=== PATIENT | female | born 1985 | race Caucasian/White ===

== ENCOUNTER 2022-08-01 16:08 | Outpatient (CLI) | payer BC, SELFPAY ==
--- NOTE | ~2022-08-01 | CT_ITS ---
EXAMINATION: CT abdomen pelvis w con DATE: 08/01/2022 16:40 INDICATION: Left lower quadrant abdominal pain for 2 days. Nausea and vomiting. Diarrhea. TECHNIQUE: Computed tomography (CT) of the abdomen and pelvis was performed without intravenous contr ast. Automated exposure control and iterative reconstruction technique were employed. Exam dose: 147 3.89 mGy-cm total exam DLP. COMPARISON: None. FINDINGS: The lung bases are clear. Normal heart size. No pericardial or pleural effusion. No hepatic, splenic, pancreatic, adrenal or renal space-occupying mass lesion is detected. The gallbladder is contracted. No pericholecystic fluid or fat stranding. No bile duct or pancreatic duct dilatation. No urinary tract calculus or hydroureteronephrosis. The urinary bladder is relatively evacuated and u nremarkable otherwise. Normal appendix. There is fatty infiltration throughout the colon wall which is most often due to chr onic process such as inflammatory bowel disease. This can occur as a normal variant particularly OB s jero patient's with insulin resistance. No pericolic soft tissue fat infiltration or abscess. No alexia l obstruction, pneumatosis or intraperitoneal free air. Normal caliber of the abdominal aorta. No intraperitoneal or retroperitoneal or pelvic mass lesion or adenopathy or ascites. Small fat-containing umbilical hernia. Included skeletal structures are unremarkable. IMPRESSION: Diffuse fatty infiltration of the colon wall, which may be due to chronic process such a s inflammatory bowel disease or normal variant, particularly renal disease patients with insulin resi stance Normal appendix No bowel obstruction or free air Reviewed, dictated and finalized at [facility]. Reviewed, dictated and finalized at [facility]. [facility] IMPRESSION: Diffuse fatty infiltration of the colon wall, which may be due to chronic process such as inflammatory bowel disease or normal variant, particula rly renal disease patients with insulin resistance Normal appendix No bowel obstruction or free air
== END 2022-08-01 16:09 | disposition home or self-care (01) ==
LOC: ANHIMG 16:09
PROVIDERS: PCP Family Medicine; Visit Provider Physician Assistant
DX: R10.32 Left lower quadrant pain (principal)
CPT/HCPCS: 74177; Q9967

== ENCOUNTER 2022-08-19 09:42 | Outpatient (CLI) | payer BC, SELFPAY ==
[2022-08-19 10:01] LABS: Hematocrit 41.8 % (37.0-47.0); Hemoglobin 14.2 g/dL (12.0-15.0); Mean Corpuscular Hemoglobin 28.9 pg (26-34); Mean Corpuscular Volume 85.1 fl (80-100); Mean Platelet Volume 9.1 fl (7.4-10.4); Platelet Count Result 315 k/mm3 (150-375); Red Blood Count 4.91 M/mm3 (4.2-5.4); Red Cell Distribution Width 12.3 % (11.5-14.5); White Blood Count 5.2 K/mm3 (4.5-10.0)
[2022-08-19 10:15] LABS: Alanine Aminotransferase 26 U/L (6-35); Albumin Level 4.2 g/dL (3.5-5.1); Alkaline Phosphatase 71 U/L (38-126); Anion Gap 5 mmol/L (8-16); Aspartate Amino Transferase 25 U/L (14-36); Bilirubin,Total 0.6 mg/dL (0.2-1.3); Blood Urea Nitrogen 10 mg/dL (7-17); CRP 0.8 mg/dL (<1.0); Carbon Dioxide 29 mmol/L (22-30); Chloride 103 mmol/L (98-107); Estimated Glomerular Filt Rate > 60; Glucose 96 mg/dL (65-110); Potassium 4.2 mmol/L (3.4-5.0); Sodium 137 mmol/L (137-145)
[2022-08-19 11:12] LABS: Erythrocyte Sedimentation Rate 23 mm/hr (0-20)
[2022-08-19 18:14] LABS: Toxigenic C. Diff POSITIVE (NEGATIVE)
[2022-08-22 20:56] LABS: Gliadin AB, IgG <1.0 U/mL (<15.0); TTG IGA AB <1.0 U/mL (<15.0)
[2022-08-26 18:27] LABS: Calprotectin, Stool 15 mcg/g
== END 2022-08-19 09:43 | disposition home or self-care (01) ==
LOC: ANHLAB 09:43
PROVIDERS: PCP Family Medicine; Visit Provider Nurse Practitioner Family
DX: R19.7 Diarrhea, unspecified (principal); R11.2 Nausea with vomiting, unspecified; R93.3 Abnormal findings on diagnostic imaging of other parts of digestive tract
CPT/HCPCS: 36415; 80053; 83516; 83993; 85027; 85652; 86140; 86255; 87045; 87177; 87209; 87427; 87493

== ENCOUNTER 2022-09-19 01:26 | Day surgery (SDC) | payer BC, SELFPAY ==
[2022-09-19 12:10] VITALS: BP 146/86; PULSE 98; RESP 18; TEMP 35.8; O2SAT 99; BMI 41.8
[2022-09-19] MEDS: LACTATED RINGERS 1,000 ML 150 ML IV CONT (12:26)
--- NOTE | 2022-09-19 12:29 | PM.HPGS ---
History of Present Illness History of Present Illness Consent: Risks, benefits, and alternatives have been discussed and questions answered. Patient agrees to proceed with procedure. Chief complaint: Nausea, Vomiting, diarrhea, hx colon polyps Narrative: Holly Flores is a 37 year old female with diarrhea over 3 years, had colonoscopy 2018 that showed polyp, also lately with nausea and vomiting, C diff stool + one month ago and treated with dificid but no major difference. CT scan revealed?Diffuse fatty infiltration of the colon wall. Never had egd. Review of Systems Constitutional: Constitutional: Denies headache(s) and Denies weakness Eyes: Eyes: Denies blurry vision ENT: Reports Normal hearing present, Denies headache(s) and Denies neck pain Cardiovascular: Cardiovascular: Denies chest pain and Denies dyspnea Respiratory: Respiratory: Denies dyspnea Gastrointestinal: Gastrointestinal: Reports no additional gastrointestinal complaints Genitourinary: Genitourinary: Denies dysuria Musculoskeletal: Musculoskeletal: Denies neck pain Integumentary/Breasts: Skin/Breast: Denies dry skin Neurologic: Reports Normal hearing present, Denies headache(s) and Denies weakness Psychiatric: Psychiatric: Denies anxiety Endocrine: Endocrine: Denies change in body appearance Hematologic/Lymphatic: Hematologic/Lymphatic: Denies easy bleeding Allergic/Immunologic: Allergic/Immunologic: Denies urticaria PMFSH Past Medical History Medical History (Updated 08/18/22 @ 09:45 by India Olson APN-Cindy) Allergies Asthma Depression Nausea and vomiting Surgical History Surgical History History of hysterectomy Family History Family History Father Diabetes mellitus Hypertension Mother Hypertension Depression Sibling Asthma Grandparent Cancer Depression Heart disease Grandparent Alcoholism Social History Social History (Updated 08/01/22 @ 10:34 by Brayan Chan MA) Smoking status: Never smoker Alcohol intake: current Drinks per week: 2 Alcohol use details: Wine Substance use: never Substance use type: other Other substance usage details: THC Lack of Transportation: No Lack of Food: Never True Current Housing: I Have Housing Concerned About Future Housing: No Difficulty Paying Gas/Electric Bills: No Difficulty Paying for Meds: No Currently Unemployed: No Education: Master's Degree or Higher Difficulty w/ Childcare or Family Care: No Living arrangements: with family Occupation/Education: occupation 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[employer] Gender identity (if verbalized by the patient): Female Spiritual care concerns: No Meds Home Medications and Allergies Home Medications Medication Instructions Recorded Confirmed Type albuterol sulfate 90 mcg/actuation 1 puff inhalation Q4H PRN 08/19/21 09/19/22 History aerosol inhaler Shortness Of Breath aripiprazole 20 mg tablet (Abilify) 20 mg PO DAILY 08/19/21 09/19/22 History bupropion HCl 300 mg 24 hr tablet, 300 mg PO DAILY 08/19/21 09/19/22 History extended release cetirizine 10 mg tablet (Zyrtec) 10 mg PO DAILY 08/19/21 09/19/22 History fluoxetine 40 mg capsule (Prozac) 40 mg PO DAILY 08/19/21 09/19/22 History Allergies Allergy/AdvReac Type Severity Reaction Status Date / Time No Known Allergies Allergy Verified 09/19/22 12:13 Vital Signs Vital Signs - 24 hr 09/19/22 12:10 Temperature 96.5 F L Pulse Rate 98 Respiratory Rate 18 Blood Pressure 146/86 H Pulse Oximetry 99 Oxygen Delivery Room Air Exam Const: General: comfortable and no acute distress HENMT: Face/Nose/Sinus: Normal nares present Eyes: General: appearance normal, both eyes and all related structures Neck: Neck: no JVD Resp: Auscultation: clear to auscultation bilat
--- NOTE | 2022-09-19 12:31 | WPDANESEPPF ---
Anes - Initial Pre Proc Eval Procedure: Operation Date: 09/19/22 13:30 Proposed Procedures p Esophagogastroduodenoscopy & Colonoscopy - Marky López MD Date/Time: 09/19/22 12:32 Surgeon: Marky Lópze MD Pre Op Diagnosis: Nausea, Vomiting, diarrhea, hx colon polyps Patient Data Age: 37 Gender: F Height: 1.73 m Weight: 124.7 kg Last Vital Signs Temp 96.5 F L 09/19/22 12:10 Pulse 98 09/19/22 12:10 Resp 18 09/19/22 12:10 BP 146/86 H 09/19/22 12:10 Pulse Ox 99 09/19/22 12:10 O2 Del Method Room Air 09/19/22 12:10 Allergies Allergy/AdvReac Type Severity Reaction Status Date / Time No Known Allergies Allergy Verified 09/19/22 12:13 Home Medications Medication Instructions Recorded Confirmed Type albuterol sulfate 90 mcg/actuation 1 puff inhalation Q4H PRN 08/19/21 09/19/22 History aerosol inhaler Shortness Of Breath aripiprazole 20 mg tablet (Abilify) 20 mg PO DAILY 08/19/21 09/19/22 History bupropion HCl 300 mg 24 hr tablet, 300 mg PO DAILY 08/19/21 09/19/22 History extended release cetirizine 10 mg tablet (Zyrtec) 10 mg PO DAILY 08/19/21 09/19/22 History fluoxetine 40 mg capsule (Prozac) 40 mg PO DAILY 08/19/21 09/19/22 History Patient hx anesthesia problems: none Family hx anesthesia problems: none Results Review: All pre-operative results and documents have been reviewed as part of the pre-operative evaluation. [facility] Past Medical History Medical History (Updated 08/18/22 @ 09:45 by JAELYN Ellis) Allergies Asthma Depression Nausea and vomiting Surgical History Surgical History History of hysterectomy Family History Family History Father Diabetes mellitus Hypertension Mother Hypertension Depression Sibling Asthma Grandparent Cancer Depression Heart disease Grandparent Alcoholism Social History Social History (Updated 08/01/22 @ 10:34 by Brayan Chan MA) Smoking status: Never smoker Alcohol intake: current Drinks per week: 2 Alcohol use details: Wine Substance use: never Substance use type: other Other substance usage details: THC Lack of Transportation: No Lack of Food: Never True Current Housing: I Have Housing Concerned About Future Housing: No Difficulty Paying Gas/Electric Bills: No Difficulty Paying for Meds: No Currently Unemployed: No Education: Master's Degree or Higher Difficulty w/ Childcare or Family Care: No Living arrangements: with family Occupation/Education: occupation 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 Informed Consent: The patient's anesthetic plan and its attendant risks and benefits were discussed with the patient/family/POA. Questions were solicited and answers provided to the satisfaction of the patient/family/POA.
--- NOTE | 2022-09-19 12:58 | SUR.OPER ---
EGD START: 1239; END: 1243. COLONOSCOPY START: 1247; END: 1257.
[2022-09-19 13:03] VITALS: BP 118/71; PULSE 78; RESP 20; O2SAT 96
[2022-09-19 13:13] VITALS: BP 136/88; PULSE 83; RESP 20; O2SAT 100
[2022-09-19 13:23] VITALS: BP 136/84; PULSE 86; RESP 20; O2SAT 100
== END 2022-09-19 13:31 | disposition home or self-care (01) ==
PROVIDERS: PCP Family Medicine; Visit Provider Internal Medicine Gastroenterology
PROC: 0DJ08ZZ Inspection of Upper Intestinal Tract, Via Natural or Artificial Opening Endoscopic (ICD-10-PCS; CPT 43235; principal; 2022-09-19 13:30)
DX: R19.7 Diarrhea, unspecified (principal); K21.00 Gastro-esophageal reflux disease with esophagitis, without bleeding; K44.9 Diaphragmatic hernia without obstruction or gangrene; Z86.010 Personal history of colon polyps; J45.909 Unspecified asthma, uncomplicated; F32.A Depression, unspecified; Z79.51 Long term (current) use of inhaled steroids; E66.01 Morbid (severe) obesity due to excess calories; Z68.41 Body mass index [BMI] 40.0-44.9, adult
CPT/HCPCS: 45380; 43239; 88305; J2704; J7120

== ENCOUNTER 2023-03-03 17:27 | Emergency (ER) | payer BC, SELFPAY ==
[2023-03-03 17:32] VITALS: BP 155/114; PULSE 108; RESP 16; TEMP 37.1; O2SAT 98
[2023-03-03 18:13] LABS: Basophils Absolute Auto 0.1 K/mm3 (0.0-0.1); Basophils Percent Auto 0.7 % (0.2-1.2); Eosinophils Absolute Auto 0.1 K/mm3 (0-0.3); Eosinophils Percent Auto 0.6 % (0-4.4); Hematocrit 41.6 % (37.0-47.0); Hemoglobin 14.2 g/dL (12.0-15.0); Immature Granulocyte Absolute 0.02 K/mm3 (0.00-0.031); Immature Granulocyte Percent A 0.2 % (0-0.5); Lymphocytes Absolute Auto 1.23 K/mm3 (0.9-3.2); Lymphocytes Percent Auto 13.9 % (18.3-44.2); Mean Corpuscular HGB Conc 34.1 g/dl (32-36); Mean Corpuscular Volume 84.9 fl (80-100); Mean Platelet Volume 9.2 fl (7.4-10.4); Monocytes Absolute Auto 0.5 K/mm3 (0.1-0.6); Monocytes Percent Auto 5.3 % (2.6-8.5); Neutrophils Percent Auto 79.3 % (45.5-73.1); Platelet Count Result 279 k/mm3 (150-375); Red Cell Distribution Width 12.4 % (11.5-14.5); White Blood Count 8.8 K/mm3 (4.5-10.0)
[2023-03-03 18:34] LABS: Alanine Aminotransferase 24 U/L (6-35); Albumin Level 4.3 g/dL (3.5-5.1); Alkaline Phosphatase 79 U/L (38-126); Anion Gap 6 mmol/L (8-16); Aspartate Amino Transferase 21 U/L (14-36); Bilirubin,Total 0.7 mg/dL (0.2-1.3); Blood Urea Nitrogen 7 mg/dL (7-17); Calcium 9.7 mg/dL (8.4-10.2); Carbon Dioxide 24 mmol/L (22-30); Chloride 104 mmol/L (98-107); Estimated CRCL calculation 94 ml/min; Estimated Glomerular Filt Rate > 60; Glucose 97 mg/dL (65-110); Potassium 3.5 mmol/L (3.4-5.0); Sodium 134 mmol/L (137-145)
[2023-03-03 18:35] LABS: Appearance Urine Cloudy (Clear); Bacteria Urine 3+ /hpf; Bilirubin Urine Negative (Negative); Blood Urine Trace (Negative); Color Urine Yellow (Yellow); Glucose Urine UA Negative (Negative); Ketones Urine Negative (Negative); Leukocyte Esterase Ur Negative LEU/UL (Negative); Nitrate Urine Negative (Negative); Protein Urine Negative (Negative); Specific Grav Ur 1.018 (1.001-1.035); Squamous Epithelial Cell Urine Few /hpf (Few); Urobilinogen Urine 0.2 mg/dL (<2.0); WBC Urine 0-5 /hpf; pH Urine 5.5 (5.0-9.0)
[2023-03-03 18:36] LABS: Amphetamine Screen Urine Negative (Negative); Barbiturate Screen Urine Negative (Negative); Benzodiazepines Screen Urine Negative (Negative); Cannabinoid Screen Urine Positive (Negative); Cocaine Screen Urine Negative (Negative); Methadone Screen Urine Negative (Negative); Opiate Screen Urine Negative (Negative); Phencyclidine Screen Urine Negative (Negative)
[2023-03-03 18:37] LABS: Ethanol < 10 mg/dL (<10)
[2023-03-03 18:42] LABS: Add Urine Microscopic? YES
--- NOTE | 2023-03-03 18:58 | ED.PSYCH ---
HPI - Psych General Chief Complaint: Psychiatric Symptoms <Elzbieta Oseguera MD - Last Filed: 03/03/23 22:31> Stated Complaint: SI <Elzbieta Oseguera MD - Last Filed: 03/03/23 22:31> Time Seen by Provider: 03/03/23 17:37 <Elzbieta Oseguera MD - Last Filed: 03/03/23 22:31> History of Present Illness HPI Narrative: Patient is a 37-year-old female with a history of depression presenting with suicidal ideation. Patient states that she has been compliant with her antidepressants but unfortunately her depression has been worsening over the last month. States that for the last several days she has been contemplating ending her life. States that she does have a plan. States that she was last hospitalized for psychiatric reasons in 2011 after a suicide attempt. She went to see her psychiatrist today who advised that she come to the ER for hospitalization. Patient denies HI, hallucinations, paranoia. She denies physical pain. <Elzbieta Oseguera MD - Last Filed: 03/03/23 22:31> Related Data Home Medications: Home Medications Medication Instructions Recorded Confirmed albuterol sulfate 90 mcg/actuation 1 puff inhalation Q4H PRN 08/19/21 09/19/22 aerosol inhaler Shortness Of Breath aripiprazole 20 mg tablet (Abilify) 20 mg PO DAILY 08/19/21 09/19/22 bupropion HCl 300 mg 24 hr tablet, 300 mg PO DAILY 08/19/21 09/19/22 extended release cetirizine 10 mg tablet (Zyrtec) 10 mg PO DAILY 08/19/21 09/19/22 fluoxetine 40 mg capsule (Prozac) 40 mg PO DAILY 08/19/21 09/19/22 lamotrigine 25 mg tablet 25 mg PO BID 12/25/22 <Elzbieta Oseguera MD - Last Filed: 03/03/23 22:31> Allergies/Adverse Reactions: Allergies Allergy/AdvReac Type Severity Reaction Status Date / Time No Known Allergies Allergy Verified 03/03/23 17:35 <Elzbieta Oseguera MD - Last Filed: 03/03/23 22:31> Review of Systems Review of Systems: All systems reviewed & are unremarkable except as noted in HPI and below <Elzbieta Oseguera MD - Last Filed: 03/03/23 22:31> [facility] Past Medical History Medical History: Medical History Allergies Asthma Depression Erosive esophagitis Irritable bowel syndrome with diarrhea Nausea and vomiting <Elzbieta Oseguera MD - Last Filed: 03/03/23 22:31> Surgical History Surgical History: Surgical History History of hysterectomy <Elzbieta Oseguera MD - Last Filed: 03/03/23 22:31> Family History Family History: Family History Father Diabetes mellitus Hypertension Mother Hypertension Depression Sibling Asthma Grandparent Cancer Depression Heart disease Grandparent Alcoholism <Elzbieta Oseguera MD - Last Filed: 03/03/23 22:31> Social History Social History: Social History Smoking status: Never smoker Alcohol intake: current Drinks per week: 2 Alcohol use details: Wine Substance use: never Substance use type: marijuana Other substance usage details: THC Lack of Transportation: No Lack of Food: Never True Current Housing: I Have Housing Concerned About Future Housing: No Difficulty Paying Gas/Electric Bills: No Difficulty Paying for Meds: No Currently Unemployed: No Education: Master's Degree or Higher Difficulty w/ Childcare or Family Care: No Living arrangements: with family Occupation/Education: occupation 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 EYES: PERRLA and EOMI. ENT: Nares clear, no rhino
[2023-03-03 19:09] LABS: SARS-CoV-2 RNA PCR Negative (Negative)
[2023-03-03 22:18] LABS: T4 Thyroxine 8.85 ug/dL (5.53-11.0)
--- NOTE | 2023-03-03 22:36 | PC.NURSE ---
Crisis called-spoke with Sandra. States she will have a director of social work head this way.
--- NOTE | 2023-03-04 00:59 | PC.NURSE ---
Spoke with Summer from [facility] who states she needs a Tylenol level, test, and specification in EDP note of medical clearance. Consent forms faxed from their facility for patient to sign. Summer states she has already talked to the physician who is accepting.
[2023-03-04 01:34] LABS: Acetaminophen < 10 ug/mL (10-30); Salicylate < 1.0 mg/dL (2-20)
[2023-03-04 01:37] VITALS: BP 144/98; PULSE 90; RESP 15; O2SAT 98
[2023-03-04 01:49] LABS: Beta HCG Quantitative < 2.39 mIU/ML
--- NOTE | 2023-03-04 02:39 | PC.NURSE ---
Patient accepted at [facility] in [place], [place].
--- NOTE | 2023-03-04 05:11 | PC.NURSE ---
Updated [facility] that patient is going to closer facility. Patient is accepted at [facility]. Accepting MD; Dr. Chaney.
== END 2023-03-04 05:46 ==
PROVIDERS: Emergency Medicine; Emergency Provider Emergency Medicine; PCP Family Medicine
DX: R45.851 Suicidal ideations (principal); F32.A Depression, unspecified; Z20.822 Contact with and (suspected) exposure to COVID-19; J45.909 Unspecified asthma, uncomplicated; K22.10 Ulcer of esophagus without bleeding; K58.0 Irritable bowel syndrome with diarrhea; Z90.710 Acquired absence of both cervix and uterus
CPT/HCPCS: 36415; 80053; 80307; 81001; 84436; 84443; 84702; 85025; 87635; 99285

== ENCOUNTER 2023-04-23 10:37 | Outpatient (CLI) | payer BC, SELFPAY ==
[2023-04-23 13:21] LABS: HIV 1/2 Ab P24 Ag Result Negative (Negative)
[2023-04-23 13:31] LABS: Hepatitis B Surface Antigen Negative (Negative)
[2023-04-23 13:36] LABS: HAV RESULT Negative (Negative); Hepatitis B Core IgM Result Negative (Negative)
[2023-04-23 13:48] LABS: Hepatitis C Virus Antibody Negative (Negative)
[2023-04-23 16:03] LABS: Rapid Plasma Reagin Non-Reactive (NonReactive)
[2023-04-27 09:27] LABS: FSH <0.7 mIU/mL (***)
[2023-05-01 19:44] LABS: Estradiol, Ultrasensitive 322 pg/mL
== END 2023-04-23 10:38 | disposition home or self-care (01) ==
LOC: ANHLAB 10:39
PROVIDERS: PCP Family Medicine; Visit Provider Student in an Organized Health Care Education/Training Program
DX: Z20.2 Contact with and (suspected) exposure to infections with a predominantly sexual mode of transmission (principal); R61 Generalized hyperhidrosis
CPT/HCPCS: 36415; 80074; 82670; 83001; 84443; 86592; 86695; 86696; 86703; G0432

== ENCOUNTER 2023-08-15 18:18 | Emergency (ER) | payer BC, SELFPAY ==
[2023-08-15] VITALS (10 sets, daily range): BP systolic 136–161; BP diastolic 86–105; PULSE 90–110; RESP 14–29; TEMP 36.7; O2SAT 96–100
--- NOTE | ~2023-08-15 | CT_ITS ---
EXAMINATION: CTA chest PE protocol DATE: 08/16/2023 08:00 SLEEP TECH INDICATION: Chest pain and tachycardia TECHNIQUE: Computed tomographic angiography (CTA) of the chest was performed with 100 mL Omnipaque-35 0 intravenous contrast. The dose-length product was 629.15 mGy-cm. Maximum intensity projection 3D-re constructions of the aorta and other arteries were constructed by the technologist on a separate work station. COMPARISON: Chest x-ray dated 08/15/2023. FINDINGS: Study technically adequate without evidence for pulmonary embolism. No thoracic lymphadenop athy. No significant abnormality of the aorta. No pleural or pericardial effusion. Upper abdomen is u nremarkable. There is dependent atelectasis. No pneumothorax. No focal airspace consolidation. IMPRESSION: 1. No acute cardiopulmonary disease. No evidence for pulmonary embolism. Reviewed, dictated and finalized at location [facility]. P TECH
--- NOTE | ~2023-08-15 | XR_ITS ---
EXAMINATION: XR chest 2V Exam Date/Time: 08/15/2023 18:50 TOOL ROOM SUPERVISOR HISTORY: chest pain, racing heart, anxiety Comparison: None. RESULT: Lines, tubes, and devices: None. Lungs and pleura: Clear. Cardiomediastinal silhouette: Normal. Other: No acute osseous or upper abdominal finding. IMPRESSION: No acute cardiopulmonary process. Reviewed, dictated and finalized at location [facility]. ROOM SUPERVISOR
--- NOTE | 2023-08-15 18:19 | ECG_ITS ---
Measurements Intervals [place] Rate: 117 P: -12 [place]: 108 QRS: 15 QRSD: 81 T: 15 QT: 354 QTc: 495 Interpretive Statements SINUS TACHYCARDIA WITH SHORT MA INTERVAL NONSPECIFIC ST & T-WAVE ABNORMALITY- DIFFUSE LEADS BASELINE ARTIFACT- I, III, AVR, AVL, AVF ABNORMAL ECG NO PREVIOUS ECG AVAILABLE FOR COMPARISON Electronically Signed On 08-15-2023 19:31:13 RUG DYER HELPER by Remi Samuels D.O.
[2023-08-15 18:47] LABS: Basophils Absolute Auto 0.1 K/mm3 (0.0-0.1); Basophils Percent Auto 0.5 % (0.2-1.2); Eosinophils Absolute Auto 0.1 K/mm3 (0-0.3); Eosinophils Percent Auto 0.6 % (0-4.4); Hematocrit 41.9 % (37.0-47.0); Hemoglobin 14.1 g/dL (12.0-15.0); Immature Granulocyte Absolute 0.02 K/mm3 (0.00-0.031); Immature Granulocyte Percent A 0.2 % (0-0.5); Lymphocytes Absolute Auto 2.64 K/mm3 (0.9-3.2); Lymphocytes Percent Auto 27.8 % (18.3-44.2); Mean Corpuscular HGB Conc 33.7 g/dl (32-36); Mean Corpuscular Volume 83.3 fl (80-100); Mean Platelet Volume 9.2 fl (7.4-10.4); Monocytes Absolute Auto 0.4 K/mm3 (0.1-0.6); Monocytes Percent Auto 4.6 % (2.6-8.5); Neutrophils Absolute Auto 6.3 K/mm3 (1.3-6.7); Neutrophils Percent Auto 66.3 % (45.5-73.1); Platelet Count Result 315 k/mm3 (150-375); Red Blood Count 5.03 M/mm3 (4.2-5.4); Red Cell Distribution Width 12.4 % (11.5-14.5); White Blood Count 9.5 K/mm3 (4.5-10.0)
[2023-08-15 19:03] LABS: Alanine Aminotransferase 24 U/L (6-35); Albumin Level 4.2 g/dL (3.5-5.1); Alkaline Phosphatase 83 U/L (38-126); Anion Gap 11 mmol/L (8-16); Aspartate Amino Transferase 20 U/L (14-36); Bilirubin,Total 0.4 mg/dL (0.2-1.3); Blood Urea Nitrogen 13 mg/dL (7-17); Calcium 9.5 mg/dL (8.4-10.2); Carbon Dioxide 17 mmol/L (22-30); Chloride 110 mmol/L (98-107); Estimated CRCL calculation 103 ml/min; Estimated Glomerular Filt Rate > 60; Glucose 116 mg/dL (65-110); Lipase 99 U/L (23-300); Potassium 3.6 mmol/L (3.4-5.0); Sodium 138 mmol/L (137-145)
[2023-08-15 19:14] LABS: Troponin I < 0.012 ng/mL (0.000-0.034)
[2023-08-15 19:57] LABS: Prothrombin Time 13.1 Seconds (11.1-14.7)
[2023-08-15 19:58] LABS: Partial Thromboplastin Time 25.2 SECONDS (22.3-36.8)
--- NOTE | 2023-08-15 22:05 | ECG_ITS ---
Measurements Intervals [place] Rate: 88 P: 21 [place]: 145 QRS: 33 QRSD: 89 T: 36 QT: 374 QTc: 454 Interpretive Statements SINUS RHYTHM NORMAL ECG COMPARED TO ECG 08/15/2023 18:33:13 SINUS RHYTHM NOW PRESENT Electronically Signed On 08-16-2023 8:08:28 SCENIC ARTIST by Remi Samuels D.O.
[2023-08-15] MEDS: ASPIRIN 81 MG CHEWABLE TABLET 324 MG PO (22:09)
[2023-08-15 22:43] LABS: Troponin I < 0.012 ng/mL (0.000-0.034)
--- NOTE | 2023-08-15 22:59 | PC.NURSE ---
Patient taken to CT at this time.
--- NOTE | 2023-08-16 00:49 | ED.GENADULT ---
HPI - General Adult General Chief complaint: Chest Pain Stated complaint: high bp and chest pain Time Seen by Provider: 08/15/23 21:44 History of Present Illness HPI narrative: patient is a 38-year-old female who presents emergency department with chief complaint of chest pain and high blood pressure. Patient reports that she is on medications by her primary psychiatrist and reported that her up blood pressures been running on the high side the last few days the patient has been keeping track of this and noticed that it has currently been running high the patient states she had some sharp type pain in the left side of her chest earlier today and was concerned do this. The patient states that she has no prior history of thromboembolic disease reports that she has no prior cardiac disease and has no family history for early cardiac disease. Patient reports that her heart has been beating fast with this and reports that she felt a little short of breath. Related Data Home Medications Medication Instructions Recorded Confirmed albuterol sulfate 90 mcg/actuation 1 puff inhalation Q4H PRN 08/19/21 09/19/22 aerosol inhaler Shortness Of Breath aripiprazole 20 mg tablet (Abilify) 20 mg PO DAILY 08/19/21 09/19/22 bupropion HCl 300 mg 24 hr tablet, 300 mg PO DAILY 08/19/21 09/19/22 extended release cetirizine 10 mg tablet (Zyrtec) 10 mg PO DAILY 08/19/21 09/19/22 fluoxetine 40 mg capsule (Prozac) 40 mg PO DAILY 08/19/21 09/19/22 lamotrigine 25 mg tablet 25 mg PO BID 12/25/22 esketamine 84 mg (28 mg x 3) nasal spray intranasal 04/23/23 spray (Sprav[place]) hydroxyzine HCl 50 mg tablet 50 mg PO 04/23/23 Allergies Allergy/AdvReac Type Severity Reaction Status Date / Time No Known Allergies Allergy Verified 04/23/23 09:22 Review of Systems Review of Systems: A 10 system review of systems was completed on the patient and is negative except for what is stated in the HPI. Nursing and ancillary documentation was reviewed. [facility] Past Medical History Medical History Allergies Asthma Depression Erosive esophagitis Exposure to sexually transmitted disease (STD) Irritable bowel syndrome with diarrhea Nausea and vomiting Normal colonoscopy Surgical History Surgical History History of hysterectomy Family History Family History Father Diabetes mellitus Hypertension Mother Hypertension Depression Sibling Asthma Grandparent Cancer Depression Heart disease Grandparent Alcoholism Social History Social History Smoking status: Never smoker Alcohol intake: current Drinks per week: 2 Alcohol use details: Wine Substance use: current Substance use type: marijuana Other substance usage details: THC Lack of Transportation: No Lack of Food: Never True Current Housing: I Have Housing Concerned About Future Housing: No Difficulty Paying Gas/Electric Bills: No Difficulty Paying for Meds: No Currently Unemployed: No Education: Master's Degree or Higher Difficulty w/ Childcare or Family Care: No Living arrangements: with family Occupation/Education: occupation 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 HEAD: Normocephalic, atraumatic. EYES: PERRLA and EOMI. ENT: Nares clear, no rhinorrhea or epistaxis. Mucous membranes moist. NECK: Supple. CHEST: Clear to auscultation. No respiratory distress. HEART: Regular rate and rhythm. No murmur heard. Normal peripheral pulses. ABDOMEN: Soft, nontender, nondistended, normal active bowel sounds.
[2023-08-16 01:00] LABS: Troponin I < 0.012 ng/mL (0.000-0.034)
[2023-08-16 01:15] VITALS: BP 135/86; PULSE 94; RESP 17; O2SAT 100
== END 2023-08-16 01:17 | disposition home or self-care (01) ==
PROVIDERS: Emergency Medicine; Emergency Provider Emergency Medicine; PCP Family Medicine
DX: R07.9 Chest pain, unspecified (principal); J45.909 Unspecified asthma, uncomplicated; K58.0 Irritable bowel syndrome with diarrhea; F32.A Depression, unspecified; Z90.710 Acquired absence of both cervix and uterus; R00.0 Tachycardia, unspecified; R94.31 Abnormal electrocardiogram [ECG] [EKG]
CPT/HCPCS: 36415; 71046; 71275; 80053; 83690; 84484; 85025; 85610; 85730; 93005; 99284; A9270; Q9967

== ENCOUNTER 2023-09-01 09:32 | Outpatient (CLI) | payer BC, SELFPAY ==
[2023-09-01 20:48] LABS: Free T4 Free Thyroxine 1.14 ng/mL (0.78-2.19); Vitamin D 25 Hydroxy 16.3 ng/mL
[2023-09-01 21:56] LABS: Hemoglobin A1C 4.8 % (<5.7)
[2023-09-04 14:03] LABS: Thyroid Stimulating Immunoglob <89 % baseline (<140)
[2023-09-06 05:13] LABS: Thyroid Peroxidase Antibodies <1 IU/mL (<9)
[2023-09-07 18:37] LABS: Thyrotropin Receptor Antibody <1.00 IU/L (<=2.00)
== END 2023-09-01 09:33 | disposition home or self-care (01) ==
LOC: ANHWCLAB 09:33
PROVIDERS: PCP Family Medicine; Visit Provider Internal Medicine
DX: E03.8 Other specified hypothyroidism (principal)
CPT/HCPCS: 36415; 82306; 82607; 83036; 83519; 84439; 84443; 84445; 86376

== ENCOUNTER 2024-07-04 07:49 | Outpatient (CLI) | payer BC, SELFPAY ==
[2024-07-04 08:40] LABS: Basophils Percent Auto 0.7 % (0.2-1.2); Eosinophils Absolute Auto 0.1 K/mm3 (0-0.3); Eosinophils Percent Auto 1.2 % (0-4.4); Hematocrit 38.5 % (37.0-47.0); Hemoglobin 13.1 g/dL (12.0-15.0); Immature Granulocyte Absolute 0.02 K/mm3 (0.00-0.031); Immature Granulocyte Percent A 0.4 % (0-0.5); Lymphocytes Absolute Auto 1.22 K/mm3 (0.9-3.2); Lymphocytes Percent Auto 21.4 % (18.3-44.2); Mean Corpuscular Hemoglobin 28.7 pg (26-34); Mean Corpuscular Volume 84.4 fl (80-100); Mean Platelet Volume 9.4 fl (7.4-10.4); Monocytes Absolute Auto 0.3 K/mm3 (0.1-0.6); Monocytes Percent Auto 4.7 % (2.6-8.5); Neutrophils Absolute Auto 4.1 K/mm3 (1.3-6.7); Neutrophils Percent Auto 71.6 % (45.5-73.1); Platelet Count Result 280 k/mm3 (150-375); Red Blood Count 4.56 M/mm3 (4.2-5.4); Red Cell Distribution Width 12.9 % (11.5-14.5); White Blood Count 5.7 K/mm3 (4.5-10.0)
[2024-07-04 09:08] LABS: Alanine Aminotransferase 17 U/L (6-35); Albumin Level 3.8 g/dL (3.5-5.1); Alkaline Phosphatase 73 U/L (38-126); Anion Gap 7 mmol/L (4-12); Aspartate Amino Transferase 19 U/L (14-36); Bilirubin Indirect 0.2 mg/dL (0-1.1); Bilirubin,Total 0.4 mg/dL (0.2-1.3); Blood Urea Nitrogen 9 mg/dL (7-17); Carbon Dioxide 24 mmol/L (22-30); Chloride 107 mmol/L (98-107); Cholesterol 169 mg/dL (0-200); Estimated Glomerular Filt Rate > 60; Glucose 102 mg/dL (65-110); HDL Direct 42 mg/dL; Potassium 3.7 mmol/L (3.4-5.0); Sodium 138 mmol/L (137-145); Triglycerides 162 mg/dL (<150)
[2024-07-04 09:19] LABS: LDL Cholesterol Direct 95 mg/dL
[2024-07-04 11:34] LABS: Vitamin D 25 Hydroxy 28.4 ng/mL
[2024-07-04 12:37] LABS: Hemoglobin A1C 4.7 % (<5.7)
--- OUTSIDE RECORDS SUMMARY | 2024-07-10 00:20 | XMS_ITS ---
Author Organization [facility] [employer] Address [address] [facility] [address] [place] [address] Care Team Providers Care Radiology Nurse Name Role Phone Myles Pruett DO Primary Care Provider Unavailab Naomi Connell Unavailable [phone] Gary Huerta Unavailable [phone] Allergies No Known Allergies REASON FOR VISIT reports moderate levels of depression and anxiety, along with poor sleep quality and nightmares. Medications Medication SIG (Take, Route, Frequency, Duration) Notes Start Date End Date Status Wegovy Active Prazosin HCl 1 MG 1 capsule at bedtime Oral Once a day As needed do not take if blood pressure is below 110/70 05/27/2024 Active amLODIPine Besylate 5 MG TAKE 1 TABLET B Y MOUTH DAILY Oral for 90 Days Active Omeprazole 20 MG Oral for 90 Days Active Prazosin HCl 1 MG 1 capsule at bedtime Orally Once a day for 90 days As needed do not take if blood pressure is below 110/70 05/27/2024 08/25/2024 Active Spravato (84 MG Dose) 28 MG/DEVICE 3 sprays in each nostril Nasal every other week 05/06/2024 Active lamoTRIgine 150 MG 1 tablet Oral once a day for 90 days 11/27/2023 Active FLUoxetine HCl 40 MG 1 capsule Oral Once a day for 90 days Active ARIPiprazole 15 MG 1 tablet Oral at bed time for 90 days 11/27/2023 Active Ramelteon 8 MG 1 tablet at bedtime as needed Orally Once a day for 30 days 05/06/2024 08/03/2024 Active buPROPion HCl ER (XL) 300 MG 1 tablet every morning Oral Once a day for 90 days 11/27/2023 Active Social History Tobacco Use: Social History Observation Description Date Details (start date - stop date) Never Smoker NA - NA Sex Assigned At : Social History Observation Description Sex Assigned At Female Tobacco Control (Standard) Question Answer Notes Tobacco use: Nonsmoker Vital Signs Blood pressure systolic 113 mm Hg 05/27/20 24 Blood pressure diastolic 80 mm Hg 024 Heart Rate 84 /min 05/27/2024 Height 68.00 in 05/27/2024 Height-cm 172.72 cm 05/27/2024 Encounters Encounter Location Date Provider Diagnosis [facility] [employer] [address] [place] [address] 05/27/2024 Gary Huerta Major depressive disorder, recurrent severe without psychotic features F33.2 and Nightmares F51.5 Assessments Encounter Date Diagnosis (ICD Code) Assessment Notes Treatment Notes Treatment Clinical Notes Section Notes 05/27/2024 Major depressive disorder, recurrent severe without psychotic features (ICD-10 - F33.2) continue current treatment 1. Depression - She reports a depression severity of 5/10. - No recent medication changes. - Plan: a. Continue current antidepressant regimen. b. Monitor her mood and adjust medications as needed. c. Encourage her to engage in therapy and self-care activities. 2. Anxiety - She reports an anxiety severity of 5/10. - No recent medication changes. - Plan: a. Continue current anxiolytic regimen. b. Monitor her anxiety levels and adjust medications as needed. c. Encourage her to engage in therapy and self-care activities. 3. Suicidal Ideation and Self-Harm - She denies any thoughts of suicide or self-harm. - Plan: a. Continue to monitor for any changes in mood or suicidal ideation. b. Encourage her to reach out to support system and mental health professionals if thoughts of self-harm or suicide arise. 4. Psychosis - She denies any hallucinations, delusions, or paranoia. - Plan: a. Continue to monitor for any signs of psychosis. 5. Sleep Disturbance - She reports poor sleep quality and nightmares. - Plan: a. Refill prazosin prescription to help with nightmares and sleep quality. b. Encourage her to practice good sleep hygiene. c. Consider non-pharmacologica l interventions, such as relaxation techniques and cognitive-behavior al therapy for insomnia (CBT-I). 6. Appetite - She reports normal appetite. - Plan: a. Continue to monitor appetite and adjust medications as needed if changes occur. 7. Physical Health - She denies any physical complaints. - Plan: a. Encourage her to maintain regular check-ups with primary care provider. b. Advise her to report any new physical concerns. 8. Medications - No recent medication changes reported by patient. - Plan: a. Continue current medication regimen. b. Refill prazosin as discussed for sleep and nightmares. 05/27/2024 Nightmares (ICD-10 - F51.5) 1. Depression - She reports a depression severity of 5/10. - No recent medication changes. - Plan: a. Continue current antidepressant regimen. b. Monitor her mood and adjust medications as needed. c. Encourage her to engage in therapy and self-care activities. 2. Anxiety - She reports an anxiety severity of 5/10. - No recent medication changes. - Plan: a. Continue current anxiolytic regimen. b. Monitor her anxiety levels and adjust medications as needed. c. Encourage her to engage in therapy and self-care activities. 3. Suicidal Ideation and Self-Harm - She denies any thoughts of suicide or self-harm. - Plan: a. Continue to monitor for any changes in mood or suicidal ideation. b. Encourage her to reach out to support system and mental health professionals if thoughts of self-harm or suicide arise. 4. Psychosis - She denies any hallucinations, delusions, or paranoia. - Plan: a. Continue to monitor for any signs of psychosis. 5. Sleep Disturbance - She reports poor sleep quality and nightmares. - Plan: a. Refill prazosin prescription to help with nightmares and sleep quality. b. Encourage her to practice good sleep hygiene. c. Consider non-pharmacologica l interventions, such as relaxation techniques and cognitive-behavior al therapy for insomnia (CBT-I). 6. Appetite - She reports normal appetite. - Plan: a. Continue to monitor appetite and adjust medications as needed if changes occur. 7. Physical Health - She denies any physical complaints. - Plan: a. Encourage her to maintain regular check-ups with primary care provider. b. Advise her to report any new physical concerns. 8. Medications - No recent medication changes reported by patient. - Plan: a. Continue current medication regimen. b. Refill prazosin as discussed for sleep and nightmares. Plan Of Treatment Medication Medication Name Sig Start Date Stop Date Notes Prazosin HCl 1 MG 1 capsule at bedtime Orally Once a day for 90 days 05/27/2024 08/25/2024 Treatment Notes Assessment Notes Major depressive disorder, r ecurrent severe without psychotic features continue current treatment Next Appt Details Follow Up: 06/10/24 @ 1:00 P M, Reason: Esketamine administration Provider Name:Gary Huerta, 07/22/2024 01:00:00 PM, [employer] [address], [place], [address], Provider Name:Naomi Georges , 08/04/2024 03:45:00 PM, [employer] [address], [place], [address], Provider Name:Gary Huerta, 08/05/2024 01:00:00 PM, [employer] [address], [facility] [address], [place], [address], Provider Name:Gary Huerta, 08/19/2024 01:00:00 PM, [facility] [address], [facility] [address], [place], [address], Provider Name:Gary Huerta, 09/02/2024 01:00:00 PM, [facility] [address] [place] [address], [place], [address], Medications Administered Medication Instructions Date of Administration Dosage Notes Spravato (84 MG Dose) 05/27/2024 84 mg Progress Notes * IRINA PAINTINGDOB:1985 (38 yo F)Acc No.[id number]:05/27/2024 Patient:?IRINA PAINTING Provider:?DOM Hernández :1985???Age:38 Y???Sex:Female D ate:05/27/2024 Address:[address] [place], [place] [id number] Pcp:Myles Pruett DO Subjective: * Chief Complaints: * ???Reports moderate levels o f depression and anxiety, along with poor sleep quality and nightmares. * HPI: ???Esketamine Administration:? The note is transcribed using speech recognition software. It is a reflection of a visit with the patient. It might have some inaccuracy, including medication names and transcribing errors, though efforts have been made to correct them. Chief Complaint: The patient reports moderate levels of depression and anxiety, along with poor sleep quality and nightmares. HPI: She rates both her depression and anxiety as a 5 out of 10. She denies any thoughts of suicide or self-harm, as well as hallucinations, delusions, or paranoia. Ladan is experiencing poor sleep quality and reports having nightmares. Her appetite is within normal limits, and she has not had any recent changes in her medications. She has no physical complaints at this time. Medications: The patient requires a refill of prazosin. Sleep: Ladan reports poor sleep quality and experiences nightmares. Other Symptoms: She denies any thoughts of suicide or self-harm, hallucinations, delusions, or paranoia. Her appetite is within normal limits, and she has no physical complaints at this time. ?Esketamine administration?Time at the start of administration? 1:08 PM,?Time of discharge? 3:08 PM,?Patient must be monitored for at least 2 hours?Yes,?Was the patient clinically ready for discharge prior to the required 2- hour: No,?Silent Alarm used by patient?No,?staff Notes about today's Visit? Patient is being picked up by her dad. She said she last ate around 10:00 AM this morning..? Esketamine Nasal [place] Administration and Supervised monitoring Staff attending the patient Jade Bradford Supervising provider as in rendering provider : DOM Hernández Is patient taking any of the following concomitant medication that may cause sedation of blood pressure changes Benzodiazepine No Non-benzodiazepine sedative-hypnotics: No Psychostimulant: No Monoamine oxidase inhibitors [MAOIs]: No Dose of Spravato: 84 Mg Lot number [id number] Date: 11/16/2026. ???Depression Screening:?RACHNA-7 (2018 Edition)?Feeling nervous, anxious, or on edge?Several days,?Not being able to stop or control worrying?Several days,?Worrying too much about different things?More than hafl the days,?Trouble relaxing?More than half the days,?Being so restless that it is hard to sit still?Several days,?Becoming easily annoyed or irritable?Several days,?Feeling afraid as if something awful might happen?Several days.?Depression screening:?PHQ-9?Little interest or pleasure in doing things?Several days,?Feeling down, depressed, or hopeless?More than half the days,?Trouble falling or staying asleep, or sleeping too much?Nearly every day,?Feeling tired or having little energy?Nearly every day,?Poor appetite or overeating?Several days,?Feeling bad about yourself or that you are a failure, or have let yourself or your family down?More than half the days,?Trouble concentrating on things, such as reading the newspaper or watching television?More than half the days,?Moving or speaking so slowly that other people could have noticed; or the opposite, being so fidgety or restless that you have been moving around a lot more than usual?Several days,?Thoughts that you would be better off or of hurting yourself in some way?Not at all,?Total Score?15,?Interpretation?Moderately Severe Depression.?Intervention?Depression Screening Findings?Positve,?Follow-Up for Depression?Mental health treatment assessment, Patient follow-up to return when and if necessary, Suicide Risk Assessment Performed?05/27/2024 ,?Additional Evaluation for Depression?Psychiatric interview and evaluation,?Name of the standardized tool used for adult depression screening:?Patient Health Questionnaire (PHQ-9).?General Follow Up:? 1 Review patient medical records, any recent test results, last visit summary, etc?Yes1 Time spent?32 Greet patient and escort to the treatment room?No3 Initial Obtained vital signs?No4 Prepare equipment and supplies?Yes4 Time spent?15 Reviewed and documented history and medication?Yes5 Time spent?26 Evaluate patient's clinical status [relevant history/physical assessment] and determine readiness/appropriateness of treatment?Yes6 Time spent?37 Confirm orders and review plans with staff?Yes7 Time spent?18 Ensure appropriate positioning for administration, observe patient administration, ensure patient comfort and safety?Yes8 Time spent?19 Obtained vital signs: Assess treatment tolerance?No10 Assess the patient response to treatment: Visually and verbally evaluate the patient; review treatment progress with staff [vital signs, patient tolerance, side effects, etc.]?Yes10 Time spent?1511 obtained vital signs: assess treatment tolerance?No12 At the completion of observation., Reviewed treatment course and assess the patient for clinical stability/discharge readiness?Yes12 Time spent?213 Write a prescription or Reviewed RX for next session and submit to pharmacy?No14 Provide patient education/instruction/?Yes14 Time spent?215 Coordinate home-going [that is, discharged to escorted transportation]?No16 Complete medical record documentation?Yes16 Time spent?1017 cleaning of room/equipment by clinical staff?No18 complete medical record documentation; complete and submit rems patient monitoring form?Tricia attest to the total time spent Before, During and after ecounter was (in Minutes)?40. * ROS:?General / Constitutional:?Patient complains of?nightmares.?Fatigue?denies.?Dizziness?Denies.?Sedation?Denies.?spinning sensation?Deneis.?Gastrointestinal:?Nausea?denies.?Vomiting?denies.?Psychiatric:?Anxiety?admits.?Auditory / visual hallucinations?denies.?Delusions?denies.?Suicidal thoughts?denies.?Dissociations?Denies.?Excited?Denies.? * Medical History:? * Surgical History:? * Hospitalization/Major Diagno stic Procedure:? * Social History:?Tobacco Use:?Tobacco Control (Standard)?Tobacco use:?Nonsmoker.? * Medications:?TakingPrazosin HCl 1 MG Capsule 1 capsule at bedtime Oral Once a day As needed do not take if blood pressure is below 110/70Wegovy Omeprazole 20 MG Capsule Delayed Release Oral amLODIPine Besylate 5 MG Tablet TAKE 1 TABLET BY MOUTH DAILY Oral buPROPion HCl ER (XL) 300 MG Tablet Extended Release 24 Hour 1 tablet every morning Oral Once a day , Notes: appointment neededlamoTRIgine 150 MG Tablet 1 tablet Oral once a day ARIPiprazole 15 MG Tablet 1 tablet Oral at bedtime FLUoxetine HCl 40 MG Capsule 1 capsule Oral Once a day Ramelteon 8 MG Tablet 1 tablet at bedtime as needed Orally Once a day , stop date 08/03/2024Spravato (84 MG Dose) 28 MG/DEVICE Solution Therapy Pack 3 sprays in each nostril Nasal every other week Medication List reviewed and reconciled with the patientTaking Prazosin HCl 1 MG Capsule 1 capsule at bedtime Oral Once a day As needed do not take if blood pressure is below 110/70Taking Wegovy Taking Omeprazole 20 MG Capsule Delayed Release Oral Taking amLODIPine Besylate 5 MG Tablet TAKE 1 TABLET BY MOUTH DAILY Oral Taking buPROPion HCl ER (XL) 300 MG Tablet Extended Release 24 Hour 1 tablet every morning Oral Once a day , Notes: appointment neededTaking lamoTRIgine 150 MG Tablet 1 tablet Oral once a day Taking ARIPiprazole 15 MG Tablet 1 tablet Oral at bedtime Taking FLUoxetine HCl 40 MG Capsule 1 capsule Oral Once a day Taking Ramelteon 8 MG Tablet 1 tablet at bedtime as needed Orally Once a day , stop date 08/03/2024Taking Spravato (84 MG Dose) 28 MG/DEVICE Solution Therapy Pack 3 sprays in each nostril Nasal every other week Medication List reviewed and reconciled with the patient * Allergies:?N.K.D.A.no[Allerg ies Verified] Objective: * Vitals:?BP: 131/87 mm Hg,114 /80 mm Hg,113/80mm Hg, HR: 92 /min,84 /min,84/min, Ht: 68.00 in, Ht-cm: 172.72 cm. * Examination: ???General Examination: ?Psych:?alert and oriented x 3, cognitive function intact, cooperative with exam, maintains good eye contact, with good judgement and insight, normal affect / mood, with no auditory or visual hallucinations, speech is clear and coherent, thought process is logical and goal directed without suidical ideation or delusions.?- Mental Status Examination: - She reports a depression severity of 5/10 and anxiety severity of 5/10. - Denies suicidal ideation. - Sleep is described as poor, with the presence of nightmares. - Appetite is reported as normal. - Denies visual or auditory hallucinations, delusions, paranoia, and affect is not documented. - Vital Signs: see note - Physical Examination: - No physical complaints reported. Assessment: * Assessment: 1.?Major depressive disorder , recurrent severe without psychotic features - F33.2 (Primary)???2.?Nightmares - F51.5??? 1. Depression - She reports a depression severity of 5/10. - No recent medication changes. - Plan: a. Continue current antidepressant regimen. b. Monitor her mood and adjust medications as needed. c. Encourage her to engage in therapy and self-care activities. 2. Anxiety - She reports an anxiety severity of 5/10. - No recent medication changes. - Plan: a. Continue current anxiolytic regimen. b. Monitor her anxiety levels and adjust medications as needed. c. Encourage her to engage in therapy and self-care activities. 3. Suicidal Ideation and Self-Harm - She denies any thoughts of suicide or self-harm. - Plan: a. Continue to monitor for any changes in mood or suicidal ideation. b. Encourage her to reach out to support system and mental health professionals if thoughts of self-harm or suicide arise. 4. Psychosis - She denies any hallucinations, delusions, or paranoia. - Plan: a. Continue to monitor for any signs of psychosis. 5. Sleep Disturbance - She reports poor sleep quality and nightmares. - Plan: a. Refill prazosin prescription to help with nightmares and sleep quality. b. Encourage her to practice good sleep hygiene. c. Consider non-pharmacological interventions, such as relaxation techniques and cognitive-behavioral therapy for insomnia (CBT-I). 6. Appetite - She reports normal appetite. - Plan: a. Continue to monitor appetite and adjust medications as needed if changes occur. 7. Physical Health - She denies any physical complaints. - Plan: a. Encourage her to maintain regular check-ups with primary care provider. b. Advise her to report any new physical concerns. 8. Medications - No recent medication changes reported by patient. - Plan: a. Continue current medication regimen. b. Refill prazosin as discussed for sleep and nightmares. Plan: * Treatment: 2.?Nightmares? Start Prazosin HCl Capsule, 1 MG, 1 capsule at bedtime, Orally, Once a day As needed do not take if blood pressure is below 110/70, 90 days, 90 Capsule, Refills 0.?? * Therapeutic Injections:? Spravato 84 mg : 84 mg (Route: Nasal) given by DOM Hernández (Major depressive disorder, recurrent severe without psychotic features) * Procedure Codes:?56331 BEHAV ASSMT W/SCORE & DOCD/STAND [id number] PROLONGED OFFICE OR OTHER OUTPATIENT EVALUATION AND MANAGEMENT SERVICE(S) (BEYOND THE TOTAL TIME OF THE PRIMARY PROCEDURE WHICH HAS BEEN SELECTED USING TOTAL TIME), REQUIRING TOTAL TIME WITH OR WITHOUT DIRECT PATIENT CONTACT BEYOND THE USUAL SERVICE, ON T, Units: 4.00 * Follow Up:?06/10/24 @ 1:00 P M (Reason: Esketamine administration) * Billing Information: * Visit Code:? 50817 OFFICE OUTPATIENT VISIT 40 MINUTES COMPREHENSIVE HISTORY AND EXAM/[facility] MEDICAL DECISION MAKING. * Procedure Codes:? 05186 BEHAV ASSMT W/SCORE & DOCD/STAND INSTRUMENT. 23448 PROLONGED OFFICE OR OTHER OUTPATIENT EVALUATION AND MANAGEMENT SERVICE(S) (BEYOND THE TOTAL TIME OF THE PRIMARY PROCEDURE WHICH HAS BEEN SELECTED USING TOTAL TIME), REQUIRING TOTAL TIME WITH OR WITHOUT DIRECT PATIENT CONTACT BEYOND THE USUAL SERVICE, ON T. Units: 4.00. * [employer] Sign off status: Completed true * Provider:?DOM Hernández Date:?05/27 Generated for Cassandra koenig/Amy/eTdennyssmitting on:?07/10/2024 12:20 AM [employer] History and Physical Notes * HPI (History of Present Illness) Category Sub-Category Detail Notes Category Not es Depression screening PHQ-9 Little inte rest or pleasure in doing things: Several days Feeling down, depressed, or hopeless: Mo re than half the days Trouble falling or staying asleep, or sl eeping too much: Nearly every day Feeling tired or having little energy: N early every day Poor appetite or overeating: Several day s Feeling bad about yourself o r that you are a failure, or have let yourself or your family down: More than half the days Trouble concentrating on thi ngs, such as reading the newspaper or watching television: More than half the days Moving or speaking so slowly that other people could have noticed; or the opposite, being so fidgety or restless that you have been moving around a lot more than usual: Several days Thoughts that you would be b jahaira off or of hurting yourself in some way: Not at all Total Score: 15 Interpretation: Moderately Severe Depres chano Intervention Depression Screening Findings: P ositve Follow-Up for Depression: [facility] treatment assessment, Patient follow-up to return when and if necessary Suicide Risk Assessment Performed: 05/27 Additional Evaluation for De pression: Psychiatric interview and evaluation Name of the standardized too l used for adult depression screening:: Patient Health Questionnaire (PHQ-9) Depression Screening RACHNA-7 (2018 Edition) Feelin g nervous, anxious, or on edge: Several days Not being able to stop or control worryi ng: Several days Worrying too much about different things : More than hafl the days Trouble relaxing: More than half the day s Being so restless that it is hard to sit still: Several days Becoming easily annoyed or irritable: Se veral days Feeling afraid as if something awful trinh ht happen: Several days Esketamine Administration Esketamine administration Time at the start of administration: 1:08 PM Esketamine Nasal [place] Administration and Supervised monitoring Staff attending the patient Jade Bradford Supervising provider as in rendering provider : DOM Hernández Is patient taking any of the following concomitant medication that may cause sedation of blood pressure changes Benzodiazepine No Non-benzodiazepine sedative-hypnotics: No Psychostimulant: No Monoamine oxidase inhibitors [MAOIs]: No Dose of Spravato: 84 Mg Lot number [id number] Date: 11/16/2026 Time of discharge: 3:08 PM Patient must be monitored fo r at least 2 hours: Yes Was the patient clinically r criss for discharge prior to the required 2-hour:: No Silent Alarm used by patient: No staff Notes about today's Visit: Patient is being picked up by her dad. She said she last ate around 10:00 AM this morning. Examination Category Sub-Category Detail Notes Category Not es General Examination Psych: alert and or iented x 3, cognitive function intact, cooperative with exam, maintains good eye contact, with good judgement and insight, normal affect / mood, with no auditory or visual hallucinations, speech is clear and coherent, thought process is logical and goal directed without suidical ideation or delusions - Mental Status Examination: - She reports a depression severity of 5/10 and anxiety severity of 5/10. - Denies suicidal ideation. - Sleep is described as poor, with the presence of nightmares. - Appetite is reported as normal. - Denies visual or auditory hallucinations, delusions, paranoia, and affect is not documented. - Vital Signs: see note - Physical Examination: - No physical complaints reported.
--- OUTSIDE RECORDS SUMMARY | 2024-07-10 00:20 | XMS_ITS ---
Author Organization [facility] [place] Address [address] [facility] [address] [place] [address] Care Team Providers Care [employer] Process Technician Name Role Phone Myles Pruett DO Primary Care Provider Unavailab Naomi Connell Unavailable [phone] Stanley Xiong Unavailable [phone] Allergies No Known Allergies REASON FOR VISIT Esketamine Administration 84 mg Medications Medication SIG (Take, Route, Frequency, Duration) Notes Start Date End Date Status lamoTRIgine 150 MG 1 tablet Oral once a day for 90 days 11/27/2023 Active buPROPion HCl ER (XL) 300 MG 1 tablet every morning Oral Once a day for 90 days 11/27/2023 Active amLODIPine Besylate 5 MG TAKE 1 TABLET B Y MOUTH DAILY Oral for 90 Days Active Omeprazole 20 MG Oral for 90 Days Active Wegovy Active Ramelteon 8 MG 1 tablet at bedtime as needed Orally Once a day for 30 days 05/06/2024 08/03/2024 Active FLUoxetine HCl 40 MG 1 capsule Oral Once a day for 90 days Active ARIPiprazole 15 MG 1 tablet Oral at bed time for 90 days 11/27/2023 Active Prazosin HCl 1 MG 1 capsule at bedtime Orally Once a day for 90 days As needed do not take if blood pressure is below 110/70 05/27/2024 08/25/2024 Active Spravato (84 MG Dose) 28 MG/DEVICE 3 sprays in each nostril Nasal every two week for 1 days 06/24/2024 Active Social History Sex Assigned At : Social History Observation Description Sex Assigned At Female Vital Signs Blood pressure systolic 122 mm Hg 06/24/20 24 Blood pressure diastolic 82 mm Hg 024 Heart Rate 89 /min 06/24/2024 Height 68.00 in 06/24/2024 Height-cm 172.72 cm 06/24/2024 Encounters Encounter Location Date Provider Diagnosis [facility] [address] [place] [address] 06/24/2024 Stanley Xiong Major depressive disorder, recurrent severe without psychotic features F33.2 Assessments Encounter Date Diagnosis (ICD Code) Assessment Notes Treatment Notes Treatment Clinical Notes Section Notes 06/24/2024 Major depressive disorder, recurrent severe without psychotic features (ICD-10 - F33.2) Major Depressive Disorder, mild - Assessment: Patient reports improvement with Spravato treatment, currently every 2 weeks. Mild depression persists, but is manageable. Patient confirms treatment has been ongoing for over a year and is going well. - Plan: Continue Spravato treatment and monitor response. Consider increasing frequency to every week or every 10 days if depression worsens. Medication Management - Assessment: Current medications include Wellbutrin, Prozac, lamotrigine (150 mg), and Abilify (15 mg). Patient reports no current movement disorders. - Plan: Consider decreasing lamotrigine to 100 mg to potentially improve mood. Plan to reduce Abilify from 15 mg to 10 mg post-holidays due to tardive dyskinesia risks. Monitor for any movement disorders. Side Effects - Assessment: Patient reports minimal side effects from Spravato, resolving within 2 hours. Patient mentioned feeling a little dizzy at the start of the current session. - Plan: Monitor for any new or worsening side effects during treatment sessions. Follow-up - Plan: Patient has an upcoming appointment with Naomi on the to discuss medication adjustments. Continue to monitor patient's progress and response to treatment during subsequent visits. Doctor will check on patient during the treatment session to monitor their condition. 1 Review patient medical records, any recent test results, last visit summary, etc Yes1 Time spent 55 Reviewed and documented history and medication Yes5 Time spent 56 Evaluate patient's clinical status [relevant history/physical assessment] and determine readiness/appropr iateness of treatment Yes6 Time spent 157 Confirm orders and review plans with staff Yes7 Time spent 28 Ensure appropriate positioning for administration, observe patient administration, ensure patient comfort and safety Yes8 Time spent 510 Assess the patient response to treatment: Visually and verbally evaluate the patient; review treatment progress with staff [vital signs, patient tolerance, side effects, etc.] Yes10 Time spent 513 Write a prescription or Reviewed RX for next session and submit to pharmacy Yes13 Time spent 516 Complete medical record documentation Yes16 Time spent 10I attest to the total time spent Before, During and after ecounter was (in Minutes) 52 Plan Of Treatment Medication Medication Name Sig Start Date Stop Date Notes Spravato (84 MG Dose) 28 MG/DEVICE 3 sprays in each nostril Nasal every two week for 1 days 06/24/2024 Next Appt Details Follow Up: k follow up @ 3:45pm, Reason: with Naomi Provider Name:Gary Huerta, 07/22/2024 01:00:00 PM, [facility], [place] [address], [place], [address], Provider Name:Naomi Georges , 08/04/2024 03:45:00 PM, [address], [address], [place], [address], Provider Name:Gary Huerta, 08/05/2024 01:00:00 PM, [address], [facility] [address], [place], [address], Provider Name:Gary Huerta, 08/19/2024 01:00:00 PM, [facility] [address] [place] [address], [place], [address], Provider Name:Gary Huerta, 09/02/2024 01:00:00 PM, [facility], [place], [address], Medications Administered Medication Instructions Date of Administration Dosage Notes Spravato (84 MG Dose) 06/24/2024 84 mg Progress Notes * HOLLY PAINTINGDOB:1985 (38 yo F)Acc No.[id number]:06/24/2024 Patient:?HOLLY PAINTING Provider:?STANLEY XIONG MD :1985???Age:38 Y???Sex:Female D ate:06/24/2024 [facility] [id number] Pcp:Myles Pruett DO Subjective: * Chief Complaints: * ???Esketamine Administration 84 mg * HPI: ???Depression Screening:? The note is transcribed using speech recognition software. It is a reflection of a visit with the patient. It might have some inaccuracy, including medication names and transcribing errors, though efforts have been made to correct them. Chief Complaint: Depression managed with Spravato treatment History of Present Illness The patient, Holly, reports being on Spravato treatment for over a year and states that she has been doing a lot better with it than without it. She is currently receiving treatment every two weeks and feels that the effect lasts throughout the entire duration. She experiences mild depression in between treatments, but it is manageable. Holly's depression is not fully in remission. Medications: Holly is currently taking: - Wellbutrin - Prozac - Lamotrigine (150 mg) - Abilify (15 mg) She has recently reduced her Abilify dosage due to concerns about tardive dyskinesia risks. Side Effects: The patient reports feeling a little dizzy as a side effect of the treatment, but no other side effects were mentioned. Most side effects dissolve within 2 hours of treatment. Additional Details: - She is not experiencing any movement disorders at this time. - The Spravato treatment is administered every two weeks. ?RACHNA-7 (2018 Edition)?Feeling nervous, anxious, or on edge?More than half the days,?Not being able to stop or control worrying?More than half the days,?Worrying too much about different things?More than hafl the days,?Trouble relaxing?Several days,?Being so restless that it is hard to sit still?Several days,?Becoming easily annoyed or irritable?More than half the days,?Feeling afraid as if something awful might happen?More than half the days.?Depression screening:?PHQ-9?Little interest or pleasure in doing things?Several days,?Feeling down, depressed, or hopeless?More than half the days,?Trouble falling or staying asleep, or sleeping too much?Several days,?Feeling tired or having little energy?More than half the days,?Poor appetite or overeating?Several days,?Feeling bad about yourself or that you are a failure, or have let yourself or your family down?Nearly every day,?Trouble concentrating on things, such as reading the newspaper or watching television?Several days,?Moving or speaking so slowly that other people could have noticed; or the opposite, being so fidgety or restless that you have been moving around a lot more than usual?Several days,?Thoughts that you would be better off or of hurting yourself in some way?Not at all,?Total Score?12,?Interpretation?Moderate Depression.?Intervention?Depression Screening Findings?Positve,?Follow-Up for Depression?Mental health treatment assessment, Patient follow-up to return when and if necessary,?Suicide Risk Assessment Performed?06/24/2024 ,?Additional Evaluation for Depression?Psychiatric interview and evaluation,?Name of the standardized tool used for adult depression screening:?Patient Health Questionnaire (PHQ-9).?Esketamine Administration:?Esketamine administration?Time at the start of administration? 12: 53 PM,?Time of discharge? 2: 53 PM,?Patient must be monitored for at least 2 hours?Yes,?Was the patient clinically ready for discharge prior to the required 2-hour:?No,?Silent Alarm used by patient?No,?staff Notes about today's Visit? Patient will be picked up by her dad. She said she last ate around 10:00 AM this morning. She verbalized no medication changes and is taking them all as prescribed..? Esketamine Nasal [place] Administration and Supervised monitoring Staff attending the patient Jade Camarillo Supervising provider as in rendering provider: Stanley Xiong MD Is patient taking any of the following concomitant medication that may cause sedation of blood pressure changes Benzodiazepine No Non-benzodiazepine sedative-hypnotics: No Psychostimulant: No Monoamine oxidase inhibitors [MAOIs]: No Dose of Spravato: 84 Mg Lot number [id number] Date: 11/16/2026. * ROS:?General / Constitutional:?Fatigue?denies.?Dizziness?Denies.?Sedation?Denies.?spinning sensation?Deneis.?Gastrointestinal:?Nausea?denies.?Vomiting?denies.?Psychiatric:?Anxiety?denies.?Auditory / visual hallucinations?denies.?Delusions?denies.?Suicidal thoughts?denies.?Dissociations?Denies.?Excited?Denies.? * Medical History:? * Surgical History:? * Hospitalization/Major Diagno stic Procedure:? * Medications:?TakingPrazosin HCl 1 MG Capsule 1 capsule at bedtime Orally Once a day As needed do not take if blood pressure is below 110/70, stop date 08/25/2024Wegovy Omeprazole 20 MG Capsule Delayed Release Oral [...] 1 MG Capsule 1 capsule at bedtime Orally Once a day As needed do not take if blood pressure is below 110/70, stop date 08/25/2024Taking Wegovy Taking Omeprazole 20 MG Capsule Delayed [...] * Allergies:?N.K.D.A.no[Allerg ies Verified] Objective: * Vitals:?BP: 134/88 mm Hg,120 /80 mm Hg,122/82mm Hg, HR: 98 /min,87 /min,89/min, Ht: 68.00 in, Ht-cm: 172.72 cm. * Examination: ???General Examination: ???Mental Status Examination: Patient reports feeling a lot better with current treatment using Spravato compared to previous treatments. Describes experiencing mild depression intermittently but considers it manageable. No reported symptoms of movement disorders or tardive dyskinesia. Patient appears alert and oriented, engaging appropriately in conversation. Vital Signs: review the notes for vitals Medication trials and adjustments: Current Medications: - Spravato (esketamine) - every 2 weeks - Wellbutrin (bupropion) - Prozac (fluoxetine) - Lamotrigine - 150 mg - Abilify (aripiprazole) - 15 mg. Assessment: * Assessment: 1.?Major depressive disorder , recurrent severe without psychotic features - F33.2 (Primary)??? Major Depressive Disorder, m ild - Assessment: Patient reports improvement with Spravato treatment, currently every 2 weeks. Mild depression persists, but is manageable. Patient confirms treatment has been ongoing for over a year and is going well. - Plan: Continue Spravato treatment and monitor response. Consider increasing frequency to every week or every 10 days if depression worsens. Medication Management - Assessment: Current medications include Wellbutrin, Prozac, lamotrigine (150 mg), and Abilify (15 mg). Patient reports no current movement disorders. - Plan: Consider decreasing lamotrigine to 100 mg to potentially improve mood. Plan to reduce Abilify from 15 mg to 10 mg post-holidays due to tardive dyskinesia risks. Monitor for any movement disorders. Side Effects - Assessment: Patient reports minimal side effects from Spravato, resolving within 2 hours. Patient mentioned feeling a little dizzy at the start of the current session. - Plan: Monitor for any new or worsening side effects during treatment sessions. Follow-up - Plan: Patient has an upcoming appointment with Naomi on the to discuss medication adjustments. Continue to monitor patient's progress and response to treatment during subsequent visits. Doctor will check on patient during the treatment session to monitor their condition. 1 Review patient medical records, any recent test results, last visit summary, etc?Yes1 Time spent?55 Reviewed and documented history and medication?Yes5 Time spent?56 Evaluate patient's clinical status [relevant history/physical assessment] and determine readiness/appropriateness of treatment?Yes6 Time spent?157 Confirm orders and review plans with staff?Yes7 Time spent?28 Ensure appropriate positioning for administration, observe patient administration, ensure patient comfort and safety?Yes8 Time spent?510 Assess the patient response to treatment: Visually and verbally evaluate the patient; review treatment progress with staff [vital signs, patient tolerance, side effects, etc.]?Yes10 Time spent?513 Write a prescription or Reviewed RX for next session and submit to pharmacy?Yes13 Time spent?516 Complete medical record documentation?Yes16 Time spent?10I attest to the total time spent Before, During and after ecounter was (in Minutes)?52 Plan: * Treatment: * Therapeutic Injections:? Spravato 84 mg : 84 mg (Route: Nasal) given by Jade Anderson (Major depressive disorder, recurrent severe without psychotic features) * Procedure Codes:?58011 BEHAV ASSMT W/SCORE & DOCD/STAND [id number] PROLONGED OFFICE OR OTHER OUTPATIENT EVALUATION AND MANAGEMENT SERVICE(S) (BEYOND THE TOTAL TIME OF THE PRIMARY PROCEDURE WHICH HAS BEEN SELECTED USING TOTAL TIME), REQUIRING TOTAL TIME WITH OR WITHOUT DIRECT PATIENT CONTACT BEYOND THE USUAL SERVICE, ON T, Units: 4.00 * Follow Up:?samuel follow up @ 3:45pm (Reason: with Naomi) * Billing Information: * Visit Code:? 42067 OFFICE OUTPATIENT VISIT 40 MINUTES COMPREHENSIVE HISTORY AND EXAM/HIGH MEDICAL DECISION MAKING. * Procedure Codes:? 97054 BEHAV ASSMT W/SCORE & DOCD/STAND INSTRUMENT. 88541 PROLONGED OFFICE OR OTHER OUTPATIENT EVALUATION AND MANAGEMENT SERVICE(S) (BEYOND THE TOTAL TIME OF THE PRIMARY PROCEDURE WHICH HAS BEEN SELECTED USING TOTAL TIME), REQUIRING TOTAL TIME WITH OR WITHOUT DIRECT PATIENT CONTACT BEYOND THE USUAL SERVICE, ON T. Units: 4.00. * PIPELINE OPERATOR Electronically co-signed by Stanley Xiong MD on 06/24/2024 at 05:18 PM COAL PIPELINE OPERATOR Sign off status: Completed true * Provider:?STANLEY XIONG MD Date:?06/24 Generated for Printi arya/Amy/eTransmitting on:?07/10/2024 12:20 AM COAL PIPELINE OPERATOR History and Physical Notes * HPI (History of Present Illness) Category Sub-Category Detail Notes Category Not es Depression screening PHQ-9 Little inte rest or pleasure in doing things: Several days Feeling down, depressed, or hopeless: Mo re than half the days Trouble falling or staying asleep, or sl eeping too much: Several days Feeling tired or having little energy: M ore than half the days Poor appetite or overeating: Several day s Feeling bad about yourself o r that you are a failure, or have let yourself or your family down: Nearly every day Trouble concentrating on thi ngs, such as reading the newspaper or watching television: Several days Moving or speaking so slowly that other people could have noticed; or the opposite, being so fidgety or restless that you have been moving around a lot more than usual: Several days Thoughts that you would be b jahaira off or of hurting yourself in some way: Not at all Total Score: 12 Interpretation: Moderate Depression Intervention Depression Screening Findings: P ositve Follow-Up for Depression: [facility] treatment assessment, Patient follow-up to return when and if necessary Suicide Risk Assessment Performed: 06/24 Additional Evaluation for De pression: Psychiatric interview and evaluation Name of the standardized too l used for adult depression screening:: Patient Health Questionnaire (PHQ-9) Depression Screening RACHNA-7 (2018 Edition) Feelin g nervous, anxious, or on edge: More than half the days Not being able to stop or control worryi ng: More than half the days Worrying too much about different things : More than hafl the days Trouble relaxing: Several days Being so restless that it is hard to sit still: Several days Becoming easily annoyed or irritable: Mo re than half the days Feeling afraid as if something awful trinh ht happen: More than half the days Esketamine Administration Esketamine administration Time at the start of administration: 12: 53 PM Esketamine Nasal [place] Administration and Supervised monitoring Staff attending the patient Jade Camarillo Supervising provider as in rendering provider: Stanley Xiong MD Is patient taking any of the following concomitant medication that may cause sedation of blood pressure changes Benzodiazepine No Non-benzodiazepine sedative-hypnotics: No Psychostimulant: No Monoamine oxidase inhibitors [MAOIs]: No Dose of Spravato: 84 Mg Lot number [id number] Date: 11/16/2026 Time of discharge: 2: 53 PM Patient must be monitored fo r at least 2 hours: Yes Was the patient clinically r criss for discharge prior to the required 2-hour:: No Silent Alarm used by patient: No staff Notes about today's Visit: Patient will be picked up by her dad. She said she last ate around 10:00 AM this morning. She verbalized no medication changes and is taking them all as prescribed. Examination Category Sub-Category Detail Notes Category Not es General Examination Mental Status Examination: Patient reports feeling a lot better with current treatment using Spravato compared to previous treatments. Describes experiencing mild depression intermittently but considers it manageable. No reported symptoms of movement disorders or tardive dyskinesia. Patient appears alert and oriented, engaging appropriately in conversation. Vital Signs: review the notes for vitals Medication trials and adjustments: Current Medications: - Spravato (esketamine) - every 2 weeks - Wellbutrin (bupropion) - Prozac (fluoxetine) - Lamotrigine - 150 mg - Abilify (aripiprazole) - 15 mg
--- OUTSIDE RECORDS SUMMARY | 2024-07-10 00:20 | XMS_ITS ---
Author Organization [facility] Address [address] [facility] [address] [place] [address] Care Team Providers Care Second Shift Supervisor Name Role Phone Myles Pruett DO Primary Care Provider Unavailab Naomi Connell Unavailable [phone] Elizabeth Chen Unavailable [phone] Allergies No Known Allergies REASON FOR VISIT Esketamine Administration Medications Medication SIG (Take, Route, Frequency, Duration) Notes Start Date End Date Status lamoTRIgine 150 MG 1 tablet Oral once a day for 90 days 11/27/2023 Active amLODIPine Besylate 5 MG TAKE 1 TABLET B Y MOUTH DAILY Oral for 90 Days Active buPROPion HCl ER (XL) 300 MG 1 tablet every morning Oral Once a day for 90 days 11/27/2023 Active Omeprazole 20 MG Oral for 90 Days Active ARIPiprazole 15 MG 1 tablet Oral at bed time for 90 days 11/27/2023 Active Wegovy Active Prazosin HCl 1 MG 1 capsule at bedtime Orally Once a day for 90 days As needed do not take if blood pressure is below 110/70 05/27/2024 08/25/2024 Active Ramelteon 8 MG 1 tablet at bedtime as needed Orally Once a day for 30 days 05/06/2024 08/03/2024 Active Spravato (84 MG Dose) 28 MG/DEVICE 3 sprays in each nostril Nasal every other week 05/06/2024 Active FLUoxetine HCl 40 MG 1 capsule Oral Once a day for 90 days Active Social History Sex Assigned At : Social History Observation Description Sex Assigned At Female Vital Signs Blood pressure systolic 126 mm Hg 06/10/20 24 Blood pressure diastolic 85 mm Hg 024 Heart Rate 83 /min 06/10/2024 Height 68.00 in 06/10/2024 Height-cm 172.72 cm 06/10/2024 Encounters Encounter Location Date Provider Diagnosis [facility] [address] [place] [address] [place] [address] 06/10/2024 Elizabeth Chen Major depressive disorder, recurrent severe without psychotic features F33.2 Assessments Encounter Date Diagnosis (ICD Code) Assessment Notes Treatment Notes Treatment Clinical Notes Section Notes 06/10/2024 Major depressive disorder, recurrent severe without psychotic features (ICD-10 - F33.2) Continue esketamine treatments every other week Continue current medications per Olga Plan Of Treatment Treatment Notes Assessment Notes Major depressive disorder, r ecurrent severe without psychotic features Continue esketamine treatments every other week Continue current medications per Olga Next Appt Details Follow Up: 06/24/24 @ 1:00 PM , Reason: Esketamine administration Provider Name:Gary Huerta, 07/22/2024 01:00:00 PM, [facility] [address], [address], Provider Name:Naomi Georges , 08/04/2024 03:45:00 PM, [facility] [address], [address], Provider Name:Gary Huerta, 08/05/2024 01:00:00 PM, [facility] [address], [address], Provider Name:Gary Huerta, 08/19/2024 01:00:00 PM, [facility] [address], [address], Provider Name:Gary Huerta, 09/02/2024 01:00:00 PM, [facility] [address], [address], Medications Administered Medication Instructions Date of Administration Dosage Notes Spravato (84 MG Dose) 06/10/2024 84 mg Progress Notes * LISA PAINTING:1985 (38 yo F)Acc No.[id number]:06/10/2024 Patient:?IRINA PAINTING Provider:?DOM HOPE :1985???Age:38 Y???Sex:Female D ate:06/10/2024 Address:[address] [place], [place] [id number] Pcp:Myles Pruett DO Subjective: * Chief Complaints: * ???Esketamine Administration * HPI: ???Depression Screening:?RACHNA-7 (2018 Edition)?Feeling nervous, anxious, or on edge?Several days,?Not being able to stop or control worrying?Several days,?Worrying too much about different things?More than hafl the days,?Trouble relaxing?More than half the days,?Being so restless that it is hard to sit still?More than half the days,?Becoming easily annoyed or irritable?Several days,?Feeling afraid as if something awful might happen?Several days.?Depression screening:?PHQ-9?Little interest or pleasure in doing things?Several days,?Feeling down, depressed, or hopeless?More than half the days,?Trouble falling or staying asleep, or sleeping too much?More than half the days,?Feeling tired or having little energy?Nearly every day,?Poor [...] hurting yourself in some way?Not at all,?Total Score?13,?Interpretation?Moderate Depression.?Intervention?Depression Screening Findings?Positve,?Follow-Up for Depression?Mental health treatment assessment, Patient follow-up to return when and if necessary,?Suicide Risk Assessment Performed?06/10/2024 ,?Additional Evaluation for Depression?Psychiatric interview and evaluation,?Name of the standardized tool used for adult depression screening:?Patient Health Questionnaire (PHQ-9).?Esketamine Administration:?Esketamine administration?Time at the start of administration? 1:03 PM,?Time of discharge? 3:03 PM,?Patient must be monitored for at least 2 hours?Yes,?Was the patient clinically ready for discharge prior to the required 2- hour: No,?Silent Alarm used by patient?No,?staff Notes about today's Visit? Patient will be picked up by her Dad. She said the last time she ate was this morning around 10:30 AM..? Esketamine Nasal [place] Administration and Supervised monitoring Staff attending the patient Jade Bradford Supervising provider as in rendering provider : JUDE TiradoP Is patient taking any of the following concomitant medication that may cause sedation of blood pressure changes Benzodiazepine No Non-benzodiazepine sedative-hypnotics: No Psychostimulant: No Monoamine oxidase inhibitors [MAOIs]: No Dose of Spravato: 84 Mg Lot number [id number] Date: 11/16/2026 Patient here for esketamine treatment. Reports she is doing alright . Denies recent stressors or concerns. Rates depression severity 4-5/10 with 10 being most severe. Denies feeling hopeless; although endorses feeling worthless/helpless, which reports is chronic for her. Anxiety is rated 5/10 with 10 being most severe, no recent panic attacks. Sleep is good, getting about 8 hours nightly. Energy is good. Nightmares are improving with Prazosin. Appetite is fair, on Wegovy. * ROS:?General / Constitutional:?Fatigue?denies.?Dizziness?Denies.?Sedation?Denies.?spinning sensation?Deneis.?Gastrointestinal:?Nausea?denies.?Vomiting?denies.?Psychiatric:?Anxiety?denies.?Auditory / visual hallucinations?denies.?Delusions?denies.?Suicidal thoughts?denies.?Dissociations?Denies.?Excited?Denies.? * Medical History:? * Surgical History:?Lypoma rem oval in left upper posterior arm 07/20/2011Hysterectomy (69213) 03/20/2018Hysterectomy - 03/20/2018 Other - 07/20/2011 wisdom tooth * Hospitalization/Major Diagno stic Procedure:? * Family History:?Father: arin craven 67 yrs, Diabetes mellitus , macular degeneration, diagnosed with Mental health disorder, Essential hypertension, Type 2 diabetes mellitus without complication, unspecified whether intermediate insulin use.?Mother: alive 65 yrs, Depressive disorder , hypertension, diagnosed with Mental health disorder.?Paternal Grandmother: Alcohol abuse .?Maternal Grandmother: Malignant tumor of breast, Notes: PASSED IN her 70's , Diabetes mellitus .?Sister: alive 35 yrs, kidney disease, diagnosed with Essential hypertension.?Son: alive 11 yrs, acute lymphoblastic leukemia.?1 sister(s) . 1 son(s) . .? * Medications:?TakingPrazosin HCl 1 MG Capsule 1 [...] in each nostril Nasal every other week Taking Prazosin HCl 1 MG Capsule 1 capsule [...] in each nostril Nasal every other week DiscontinuedPrazosin HCl 1 MG Capsule 1 capsule at bedtime Oral Once a day As needed do not take if blood pressure is below 110/70Medication List reviewed and reconciled with the patientDiscontinued Prazosin HCl 1 MG Capsule 1 capsule at bedtime Oral Once a day As needed do not take if blood pressure is below 110/70Medication List reviewed and reconciled with the patient * Allergies:?N.K.D.A.no[Allerg ies Verified] Objective: * Vitals:?BP: 119/76 mm Hg,125 /85 mm Hg,126/85mm Hg, HR: 87 /min,85 /min,83/min, Ht: 68.00 in, Ht-cm: 172.72 cm. * Examination: ???General Examination: ?Psych:?alert and oriented x 3, cognitive function intact, cooperative with exam, maintains good eye contact, with good judgement and insight, normal affect / mood, with no auditory or visual hallucinations, speech is clear and coherent, thought process is logical and goal directed without suidical ideation or delusions.? Assessment: * Assessment: 1.?Major depressive disorder , recurrent severe without psychotic features - F33.2 (Primary)??? Plan: * Treatment: * Therapeutic Injections:? Spravato 84 mg : 84 mg (Route: Nasal) given by DOM Tirado (Major depressive disorder, recurrent severe without psychotic features) * Procedure Codes:?95850 BEHAV ASSMT W/SCORE & DOCD/STAND [id number] PROLONGED OFFICE OR OTHER OUTPATIENT EVALUATION AND MANAGEMENT SERVICE(S) (BEYOND THE TOTAL TIME OF THE PRIMARY PROCEDURE WHICH HAS BEEN SELECTED USING TOTAL TIME), REQUIRING TOTAL TIME WITH OR WITHOUT DIRECT PATIENT CONTACT BEYOND THE USUAL SERVICE, ON T, Units: 4.00 * Follow Up:?06/24/24 @ 1:00 PM (Reason: Esketamine administration) * Billing Information: * Visit Code:? 06386 OFFICE OUTPATIENT VISIT 40 MINUTES COMPREHENSIVE HISTORY AND EXAM/HIGH MEDICAL DECISION MAKING. * Procedure Codes:? 96197 BEHAV ASSMT W/SCORE & DOCD/STAND INSTRUMENT. 50699 PROLONGED OFFICE OR OTHER OUTPATIENT EVALUATION AND MANAGEMENT SERVICE(S) (BEYOND THE TOTAL TIME OF THE PRIMARY PROCEDURE WHICH HAS BEEN SELECTED USING TOTAL TIME), REQUIRING TOTAL TIME WITH OR WITHOUT DIRECT PATIENT CONTACT BEYOND THE USUAL SERVICE, ON T. Units: 4.00. * MECHANIC Sign off status: Completed true * Provider:?DOM HOPE Date:? Generated for Cassandra koenig/Amy/Faustinaransmitting on:?07/10/2024 12:20 AM BUS MECHANIC History and Physical Notes * HPI (History of Present Illness) Category Sub-Category Detail Notes Category Not es Depression screening PHQ-9 Little inte rest or pleasure in doing things: Several days Feeling down, depressed, or hopeless: Mo re than half the days Trouble falling or staying a sleep, or sleeping too much: More than half the days Feeling tired or having little energy: N [...] some way: Not at all Total Score: 13 Interpretation: Moderate Depression Intervention Depression Screening Findings: P ositve Follow-Up for Depression: [facility] treatment assessment, Patient follow-up to return when and if necessary Suicide Risk Assessment Performed: 06/10 Additional Evaluation for De pression: Psychiatric interview [...] that it is hard to sit still: More than half the days Becoming easily annoyed or irritable: Se veral days Feeling afraid as if something awful trinh ht happen: Several days Esketamine Administration Esketamine administration Time at the start of administration: 1:03 PM Esketamine Nasal [place] Administration and Supervised monitoring Staff attending the patient Jade Bradford Supervising provider as in rendering provider : DOM Tirado Is patient taking any of the following concomitant medication that may cause sedation of blood pressure changes Benzodiazepine No Non-benzodiazepine sedative-hypnotics: No Psychostimulant: No Monoamine oxidase inhibitors [MAOIs]: No Dose of Spravato: 84 Mg Lot number [id number] Date: 11/16/2026 Patient here for esketamine treatment. Reports she is doing alright . Denies recent stressors or concerns. Rates depression severity 4-5/10 with 10 being most severe. Denies feeling hopeless; although endorses feeling worthless/helpless, which reports is chronic for her. Anxiety is rated 5/10 with 10 being most severe, no recent panic attacks. Sleep is good, getting about 8 hours nightly. Energy is good. Nightmares are improving with Prazosin. Appetite is fair, on Wegovy. Time of discharge: 3:03 PM Patient must be monitored fo r at least 2 hours: Yes Was the patient clinically r criss for discharge prior to the required 2-hour:: No Silent Alarm used by patient: No staff Notes about today's Visit: Patient will be picked up by her Dad. She said the last time she ate was this morning around 10:30 AM. Examination Category Sub-Category Detail Notes Category Not [...]
--- OUTSIDE RECORDS SUMMARY | 2024-07-10 00:21 | XMS_ITS | Encounter Summary ---
Author Organization [facility] Address [address] [place] [address] Care Team Providers Care Ldr Rn Name Role Phone Clovis Johnson MD Primary Care Provider [phone] Encounter Details Date Type Department Care Team (Latest Contact Info) Description 03/12/2021 Travel Social History Tobacco Use Types Packs/Day Years Used Date Smoking Tobacco: Never Alcohol Use Standard Drinks/Week Comments No 0 (1 standard drink = 0.6 oz pur e alcohol) Sex and Gender Information Value Date Recorded Sex Assigned at Not on file Gender Identity Not on file Sexual Orientation Not on file COVID-19 Exposure Response Date Recorded In the last month, have you been in contact with someone who was confirmed or suspected to have Coronavirus / COVID-19? No / Unsure 03/12/2021 4:43 PM CDT documented as of this encounter Plan of Treatment Not on file documented as of this encounter Visit Diagnoses Not on filedocumented in this encounter Care Teams Ldr Rn Relationship Specialty Start Date End Date Clovis Johnson MD [address] [place] [address] [place] [phone] PCP - General Family Medicine 03/10/21 10/02/22 documented as of this encounter
--- OUTSIDE RECORDS SUMMARY | 2024-07-10 00:21 | XMS_ITS | Referral Summary ---
Author Organization [facility] Address [address] [place] [address] Care Team Providers Care Email Manager Name Role Phone Myles Pruett DO Primary Care Provider [phone] Source Comments [facility],non-owned Affiliates and Associated Physician Practices is amultiple site organization consisting of ambulatory clinics and hospital sitesin [place], [place], [place] and [place]. This disclosure is being madepursuant to the Care Everywhere program and may not contain all information available regarding this patient. Last updated 18.[facility] Allergies No known active allergies Active Problems Problem Noted Date Diagnosed Date Obstructive sleep apnea 11/28/2010 Social History Tobacco Use Types Packs/Day Years Used Date Smoking Tobacco: Never Alcohol Use Standard Drinks/Week Comments No 0 (1 standard drink = 0.6 oz pur e alcohol) Sex and Gender Information Value Date Recorded Sex Assigned at Not on file Gender Identity Not on file Sexual Orientation Not on file Plan of Treatment Not on file Administered Medications Care Teams Email Manager Relationship Specialty Start Date End Date Myles Pruett DO [address] [place] [address] PCP - General 10/03/22
--- OUTSIDE RECORDS SUMMARY | 2024-07-10 00:21 | XMS_ITS | Encounter Summary ---
Author Organization [facility] Address [address] [place] [address] Care Team Providers Care Gear Machine Operator Name Role Phone Clovis Johnson MD Primary Care Provider [phone] Reason for Visit * Reason Comments PPD SKIN TEST READ Encounter Details Date Type Department Care Team (Late st Contact Info) Description 03/12/2021 5:00 PM CDT Office Visit [facility] [address] [address] PPD screening test (Primary Dx) Social History Tobacco Use Types Packs/Day Years [...] PM CDT documented as of this encounter Progress Notes * Kathleen Shine - 03/12/2021 4:58 PM CDT 03/12/2021 Holly Flores Oneal returns to clinic today for TB (PPD) reading. 0 mm of induration noted, negative reading. Copy of the results were given to patient and scanned into the medical record. Patient denies any further questions or concerns today. Kathleen Shine 03/12/2021 4:58 PM documented in this encounter Plan of Treatment Not on file documented as of this encounter Visit Diagnoses Diagnosis PPD screening test- Primary Screening examination for pulmonary tuberculosis documented in this encounter Care Teams Gear Machine Operator Relationship Specialty Start Date End Date Clovis Johnson MD [address] [place] [address] [place] [phone] PCP - General Family Medicine 03/10/21 10/02/22 documented as of this encounter
--- OUTSIDE RECORDS SUMMARY | 2024-07-10 00:21 | XMS_ITS | Encounter Summary ---
Author Organization [facility] Address [address] [place] [address] Care Team Providers Care School Fundraising Director Name Role Phone Unavailable Primary Care Provider Unavailabl e Encounter Details Date Type Department Care Team (Latest Contact Info) Description 03/08/2021 Travel Social History Tobacco Use Types Packs/Day [...] have Coronavirus / COVID-19? No / Unsure 03/08/2021 3:20 PM CDT documented as of this encounter Plan of Treatment Not on file documented as of this encounter Visit Diagnoses Not on filedocumented in this encounter
--- OUTSIDE RECORDS SUMMARY | 2024-07-10 00:21 | XMS_ITS | Clinical Summary ---
Author Organization [facility] Address [address] [place] [address] Care Team Providers Care Final Operations Technician Name Role Phone Myles Pruett DO Primary Care Provider [phone] Source Comments [facility],non-owned Affiliates and Associated Physician Practices is amultiple site organization consisting of ambulatory clinics and hospital sitesin [place], [place], [place] and [place]. This disclosure is being madepursuant to the Care Everywhere program and may not contain all information available regarding this patient. Last updated 18.[facility] Allergies No known active allergies Active Problems Problem Noted Date Diagnosed Date Obstructive sleep apnea 11/28/2010 Family History Medical History Relation Name Comments Glaucoma Father Depression Maternal Grandfather Arthritis - Rheumatoid Maternal Grandmother Depression Maternal Grandmother Hypertension Maternal Grandmother Depression Mother Mental Illness Other Arthritis - Rheumatoid Paternal Grandfather Asthma Sister Relation Name Status Comments Father Maternal Grandfather Maternal Grandmother Mother Other Paternal Grandfather Sister Social History Tobacco Use Types Packs/Day Years Used Date Smoking Tobacco: Never Alcohol Use Standard Drinks/Week Comments No 0 (1 standard drink = 0.6 oz pur e alcohol) Sex and Gender Information Value Date Recorded Sex Assigned at Not on file Gender Identity Not on file Sexual Orientation Not on file Plan of Treatment Health Maintenance Due Date Last Done Comments PAP SMEAR 1985 HIV SCREENING 2000 HEPATITIS C SCREENING 07/21/2003 DTAP/TDAP/TD VACCINES (1 - Tdap) 2004 HEPATITIS B VACCINE (1 of 3 - 19+ 3-dose series) 2004 DEPRESSION SCREENING 07/20/2023 COVID-19 VACCINE (2023-2 5 season) 2024 INFLUENZA VACCINE (#1) 2024 9, 04/23/2017 ZOSTER VACCINE (1 of 2) 2035 HIB VACCINE Aged Out No longer eligi ble based on patient's age to complete this topic HPV VACCINE Aged Out No longer eligi ble based on patient's age to complete this topic MENINGOCOCCAL VACCINE Aged Out No christian roberta eligible based on patient's age to complete this topic PNEUMOCOCCAL VACCINE Aged Out No long er eligible based on patient's age to complete this topic Care Teams Final Operations Technician Relationship Specialty Start Date End Date Myles Pruett DO [address] [place] [phone] PCP - General 10/03/22
--- OUTSIDE RECORDS SUMMARY | 2024-07-10 00:21 | XMS_ITS | Patient Health Record ---
Author Organization [facility] [employer] [facility] Address [address] [facility] [address] [place] [address] Care Team Providers Care Youth Career Specialist Name Role Phone Myles Pruett DO Primary Care Provider Unavailab Naomi Connell Unavailable [phone] Billy Shine Unavailable [phone] Elizabeth Chen Unavailable [phone] Scottie Genao Unavailable [phone] Deniz Gerardo Unavailable [phone] Nikole Remy Unavailable [phone] Migration, Provider Unavailable Unavailable Gary Huerta Unavailable [phone] Mar Molina Unavailable [phone] Allergies No Known Allergies Results Component Value Reference Range Notes DRUG SCREEN, 14 DRUGS (DETEC TIMED), URINE Reviewed date:08/25/2023 12:00:00 AM Interpretation: Performing Lab: Notes/Report: Amphetamine negative Barbiturates negative Benzodiazipine positive Buprenorphine negative Cocaine negative MDMA/Ectasy negative Methadone negative Methamphetamine negative Morphine negative Oxycodone negative Phenocyclidine negative THC positive DRUG SCREEN, 14 DRUGS (DETEC TIMED), URINE Reviewed date:08/25/2023 12:00:00 AM Interpretation: Performing Lab: Notes/Report: Reason For Referral No Information Medications Medication SIG (Take, Route, Frequency, Duration) Notes Start Date End Date Status lamoTRIgine 150 MG 1 tablet Oral once a day for 30 days 11/27/2023 Active buPROPion HCl ER (XL) 300 MG 1 tablet every morning Oral Once a day for 90 days 11/27/2023 Active Prazosin HCl 1 MG 1 capsule at bedtime Orally Once a day for 90 days As needed do not take if blood pressure is below 110/70 05/27/2024 10/03/2024 Active Omeprazole 20 MG Oral for 90 Days Active Wegovy Active Spravato (84 MG Dose) 28 MG/DEVICE 3 sprays in each nostril Nasal every two week for 1 days 06/24/2024 Active amLODIPine Besylate 5 MG TAKE 1 TABLET B Y MOUTH DAILY Oral for 90 Days Active FLUoxetine HCl 40 MG 1 capsule Oral Once a day for 90 days Active ARIPiprazole 15 MG 1 tablet Oral at bed time for 30 days 11/27/2023 Active Ramelteon 8 MG 1 tablet at bedtime as needed Orally Once a day for 90 days 05/06/2024 10/03/2024 Active Immunizations Vaccine Route Administration Date Status Comme nts Influenza, unspecified formulation Unknown 05/19/2022 A dministered Social History Tobacco Use: Social History Observation Description Date Details (start date - stop date) Never Smoker NA - NA Sex Assigned At : Social History Observation Description Sex Assigned At Female Household Question Answer Notes Marital status: Number of adults in household: 2 Number of children in household: 1 Level of education: professional schools/Masters/PhD masters degree in business administration Tobacco Control (Standard) Question Answer Notes Tobacco use: Nonsmoker Section Notes: Social History not reviewed (last reviewed 09/22/2023) Substance UseDo you or have you ever smoked tobacco?: Never smokerHow much tobacco do you smoke?: NoneDo you or have you ever used any other forms of tobacco or nicotine?: NoDo you or have you ever used e-cigarettes or vape?: Never used electronic cigarettesWhat was the date of your most recent tobacco screening?: 09/22/2023Has tobacco cessation counseling been provided?: NoWhat is your level of alcohol consumption?: OccasionalHow many years have you consumed alcohol?: 18Have you ever been counseled for unhealthy alcohol use?: NoDo you use any illicit or recreational drugs?: YesWhich illicit or recreational drugs have you used?: MarijuanaHave you used IV drugs?: NoWhat is your level of caffeine consumption?: HeavyEducation and OccupationWhat is the highest grade or level of school you have completed or the highest degree you have received?: Master's degree (e.g., MA, MS, [employer], MEd, 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, [employer])Are you currently in school?: NoAre you currently employed?: YesWho is your employer?: [employer]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 relationship 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?: DivorcedAre you sexually active?: YesDo you use protection during sex?: AlwaysHow many children do you have?: 1Home and EnvironmentAre you a caregiver?: YesDo you have any pets?: Yes (Notes: 2 dogs and 2 cats)Do you have smoke and carbon monoxide detectors in your home?: YesAre you passively exposed to smoke?: NoAre there any smokers in your house?: NoAre there any guns present in your home?: NoDiet and ExerciseWhat type of diet are you following?: RegularLifestyleDo you feel stressed (tense, restless, nervous, or anxious, or unable to sleep at night)?: Rather muchDo you use your seat belt or car seat routinely?: YesAdvance DirectiveDo you have an advance directive?: NoWhat is your code status?: Full CodeDo you have a medical power of senior trial attorney?: NoPublic Health and TravelHave you been to an area known to be high risk for COVID-19?: NoActivities of Daily LivingAre you able to care for yourself?: YesAre you blind or do you have difficulty seeing?: NoAre you deaf or do you have serious difficulty hearing? : NoDo you have difficulty concentrating, remembering or making decisions?: NoDo you have difficulty walking or climbing stairs?: NoDo you have difficulty dressing or bathing?: NoDo you have difficulty doing errands alone?: NoAre you able to walk?: Yes: walks without restrictionsDo you have transportation difficulties?: NoGender Identity and LGBTQ IdentityGender identity: Identifies as FemaleAssigned sex at : FemaleSexual orientation: Straight or heterosexual Social History not reviewed (last reviewed 09/22/2023) Substance UseDo you or have you ever smoked tobacco?: Never smokerHow much tobacco do you smoke?: NoneDo you or have you ever used any other forms of tobacco or nicotine?: NoDo you or have you ever used e-cigarettes or vape?: Never used electronic cigarettesWhat was the date of your most recent tobacco screening?: 09/22/2023Has tobacco cessation counseling been provided?: NoWhat is your level of alcohol consumption?: OccasionalHow many years have you consumed alcohol?: 18Have you ever been counseled for unhealthy alcohol use?: NoDo you use any illicit or recreational drugs?: YesWhich illicit or recreational drugs have you used?: MarijuanaHave you used IV drugs?: NoWhat is your level of caffeine consumption?: HeavyEducation and OccupationWhat is the highest grade or level of school you have completed or the highest degree you have received?: Master's degree (e.g., MA, MS, [employer], MEd, [employer] OR [employer]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, [employer])Are you currently in school?: NoAre you currently employed?: YesWho is your employer?: [employer]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 relationship 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?: DivorcedAre you sexually active?: YesDo you use protection during sex?: AlwaysHow many children do you have?: 1Home and EnvironmentAre you a caregiver?: YesDo you have any pets?: Yes (Notes: 2 dogs and 2 cats)Do you have smoke and carbon monoxide detectors in your home?: YesAre you passively exposed to smoke?: NoAre there any smokers in your house?: NoAre there any guns present in your home?: NoDiet and ExerciseWhat type of diet are you following?: RegularLifestyleDo you feel stressed (tense, restless, nervous, or anxious, or unable to sleep at night)?: Rather muchDo you use your seat belt or car seat routinely?: YesAdvance DirectiveDo you have an advance directive?: NoWhat is your code status?: Full CodeDo you have a medical power of senior trial attorney?: NoPublic Health and TravelHave you been to an area known to be high risk for COVID-19?: NoActivities of Daily LivingAre you able to care for yourself?: YesAre you blind or do you have difficulty seeing?: NoAre you deaf or do you have serious difficulty hearing? : NoDo you have difficulty concentrating, remembering or making decisions?: NoDo you have difficulty walking or climbing stairs?: NoDo you have difficulty dressing or bathing?: NoDo you have difficulty doing errands alone?: NoAre you able to walk?: Yes: walks without restrictionsDo you have transportation difficulties?: NoGender Identity and LGBTQ IdentityGender identity: Identifies as FemaleAssigned sex at : FemaleSexual orientation: Straight or heterosexual Social History not reviewed (last reviewed 09/22/2023) Substance UseDo you or have you ever smoked tobacco?: Never smokerHow much tobacco do you smoke?: NoneDo you or have you ever used any other forms of tobacco or nicotine?: NoDo you or have you ever used e-cigarettes or vape?: Never used electronic cigarettesWhat was the date of your most recent tobacco screening?: 09/22/2023Has tobacco cessation counseling been provided?: NoWhat is your level of alcohol consumption?: OccasionalHow many years have you consumed alcohol?: 18Have you ever been counseled for unhealthy alcohol use?: NoDo you use any illicit or recreational drugs?: YesWhich illicit or recreational drugs have you used?: MarijuanaHave you used IV drugs?: NoWhat is your level of caffeine consumption?: HeavyEducation and OccupationWhat is the highest grade or level of school you have completed or the highest degree you have received?: Master's degree (e.g., MA, MS, Justyna, MEd, [employer] OR TIM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, [employer])Are you currently in school?: NoAre you currently employed?: YesWho is your employer?: [employer]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 relationship 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?: DivorcedAre you sexually active?: YesDo you use protection during sex?: AlwaysHow many children do you have?: 1Home and EnvironmentAre you a caregiver?: YesDo you have any pets?: Yes (Notes: 2 dogs and 2 cats)Do you have smoke and carbon monoxide detectors in your home?: YesAre you passively exposed to smoke?: NoAre there any smokers in your house?: NoAre there any guns present in your home?: NoDiet and ExerciseWhat type of diet are you following?: RegularLifestyleDo you feel stressed (tense, restless, nervous, or anxious, or unable to sleep at night)?: Rather muchDo you use your seat belt or car seat routinely?: YesAdvance DirectiveDo you have an advance directive?: NoWhat is your code status?: Full CodeDo you have a medical power of senior trial attorney?: NoPublic Health and TravelHave you been to an area known to be high risk for COVID-19?: NoActivities of Daily LivingAre you able to care for yourself?: YesAre you blind or do you have difficulty seeing?: NoAre you deaf or do you have serious difficulty hearing? : NoDo you have difficulty concentrating, remembering or making decisions?: NoDo you have difficulty walking or climbing stairs?: NoDo you have difficulty dressing or bathing?: NoDo you have difficulty doing errands alone?: NoAre you able to walk?: Yes: walks without restrictionsDo you have transportation difficulties?: NoGender Identity and LGBTQ IdentityGender identity: Identifies as FemaleAssigned sex at : FemaleSexual orientation: Straight or heterosexual Social History not reviewed (last reviewed 09/22/2023) Substance UseDo you or have you ever smoked tobacco?: Never smokerHow much tobacco do you smoke?: NoneDo you or have you ever used any other forms of tobacco or nicotine?: NoDo you or have you ever used e-cigarettes or vape?: Never used electronic cigarettesWhat was the date of your most recent tobacco screening?: 09/22/2023Has tobacco cessation counseling been provided?: NoWhat is your level of alcohol consumption?: OccasionalHow many years have you consumed alcohol?: 18Have you ever been counseled for unhealthy alcohol use?: NoDo you use any illicit or recreational drugs?: YesWhich illicit or recreational drugs have you used?: MarijuanaHave you used IV drugs?: NoWhat is your level of caffeine consumption?: HeavyEducation and OccupationWhat is the highest grade or level of school you have completed or the highest degree you have received?: Master's degree (e.g., MA, MS, Justyna, MEd, [employer] OR TIM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, [employer])Are you currently in school?: NoAre you currently employed?: YesWho is your employer?: [employer]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 relationship 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?: DivorcedAre you sexually active?: YesDo you use protection during sex?: AlwaysHow many children do you have?: 1Home and EnvironmentAre you a caregiver?: YesDo you have any pets?: Yes (Notes: 2 dogs and 2 cats)Do you have smoke and carbon monoxide detectors in your home?: YesAre you passively exposed to smoke?: NoAre there any smokers in your house?: NoAre there any guns present in your home?: NoDiet and ExerciseWhat type of diet are you following?: RegularLifestyleDo you feel stressed (tense, restless, nervous, or anxious, or unable to sleep at night)?: Rather muchDo you use your seat belt or car seat routinely?: YesAdvance DirectiveDo you have an advance directive?: NoWhat is your code status?: Full CodeDo you have a medical power of senior trial attorney?: NoPublic Health and TravelHave you been to an area known to be high risk for COVID-19?: NoActivities of Daily LivingAre you able to care for yourself?: YesAre you blind or do you have difficulty seeing?: NoAre you deaf or do you have serious difficulty hearing? : NoDo you have difficulty concentrating, remembering or making decisions?: NoDo you have difficulty walking or climbing stairs?: NoDo you have difficulty dressing or bathing?: NoDo you have difficulty doing errands alone?: NoAre you able to walk?: Yes: walks without restrictionsDo you have transportation difficulties?: NoGender Identity and LGBTQ IdentityGender identity: Identifies as FemaleAssigned sex at : FemaleSexual orientation: Straight or heterosexual Problems Problem Type SNOMED Code ICD Code Onset Dates Problem Status W/U Status Risk Notes Problem Mild recurrent major depression (07908126) Major depressive disorder, recurrent, mild (F33.0) 4 Active confirmed Problem Severe recurrent major depression without psychotic features (63643567) Major depressive disorder, recurrent severe without psychotic features (F33.2) Active confirmed Problem Generalized anxiety disorder (48032846) Generalized anxiety disorder (F41.1) 4 Active confirmed Problem Posttraumatic stress disorder (88468150) Post-traumatic stress disorder, chronic (F43.12) 4 Active confirmed Problem Insomnia disorder related to another mental disorder (86100710) Insomnia due to other mental disorder (F51.05) 4 Active confirmed Problem Long-term current use of drug therapy (544814800) 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) 3 Active confirmed Problem Nightmares (565643425) Nightmares (F51.5) Active confirmed Problem 36634490 MDD (major depressive disorder), recurrent episode, moderate (F33.1) Active confirmed Problem 84134434 Elevated blood pressure reading (R03.0) Active confirmed Vital Signs Heart Rate 85 /min 07/08/2024 Respiratory Rate 18 /min 02/05/2024 Oximetry 96 % 02/22/2024 Height-cm 172.72 cm 07/08/2024 Blood pressure diastolic 81 mm Hg 07/08/2024 Weight-kg 117.48 kg 07/05/2024 Height 68.00 in 07/08/2024 Blood pressure systolic 136 mm Hg 07/08/2024 Weight 259.0 lbs 07/05/2024 BMI 39.38 kg/m2 07/05/2024 Encounters Encounter Location Date Provider Diagnosis [facility] [employer] [address] [address] 07/08/2024 Mar Molina Major depressive disorder, recurrent severe without psychotic features F33.2 and Hypertension, unspecified type 401.9 [facility] [employer] [place] [id number] [facility] [address] [address] 07/10/2023 Naomi Georges Insomnia due to other mental disorder F51.05 ; Major depressive disorder, recurrent, mild F33.0 ; Post-traumatic stress disorder, chronic F43.12 and Generalized anxiety disorder F41.1 [facility] [employer] [facility] [address] [facility] [address] [address] 07/24/2023 Naomi Georges Major depressive disorder, recurrent, mild F33.0 ; Generalized anxiety disorder F41.1 and Insomnia due to other mental disorder F51.05 [facility] [employer] [place] [address] [facility] [address] [address] 08/05/2023 Blily Shine Generalized anxiety disorder F41.1 and Major depressive disorder, recurrent, moderate F33.1 [facility] [employer] [place] [address] [facility] [address] [address] 08/07/2023 Naomi Thery Major depressive disorder, recurrent severe without psychotic features F33.2 [facility], [facility] [address] [facility] [address] [place] [address] 08/11/2023 Naomi Thery Major depressive disorder, recurrent, mild F33.0 ; Insomnia due to other mental disorder F51.05 ; Major depressive disorder, recurrent severe without psychotic features F33.2 ; Major depressive disorder, recurrent, moderate F33.1 ; Post-traumatic stress disorder, chronic F43.12 and Generalized anxiety disorder F41.1 [facility] [address] [facility] [address] [place] [address] 08/20/2023 Billy Shine Major depressive disorder, recurrent, moderate F33.1 ; Generalized anxiety disorder F41.1 and Major depressive disorder, recurrent severe without psychotic features F33.2 [facility] [address] [address] 08/21/2023 Naomi Therpieter Major depressive disorder, recurrent severe without psychotic features F33.2 ; Insomnia due to other mental disorder F51.05 and Generalized anxiety disorder F41.1 [facility] [address] [address] 08/25/2023 Naomi Therpieter Generalized anxiety disorder F41.1 ; Post-traumatic stress disorder, chronic F43.12 ; Insomnia due to other mental disorder F51.05 and Major depressive disorder, recurrent severe without psychotic features F33.2 [facility] [address] [address] 08/26/2023 Deniz Gerardo Major depressive disorder, recurrent severe without psychotic features F33.2 and Generalized anxiety disorder F41.1 [facility] [address] [facility] [address] [place] [address] 09/04/2023 Naomi Thery Major depressive disorder, recurrent severe without psychotic features F33.2 ; Generalized anxiety disorder F41.1 ; Insomnia due to other mental disorder F51.05 and Post-traumatic stress disorder, chronic F43.12 [facility] [address] [facility] [address] [place] [address] 09/08/2023 Billy Shine Generalized anxiety disorder F41.1 ; Major depressive disorder, recurrent, moderate F33.1 and Major depressive disorder, recurrent severe without psychotic features F33.2 [facility], [facility] [address] [facility] [address] [place] [address] 09/11/2023 Naomi Therpieter Generalized anxiety disorder F41.1 ; Major depressive disorder, recurrent, mild F33.0 ; Post-traumatic stress disorder, chronic F43.12 and Insomnia due to other mental disorder F51.05 [facility], [facility] [address] [facility] [address] [place] [address] 09/17/2023 Billy Shine Major depressive disorder, recurrent, moderate F33.1 ; Major depressive disorder, recurrent severe without psychotic features F33.2 and Generalized anxiety disorder F41.1 [facility], [facility] [address] [place] [address] [place] [address] 09/18/2023 Naomi Therpieter Major depressive disorder, recurrent, mild F33.0 ; Insomnia due to other mental disorder F51.05 and Generalized anxiety disorder F41.1 [facility] [address] [place] [address] [place] [address] 09/22/2023 Naomimaurizio Georges Post-traumatic stress disorder, chronic F43.12 ; Major depressive disorder, recurrent, mild F33.0 ; Generalized anxiety disorder F41.1 and Insomnia due to other mental disorder F51.05 [facility] [address] [facility] [address] [place] [address] 09/28/2023 Billy Shine Major depressive disorder, recurrent, moderate F33.1 ; Major depressive disorder, recurrent severe without psychotic features F33.2 and Generalized anxiety disorder F41.1 [facility] [address] [place] [address] [place] [address] 10/02/2023 Naomi Therpieter Post-traumatic stress disorder, chronic F43.12 ; Insomnia due to other mental disorder F51.05 ; Major depressive disorder, recurrent, mild F33.0 and Generalized anxiety disorder F41.1 [facility], [facility] [address] [place] [address] [place] [address] 10/08/2023 Billy Shine Major depressive disorder, recurrent, moderate F33.1 ; Generalized anxiety disorder F41.1 and Major depressive disorder, recurrent severe without psychotic features F33.2 [facility], [facility] [address] [place] [address] [place] [address] 10/15/2023 Billy Shine Generalized anxiety disorder F41.1 ; Major depressive disorder, recurrent severe without psychotic features F33.2 and Major depressive disorder, recurrent, moderate F33.1 [facility], [place] [address] [facility] [address] [place] [address] 10/16/2023 Naomi Georges Major depressive disorder, recurrent, mild F33.0 ; Generalized anxiety disorder F41.1 ; Post-traumatic stress disorder, chronic F43.12 and Insomnia due to other mental disorder F51.05 [place] [address] [facility] [address] [place] [address] 10/21/2023 Provider Migration Major depressive disorder, recurrent, mild F33.0 [facility], [place] [address] [facility] [address] [place] [address] 10/30/2023 Naomi Georges Major depressive disorder, recurrent, mild F33.0 and Generalized anxiety disorder F41.1 [place] [address] [address] 11/13/2023 Naomi Georges Generalized anxiety disorder F41.1 ; Insomnia due to other mental disorder F51.05 ; Post-traumatic stress disorder, chronic F43.12 and Major depressive disorder, recurrent, mild F33.0 [facility], [place] [address] [address] 11/27/2023 Naomi Georges Generalized anxiety disorder F41.1 ; Insomnia due to other mental disorder F51.05 and Major depressive disorder, recurrent, mild F33.0 [facility], [place] [address] [facility] [address] [place] [address] 11/30/2023 Billy Shine Major depressive disorder, recurrent, moderate F33.1 ; Major depressive disorder, recurrent severe without psychotic features F33.2 and Generalized anxiety disorder F41.1 [facility], [facility] [address] [address] 12/11/2023 Provider Migration [facility], [place] [address] [facility] [address] [place] [address] 12/25/2023 Scottie Genao [facility], [facility] [address] [facility] [address] [place] [address] 12/30/2023 Elizabeth Chen Major depressive disorder, recurrent severe without psychotic features F33.2 ; Generalized anxiety disorder F41.1 ; Insomnia due to other mental disorder F51.05 and Post-traumatic stress disorder, chronic F43.12 [facility] [employer] 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 [address] [place] [address] [place] [address] 01/01/2024 Billy Shine Generalized anxiety disorder F41.1 and Recurrent major depressive episodes, mild F33.0 [facility] [address] [facility] [address] [place] [address] 01/08/2024 Nikole Remy Major depressive disorder, recurrent severe without psychotic features F33.2 [facility] [employer] [facility] [address] [facility] [address] [place] [address] 01/22/2024 Naomi Georges Generalized anxiety disorder F41.1 ; Major depressive disorder, recurrent, mild F33.0 ; Insomnia due to other mental disorder F51.05 ; Post-traumatic stress disorder, chronic F43.12 and Other termite control servicer (current) drug therapy Z79.899 [facility] [employer] 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 [address] [facility] [address] [place] [address] 02/19/2024 Billy Shine Generalized anxiety disorder F41.1 and Recurrent major depressive episodes, moderate F33.1 [facility] [employer] [address] [facility] [address] [place] [address] 02/22/2024 Gary Huerta Major depressive disorder, recurrent severe without psychotic features F33.2 [facility] [address] [facility] [address] [place] [address] 03/03/2024 Billy Shine Generalized anxiety disorder F41.1 and Recurrent major depressive episodes, moderate F33.1 [facility], [facility] [address] [facility] [address] [place] [address] 03/04/2024 Gary Clubb Major depressive disorder, recurrent severe without psychotic features F33.2 [facility], [facility] [address] [facility] [address] [place] [address]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 Delusions, and Paranoia - No reported hallucinations, delusions, or paranoia. - Plan: Continue assessment for psychotic symptoms during follow-ups. 8. Physical Complaints - Reports no physical complaints. - Plan: Monitor for new or worsening physical symptoms during follow-ups. 05/27/2024 Major depressive disorder, recurrent severe without [...] to practice good sleep hygiene. c. Consider non-pharmacolog ical interventions, such as relaxation techniques and cognitive-behav ioral therapy for insomnia (CBT-I). 6. Appetite - [...] to practice good sleep hygiene. c. Consider non-pharmacolog ical interventions, such as relaxation techniques and cognitive-behav ioral therapy for insomnia (CBT-I). 6. Appetite - [...] prazosin as discussed for sleep and nightmares. 06/10/2024 Major depressive disorder, recurrent severe without psychotic features (ICD-10 - F33.2) Continue esketamine treatments every other week Continue current medications per Olga 06/24/2024 Major depressive disorder, recurrent severe without [...] spent 56 Evaluate patient's clinical status [relevant history/physica l assessment] and determine readiness/appro priateness of treatment Yes6 Time spent 157 Confirm [...] and after ecounter was (in Minutes) 52 07/05/2024 Major depressive disorder, recurrent severe without psychotic features (ICD-10 - F33.2) Major Depressive Disorder, mild - Assessment: Patient reports improvement with Spravato treatment, currently every 2 weeks. Mild depression persists, but is manageable. AIMS= 0 07/05/24 Patient confirms treatment has been ongoing for over a year and is going well. - Plan: Continue Spravato treatment and monitor response. Consider increasing frequency to every week or every 10 days if depression worsens. Medication Management - Assessment: Current medications include Wellbutrin, Prozac, lamotrigine (150 mg), and Abilify (15 mg). Prazosin 1 mg Patient reports no current movement disorders. - Plan: Consider decreasing lamotrigine to 100 mg to potentially improve mood.- will consider after holidays related to have depresison currently Plan to reduce Abilify from 15 mg to 10 mg post-holidays due to reduce tardive dyskinesia risks. patient currently have depression and anxiety r/t holiday Monitor for any movement disorders. Follow-up - Plan: discuss medication adjustments. and will monitor depression and anxiety after the holidays- reported having depression and anxiety presently with holidays and next Spravato tx 07/08/24 Continue to monitor patient's progress and response to treatment during subsequent visits. Continue Spravato every other week at this time 07/05/2024 Generalized anxiety disorder (ICD-10 - F41.1) Major Depressive Disorder, mild - Assessment: Patient reports improvement with Spravato treatment, currently every 2 weeks. Mild depression persists, but is manageable. AIMS= 0 07/05/24 Patient confirms treatment has been ongoing for over a year and is going well. - Plan: Continue Spravato treatment and monitor response. Consider increasing frequency to every week or every 10 days if depression worsens. Medication Management - Assessment: Current medications include Wellbutrin, Prozac, lamotrigine (150 mg), and Abilify (15 mg). Prazosin 1 mg Patient reports no current movement disorders. - Plan: Consider decreasing lamotrigine to 100 mg to potentially improve mood.- will consider after holidays related to have depresison currently Plan to reduce Abilify from 15 mg to 10 mg post-holidays due to reduce tardive dyskinesia risks. patient currently have depression and anxiety r/t holiday Monitor for any movement disorders. Follow-up - Plan: discuss medication adjustments. and will monitor depression and anxiety after the holidays- reported having depression and anxiety presently with holidays and next Spravato tx 07/08/24 Continue to monitor patient's progress and response to treatment during subsequent visits. 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 - F51.05) 07/24/2023 Major depressive disorder, recurrent, mild (ICD-10 - F33.0) 07/24/2023 Generalized anxiety disorder (ICD-10 - F41.1) 07/24/2023 Insomnia due to other mental disorder (ICD-10 - F51.05) 08/05/2023 Major depressive disorder, recurrent, moderate (ICD-10 - F33.1) 08/05/2023 Generalized anxiety disorder (ICD-10 - F41.1) 08/07/2023 Major depressive disorder, recurrent severe without psychotic features (ICD-10 - F33.2) 08/11/2023 Major depressive disorder, recurrent, mild (ICD-10 - F33.0) 08/11/2023 Major depressive disorder, recurrent, moderate (ICD-10 - F33.1) 08/11/2023 Major depressive disorder, recurrent severe without psychotic features (ICD-10 - F33.2) 08/11/2023 Generalized anxiety disorder (ICD-10 - F41.1) 08/11/2023 Post-traumat ic stress disorder, chronic (ICD-10 - F43.12) 08/11/2023 Insomnia due to other mental disorder (ICD-10 - F51.05) 08/20/2023 Major depressive disorder, recurrent, moderate (ICD-10 - F33.1) 08/20/2023 Major depressive disorder, recurrent severe without psychotic features (ICD-10 - F33.2) 08/20/2023 Generalized anxiety disorder (ICD-10 - F41.1) 08/21/2023 Major depressive disorder, recurrent severe without psychotic features (ICD-10 - F33.2) 08/21/2023 Generalized anxiety disorder (ICD-10 - F41.1) 08/21/2023 Insomnia due to other mental disorder (ICD-10 - F51.05) 08/25/2023 Major depressive disorder, recurrent severe without psychotic features (ICD-10 - F33.2) 08/25/2023 Generalized anxiety disorder (ICD-10 - F41.1) 08/25/2023 Post-traumat ic stress disorder, chronic (ICD-10 - F43.12) 08/25/2023 Insomnia due to other mental disorder (ICD-10 - F51.05) 08/26/2023 Major depressive disorder, recurrent severe without psychotic features (ICD-10 - F33.2) 08/26/2023 Generalized anxiety disorder (ICD-10 - F41.1) 09/04/2023 Major depressive disorder, recurrent severe without psychotic features (ICD-10 - F33.2) 09/04/2023 Generalized anxiety disorder (ICD-10 - F41.1) 09/04/2023 Post-traumat ic stress disorder, chronic (ICD-10 - F43.12) 09/04/2023 Insomnia due to other mental disorder (ICD-10 - F51.05) 09/08/2023 Major depressive disorder, recurrent, moderate (ICD-10 - F33.1) 09/08/2023 Major depressive disorder, recurrent severe without psychotic features (ICD-10 - F33.2) 09/08/2023 Generalized anxiety disorder (ICD-10 - F41.1) 09/11/2023 Major depressive disorder, recurrent, mild (ICD-10 - F33.0) 09/11/2023 Generalized anxiety disorder (ICD-10 - F41.1) 09/11/2023 Post-traumat ic stress disorder, chronic (ICD-10 - F43.12) 09/11/2023 Insomnia due to other mental disorder (ICD-10 - F51.05) 09/17/2023 Major depressive disorder, recurrent, moderate (ICD-10 - F33.1) 09/17/2023 Major depressive disorder, recurrent severe without psychotic features (ICD-10 - F33.2) 09/17/2023 Generalized anxiety disorder (ICD-10 - F41.1) 09/18/2023 Major depressive disorder, recurrent, mild (ICD-10 - F33.0) 09/18/2023 Generalized anxiety disorder (ICD-10 - F41.1) 09/18/2023 Insomnia due to other mental disorder (ICD-10 - F51.05) 09/22/2023 Major depressive disorder, recurrent, mild (ICD-10 - F33.0) 09/22/2023 Generalized anxiety disorder (ICD-10 - F41.1) 09/22/2023 Post-traumat ic stress disorder, chronic (ICD-10 - F43.12) 09/22/2023 Insomnia due to other mental disorder (ICD-10 - F51.05) 09/28/2023 Major depressive disorder, recurrent, moderate (ICD-10 - F33.1) 09/28/2023 Major depressive disorder, recurrent severe without psychotic features (ICD-10 - F33.2) 09/28/2023 Generalized anxiety disorder (ICD-10 - F41.1) 10/02/2023 Major depressive disorder, recurrent, mild (ICD-10 - F33.0) 10/02/2023 Generalized anxiety disorder (ICD-10 - F41.1) 10/02/2023 Post-traumat ic stress disorder, chronic (ICD-10 - F43.12) 10/02/2023 Insomnia due to other mental disorder (ICD-10 - F51.05) 10/08/2023 Major depressive disorder, recurrent, moderate (ICD-10 - F33.1) 10/08/2023 Major depressive disorder, recurrent severe without psychotic features (ICD-10 - F33.2) 10/08/2023 Generalized anxiety disorder (ICD-10 - F41.1) 10/15/2023 Major depressive disorder, recurrent, moderate (ICD-10 - F33.1) 10/15/2023 Major depressive disorder, recurrent severe without psychotic features (ICD-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.2) 10/15/2023 Generalized anxiety disorder (ICD-10 - F41.1) 10/16/2023 Major depressive disorder, recurrent, mild (ICD-10 - F33.0) 10/16/2023 Generalized anxiety disorder (ICD-10 - F41.1) 10/16/2023 Post-traumat ic stress disorder, chronic (ICD-10 - F43.12) 10/16/2023 Insomnia due to other mental disorder (ICD-10 - F51.05) 10/21/2023 Major depressive disorder, recurrent, mild (ICD-10 - F33.0) 10/30/2023 Major depressive disorder, recurrent, mild (ICD-10 - F33.0) 10/30/2023 Generalized anxiety disorder (ICD-10 - F41.1) 11/13/2023 Major depressive disorder, recurrent, mild (ICD-10 - F33.0) 11/13/2023 Generalized anxiety disorder (ICD-10 - F41.1) 11/13/2023 Post-traumat ic stress disorder, chronic (ICD-10 - F43.12) 11/13/2023 Insomnia due to other mental disorder (ICD-10 - F51.05) 11/27/2023 Major depressive disorder, recurrent, mild (ICD-10 - F33.0) 11/27/2023 Generalized anxiety disorder (ICD-10 - F41.1) 11/27/2023 Insomnia due to other mental disorder (ICD-10 - F51.05) 11/30/2023 Major depressive disorder, recurrent, moderate (ICD-10 - F33.1) 11/30/2023 Major depressive disorder, recurrent 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 Mild depression persists, but is manageable. AIMS= 0 07/05/24 Patient confirms treatment has been ongoing for over a year and is going well. - Plan: Continue Spravato treatment and monitor response. Consider increasing frequency to every week or every 10 days if depression worsens. Medication Management - Assessment: Current medications include Wellbutrin, Prozac, lamotrigine (150 mg), and Abilify (15 mg). Prazosin 1 mg Patient reports no current movement disorders. - Plan: Consider decreasing lamotrigine to 100 mg to potentially improve mood.- will consider after holidays related to have depresison currently Plan to reduce Abilify from 15 mg to 10 mg post-holidays due to reduce tardive dyskinesia risks. patient currently have depression and anxiety r/t holiday Monitor for any movement disorders. Follow-up - Plan: discuss medication adjustments. and will monitor depression and anxiety after the holidays- reported having depression and anxiety presently with holidays and next Spravato tx 07/08/24 Continue to monitor patient's progress and response to treatment during subsequent visits. Continue Spravato every other week at this time 12/31/2023 Insomnia due to other mental disorder (ICD-10 - F51.05) 1. Mild recurrent major depression - discuss decrease Abilify and patient wanted to wait at this time and may try to decrease next visit- family stress presently Spravato 84 mg every other week - rx sent 12/31/23 with 4 refills [place]- stable on rx F33.0: Major depressive disorder, recurrent, mild esketamine 84 mg (28 mg x 3) nasal spray - Inhale 3 spray(s) every 2 weeks by intranasal route. Quantity: (3) spray(s) Lot #: [id number] Route: Inhalation Site: Nasal Exp Date: 08/20/2026 Administered aripiprazole 15 mg tablet - Take 1 tablet(s) every day by oral route in the morning for 90 days. Qty: (90) tablet Refills: 0 Pharmacy: [facility] bupropion HCl XL 300 mg 24 hr tablet, extended release - Take 1 tablet(s) every day by oral route in the morning for 90 days. Qty: (90) tablet Refills: 0 Pharmacy: [facility] lamotrigine 150 mg tablet - take one tablet at bedtime Qty: (90) tablet Refills: 0 Pharmacy: [facility] educated on all medications, benefits, side effects and risk, and educated on depression, anxiety, and ADHD, mood d/o and educated on compliance of medications, metabolic and movement d/o education appointment is, continue therapy discussion with patient about course of treatment and patient instructions. education on serotonin syndrome SSRI/SNRI side effects discussed including but not limited to, gastric upset, nausea, vomiting, diarrhea and/or constipation, weight changes, sexual side effects including loss of libido, increased suicidal thoughts/behavi ors in children and young adults, and serotonin syndrome. Second generation antipsychotics (SGAs) have metabolic syndrome issues with weight gain, increase in prolactin, increased waist circumference, increased lipids, and increased glucose. Thus routine monitoring of weight, metabolic labs, etc. is indicated. A general rank ordering of antipsychotics that have the greatest to the least risk of metabolic effects is olanzapine, quetiapine, risperidone, ziprasidone, and aripiprazole. However, weight gain can occur with all of these drugs and considerable variability exists among patients receiving the same drug regarding the risk of metabolic effects. Anti-psychotic agents not only increase the risk of metabolic disorder, they also increase the risk of CVA, akathisia, and movement disorders including EPS or tardive dyskinesia (more common with first generation antipsychotics) and more. Medication Management and Follow-Up - Plan: - Schedule follow-up appointments every 2-3 months to monitor the patient's response to the medication regimen. - Reinforce the importance of avoiding recreational drug use due to potential neurotoxicity and interactions with prescribed medications 2. Generalized anxiety disorder F41.1: Generalized anxiety disorder fluoxetine 40 mg capsule - Take 1 capsule(s) every day by oral route in the morning for 90 days. Qty: (90) capsule Refills: 0 Pharmacy: [facility] hydroxyzine HCl 50 mg tablet - Take 1 tablet(s) 3 times a day by oral route as needed for 30 days. Qty: (90) tablet Refills: 0 Pharmacy: [facility] 3. Insomnia disorder related to another mental [id number]: Insomnia due to other mental disorder , Learning About Depression material was published 02/05/2024 Insomnia due to other mental disorder (ICD-10 - F51.05) 1. Mild recurrent major depression - discuss decrease Abilify and patient wanted to wait at this time and may try to decrease next OFFICE visit- Spravato 84 mg every other week - rx sent 12/31/23 with 4 refills [place]- stable on rx F33.0: Major depressive disorder, recurrent, mild Stable esketamine 84 mg (28 mg x 3) nasal spray - Inhale 3 spray(s) every 2 weeks by intranasal route. Quantity: (3) spray(s) Lot #: [id number] Route: Inhalation Site: Nasal Exp Date: 08/20/2026 Administered aripiprazole 15 mg tablet - bupropion HCl XL 300 mg 24 hr tablet, extended release - lamotrigine 150 mg tablet - take one tablet at bedtime stable NO RX REFILL NEEDED TODAY educated on all medications, benefits, side effects and risk, and educated on depression, anxiety, and ADHD, mood d/o and educated on compliance of medications, metabolic and movement d/o education appointment is, continue therapy discussion with patient about course of treatment and patient instructions. education on serotonin syndrome SSRI/SNRI side effects discussed including but not limited to, gastric upset, nausea, vomiting, diarrhea and/or constipation, weight changes, sexual side effects including loss of libido, increased suicidal thoughts/behavi ors in children and young adults, and serotonin syndrome. Second generation antipsychotics (SGAs) have metabolic syndrome issues with weight gain, increase in prolactin, increased waist circumference, increased lipids, and increased glucose. Thus routine monitoring of weight, metabolic labs, etc. is indicated. A general rank ordering of antipsychotics that have the greatest to the least risk of metabolic effects is olanzapine, quetiapine, risperidone, ziprasidone, and aripiprazole. However, weight gain can occur with all of these drugs and considerable variability exists among patients receiving the same drug regarding the risk of metabolic effects. Anti-psychotic agents not only increase the risk of metabolic disorder, they also increase the risk of CVA, akathisia, and movement disorders including EPS or tardive dyskinesia (more common with first generation antipsychotics) and more. Medication Management and Follow-Up - Plan: - Schedule follow-up appointments every 2-3 months to monitor the patient's response to the medication regimen. - Reinforce the importance of avoiding recreational drug use due to potential neurotoxicity and interactions with prescribed medications 2. Generalized anxiety disorderF 41.1: Generalized anxiety disorder fluoxetine 40 mg capsule - Take 1 capsule(s) every day by oral route in the morning . hydroxyzine HCl 50 mg tablet - Take 1 tablet(s) 3 times a day by oral route as needed . 3. Insomnia disorder related to another mental disorder Pharmacy: [facility] 01/22/2024 Insomnia due to other mental disorder (ICD-10 - F51.05) 05/06/2024 Major depressive disorder, recurrent, mild (ICD-10 - F33.0) 1. Major Depressive Disorder - Patient reports depression and anxiety r/t stress with school Abilify 15 mg daily LAMOTRIGINE 150 MG DAILY Wellbutrin XL 300 mg daily in am Prozac 40 mg daily labs ordered AIMS= 0 05/06/24 Continue Spravato 84 mg every other week - helping depression - Plan: a. Continue current antidepressant regimen. b. Monitor for worsening symptoms. c. Encourage regular therapy and self-care strategies. 2. Generalized Anxiety Disorder - - No recent medication changes. - Plan:Prozac 40 mg daily a. Continue current anxiolytic regimen. b. Monitor for worsening symptoms. c. Encourage regular therapy and relaxation techniques. 3. Suicidal Ideation and Self-Harm - Patient denies suicidal ideation or self-harm. no plans or intent - Patient denies thoughts of harming others. - Plan: Continue monitoring for any emergence. 4. Sleep Disturbance - Patient reports fatigue HX sleep study no sleep apnea - History of nightmares- chornic and patiwnt stopped prazosin trial. - Melatonin 10 mg helps with sleep initiation but not maintenance. Add Ramelteon 8 mg at bedtime - educated on rx 5. Appetite - Patient reports okay appetite with some recent decrease.- on Wegovy with weight loss - Plan: patient reported eating 5-6 small meals a day and water intake 6. Follow-Up - Plan: a. continue Spravato every other week 84 mg follow up with [facility] provider by every -th Spravato rachidliilya grace rx schedule therapy Billy JOSÉ 03/18/2024 Generalized anxiety disorder (ICD-10 - F41.1) Learning About Generalized Anxiety Disorder material was published, Generalized Anxiety Disorder: Care Instructions material was published, Learning About Anxiety Disorders material was published Seen in [facility] by Gary [facility] and patient requested rx refill and reported nightmares and Gary requested [facility] Prazosin 1 mg PO HS # 30 AND MONITOR B/P Appointment with Naomi Georges [facility] to be schedule and also with therapist all other rx sent to [facility] 05/06/2024 Post-traumat ic stress disorder, chronic (ICD-10 - F43.12) 1. Major Depressive Disorder - Patient reports depression and anxiety r/t stress with school Abilify 15 mg daily LAMOTRIGINE 150 MG DAILY Wellbutrin XL 300 mg daily in am Prozac 40 mg daily labs ordered AIMS= 0 05/06/24 Continue Spravato 84 mg every other week - helping depression - Plan: a. Continue current antidepressant regimen. b. Monitor for worsening symptoms. c. Encourage regular therapy and self-care strategies. 2. Generalized Anxiety Disorder - - No recent medication changes. - Plan:Prozac 40 mg daily a. Continue current anxiolytic regimen. b. Monitor for worsening symptoms. c. Encourage regular therapy and relaxation techniques. 3. Suicidal Ideation and Self-Harm - Patient denies suicidal ideation or self-harm. no plans or intent - Patient denies thoughts of harming others. - Plan: Continue monitoring for any emergence. 4. Sleep Disturbance - Patient reports fatigue HX sleep study no sleep apnea - History of nightmares- chornic and patiwnt stopped prazosin trial. - Melatonin 10 mg helps with sleep initiation but not maintenance. Add Ramelteon 8 mg at bedtime - educated on rx 5. Appetite - Patient reports okay appetite with some recent decrease.- on Wegovy with weight loss - Plan: patient reported eating 5-6 small meals a day and water intake 6. Follow-Up - Plan: a. continue Spravato every other week 84 mg follow up with [facility] provider by every -9th Spravato milagros rasheedweifouzia rx schedule therapy Billy [facility] 12/30/2023 Post-traumat ic stress disorder, chronic (ICD-10 - F43.12) Continue therapy 02/05/2024 Post-traumat ic stress disorder, chronic (ICD-10 - F43.12) 1. Mild recurrent major depression - discuss decrease Abilify and patient wanted to wait at this time and may try to decrease next OFFICE visit- Spravato 84 mg every other week - rx sent 12/31/23 with 4 refills [place]- stable on rx F33.0: Major depressive disorder, recurrent, mild Stable esketamine 84 mg (28 mg x 3) nasal spray - Inhale 3 spray(s) every 2 weeks by intranasal route. Quantity: (3) spray(s) Lot #: [id number] Route: Inhalation Site: Nasal Exp Date: 08/20/2026 Administered aripiprazole 15 mg tablet - bupropion HCl XL 300 mg 24 hr tablet, extended release - lamotrigine 150 mg tablet - take one tablet at bedtime stable NO RX REFILL NEEDED TODAY educated on all medications, benefits, side effects and risk, and educated on depression, anxiety, and ADHD, mood d/o and educated on compliance of medications, metabolic and movement d/o education appointment is, continue therapy discussion with patient about course of treatment and patient instructions. education on serotonin syndrome SSRI/SNRI side effects discussed including but not limited to, gastric upset, nausea, vomiting, diarrhea and/or constipation, weight changes, sexual side effects including loss of libido, increased suicidal thoughts/behavi ors in children and young adults, and serotonin syndrome. Second generation antipsychotics (SGAs) have metabolic syndrome issues with weight gain, increase in prolactin, increased waist circumference, increased lipids, and increased glucose. Thus routine monitoring of weight, metabolic labs, etc. is indicated. A general rank ordering of antipsychotics that have the greatest to the least risk of metabolic effects is olanzapine, quetiapine, risperidone, ziprasidone, and aripiprazole. However, weight gain can occur with all of these drugs and considerable variability exists among patients receiving the same drug regarding the risk of metabolic effects. Anti-psychotic agents not only increase the risk of metabolic disorder, they also increase the risk of CVA, akathisia, and movement disorders including EPS or tardive dyskinesia (more common with first generation antipsychotics) and more. Medication Management and Follow-Up - Plan: - Schedule follow-up appointments every 2-3 months to monitor the patient's response to the medication regimen. - Reinforce the importance of avoiding recreational drug use due to potential neurotoxicity and interactions with prescribed medications 2. Generalized anxiety disorderF 41.1: Generalized anxiety disorder fluoxetine 40 mg capsule - Take 1 capsule(s) every day by oral route in the morning . hydroxyzine HCl 50 mg tablet - Take 1 tablet(s) 3 times a day by oral route as needed . 3. Insomnia disorder related to another mental disorder Pharmacy: [facility] 12/31/2023 Other [facility] (current) drug therapy (ICD-10 - Z79.899) Medication Refill: Care Instructions material was published 1. Mild recurrent major depression - discuss decrease Abilify and patient wanted to wait at this time and may try to decrease next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
--- OUTSIDE RECORDS SUMMARY | 2024-07-10 00:21 | XMS_ITS | Encounter Summary ---
Author Organization [facility] Address [address] [place] [address] Care Team Providers Care Justice Court Deputy Clerk Name Role Phone Clovis Johnson MD Primary Care Provider [phone] Encounter Details Date Type Department Care Team (Latest Contact Info) Description 03/10/2021 Travel Social History Tobacco Use Types Packs/Day [...] have Coronavirus / COVID-19? No / Unsure 03/10/2021 9:59 AM CDT documented as of this encounter Plan of Treatment Not on file documented as of this encounter Visit Diagnoses Not on filedocumented in this encounter Care Teams Justice Court Deputy Clerk Relationship Specialty Start Date End Date Clovis Johnson MD [address] [place] [address] [place] [phone] PCP - General Family Medicine 03/10/21 10/02/22 documented as of this encounter
--- OUTSIDE RECORDS SUMMARY | 2024-07-10 00:21 | XMS_ITS | Patient Health Summary ---
Author Organization [facility] Address [address] [place] [address] Care Team Providers Care Water Rights Specialist Name Role Phone PierreremyMyles DO Primary Care Provider [phone] Note from [facility],non-owned Affiliates and Associated Physician Practices is amultiple site organization consisting of ambulatory clinics and hospital sitesin [place], [place], [place] and [place]. This disclosure is being madepursuant to the Care Everywhere program and may not contain all information available regarding this patient. Last updated 18.[facility] [employer] Allergies No known active allergies Active Problems [...] on file Sexual Orientation Not on file Procedures * SKIN TEST PPD - POINT OF CARE(Performed 03/10/2021) Performed for PPD screening test Results * SKIN TEST PPD - POINT OF CARE (03/10/2021 4:40 PM CDT) PPD 0 mm [facility] Comment:negative Other MISCELLANEOUS SAMPLE S / Unknown 03/10/2021 4:40 PM CDT Adelaida Lazaro MANAGER SPECIALTY-FILE MACHINE OPERATOR LAB - POINT OF CARE ORDERABLES [facility] [address] [phone] Care Teams Water Rights Specialist Relationship Specialty Start Date End Date Myles Pruett DO [address] [place] [address] PCP - General 10/03/22
--- OUTSIDE RECORDS SUMMARY | 2024-07-10 00:21 | XMS_ITS | Encounter Summary ---
Author Organization [facility] Address [address] [place] [address] Care Team Providers Care Riveter Portable Machine Name Role Phone Clovis Johnson MD Primary Care Provider [phone] Reason for Visit * Reason Comments PPD Skin Test Placement Encounter Details Date Type Department Care Team (Late st Contact Info) Description 03/10/2021 10:00 AM CDT Office Visit [facility] [address] [phone] Provider, [facility] PPD screening test (Primary Dx) Social History [...] AM CDT documented as of this encounter Progress Notes * Adelaida Lazaro, CAR AND YARD SUPERVISOR-WOOD PATTERN MAKER - 03/10/2021 10:18 AM CDT PPD Placement note Holly No, 35 year old female is here today for placement of PPD test Reason for PPD test: school Pt taken PPD test before: yes Verified in allergy area and with patient that they are not allergic to the products PPD is made of(Phenol or Tween). Yes Is patient taking any oral or IV steroid medication now or have they taken it in the last month? no Has the patient ever received the BCG vaccine?: no Has the patient had a COVID-19 vaccine in the last 4 weeks: no Has the patient been in recent contact with anyone known or suspected of having active TB disease?:no Date of exposure (if applicable): na Name of person they were exposed to (if applicable): na Patient's Country of origin?: [place] O: Alert and oriented in NAD. P: PPD placed on 03/10/2021. Patient advised to return for reading within 48-72 hours. documented in this encounter Plan of Treatment Not on file documented as of this encounter Procedures Procedure Name Priority Date/Time Associated Diagnosis Comments SKIN TEST PPD - POINT OF CARE Routine 03/10/2021 4:40 PM CDT PPD screening test documented in this encounter Results * SKIN TEST PPD - POINT OF CARE (03/10/2021 4:40 PM CDT) PPD 0 mm [facility] Comment:negative Other MISCELLANEOUS SAMPLE S / Unknown 03/10/2021 4:40 PM CDT Adelaida SRINIVASAN LAB - POINT OF CARE ORDERABLES [place] [address], [facility] [phone] documented in this encounter Visit Diagnoses Diagnosis PPD screening test- Primary Screening examination for pulmonary tuberculosis documented in this encounter Administered Medications Administered Medications Medication Order MAR Action Action Date Dose Rate Site PPD Intradermal Given 03/10/2021 0.1 mL Left Forearm documented in this encounter Care Teams Riveter Portable Machine Relationship Specialty Start Date End Date Clovis Johnson MD [address] [place] [phone] PCP - General Family Medicine 03/10/21 10/02/22 documented as of this encounter
--- OUTSIDE RECORDS SUMMARY | 2024-07-10 00:22 | XMS_ITS | Encounter Summary ---
Author Organization [facility] Address [address] [place] [address] Care Team Providers Care Conversion Man Name Role Phone Clovis Johnson MD Primary Care Provider [phone] Encounter Details Date Type Department Care Team (Late st Contact Info) Description 01/27/2018 Orders Only [facility] Support Services Adult Sleep Medicine [address] [place] [address] Ryanne Walters MD [address] [place] [address] Social History Tobacco Use Types Packs/Day Years Used Date Smoking Tobacco: Never Smokeless Tobacco: Never Alcohol Use Standard Drinks/Week Comments Yes 2 (1 standard drink = 0.6 oz pur e alcohol) Sex and Gender Information Value Date Recorded Sex Assigned at Not on file Gender Identity Not on file Sexual Orientation Not on file documented as of this encounter Plan of Treatment Not on file documented as of this encounter Procedures Procedure Name Priority Date/Time Associated Diagnosis Comments EDUCATION SLEEP STUDY Routine 01/27/2018 2:32 PM CDT documented in this encounter Results * EDUCATION SLEEP STUDY - MAXINE (01/27/2018 2:32 PM CDT) Education Name SLEEP STUDY NAYE I EDUCATION INTERFACE Education URL [email or web address] MAXINE EDUCATION INTERFACE EDUCATION ACCESS CODE [id number] MAXINE EDUCATION INTERFACE EDUCATION ISSUE DATE Jan 27, 2018 MAXINE EDUCATION INTERFACE EDUCATION START DATE Jan 27, 2018 MAXINE EDUCATION INTERFACE EDUCATION COMPLETED DATE This program was partially completed but flagged as on: Feb 27, 2018 MAXINE EDUCATION INTERFACE EDUCATION EXPIRATION DATE Feb 26, 2018 MAXINE EDUCATION INTERFACE EDUCATION MESSAGE EVENT MAXINE EDUCATION INTERFACE 01/27/2018 2:32 PM CDT Ryanne Walters MD EXTERNAL EDUCATION O RDERABLES Performing Organization Address City/State/[facility] Co de Phone Number MAXINE EDUCATION INTERFACE documented in this encounter Visit Diagnoses Not on filedocumented in this encounter Care Teams Conversion Man Relationship Specialty Start Date End Date Clovis Johnson MD PCP - General Family Practice 08/17/17 documented as of this encounter
--- OUTSIDE RECORDS SUMMARY | 2024-07-10 00:22 | XMS_ITS | Encounter Summary ---
Author Organization [facility] Address 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) (Primary Dx); examination or test, negative result; UTI symptoms Social History Tobacco Use Types Packs/Day Years Used Date Smoking Tobacco: Never Smokeless Tobacco: Never Alcohol Use Standard Drinks/Week Comments Yes 2 (1 standard drink = 0.6 oz pur e alcohol) Sex and Gender Information Value Date Recorded Sex Assigned at Not on file Gender Identity Not on file Sexual Orientation Not on file documented as of this encounter Last Filed Vital Signs Vital Sign Reading Time Taken Comments Blood Pressure 147/92 01/11/2018 9:18 AM CDT Pulse 114 01/11/2018 9:18 AM CDT Temperature - - Respiratory Rate - - Oxygen Saturation - - Inhaled Oxygen Concentration - - Weight 103.9 kg (229 lb) 01/11/2018 9:18 AM CDT Height 170.2 cm (5' 7 ) 01/11/2018 9:18 AM CDT Body Mass Index 35.87 01/11/2018 9:18 AM CDT documented in this encounter Progress Notes * Gabby Torre NP - 01/13/2018 11:07 PM CDT See colpo note documented in this encounter Procedure Notes * Gabby Torre NP - 01/11/2018 12:51 PM CDTAssociated Order(s): COLPOSCOPY Procedure(s): SC COLPOSCOPY CERVIX BX CERVIX & ENDOCRV CURRETAGE Pre-Procedure Diagnose(s): 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 presenting for a colposcopy. Pt had an abnormal pap smear lgsil. Colposcopy was performed of the cervix and vagina. Pap smear was not obtained. Cervix was cleansed with acetic acid. The colposcopy is satisfactory, acetowhite epithelium noted at 1. Biopsy was taken of the cervix at 1 and ecc. Monsel's paste was applied to provide for hemostasis. Pt tolerated the procedure well. She was allowed to recover in the procedure room, and then to leave. 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 01/13/2018 11:09 PM Holly Flores is a 32 y.o. presenting for a colposcopy. Pt had an abnormal pap smear lgsil. Colposcopy was performed of the cervix and vagina. ?? Pap smear was not obtained. Cervix was cleansed with acetic acid. ??The colposcopy is satisfactory, ??acetowhite epithelium noted at 1. Biopsy was taken of the cervix at 1 and ecc. ??Monsel's paste was applied to provide for hemostasis. Pt tolerated the procedure well. She was allowed to recover in the procedure room, and then to leave. Gabby Torre NP PROCEDURE/MINOR SURG ICAL ORDERABLES [facility] CLIA# [id number] [address] [place] [address] * (ABNORMAL) URINE CULTURE (01/11/2018 11:22 AM CDT) CULTURE PROTEUS MIRABILIS(A) STEVEN MCG/ML 01/13/2018 8:28 AM CDT [facility] Urine URINE SPECIMEN OBTAINED BY CLEAN CATCH PROCEDURE / Unknown Collection / Unknown 01/11/2018 11:22 AM CDT 01/11/2018 2:33 PM CDT Narrative Organism Antibiotic Method Susceptibility Proteus mirabilis AMPICILLIN/ SULBACTAM STEVEN MCG/ML 4 mcg/mL: Susceptible Proteus mirabilis AMPICILLIN STEVEN MCG/ML >=32 mcg/mL: Resistant Proteus mirabilis CEFAZOLIN STEVEN MCG/ML <=4 mcg/mL: Susceptible Proteus mirabilis CIPROFLOXACIN STEVEN MCG/ML >=4 mcg/mL: Resistant Proteus mirabilis GENTAMICIN STEVEN MCG/ML <=1 mcg/mL: Susceptible Proteus mirabilis NITROFURANTOIN STEVEN MCG/ML 128 mcg/mL: Resistant Proteus mirabilis TRIMETHOPRIM/ SULFAMETHOXAZOLE STEVEN M CG/ML >=320 mcg/mL: Resistant Gabby Nicho CHIEF MAINTENANCE SUPERVISOR MICROBIOLOGY - GENER AL ORDERABLES [facility]# [id number] [address] [place] [address] * PATHOLOGY (01/11/2018 11:21 AM CDT) CASE REPORT Surgical Pathology Report ? Case: [id number] ? Authorizing Provider: ??Nicho, Gabby, CHIEF MAINTENANCE SUPERVISOR ? Collected: ? 01/11/2018 11:21 AM ? Ordering Location: ? [facility] ASSEMBLY REPAIRER ??Received: ?01/11/2018 03:53 PM ? - [address] ? Pathologist: ? Uzma Valverde MD ? Specimens: ?? A) - Cervix, cx bx ? B) - Endocervix, ecc ? 01/12/2018 5:36 PM [facility] FINAL DIAGNOSIS Uterus, cervix, biopsy: - Low grade squamous intraepithelial lesion (KESHAWN 1). - Transformation zone present. Uterus, endocervix, curettage: - Fragments of unremarkable endocervical mucosa. 01/12/2018 5:36 PM [facility] IMEN DESCRIPTION (A) Cervix biopsy; (B) endocervix endocervical curettage. 01/12/2018 5:36 PM [facility] OPERATIVE PROCEDURE Colposcopy. 01/12/2018 5:36 PM [facility] CLINICAL DIAGNOSIS Papanicolaou smear of cervix with low-grade squamous intraepithelial lesion (R87.612 [ICD-10-CM], 795.03 [ICD-9-CM]). 01/12/2018 5:36 PM [facility] GROSS DESCRIPTION The specimens are received in two containers labeled Holly Flores. Part A is additionally labeled cervix and consists of a single piece of white-schulte tissue that is 0.4 x 0.3 x 0.2 cm. The entire specimen is submitted in cassette A1. Part B is additionally labeled endocervix and consists of a 2.9 x 1.7 x 0.1-cm aggregate of red tissue and translucent mucus. The entire specimen is submitted in cassette B1. [facility]/phc 01/12/2018 5:36 PM CDT [facility] MICROSCOPIC DESCRIPTION The slides are labeled [id number] and Holly Flores. Sections of the cervical biopsy show a fragment of transformation zone mucosa with a focal area of low grade dysplasia with overlying koilocytic atypia, consistent with low grade squamous intraepithelial lesion (KESHAWN 1). No high grade dysplasia or overt malignancy is identified. Sections of the endocervical curettage show fragments of unremarkable endocervical mucosa. 01/12/2018 5:36 PM CDT [facility] COMMENT Special stain and/or immunohistochemical results are interpreted with controls that demonstrate appropriate staining reactions. Note on use of immunocytochemistry reagents: This test was developed and its performance characteristic determined by [facility], Department of Laboratory Medicine. It has not been cleared or approved by the U.S. Food and Drug Administration. The FDA has determined that such clearance or approval is not necessary. The test is used for clinical purpose. It should not be regarded as investigational or for research. This laboratory is certified to perform high complexity testing. Case types starting with WS, WF, WB and WH are performed by [address], [address]. All other case types are performed by [facility] [address], [address]. 01/12/2018 5:36 PM CDT [facility] Tissue CERVIX UTERI STRUCTURE / Unknown Collection / Unknown 01/11/2018 11:21 AM CDT 01/11/2018 3:53 PM CDT Tissue specimen (specimen) SWAB OF ENDOCERVIX / Unknown 01/11/2018 11:21 AM CDT 01/11/2018 3:53 PM CDT Gabby Torre NP PATHOLOGY/CYTOLOGY O RDERABLES [facility] CLIA# [id number] [address] [place] [address] [place] [address] * (ABNORMAL) POC URINALYSIS DIPSTICK NON AUTOMATED (01/11/2018 9:21 AM CDT) COLOR UA Yellow Pale to Dark Yellow [facility] CLARITY UA Clear Clear [facility] GLUCOSE UA Negative Negative, Normal [facility] BILIRUBIN UA Negative Negative [facility] KETONES UA Negative Negative [facility] SPECIFIC GRAVITY UA 1.005 1.003 - 1.035 [facility] BLOOD UA Trace(A) Negative [facility] PH UA 7.0 5.0 - 8.0 [facility] PROTEIN UA Negative Negative [facility] UROBILINOGEN UA Normal <2.0 mg/dL [facility] NITRITE UA Negative Negative [facility] LEUKOCYTE ESTERASE UA 1+(A) Negative [facility] KIT LOT NUMBER POC [id number] [facility] KIT EXPIRATION DATE POC 10/17/2018 [facility] Urine 01/11/2018 9:21 AM CDT Gabby Torre NP POINT OF CARE TESTIN Yasmeen [facility] CLIA# [id number] [address] [place] [address] * POC , URINE (01/11/2018 9:11 AM CDT) HCG QUAL URINE Negative Negative [facility] KIT QC Pass Pass [facility] KIT LOT NUMBER POC [id number] [facility] KIT EXPIRATION DATE POC 06/18/2019 [facility] Urine 01/11/2018 9:11 AM CDT Gabby Torre NP POINT OF CARE TESTIN G [facility] CLIA# [id number] [address] [place] [id number] documented in this encounter Visit Diagnoses Diagnosis Papanicolaou smear of cervix with low grade squamous intraepithelial lesion (LGSIL)- Primary examination or test, negative result UTI symptoms documented in this encounter Care Teams Pin Chaser Relationship Specialty Start Date End Date Clovis Johnson MD PCP - General Family Practice 08/17/17 documented as of this encounter
--- OUTSIDE RECORDS SUMMARY | 2024-07-10 00:22 | XMS_ITS | Encounter Summary ---
Author Organization [facility] Address [address] [place] [address] Care Team Providers Care Spooling Supervisor Name Role Phone Clovis Johnson MD Primary Care Provider [phone] Reason for Visit * Auth/Cert Specialty Diagnoses / Procedures Referred By Contac t Referred To Contact General Surgery Diagnoses Dysmenorrhea, unspecified Unspecified dyspareunia DYSMENORRHEA , DYSPAURUNEA Procedures MN LAP,RMV ADNEXAL STRUCTURE MN LAP,RMV ADNEXAL STRUCTURE MN LAP,FULGURATE/EXCISE LESIONS MN LAPAROSCOPY W TOT HYSTERECTUTERUS <=250 GRAM W TUBE/OVARY MN CYSTOURETHROSCOPY HYSTERECTOMY TOTAL LAPAROSCOPIC SALPINGECTOMY LAPAROSCOPIC OOPHORECTOMY LAPAROSCOPIC CYSTOSCOPY ENDOMETRIOSIS EXCISION LASER LAPAROSCOPIC [facility] Or [address] [place] [address] Referral ID Status Reason Start Date Expiration Date Visits Re quested Visits Authorized [id number] 1 1 Encounter Details Date Type Department Care Team (Late st Contact Info) Description 03/18/2018 2:08 PM CDT Anesthesia Event [facility] Operating Room [address] [place] [address] Kwadwo Bui MD [address] [place] [address] Anesthesia Record Procedure Summary Procedure Name Responsible Anesthesiologist Anesthesia Start Time Anesthesia Stop Time HYSTERECTOMY TOTAL LAPAROSCOPIC (Abdomen) Kwadwo Bui MD 03/18/18 1408 03/18/18 154 2 Events Date Time Event Comment 03/18/2018 0937 0937 Intended Opioids 1153 AN Equip Check Anesthesia eq uipment and materials checked in accordance with local policy. 1408 An Start 1408 An Start Data 1412 Pre-Induction Immediate pre- induction anesthetic assessment performed. Vital signs as noted on graphic. 1412 An Induction 1414 An Intubation 1430 Anesthesia Ready 1432 an veronica now 1533 An Extubation Emergence unev entful Awake, spontaneous respirations. Adequate muscle strength demonstrated Adequate tidal volume. Orapharynx suctioned. Extubated with positive pressure ventilation. 1538 an stop data 1542 An Stop 1542 [facility] to [facility] Post-Anesthetic transfer of care report elements to appropriate post-anesthesia recovery environment completed in accordance with procedure. 03/19/2018 0934 Follow-up Complete Meds Name Total fentaNYL (SUBLIMAZE) PF 50??mcg/mL injec tion 250 mcg famotidine PF (PEPCID) 20mg/2 mL injecti on 20 mg midazolam PF (VERSED) 1 mg/mL injection 2 mg propofol (DIPRIVAN) 10??mg/mL injection 200 mg propofol (DIPRIVAN) 10??mg/mL injection 1,175.34 mg diphenhydrAMINE (BENADRYL) 50 mg/mL inje ction 25 mg cefOXitin (MEFOXIN) 2,000 mg in sodium c hloride 0.9% 50 mL IVPB (MBP) 2,000 mg rocuronium (ZEMURON) 10 mg/mL 5 mL injec tion 40 mg ondansetron (ZOFRAN) 4??mg/2 mL injectio n 4 mg fluorescein (AK-FLUOR, FLUORESCITE) 10% injection 0.25 mL dexamethasone (DECADRON) 4 mg/mL injecti on 8 mg glycopyrrolate (ROBINUL) 0.2 mg/ mL inje ction 0.4 mg neostigmine (PROSTIGMINE) 4 mg/4 mL (1 m g/mL) injection 1.5 mg morphine 10 mg/mL injection 5 mg lactated Ringers solution 1,000 mL lactated ringers infusion 300 mL * Agents Name Sevoflurane % Sevoflurane O2 N2O Inspired N2O O2 * Blood No blood administrations on file. Lines, Drains, and Airways Type Details Placement Removal Peripheral IV Orientation: Anterio r, Left; Location: Wrist; Device: Angiocath; Gauge: 18 gauge; Needle Length: 1.25 in length; Insertion Attempts: 1; Patient Tolerance: tolerated well; Pain Prevention: (refused) 03/18/18 0852 by Tess Leo RN 03/19/18 1018 by Lynda Ojeda FNP Endotracheal Airway Type: ETT; Cuff Pressure: minimal leak technique, minimal occluding volume, cuff inflated; Secured: secured with tape; Verification: Auscultated bilateral breath sounds, Equal chest movement, Continuous waveform capnography 03/18/18 1153 by Kwasi Martin CRNA 03/18/18 1533 by Kwasi Martin CRNA Endotracheal Airway Type: Oral, ETT; Cuf f Pressure: cuff inflated; Size: 7; Site: mouth; Attempts: 1; FOV: I; cm: 22; Device: Straight Blade; Blade: 2; Secured: secured with tape; Cricoid: Yes; Verification: Auscultated bilateral breath sounds, Continuous waveform capnography, Equal chest movement 03/18/18 1414 by Kwasi Martin CRNA 03/18/18 1533 by Kwasi Martin CRNA Peripheral IV Orientation: Right; Location: Hand; Device: Angiocath; Gauge: 18 gauge; Removal Indication: no longer indicated; Removal Interventions: pressure dressing, catheter intact 03/18/18 1416 by Kwasi Martin CRNA 03/18/182013 by Madiha Stokes RN Indwelling Urethral Catheter 03/18/18; 1431; No; Indwelling double lumen catheter; latex; 16 Fr; inserted; 1; 5; 10; 03/18/18; 1515 03/18/18 1431 by Belinda Stpehenson RN 03/18/18 1515 by Jigna Yañez RN Adult Incision 03/18/18; 1526; surgical incision; other (comment); vagina; 03/19/18; 2316 03/18/18 1526 by Belinda Stephenson RN 03/19/18 2316 by PROVIDER, DISCHARGE PATIENT Adult Incision 03/18/18; 1526; surgical incision; other (comment); abdomen; 03/19/18; 2316 03/18/18 1526 by Belinda Stephenson RN 03/19/18 2316 by PROVIDER, DISCHARGE PATIENT documented in this encounter Social History Tobacco Use Types Packs/Day Years Used Date Smoking Tobacco: Never Smokeless Tobacco: Never Alcohol Use Standard Drinks/Week Comments Yes 2 (1 standard drink = 0.6 oz pur e alcohol) socially Sex and Gender Information Value Date Recorded Sex Assigned at Not on file Gender Identity Not on file Sexual Orientation Not on file documented as of this encounter OR Notes * Anesthesia Post-Op Follow-up Note - Kwadwo Escamilla PA - 03/19/2018 9:34 AM CDT 03/19/2018 9:34 AM Holly Flores No apparent Anesthesia related complications ANAY Morelos * Anesthesia Postprocedure Evaluation - Jamal Prater MD - 03/18/2018 3:57 PM CDT Phase I Postanesthesia Evaluation Including Modified Kimo Score Patient seen and evaluated: Modified Kimo Score: Score: 9 (03/18/18 155) COMMENTS: No apparent Anesthesia related complications RESPIRATORY FUNCTION: Respiration: able to breath and cough freely (03/18/18 155) [2=able to breathe and cough freely, 1=dyspnea, limited breathing or tachypnea, 0=apnea or mechanicventilator] O2 Saturation: able to maintain O2 saturation greater than 92% on room air (03/18/18 1555) [2=able to maintain O2 saturation greater than 92% on room air, 1=needs O2 inhalation to maintain O2 saturation greater than 90%, 0=O2 saturation less than 90% even with O2 supplement] Resp: 17 (03/18/18 1545)SpO2: 100 % (03/18/18 1545) CARDIOVASCULAR FUNCTION: Heart Rate: 77 bpm (03/18/18 1545) BP: 119/70 (03/18/18 1545) Circulation: BP within 20% of preanesthetic level (03/18/18 1555) [2=BP within 20% of preanesthetic level, 1=BP within 20-49% of preanesthetic level, 0=BP within 50%of preanesthetic level] MENTAL STATUS, NEURO, ACTIVITY: PATIENT PARTICIPATION IN EVALUATION:yes Consciousness: arousable on calling (03/18/18 1555) [2=fully awake, 1=arousable on calling, 0=not responding] Activity: able to move 4 extremities voluntarily or on command (03/18/18 1555) [2=able to move 4 extremities voluntarily or on command, 1=able to move 2 extremities voluntarily or on command, 0=unable to move extremities voluntarily or on command] TEMPERATURE: Temp: 36.6 ??C (03/18/18 1545) PAIN: NAUSEA AND VOMITING: no nausea and no vomiting POSTOPERATIVE HYDRATION: well hydrated Intake/Output Summary (Last 24 hours) at 03/18/18 1557 Last data filed at 03/18/18 1522 Gross per 24 hour Intake 1300 ml Output 0 ml Net 1300 ml Jamal Prater MD 03/18/2018 3:57 PM * Anesthesia Handoff - Kwasi Martin CRNA - 03/18/2018 3:42 PM CDT Post-Anesthetic transfer of care report elements to appropriate post-anesthesia recovery environment completed in accordance with procedure. I completed my handoff to the receiving nurse during which we: 1. Identified the patient 2. Identified the responsible provider 3. Reviewed the pertinent medical history 4. Discussed the surgical course 5. Reviewed intra-op anesthesia management and issues during anesthesia 6. Set expectations for post-procedure period 7. Allowed opportunity for questions and acknowledgement of understanding. Vital Signs: 115/78 15rr 100% fm 10L 76nsr 15:42pm Kwasi Martin CRNA * Anesthesia Preprocedure Evaluation - Kwadwo Bui MD - 03/18/2018 7:56 AM CDT Relevant Problems No relevant active problems Anesthesia Evaluation Airway Mallampati: II TM distance: >3 FB Neck ROM: full Dental - normal exam Pulmonary (+) asthma, sleep apnea, Cardiovascular Neuro/Psych (+) headaches, psychiatric history Comments: PTSD (post-traumatic stress disorder) GI/Hepatic/Renal Endo/Other Abdominal Anesthesia History History of PONV.No history of anesthetic complications, no history of difficult intubation, no history of malignant hyperthermia and no pseudocholinesterase deficiency. PACE note reviewed Pre-Procedure Anesthesiology Consultation and Evaluation (PACE) Service ?? 03/04/2018 2:05 PM ?? Name: Holly Flores Age: 32 y.o. Sex: female CSN: [id number] ?? Procedure: HYSTERECTOMY TOTAL LAPAROSCOPIC SALPINGECTOMY LAPAROSCOPIC OOPHORECTOMY LAPAROSCOPIC CYSTOSCOPY ENDOMETRIOSIS EXCISION LASER LAPAROSCOPIC Surgeon: Aaron ?? No Known Allergies Pre-Surgery Instructions: Medication Instructions ??? fluticasone (FLONASE) 50 mcg/spray [place], Suspension Continue taking as prescribed ??? fluticasone-salmeterol (ADVAIR DISKUS) 250-50 mcg/dose disk inhaler Continue taking as prescribed ??? montelukast (SINGULAIR) 10 mg tablet Continue taking as prescribed ??? ibuprofen (MOTRIN) 200 mg tablet Stop taking 1 week prior to surgery ??? levonorgestrel (MIRENA) 20 mcg/24 hr (5 years) IUD Continue taking as prescribed ??? fexofenadine (SRIDEVI) 180 mg tablet Continue taking as prescribed ??? FLUOXETINE HCL (PROZAC ORAL) Continue taking as prescribed ??? buPROPion HCl (WELLBUTRIN XL) 300 mg Extended Release 24 hour tablet Continue taking as prescribed ??? traZODone (DESYREL) 50 mg tablet Continue taking as prescribed ??? albuterol HFA 90 mcg inhaler Continue taking as prescribed ? Patient Active Problem List ?? Diagnosis Date Noted ??? Hematochezia 09/15/2017 ??? LLQ abdominal pain 09/15/2017 ??? History of ovarian cyst 09/15/2017 ?? Past Medical History Past Medical History: Diagnosis Date ??? Anxiety ? Asthma ? Cervical high risk human papillomavirus (HPV) DNA test positive ? Chronic abdominal pain ? Community acquired pneumonia ? Depression ? Endometriosis ? GI bleed ? Headache ? History of complications due to general anesthesia ? PONV ??? Motion sickness ? Obstructive sleep apnea ? Ovarian cyst ? Pelvic pain in female ? PTSD (post-traumatic stress disorder) ?? Past Surgical History Past Surgical History: Procedure Laterality Date ??? BIOPSY CERVIX ?? 2018 ??? BRONCHOSCOPY ? HX LIPOMA RESECTION ? HX WISDOM TEETH EXTRACTION ? MN COLONOSCOPY FLX DX W/COLLJ SPEC WHEN PFRMD N/A 10/01/2017 ?? COLONOSCOPY performed by Gina Lan MD at [facility] Social History Substance Use Topics ??? Smoking status: Never Smoker ??? Smokeless tobacco: Never Used ??? Alcohol use 1.2 oz/week ? 2 Glasses of wine per week ? Comment: socially Family History Family History Problem Relation Age of Onset ??? Hypertension Maternal Grandmother ? Asthma Maternal Grandmother ? Lung Cancer Maternal Grandmother ? Ovarian Cancer Maternal Grandmother 78 ??? Uterine Cancer Maternal Grandmother ? Breast Cancer Maternal Grandmother 78 ??? Cancer Maternal Grandmother 78 ?? uterine ??? Crohn's Disease Maternal Aunt ? Inflammatory Bowel Disease Maternal Aunt ? Other Mother ? bolton's esophagus ??? Asthma Sister ? Hypertension Maternal Grandfather ? Colon Cancer Neg Hx ? Diabetes Neg Hx ? Heart Failure Neg Hx ? Emphysema Neg Hx ? Bronchitis Neg Hx ? Mesothelioma Neg Hx ? Previous Anesthesia Problems/Concerns: Post-operative nausea & vomiting (PONV) History of PONV Yes Motion sickness: Yes ?? Review of Systems ?? Cardiovascular: negative for chest pain, chest pressure/discomfort, palpitations, shortness of breath/dyspnea, syncope. Patient walks 2-7x/week for approximately for at least 10 minutes. Patient cleans her home, does the laundry, does the shopping walking through the stores. Patient can climb 2 FOS without stopping. Respiratory: positive for asthma, patient states well controlled at this time. Snoring - No, EZEQUIEL - No Gastrointestinal: negative. Genitourinary:negative. Musculoskeletal: negative Neurological: PTSD. Endocrine negative Hepatic: negative Hematologic: Negative Onc: negative Clocksmith: Endometriosis and ovarian cyst. ? PHYSICAL EXAM BP 130/84 Pulse 93 Ht 5' 7 (1.702 m) Wt 103.8 kg (228 lb 12.8 oz) SpO2 95% ? No BMI 35.84 kg/m?? Weight: Weight: 103.8 kg (228 lb 12.8 oz) (03/04/18 1341) Height: Ht Readings from Last 1 Encounters: 03/04/18 5' 7 (1.702 m) BMI: Body mass index is 35.84 kg/m??. General Appearance: Alert, oriented, no acute distress and obese. Airway: normal range of motion; Airway Class: II (soft palate, uvula, fauces visible); Special Considerations small mouth. Dentition: good Lungs: clear to auscultation bilaterally, normal respiratory effort Heart: regular rate and rhythm, S1, S2 normal, no murmur, click, rub or gallop Neuro: alert, oriented x 3, no defects noted in general exam. Extremities: extremities normal, atraumatic, no cyanosis or edema LABS Lab Results Component Value Date/Time ?? WBC 5.4 11/27/2017 12:56 PM ?? HEMOGLOBIN 14.8 11/27/2017 12:56 PM ?? HEMATOCRIT 42.6 11/27/2017 12:56 PM ?? PLATELETS 261 11/27/2017 12:56 PM ?? MCV 85.0 11/27/2017 12:56 PM Lab Results Component Value Date/Time ?? SODIUM 140 11/27/2017 12:56 PM ?? POTASSIUM 4.0 11/27/2017 12:56 PM ?? CHLORIDE 101 11/27/2017 12:56 PM ?? CO2 24 11/27/2017 12:56 PM ?? CALCIUM 9.2 11/27/2017 12:56 PM ?? BUN 8 11/27/2017 12:56 PM ?? CREATININE 1.11 (H) 11/27/2017 12:56 PM ?? GLUCOSE 84 11/27/2017 12:56 PM ?? ANION GAP 15 11/27/2017 12:56 PM No results found for: INR, PT, PROTIMEPOC Lab Results Component Value Date/Time ?? HCG QUAL URINE Negative 01/11/2018 09:11 AM ? EKG: EKG not indicated today Other Studies/Considerations: None ?? 02/16/18 Polysomnography IMPRESSION 1. There is no evidence of significant obstructive sleep apnea. 2. There is no evidence of significant periodic limb movement disorder. ? 11/28/10 Laryngoscopy Findings Nasal cavities Septum Moderate deviation left Turbinate enlargement Moderate deviation left ? Nasopharynx Patent Pharyngeal isthmus shape Intermediate type ? Palate and Uvula Redundant Tonsils +++ ? Lateral Pharyngeal Folds Redundant Palatopharyngeous folds/muscle Redundant Base of Tongue Redundant Tongue retro-displacement No Hypopharynx Patent ? Valeculla Occluded Epiglottis Normal Glottis Patent Snoring Stimulation/Luther maneuver Retro-palatal collapse/flutter Yes ?? Risks/Alternatives discussed. Questions solicited and answered. Yes Postop pain management discussed yes Smoking/Tobacco Counseling: None Recommendations:Nausea prophylaxis ? ATTESTATIONS Prescriptions Prior to Admission ?? (Not in a hospital admission) ?? I obtained, updated or reviewed the patient's current medications including dosage, frequency, and route of administration. This information was obtained directly from the patient or herbicide service sales representative or caregiver or another available healthcare resource and updated in [facility] EMR. History Smoking Status ??? Never Smoker Smokeless Tobacco ??? Never Used ? Patient screened for tobacco use and identified as a Non-User of tobacco. ? REPORT AND NECESSARY FOLLOW-UP History and physical performed in [facility]; tests (ECG, blood work) reviewed. Abnormal Results Found: no Further Testing or Evaluation Required: no Final [facility] Center Review: May proceed with procedure/surgery: yes ? Patient had a negative sleep study 01/2018 ?? Ivana Jacinto NP Anesthesia Plan ASA 2 General Intravenous induction Oral ETT airway maintenance NPO status > 8 hours Anesthetic plan and risks discussed with Patient, Father and Mother. Use of blood products: consented to blood products. Plan discussed with Anesthesiologist. Post-op Pain Control Plan to use Oral medication, Per surgeon and IV or IM medication for post-op pain control. Plan for postoperative opioid use Smoking Compliance Patient did not smoke on day of surgery documented in this encounter Miscellaneous Notes * Addendum Note - Kwadwo Escamilla PA - 03/19/2018 9:35 AM CDT Addendum created 03/19/18934 by Kwadwo Escamilla PA Anesthesia Event edited, Sign clinical note documented in this encounter Plan of Treatment Not on file documented as of this encounter Visit Diagnoses Not on filedocumented in this encounter Administered Medications Inactive Administered Medications - up to 3 most recent administrations Medication Order MAR Action Action Date Dose Rate Site cefOXitin (MEFOXIN) 2,000 mg in sodium chloride 0.9% 50 mL IVPB (MBP) 2,000 mg, IV, PRE-PROCEDURE ONCE, 1 dose, Starting on Lalita 03/18/18 at 0830, Until Lalita 03/18/18 at 1455, Routine, Antibiotic Indication: Surgical prophylaxis New Bag 03/18/2018 2:25 PM CDT 2,000 mg dexamethasone (DECADRON) injection INTRA-PROCEDURE PRN, Starting on Lalita 03/18/18 at 1420, Until Lalita 03/18/18 at 1542, Routine, Anesthesia Intra-op Given 03/18/2018 2:20 PM CDT 8 mg diphenhydrAMINE (BENADRYL) injection INTRA-PROCEDURE PRN, Starting on Lalita 03/18/18 at 1437, Until Lalita 03/18/18 at 1542, Routine, Anesthesia Intra-op Given 03/18/2018 2:37 PM CDT 25 mg famotidine PF (PEPCID) 20 mg/2 mL injection INTRA-PROCEDURE PRN, Starting on Lalita 8/30/18 at 1417, Until Lalita 03/18/18 at 1542, Routine, Anesthesia Intra-op Given 03/18/2018 2:17 PM CDT 20 mg fentaNYL PF (SUBLIMAZE) 50 mcg/mL injection INTRA-PROCEDURE PRN, Starting on Lalita 03/18/18 at 1412, Until Lalita 03/18/18 at 1542, Pain (See admin instructions), Routine, Anesthesia Intra-op Given 03/18/2018 2:54 PM CDT 50 mcg Given 03/18/2018 2:34 PM CDT 50 mcg Given 03/18/2018 2:17 PM CDT 50 mcg fluorescein (AK-ROBERTO CARLOS, FLUORESCITE) 500 mg/5 mL (10 %) injection INTRA-PROCEDURE PRN, Starting on Laliat 03/18/18 at 1518, Until Lalita 03/18/18 at 1542, Routine, Anesthesia Intra-op Given 03/18/2018 3:18 PM CDT 0.25 mL glycopyrrolate (ROBINUL) injection INTRA-PROCEDURE PRN, Starting on Lalita 03/18/18 at 1440, Until Lalita 03/18/18 at 1542, Routine, Anesthesia Intra-op Given 03/18/2018 3:21 PM CDT 0.2 mg Given 03/18/2018 2:40 PM CDT 0.2 mg lactated Ringers solution IV, at 150 mL/hr, PRE-PROCEDURE CONTINUOUS, Starting on Lalita 03/18/18 at 0830, Until Lalita 03/18/18 at 1640, Routine Continue from Pre-Op 03/18/2018 2:08 PM CDT New Bag 03/18/2018 8:54 AM CDT 150 mL/hr lactated Ringers solution INTRA-PROCEDURE CONTINUOUS PRN, Starting on Lalita 03/18/18 at 1418, Until Lalita 03/18/18 at 1542, Routine, Anesthesia Intra-op New Bag 03/18/2018 2:18 PM CDT midazolam (PF) (VERSED) injection INTRA-PROCEDURE PRN, Starting on Lalita 03/18/18 at 1408, Until Lalita 03/18/18 at 1542, Routine, Anesthesia Intra-op Given 03/18/2018 2:08 PM CDT 2 mg morphine injection INTRA-PROCEDURE PRN, Starting on Lalita 03/18/18 at 1525, Until Lalita 03/18/18 at 1542, Routine, Anesthesia Intra-op Given 03/18/2018 3:25 PM CDT 5 mg neostigmine (PROSTIGMINE) 4 mg/4 mL (1 mg/mL) injection INTRA-PROCEDURE PRN, Starting on Lalita 03/18/18 at 1521, Until Lalita 03/18/18 at 1542, Routine, Anesthesia Intra-op Given 03/18/2018 3:21 PM CDT 1.5 mg ondansetron (ZOFRAN) 4 mg/2 mL injection INTRA-PROCEDURE PRN, Starting on Lalita 03/18/18 at 1518, Until Lalita 03/18/18 at 1542, Nausea/Emesis, Routine, Anesthesia Intra-op Given 03/18/2018 3:18 PM CDT 4 mg propofol (DIPRIVAN) injection INTRA-PROCEDURE PRN, Starting on Lalita 03/18/18 at 1412, Until Lalita 03/18/18 at 1542, Anesthesia Intra-op Given 03/18/2018 2:12 PM CDT 200 mg propofol (DIPRIVAN) injection INTRA-PROCEDURE CONTINUOUS PRN, Starting on Lalita 03/18/18 at 1415, Until Lalita 03/18/18 at 1542, Anesthesia Intra-op New Bag 03/18/2018 2:15 PM CDT 150 mcg/kg/min 92.79 mL/hr rocuronium (ZEMURON) injection INTRA-PROCEDURE PRN, Starting on Lalita 03/18/18 at 1412, Until Lalita 03/18/18 at 1542, Routine, Anesthesia Intra-op Given 03/18/2018 2:12 PM CDT 40 mg documented in this encounter Care Teams Spooling Supervisor Relationship Specialty Start Date End Date Clovis Johnson MD PCP - General Family Practice 08/17/17 documented as of this encounter
--- OUTSIDE RECORDS SUMMARY | 2024-07-10 00:22 | XMS_ITS | Clinical Summary ---
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 Active methylphenidate HCl (RITALIN) 10 mg tablet Take 10 mg by mouth 2 times daily. Active albuterol HFA 90 mcg inhaler Take 2 Puffs by inhalation every 6 hours as needed for Shortness of Breath. Active fexofenadine (SRIDEVI) 180 mg tablet Take 180 mg by mouth daily. Active fluticasone-salmete rol (ADVAIR DISKUS) 250-50 mcg/dose disk inhaler Take 1 Puff by inhalation 2 times daily. 1 Inhaler 5 01/12/2018 Active montelukast (SINGULAIR) 10 mg tablet Take 1 Tablet (10 mg) by mouth daily at bedtime. 30 Tablet 5 01/12/2018 Active fluticasone (FLONASE) 50 mcg/spray [place], Suspension Administer 2 Sprays in each nostril daily. Active ibuprofen (MOTRIN) 600 mg tablet Take 1 Tablet by mouth every 6 hours as needed for pain secondary to inflammation. 60 Tablet 1 03/19/2018 Active FLUoxetine (PROzac) 40 mg capsule Take 40 mg by mouth daily. 04/15/2018 Active traZODone (DESYREL) 100 mg tablet Take 100 mg by mouth daily. 04/15/2018 Active ARIPiprazole (ABILIFY) 10 mg tablet Take 10 mg by mouth daily. 04/15/2018 Active Active Problems Problem Noted Date Diagnosed Date Hematochezia 09/15/2017 LLQ abdominal pain 09/15/2017 History of ovarian cyst 09/15/2017 Immunizations Name Administration Dates Next Due (ADACEL/BOOSTRIX)(10 YR UP) TDAP VACCINE, 0.5ML, IM 11/13/2017 Influenza Seasonal Unspecified Formulation IM Family History Medical History Relation Name Comments Crohn's Disease Maternal Aunt Inflammatory Bowel Disease Maternal Aunt Hypertension Maternal Grandfather Asthma Maternal Grandmother Breast Cancer Maternal Grandmother Cancer Maternal Grandmother uterine Hypertension Maternal Grandmother Lung Cancer Maternal Grandmother Ovarian Cancer Maternal Grandmother Uterine Cancer Maternal Grandmother Other Mother bolton's esoph annette Asthma Sister Bronchitis Neg Hx Colon Cancer Neg Hx Diabetes Neg Hx Emphysema Neg Hx Heart Failure Neg Hx Mesothelioma Neg Hx Relation Name Status Comments Father Other Maternal Aunt Alive Maternal Grandfather Maternal Grandmother Mother Alive Sister Alive Social History Tobacco Use Types Packs/Day Years Used Date Smoking Tobacco: Never Smokeless Tobacco: Never Alcohol Use Standard Drinks/Week Comments Yes 2 (1 standard drink = 0.6 oz pur e alcohol) socially Sex and Gender Information Value Date Recorded Sex Assigned at Not on file Gender Identity Not on file Sexual Orientation Not on file Last Filed Vital Signs Vital Sign Reading Time Taken Comments Blood Pressure 137/83 09/03/2021 12:41 PM CANDY BUTCHER Pulse 78 03/19/2018 3:50 AM CDT Temperature 37.3 ??C (99.2 ??F) 03/19/2018 3:50 AM CD T Respiratory Rate 18 03/19/2018 3:50 AM CDT Oxygen Saturation 96% 03/19/2018 3:50 AM CDT Inhaled Oxygen Concentration - - Weight 119.3 kg (263 lb) 09/03/2021 12:41 PM CANDY BUTCHER Height 172.7 cm (5' 8 ) 09/03/2021 12:41 PM CANDY BUTCHER Body Mass Index 39.99 09/03/2021 12:41 PM CANDY BUTCHER Plan of Treatment Health Maintenance Due Date Last Done Comments HEPATITIS B VACCINES (1 of 3 - 19+ 3-dose series) 2004 COLORECTAL SCREENING 10/01/2022 10/01/2017 INFLUENZA VACCINE (#1) 2024 9, 08/09/2018, 04/23/2017 CERVICAL CANCER SCREENING 09/03/20242021, 12/01/2017 DTAP/TDAP/TD VACCINES (2 - T d or Tdap) 11/14/2027 11/13/2017 HPV VACCINES Aged Out No longer eligi ble based on patient's age to complete this topic PNEUMOCOCCAL VACCINE 0-64 YEARS Aged Out No longer eligible b ased on patient's age to complete this topic Medical Devices Explanted Type Area Guide Visitor Device Identifier Shelf Expiration Date Model / Serial / Lot Interuterine Device For Control Explanted:Qty: 1 on 03/18/2018 by Martinez Walker MD at [facility] Procedures Procedure Name Priority Date/Time Associated Diagnosis Comments CERV/VAG CYTO AGE BASED SCREEN PAP Routine 09/03/2021 1:43 PM CANDY BUTCHER History of abnormal cells from cervix Screening for cervical cancer Encounter for annual routine gynecological examination from Last 3 Months or Most Recently Relevant to Health Maintenance Results * CERV/VAG CYTO AGE BASED SCREEN PAP (09/03/2021 1:43 PM CANDY BUTCHER) COMMENT (PAP): [facility] Comment: This order for age-based cervical cancer and STI screening follows ACOG guidelines(PB 168, 140, KMS599). See individual assays for performing site location. 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 COMMENT (PAP TEST) [facility] Comment: This Pap test has been evaluated with computer assisted technology. CONDUCTOR FREIGHT: [facility] Comment: MEF, CT(ASCP) CT screening location: [place] [address] [place] [address] EXPLANATORY NOTE [facility] Comment: EXPLANATORY NOTE: The Pap is a screening test for cervical cancer. It is not a diagnostic test and is subject to false negative and false positive results. It is most reliable when a satisfactory sample, regularly obtained, is submitted with relevant clinical findings and history, and when the Pap result is evaluated along with historic and current clinical information. HPV E6/E7 Not Detected Not Detected [facility] Comment: Methodology: Machine Helper-Mediated Amplification This assay detects E6/E7 viral messenger RNA (mRNA) from 14 high-risk HPV types (16,18,31,33,35,39,45,51,52,56,58,59,66,68). The analytical performance characteristics of this assay have been determined by [facility]. The modifications have not been cleared or approved by the FDA. This assay has been validated pursuant to the CLIA regulations and is used for clinical purposes. For additional information, please refer to http://education.Blabroom/faq/XZY758u9 (This link if provided for information/ educational purposes only.) Test Performed at: [facility] [address] [place], [place] ??[phone] Junior Morales D.O., MPH SL Genital (Vaginal cuff) 09/03/2021 1:43 PM CANDY BUTCHER 09/03/2021 11:11 PM CANDY BUTCHER October Benjy WADE PATHOLOGY/CYTOLOGY [place] [facility] [address] [place] [address] from Last 3 Months or Most Recently Relevant to Health Maintenance Advance Directives For more information, please contact: [phone] * Full Code (Latest Code Status on File) Date Activated Date Inactivated Comments 03/18/2018 8:20 AM 03/18/2018 4:47 PM * Full Code Date Activated Date Inactivated Comments 10/01/2017 11:40 AM 10/01/2017 3:26 PM Care Teams Freight Conductor Relationship Specialty Start Date End Date Clovis Johnson MD PCP - General Family Practice 08/17/17
--- OUTSIDE RECORDS SUMMARY | 2024-07-10 00:22 | XMS_ITS | Encounter Summary ---
Author Organization [facility] Address [address] Giraldo: Epic Prelude ADT [place] [address] Care Team Providers Care Pharmacy Resident Name Role Phone Clovis Johnson MD Primary Care Provider [phone] Encounter Details Date Type Department Care Team (Latest Contact Info) Description 09/03/2021 Travel Social History Tobacco Use Types Packs/Day [...] have Coronavirus / COVID-19? 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
--- OUTSIDE RECORDS SUMMARY | 2024-07-10 00:22 | XMS_ITS | Encounter Summary ---
Author Organization [employer] [facility] Address [address] [place] [address] Care Team Providers Care Child Nutrition Director Name Role Phone Clovis Johnson MD Primary Care Provider [phone] Reason for Referral * Outpatient Services (Routine) - Closed Specialty Diagnoses / Procedures Referred By Contac t Referred To Contact Diagnoses Dysmenorrhea LLQ abdominal pain Dyspareunia in female Procedures US PELVIS + TRANSVAG NON OB Martinez Walker MD [address], [place] [address] Referral ID Status Reason Start Date Expiration Date V isits Requested Visits Authorized [id number] Closed [facility] 02/19/2018 03/22/2019 1 1 Reason for Visit * Outpatient Services (Routine) - Closed Specialty Diagnoses / Procedures Referred By Contac t Referred To Contact Diagnoses Dysmenorrhea LLQ abdominal pain Dyspareunia in female Procedures US PELVIS + TRANSVAG NON OB Martinez Walker MD [address] [place] [address] Referral ID Status Reason Start Date Expiration Date V isits Requested Visits Authorized [id number] Closed [facility] 02/19/2018 03/22/2019 1 1 Encounter Details Date Type Department Care Team (Latest Contact Info) Description 03/02/2018 1:00 PM CDT - 03/02/2018 11:59 PM CDT [facility] [address] [place] [id number] Martinez Walker MD [address] [place] [address] Discharge Disposition: Home or Self Care Social History Tobacco Use Types Packs/Day Years Used Date Smoking Tobacco: Never Smokeless Tobacco: Never Alcohol Use Standard Drinks/Week Comments Yes 2 (1 standard drink = 0.6 oz pur e alcohol) Sex and Gender Information Value Date Recorded Sex Assigned at Not on file Gender Identity Not on file Sexual Orientation Not on file documented as of this encounter Medications at Time of Discharge Medication Sig Dispensed Refills Start Date End Date ibuprofen (MOTRIN) 600 mg tablet Take 1 Tablet by mouth every 6 hours as needed for pain secondary to inflammation. 60 Tablet 1 03/19/2018 fluticasone-salmeter ol (ADVAIR DISKUS) 250-50 mcg/dose disk inhaler Take 1 Puff by inhalation 2 times daily. 1 Inhaler 5 01/12/2018 montelukast (SINGULAIR) 10 mg tablet Take 1 Tablet (10 mg) by mouth daily at bedtime. 30 Tablet 5 01/12/2018 fexofenadine (SRIDEVI) 180 mg tablet Take 180 mg by mouth daily. buPROPion HCl (WELLBUTRIN XL) 300 mg Extended Release 24 hour tablet Take 300 mg by mouth daily passenger flagman. methylphenidate HCl (RITALIN) 10 mg tablet Take 10 mg by mouth 2 times daily. albuterol HFA 90 mcg inhaler Take 2 Puffs by inhalation every 6 hours as needed for Shortness of Breath. ARIPiprazole (ABILIFY) 5 mg tablet Take 5 mg by mouth daily. 05/03/2018 medroxyPROGESTERone (DEPO-PROVERA) 150 mg/mL SuspensionIndication s:Pelvic pain in female,Dysmenorrhea Inject 1 mL (150 mg) by intramuscular injection every 90 days. 1 mL 1 12/01/2017 03/19/2018 acetaminophen (TYLENOL) 325 mg tablet Take by mouth every 4 hours as needed. 03/19/2018 ibuprofen (MOTRIN) 200 mg tablet Take 200 mg by mouth every 6 hours as needed for Pain, Mild. 03/19/2018 levonorgestrel (MIRENA) 20 mcg/24 hr (5 years) IUD by Intrauterine route. 0 03/19/2018 FLUOXETINE HCL (PROZAC ORAL) Take 40 mg by mouth . 05/03 traZODone (DESYREL) 50 mg tablet Take 100 mg by mouth daily at bedtime . 05/03/2018 documented as of this encounter Plan of Treatment Not on file documented as of this encounter Procedures Procedure Name Priority Date/Time Associated Diagnosis Comments US PELVIS + TRANSVAG NON OB Routine 03/02/2018 1:41 PM CDT Dysmenorrhea LLQ abdominal pain Dyspareunia in female documented in this encounter Results * US PELVIS + TRANSVAG NON OB (03/02/2018 1:41 PM CDT) Anatomical Region Laterality Modality Pelvis Ultrasound 03/02/2018 1:11 PM CDT Impressions 03/02/2018 2:29 PM CDT IMPRESSION ----- Normal sized uterus without myomata. IUD present centrally in the uterus. Endometrial thickness of 6.1 mm. Simple cyst in the right ovary. Normal left ovary. No free fluid in the posterior cul-de-sac. Narrative 03/02/2018 2:29 PM CDT [facility] Pelvic US ----- Pat. Name: HOLLY PAINTING Study Date: 03/02/2018 1:11pm Pat. NO: [id number] Referring ??: MARTINEZ WALKER Site: [facility] Customs Compliance Director: Michelle Preciado : 1985 Age: 32 ----- INDICATION ----- Dysmenorrhea - primary Pelvic Pain CODING ----- Diagnosis ? N94.4: Primary dysmenorrhea ?R10.2: Pelvic and perineal pain Procedures ?48055: Pelvic Non OB Transabdominal ?77421: Pelvic non- OB, transvaginal HISTORY ----- General History ? The patient is a 32 year old with a Mirena IUD in place. The patient has one child, born 5 years ?ago and the patient had her IUD placed shortly after that . Since that time, the patient has ?complained of pelvic pain. She has been told that she might have endometriosis and adenomyosis but no ?definitive diagnostic procedure has been performed. The patient has not had any prior surgery. She is ?sent for assessment of the uterus and adnexal areas prior to further treatment. OB History ? 1. Para 1 METHOD ----- WEEKEND CAREGIVER Transvaginal US Examination, Transabdominal ultrasound examination UTERUS ----- Visualized. Long 69 mm x ap 39 mm x tr 37 mm. Vol 51.9 cm? The uterus is small, anteflexed with an IUD in the endometrial cavity. Position: retroverted with smooth contours. Malformations: none Myometrium: Heterogenous Endometrium: The endometrial lining is midline and linear with an IUD in an appropriate orientation in the cavity. On 3D renderings of the cavity, there is subtle indention of the arms of the Mirena IUD into the fundal myometrium bilaterally. No obvious intracavitary lesions are identified. Endometrial thickness, total 6.1 mm Cervix details: There are small Nabothian cysts in the cervix. RIGHT OVARY ----- Visualized, The right ovary is normal sized and contains a few small follicles but no dominant cyst is demonstrated. Size 25 mm x 13 mm x 12 mm No cysts identified RIGHT TUBE ----- Not visualized LEFT OVARY ----- Visualized, The left ovary is normal in size and contains a solitary simple cyst. Size 32 mm x 27 mm x 16 mm Cyst(s) ? Simple cyst. Size 18.9 mm x 14.8 mm x 20.2 mm. Mean 18.0 mm. The cyst coronado are smooth and avascular. LEFT TUBE ----- Not visualized CUL DE SAC ----- Normal. No free fluid visualized Procedure Note Sharifa Vargas MD - 03/02/2018 [facility] Pelvic US ----- Pat. Name:Ashlie PAINTING Date:03/02/2018 1:11pm Pat. NO: [id number] :MARTINEZ WALKER [facility] Preciado :1985Age:32 ----- INDICATION ----- Dysmenorrhea - primary Pelvic Pain CODING ----- Diagnosis N94.4: Primary dysmenorrhea R10.2: Pelvic and perineal pain Procedures 79927: Pelvic Non OB Transabdominal 78898: Pelvic non- OB, transvaginal HISTORY ----- General History The patient is a 32 year old with a MirenaIUD in place. The patient has one child, born 5 years ago and the patient had her IUD placed shortlyafter that . Since that time, the patient has complained of pelvic pain. She has been told thatshe might have endometriosis and adenomyosis but no definitive diagnostic procedure has beenperformed. The patient has not had any prior surgery. She is sent for assessment of the uterus and adnexalareas prior to further treatment. OB History 1. Para 1 METHOD ----- WEEKEND CAREGIVER Transvaginal US Examination, Transabdominal ultrasound examination UTERUS ----- Visualized. Long 69 mm x ap 39 mm x tr 37 mm. Vol 51.9 cm? The uterus is small, anteflexed with an IUD in the endometrial cavity. Position: retroverted with smooth contours. Malformations: none Myometrium: Heterogenous Endometrium: The endometrial lining is midline and linear with an IUD in an appropriate orientation in the cavity. On 3D renderings of the cavity, there is subtle indention of the arms of the Mirena IUD into the fundal myometrium bilaterally. No obvious intracavitary lesions are identified. Endometrial thickness, total 6.1 mm Cervix details: There are small Nabothian cysts in the cervix. RIGHT OVARY ----- Visualized, The right ovary is normal sized and contains a few small follicles but no dominant cyst is demonstrated. Size 25 mm x 13 mm x 12 mm No cysts identified RIGHT TUBE ----- Not visualized LEFT OVARY ----- Visualized, The left ovary is normal in size and contains a solitarysimple cyst. Size 32 mm x 27 mm x 16 mm Cyst(s) Simple cyst. Size 18.9 mm x 14.8 mm x 20.2 mm.Mean 18.0 mm. The cyst coronado are smooth and avascular. LEFT TUBE ----- Not visualized CUL DE SAC ----- Normal. No free fluid visualized IMPRESSION ----- Normal sized uterus without myomata. IUD present centrally in the uterus. Endometrial thickness of 6.1 mm. Simple cyst in the right ovary. Normal left ovary. No free fluid in the posterior cul-de-sac. Martinez Walker MD US ORDERABLES documented in this encounter Visit Diagnoses Diagnosis Dysmenorrhea LLQ abdominal pain Abdominal pain, left lower quadrant Dyspareunia in female documented in this encounter Care Teams Child Nutrition Director Relationship Specialty Start Date End Date Clovis Johnson MD PCP - General Family Practice 08/17/17 documented as of this encounter
--- OUTSIDE RECORDS SUMMARY | 2024-07-10 00:22 | XMS_ITS | Encounter Summary ---
Author Organization [email or web address] Address [address] [place] [address] Care Team Providers Care Supervisor Cook Room Name Role Phone Clovis Johnson MD Primary Care Provider [phone] Reason for Referral * Outpatient Services (Routine) - Closed Specialty Diagnoses / Procedures Referred By Glendy lovell Referred To Contact Sleep Center Diagnoses EZEQUIEL (obstructive sleep apnea) Procedures POLYSOMNOGRAPHY 4 OR MORE PARAMETERS WITH CPAP Ryanne Walters MD [address] [place] [phone] [facility] Sleep Medicine [address] [place] [phone] Referral ID Status Reason Start Date Expiration Date Visits Requested Visits Authorized [id number] Closed Performing Department To Schedule (STL) 01/12/2018 02/12/2019 1 1 Reason for Visit * Outpatient Services (Routine) - Closed Specialty Diagnoses / Procedures Referred By Contac t Referred To Contact Sleep Center Diagnoses EZEQUIEL (obstructive sleep apnea) Procedures POLYSOMNOGRAPHY 4 OR MORE PARAMETERS WITH CPAP Ryanne Walters MD [address] [place] [phone] [facility] Sleep Medicine [address] [place] [address] Referral ID Status Reason Start Date Expiration Date Visits Requested Visits Authorized [id number] Closed Performing Department To Schedule (STL) 01/12/2018 02/12/2019 1 1 Encounter Details Date Type Department Care Team (Latest Contact Info) Description 02/05/2018 8:30 PM CDT - 02/05/2018 11:59 PM CDT Hospital Encounter [facility] Support Services Adult Sleep Medicine [facility] [address] [place] [phone] Ryanne Walters MD [address] [facility] [address] [place] [address] Discharge Disposition: Home or Self Care Social [...] Sig Dispensed Refills Start Date End Date fluticasone-salmeter ol (ADVAIR DISKUS) 250-50 mcg/dose disk [...] tablet Take 300 mg by mouth daily 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 methylphenidate HCl (RITALIN) 10 mg tablet Take 10 mg by mouth 2 times daily. albuterol HFA 90 mcg inhaler Take 2 Puffs by inhalation every 6 hours as needed for Shortness of Breath. medroxyPROGESTERone (DEPO-PROVERA) 150 mg/mL SuspensionIndication s:Pelvic pain [...] . 05/03/2018 documented as of this encounter Procedure Notes * Mikal Minaya MD - 02/16/2018 4:23 AM CDTAssociated Order(s): POLYSOMNOGRAPHY 4 OR MORE PARAMETERS WITH CPAP [place], [place] [address] Sleep Study CSN: [id number] DATE OF SERVICE: 02/05/2018 POLYSOMNOGRAPHY REPORT BRIEF HISTORY The patient is a 32-year-old female with a history of EZEQUIEL diagnosed at [facility] 10 years ago. The patient was not compliant with CPAP and now has had recurring symptoms and is motivated to restart CPAP therapy. She presents for repeat evaluation. [place] Sleepiness Scale of 17. She has a history of snoring and witnessed apneic episodes with non-refreshing sleep. INTERPRETATION Baseline Testing: The patient underwent polysomnography by standard protocol on 02/05/2018. All of the raw data was reviewed in detail. Total recording time was 460 minutes. Total sleep time was 403 minutes for a sleep efficiency of 88%. Sleep onset latency was 15 minutes. REM onset latency was 118minutes. The patient spent 11% of this time in stage I, 73% in stage II, 0.6% in stage III, and 15%in stage REM sleep. Respiratory Data: Respiratory monitoring revealed 2 obstructive apneas, 0 central apneas, 0 mixed apneas, and 19 hypopneas for an apnea-hypopnea index of 3.1. Lowest oxygen saturation was 90%. There were 13 hypopneas that did not result in 4% desaturation, but did further fragment sleep for respiratory disturbance index of 5. There was rare to occasional mild snoring noted. EKG: Heart rate varied between 71 and 107 beats per minute. Leg Movements: There were 13 periodic leg movements for a PLM index of 1.9 and a PLM arousal index of 0.3. IMPRESSION 1. There is no evidence of significant obstructive sleep apnea. 2. There is no evidence of significant periodic limb movement disorder. SP:MEDQ DID: [id number] Dictated by: Mikal Minaya MD cc: Ryanne Walters MD documented in this encounter Plan of Treatment Not on file documented as of this encounter Procedures Procedure Name Priority Date/Time Associated Diagnosis Comments POLYSOMNOGRAPHY 4 OR MORE PARAMETERS WITH CPAP Routine 02/16/2018 4:23 AM CDT EZEQUIEL (obstructive sleep apnea) documented in this encounter Results * POLYSOMNOGRAPHY 4 OR MORE PARAMETERS WITH CPAP (02/16/2018 4:23 AM CDT) Narrative Procedure Note Mikal Minaya MD - 02/16/2018 4:23 AM CDT [place], [place] [address] Sleep Study CSN: [id number] DATE OF SERVICE: 02/05/2018 POLYSOMNOGRAPHY REPORT BRIEF HISTORY The patient is a 32-year-old female with a history of EZEQUIEL diagnosed at [facility] 10 years ago. The patient was not compliant with CPAPand now has had recurring symptoms and is motivated to restart CPAPtherapy. She presents for repeat evaluation. [place] Sleepiness Scale of17. She has a history of snoring and witnessed apneic episodes withnon-refreshing sleep. INTERPRETATION Baseline Testing: The patient underwent polysomnography by standardprotocol on 02/05/2018. All of the raw data was reviewed in detail.Total recording time was 460 minutes. Total sleep time was 403 minutesfor a sleep efficiency of 88%. Sleep onset latency was 15 minutes. REMonset latency was 118 minutes. The patient spent 11% of this time instage I, 73% in stage II, 0.6% in stage III, and 15% in stage REM sleep. Respiratory Data: Respiratory monitoring revealed 2 obstructive apneas, 0central apneas, 0 mixed apneas, and 19 hypopneas for an apnea-hypopneaindex of 3.1. Lowest oxygen saturation was 90%. There were 13 hypopneasthat did not result in 4% desaturation, but did further fragment sleep forrespiratory disturbance index of 5. There was rare to occasional mildsnoring noted. EKG: Heart rate varied between 71 and 107 beats per minute. Leg Movements: There were 13 periodic leg movements for a PLM index of1.9 and a PLM arousal index of 0.3. IMPRESSION 1. There is no evidence of significant obstructive sleep apnea. 2. There is no evidence of significant periodic limb movement disorder. SP:MEDQ DID:[id number] Dictated by: Mikal Minaya MD cc: Ryanne Walters MD Ryanne Walters MD [facility] documented in this encounter Visit Diagnoses Diagnosis EZEQUIEL (obstructive sleep apnea) Obstructive sleep apnea (adult) (pediatric) documented in this encounter Care Teams Supervisor Cook Room Relationship Specialty Start Date End Date Clovis Johnson MD PCP - General Family Practice 08/17/17 documented as of this encounter
--- OUTSIDE RECORDS SUMMARY | 2024-07-10 00:22 | XMS_ITS | Encounter Summary ---
Author Organization [employer] Address [address] [place] [address] Care Team Providers Care Expressive Music Therapist Name Role Phone Clovis Johnson MD Primary Care Provider [phone] Reason for Referral * Outpatient Services (Routine) - Closed Specialty Diagnoses / Procedures Referred By Contac t Referred To Contact Diagnoses Dysmenorrhea LLQ abdominal pain Dyspareunia in female Procedures US PELVIS + TRANSVAG NON OB Isai Walker MD [address] [place] [address] Referral ID Status Reason Start Date Expiration Date V isits Requested Visits Authorized [id number] Closed STL CTS 02/19/2018 03/22/2019 1 1 Reason for Visit * Reason Comments Surgical Consult referral from Dr. Saad Burleson for pelvic pain * Eval and Treat (Routine) - Closed Specialty Diagnoses / Procedures Referred By Contac t Referred To Contact Gynecology Diagnoses Chronic pelvic pain in female Kailey Burleson MD [address] [address] Isai Walker MD [address] [place] [address] Referral ID Status Reason Start Date Expiration Date V isits Requested Visits Authorized [id number] Closed CRS To Schedule (STL) 01/26/2018 01/26/2019 1 1 Encounter Details Date Type Department Care Team (Late st Contact Info) Description 02/15/2018 1:00 PM CDT Office Visit [facility] [address] [place] [address] Kailey Burleson MD [address] [address] Isai Walker MD [address] [place], [place] [id number] Dysmenorrhea (Primary Dx); LLQ abdominal pain; Dyspareunia in female Social History Tobacco Use Types Packs/Day Years [...] Sign Reading Time Taken Comments Blood Pressure 118/90 02/15/2018 1:21 PM CDT Pulse - - Temperature - - Respiratory Rate - - Oxygen Saturation - - Inhaled Oxygen Concentration - - Weight 102.5 kg (226 lb) 02/15/2018 1:21 PM CDT Height 171.5 cm (5' 7.5 ) 02/15/2018 1:21 PM CDT Body Mass Index 34.87 02/15/2018 1:21 PM CDT documented in this encounter Progress Notes * Isai Walker MD - 02/15/2018 1:49 PM CDT [facility] Holly Painting 02/15/2018 1:49 PM [id number] HPI: Ms. Painting is a 32 y.o. who presents today to discuss Surgical Consult (referral from Dr. Kailey Burleson for pelvic pain) Holly Painting is referred by Dr Burleson for evaluation and treatment of pelvic pain concerning forendometriosis. She reports that menses have always been extremely painful since menarche. When she was younger, the symptoms are much better with hormonal suppression in the form of an oral contraceptive pill. Following the of her son 5 years ago, she was transitioned to a levonorgestrel IUD and has been essentially amenorrheic since that point. Unfortunately, over the past year especially,pain has progressively become more frequent and severe to the point where it is more or less constant now. She does experience severe flares in the pain 1 week out of each month it is more sharp/stabbing and located in the left lower quadrant. She has recently tried more aggressive hormonal suppression with Depo-Provera on top of the levonorgestrel IUD and reports no relief. She is additionally been undergoing pelvic floor physical therapy with [facility] without improvement in symptoms. She does report that she has completed childbearing and is interested in definitive treatment the form of a hysterectomy. OBHx: OB History Para Term AB Living 1 1 1 1 SAB TAB Ectopic Multiple Live Births 1 # Outcome Date GA Lbr Lam/2nd Weight Sex Delivery Anes PTL Lv 1 Term 03/2013 M Vag-Spont HANS PMHx: has a past medical history of Asthma; Cervical high risk human papillomavirus (HPV) DNA test positive; Chronic abdominal pain; Community acquired pneumonia; Depression; GI bleed; Headache; and Obstructive sleep apnea. She also has no past medical history of Bronchiectasis; Nutritional anemia, unspecified; or Other emphysema. SurgHx: Past Surgical History: Procedure Laterality Date ??? BIOPSY CERVIX 2018 ??? BRONCHOSCOPY ??? HX LIPOMA RESECTION ??? HX WISDOM TEETH EXTRACTION ??? AR COLONOSCOPY FLX DX W/COLLJ SPEC WHEN PFRMD N/A 10/01/2017 COLONOSCOPY performed by Gina Lan MD at [facility] Meds: Current Outpatient Prescriptions on File Prior to Visit Medication Sig Dispense Refill ??? fluticasone-salmeterol (ADVAIR DISKUS) 250-50 mcg/dose disk inhaler Take 1 Puff by inhalation 2times daily. 1 Inhaler 5 ??? montelukast (SINGULAIR) 10 mg tablet Take 1 Tablet (10 mg) by mouth daily at bedtime. 30 Tablet5 ??? medroxyPROGESTERone (DEPO-PROVERA) 150 mg/mL Suspension Inject 1 mL (150 mg) by intramuscular injection every 90 days. 1 mL 1 ??? acetaminophen (TYLENOL) 325 mg tablet Take by mouth every 4 hours as needed. ??? ibuprofen (MOTRIN) 200 mg tablet Take 200 mg by mouth every 6 hours as needed for Pain, Mild. ??? levonorgestrel (MIRENA) 20 mcg/24 hr (5 years) IUD by Intrauterine route. ??? fexofenadine (SRIDEVI) 180 mg tablet Take 180 mg by mouth daily. ??? FLUOXETINE HCL (PROZAC ORAL) Take 80 mg by mouth. ??? buPROPion HCl (WELLBUTRIN XL) 300 mg Extended Release 24 hour tablet Take 300 mg by mouth dailyearly morning. ??? methylphenidate HCl (RITALIN) 10 mg tablet Take 10 mg by mouth 2 times daily. ??? traZODone (DESYREL) 50 mg tablet Take 50 mg by mouth daily at bedtime. ??? albuterol HFA 90 mcg inhaler Take 2 Puffs by inhalation every 6 hours as needed for Shortness of Breath. No current facility-administered medications on file prior to visit. Allergies:Patient has no known allergies. SocHx: reports that she has never smoked. She has never used smokeless tobacco. She reports that she drinks about 1.2 oz of alcohol per week . She reports that she does not use drugs. FamHx: family history includes Asthma in her maternal grandmother and sister; Breast Cancer (age ofonset: 78) in her maternal grandmother; Cancer (age of onset: 78) in her maternal grandmother; Crohn's Disease in her maternal aunt; Hypertension in her maternal grandfather and maternal grandmother;Inflammatory Bowel Disease in her maternal aunt; Lung Cancer in her maternal grandmother; Other in her mother; Ovarian Cancer (age of onset: 78) in her maternal grandmother; Uterine Cancer in her maternal grandmother. SexualHx: reports that she currently engages in sexual activity and has had male partners. She reports using the following method of control/protection: IUD. RoS: Positives in Bold See patient intake questionnaire PE: BP (!) 118/90 Ht 5' 7.5 (1.715 m) Wt 102.5 kg (226 lb) ? No BMI 34.87 kg/m?? General appearance: Alert, in no distress Lungs: Clear to auscultation bilaterally, normal respiratory effort Heart: Normal rate, regular rhythm, normal S1, S2, no murmurs, rubs, clicks or gallops Abdomen: Soft. No masses, no organomegaly. There is 2/3+ tenderness to deep palpation in the left lower quadrant reproducing her sharper pain. Interestingly, Carnett sign is negative for myofascial pain, pointing to a deep visceral component such as the ovary. Extremities: Extremities normal, atraumatic, no cyanosis or edema, moves all extremities equally, no edema, redness or tenderness in the calves or thighs Skin: Skin color, texture, turgor normal. No rashes or lesions Pelvis: exam chaperoned by neuropsychology medical consultant EGBUS: Within normal limits Vulva: Normal Urethra: No lesions, no diverticula, non-tender to palpation Bladder: Non-tender to palpation Vagina: Normal mucosa, no discharge, no odor Cervix: Normal without lesions, polyps or tenderness Uterus: Normal size, shape, consistency, no mass or tenderness Adnexa: Normal in size without mass or tenderness Pelvic Floor Muscles: Right side: Pubococcygeus: 1/3 tension, 1/3 pain Iliococcygeus: 1/3 tension, 1/3 pain Coccygeus: 1/3 tension, 1/3 pain Obturator internus: 1/3 tension, 1/3 pain Left side: Pubococcygeus: 1/3 tension, 2/3 pain Iliococcygeus: 2/3 tension, 2/3 pain Coccygeus: 2/3 tension, 2/3 pain Obturator internus: 2/3 tension, 2/3 pain A/P: 32 y.o. female presents for Surgical Consult (referral from Dr. Kailey Burleson for pelvic pain) 1. Dysmenorrhea We discussed in detail the pathogenesis, prognosis, and treatment options available for endometriosis. We discussed that endometriosis is the presence of endometrial tissue outside of the uterus. This tissue remains hormonally sensitive and continues to bleed cyclically. This causes inflammation and scar tissue, which can lead to pelvic pain and subfertility. Pain related to endometriosis can be treated medically with NSAID's or with hormonal suppression though use of OCP, DMPA, Mirena IUD, or Lupron. While the presence of endometriosis can be suspected based upon certain symptoms, the only only way to confirm the diagnosis is through surgery with biopsy. The implants and scar tissue can also be treated at the time of surgery through removal or vaporization. Endometriosis is a chronic condition and symptoms can persist after treatment, or redevelop over time. I generally advise some form of suppression to diminish the severity an/or frequency of menses, in order to reduce retrograde menstruation and development of new implants. In severe cases, and when fertility is no longer desired, hysterectomy with removal of the ovaries is considered the definitive treatment option. She elects to proceed with hysterectomy. We discussed the risks of surgery, including but not limited to the risks below. The risk of general anesthesia was discussed, with generally low risks for healthy individuals. She is aware that any medical comorbidities may significantly increase this risk.There is always some risk of infection, even though prophylactic antibiotics will be used. There isrisk of hemorrhage, possibly even requiring blood transfusion. There is risk of venothrombotic event, including pulmonary embolus. There is risk of injury to abdominal and pelvic organs such as the bowel, bladder, ureters, blood vessels, and nerves. Such injury is rare, but may require further medical or surgical treatment. We discussed various routes of surgery, including abdominal, vagina, robotic, and laparoscopic. If necessary for the sake of safety, other port sites or even laparotomy may be used. If supracervical hysterectomy is performed, we discussed that she will still need to have pap smears and that there may be up to a 5% risk of cyclical bleeding. She is aware that having a hysterectomy will mean the end of child-bearing potential. No guarantees can be made that surgical treatment will result in resolution or improvement in her pain. We discussed removal of the ovaries. She is aware that if only one ovary is removed, the remaining ovary will continue to function normally. If both ovaries are removed, she would go through early menopause, and experience symptoms such as hot flushes, night sweats, mood swings, or even altered libido. If this occurs, hormonal replacement can be considered to alleviate these symptoms, and the risks of this were discussed. Early menopause may be associated with other medical risks, including osteoporosis and cardiovascular disease. 2. LLQ abdominal pain We discussed the risks and benefits of ovarian preservation versus LSO. She is in agreement with removal of the ovary to maximize the likelihood that her left lower quadrant pain is improved postoperatively. 3. Dyspareunia in female Plan: 1. [facility] pelvic ultrasound 2. Total laparoscopic hysterectomy with left salpingo-oophorectomy, right salpingectomy, possible treatment of endometriosis, cystoscopy 3. If pain persists postop, she will continue pelvic physical therapy with [facility]. She may benefit from a second opinion with Leona. Isai Walker MD Co-Director [facility] [address], [place] [address] This note was transcribed using Adsame speaking computerized voice recognition without a human preparation plant repairer. This report may or may not have been adjusted for typographical, grammaticaland syntax errors. documented in this encounter Miscellaneous Notes * Addendum Note - Reynaldo Jernigan - 02/19/2018 1:31 PM CDTAddended by: REYNALDO JERNIGAN on: 02/19/2018 01:31 PM Modules accepted: Orders * Addendum Note - Reynaldo Jernigan - 02/15/2018 2:06 PM CDTAddended by: REYNALDO JERNIGAN on: 02/15/2018 02:06 PM Modules accepted: Orders documented in this encounter Plan of Treatment Not on file documented as of this encounter Results * US PELVIS + [...] posterior cul-de-sac. Narrative 03/02/2018 2:29 PM CDT [facility] Pelvic US ----- Pat. Name: HOLLY PAINTING Study Date: 03/02/2018 1:11pm Pat. NO: [id number] Referring ??MD: ISAI WALKER Site: [facility] Aide: Michelle Preciado : 1985 Age: 32 ----- INDICATION ----- Dysmenorrhea - primary Pelvic Pain CODING ----- Diagnosis ? N94.4: Primary dysmenorrhea ?R10.2: Pelvic and perineal pain Procedures ?31240: Pelvic Non OB Transabdominal ?66877: Pelvic non- OB, transvaginal HISTORY ----- General [...] History ? 1. Para 1 METHOD ----- DEV TECHNICAL MGR Transvaginal US Examination, Transabdominal ultrasound examination UTERUS [...] Procedure Note Sharifa Vargas MD - 03/02/2018 [facility] Pelvic US ----- Pat. Name:Ashlie PAINTING Date:03/02/2018 1:11pm Pat. NO: [id number] :ISAI WALKER [facility]:Michelle Preciado :1985Age:32 ----- INDICATION ----- Dysmenorrhea - primary Pelvic Pain CODING ----- Diagnosis N94.4: Primary dysmenorrhea R10.2: Pelvic and perineal pain Procedures 41510: Pelvic Non OB Transabdominal 53255: Pelvic non- OB, transvaginal HISTORY ----- General [...] OB History 1. Para 1 METHOD ----- DEV TECHNICAL MGR Transvaginal US Examination, Transabdominal ultrasound examination UTERUS [...] No free fluid in the posterior cul-de-sac. Isai Walker MD ORDERABLES documented in this encounter Visit Diagnoses Diagnosis Dysmenorrhea- Primary LLQ abdominal pain Abdominal pain, left lower quadrant Dyspareunia in female Dysmenorrhea LLQ abdominal pain Abdominal pain, left lower quadrant Dyspareunia in female documented in this encounter Care Teams Expressive Music Therapist Relationship Specialty Start Date End Date Clovis Johnson MD PCP - General Family Practice 08/17/17 documented as of this encounter
--- OUTSIDE RECORDS SUMMARY | 2024-07-10 00:22 | XMS_ITS | Encounter Summary ---
Author Organization [facility] Address [address] [place] [address] Care Team Providers Care Printing Shop Supervisor Name Role Phone Clovis Johnson MD Primary Care Provider [phone] Reason for Visit * Reason Onset Date Comments Results 01/13/2018 Encounter Details Date Type Department Care Team (Late st Contact Info) Description 01/13/2018 Telephone [facility] DIESEL MACHINIST - Medical [address] [address] Gabby Torre, KAYLA [address] [facility] [address] [place] [address] Results Social History Tobacco Use Types Packs/Day Years Used Date Smoking Tobacco: Never Smokeless Tobacco: Never Alcohol Use Standard Drinks/Week Comments Yes 2 (1 standard drink = 0.6 oz pur e alcohol) Sex and Gender Information Value Date Recorded Sex Assigned at Not on file Gender Identity Not on file Sexual Orientation Not on file documented as of this encounter Miscellaneous Notes * Telephone Encounter - Vickie Pisano - 01/13/2018 12:10 PM CDT Pt sent [employer] message inquiring about results. Pt notified via [employer]. Rx sent. * Telephone Encounter - Vickie Pisano - 01/13/2018 12:10 PM CDT ----- Message from Gabby Torre NP sent at 01/13/2018 11:23 AM CDT ----- UTI resistant to macrobid Needs Keflex 500 qid x 7 days please documented in this encounter Plan of Treatment Not on file documented as of this encounter Visit Diagnoses Not on filedocumented in this encounter Care Teams Printing Shop Supervisor Relationship Specialty Start Date End Date Clovis Johnson MD PCP - General Family Practice 08/17/17 documented as of this encounter
--- OUTSIDE RECORDS SUMMARY | 2024-07-10 00:22 | XMS_ITS | Encounter Summary ---
Author Organization [facility] Address [address] [place] [address] Care Team Providers Care Crisis Therapist Name Role Phone Clovis Johnson MD Primary Care Provider [phone] Reason for Visit * Auth/Cert Specialty Diagnoses / Procedures Referred By Glendy t Referred To Contact General Surgery Diagnoses Dysmenorrhea, unspecified Unspecified dyspareunia DYSMENORRHEA , DYSPAURUNEA Procedures CO LAP,RMV ADNEXAL STRUCTURE CO LAP,RMV ADNEXAL STRUCTURE CO LAP,FULGURATE/EXCISE LESIONS CO LAPAROSCOPY W TOT HYSTERECTUTERUS <=250 GRAM W TUBE/OVARY CO CYSTOURETHROSCOPY HYSTERECTOMY TOTAL LAPAROSCOPIC SALPINGECTOMY LAPAROSCOPIC OOPHORECTOMY LAPAROSCOPIC CYSTOSCOPY ENDOMETRIOSIS EXCISION LASER LAPAROSCOPIC [facility] Or [address] [place] [address] Referral ID Status Reason Start Date Expiration Date Visits Re quested Visits Authorized [id number] 1 1 Encounter Details Date Type Department Care Team (Late st Contact Info) Description 03/18/2018 1:11 PM CDT - 03/18/2018 3:40 PM CDT Surgery [facility] Operating Room [address] [place] [address] Martinez Walker MD [address] [place] [address] HYSTERECTOMY TOTAL LAPAROSCOPIC Surgery Details Date/Time Status Location OR Service Patient Class Case Class Case Type Trauma Case? 03/18/2018 1:11 PM Posted [facility] OR [facility] OR Gynecology Surgical OP/Extended Care Elective No Panel 1 Procedure LRB Anes Op Region Wound Class Comments HYSTERECTOMY TOTAL LAPAROSCOPIC N/A General Abdomen Clean Contaminated-II 23H SALPINGECTOMY LAPAROSCOPIC Bilateral Abdomen Eron an-I OOPHORECTOMY LAPAROSCOPIC Left Abdomen Clean Contaminated-II CYSTOSCOPY N/A Bladder Clean Contaminated-II INTRAUTERINE DEVICE REMOVAL N/A Local Vagina Clean Contaminated-II Surgeon Surgeon Role Service Panel Martinez Walker MD Primary Gynecology 1 Case Notes ZANDRA JEAN, CPT 26082, [id number], [id number] documented in this encounter Social History Tobacco [...] Sign Reading Time Taken Comments Blood Pressure 138/86 03/18/2018 8:11 AM CDT Pulse 95 03/18/2018 8:11 AM CDT Temperature 36 ??C (96.8 ??F) 03/18/2018 8:11 AM CDT Respiratory Rate 16 03/18/2018 8:11 AM CDT Oxygen Saturation 98% 03/18/2018 8:11 AM CDT Inhaled Oxygen Concentration - - Weight 103.1 kg (227 lb 6.4 oz) 03/18/2018 8:11 AM CDT Height 170.2 cm (5' 7 ) 03/18/2018 8:11 AM CDT Body Mass Index 35.62 03/18/2018 8:11 AM CDT documented in this encounter Discharge Summaries * Reji Collins DO - 03/19/2018 2:34 PM CDT Discharge Summary Holly Remi Flores 03/19/2018 2:34 PM [id number] Admit Date: 03/18/2018 Discharge Date: 03/19/2018 Discharge Time: 2:34 PM Wheat Washer: Martinez Walker MD Surgery:Procedure(s): HYSTERECTOMY TOTAL LAPAROSCOPIC SALPINGECTOMY LAPAROSCOPIC OOPHORECTOMY LAPAROSCOPIC CYSTOSCOPY INTRAUTERINE DEVICE REMOVAL Hospital Course: The patient was admitted to [facility] on 03/18/2018 for a scheduled TLH, left salpingo-oophorectomy, right salpingectomy, cystoscopy. She tolerated the procedure well and on POD#0 was transferred to in stable condition. She was started on regular diet, and was ambulating and voiding without difficulty. On POD#1, having met post-operative mile-stones, she was discharged home. PRECISION AGRONOMIST meds: No prescriptions prior to admission. DC meds: Medication List START taking these medications HYDROcodone-acetaminophen 5-325 mg tablet Commonly known as: NORCO Take 1 Tablet by mouth every 4 hours as needed for severe pain. Max Daily Amount: 6 Tablets Signed by: Reji Collins, Quantity: 30 Tablet Refills: 0 CHANGE how you take these medications ibuprofen 600 mg tablet Commonly known as: MOTRIN What changed: ?? medication strength ?? how much to take ?? reasons to take this Take 1 Tablet by mouth every 6 hours as needed for pain secondary to inflammation. Signed by: Reji Collins, DO Quantity: 60 Tablet Refills: 1 CONTINUE taking these medications albuterol sulfate 90 mcg/Actuation inhaler Take 2 Puffs by inhalation every 6 hours as needed for Shortness of Breath. Refills: 0 ARIPiprazole 5 mg tablet Commonly known as: ABILIFY Take 5 mg by mouth daily. 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 Refills: 0 fexofenadine 180 mg tablet Commonly known as: SRIDEVI Take 180 mg by mouth daily. Refills: 0 fluticasone 50 mcg/spray Hawley, Suspension Commonly known as: FLONASE Administer 2 Sprays in each nostril daily. Refills: 0 fluticasone-salmeterol 250-50 mcg/dose disk inhaler Commonly known as: ADVAIR DISKUS Take 1 Puff by inhalation 2 times daily. Signed by: Ryanne Walters MD Quantity: 1 Inhaler Refills: 5 methylphenidate HCl 10 mg tablet Commonly known as: RITALIN Take 10 mg by mouth 2 times daily. Refills: 0 montelukast 10 mg tablet Commonly known as: SINGULAIR Take 1 Tablet (10 mg) by mouth daily at bedtime. Signed by: Ryanne Walters MD Quantity: 30 Tablet Refills: 5 PROZAC ORAL Take 40 mg by mouth . Refills: 0 traZODone 50 mg tablet Commonly known as: DESYREL Take 100 mg by mouth daily at bedtime . Refills: 0 STOP taking these medications acetaminophen 325 mg tablet Commonly known as: TYLENOL medroxyPROGESTERone 150 mg/mL Suspension Commonly known as: DEPO-PROVERA MIRENA 20 mcg/24 hr (5 years) IUD Generic drug: levonorgestrel Where to Get Your Medications These medications were sent to [place] [id number] [facility] [address] Hours: Thursday-Thursday: 8 a.m. - 8 p.m., Thursday: 9 a.m. - 5 p.m., Thursday: 10 a.m. - 2 p.m. ?? HYDROcodone-acetaminophen 5-325 mg tablet ?? ibuprofen 600 mg tablet Plan: D/C Instructions, post-op follow up, and patient's questions answered. Reviewed D/C Medications. Prescriptions provided: yes Follow-up appointment in 2 weeks. Martinez Walker MD [facility] Minimally Invasive Gunecology [address], [facility] [address] [place], [place] Office: documented in this encounter Discharge Instructions * Discharge Instructions* Martinez Walker MD - 03/18/2018 3:43 PM CDT [facility] Minimally Invasive Gynecology Hysterectomy Discharge Instructions ACTIVITY: ??? Complete pelvic rest is very important, and will continue until cleared by your physician (typically 6-8 weeks). This means no intercourse or tampon use. ??? No strenuous activity such as sports or athletic working out for at least 1 month, until cleared by your physician. ??? Do not lift more than fifteen (15) pounds for 4 weeks. ??? Avoid excessive stooping, bending, or pulling for 4 weeks after surgery. ??? Climbing stairs is allowed. Walking is encouraged. ??? No driving for 48 hours, or while taking narcotic pain medications. ??? No smoking! WOUND CARE: ??? Light vaginal bleeding or spotting can be expected, but bleeding should never be continuous or heavy. ??? If you experience light post-operative bleeding, you may wear pads as needed. ??? May wash incision daily with soap water using a fresh washcloth each time. Showering is allowed2 days postoperatively. No tub baths, swimming, or hot tubs until cleared by physician (usually 6 weeks). ??? If there is a clear bandage over your incision, it may be removed after two days. ??? Do not remove the steri-strips over the incisions for 1 week. ??? Report ANY redness, drainage, or warmth at the incision site or difficulty with swallowing to the surgeon???s office. Report any fever greater than 101 degrees F. DIET: ??? Resume preoperative diet. MEDICATIONS: Medication List CONTINUE taking these medications acetaminophen 325 mg tablet Commonly known as: TYLENOL Take by mouth every 4 hours as needed. Refills: 0 albuterol sulfate 90 mcg/Actuation inhaler Take 2 Puffs by inhalation every 6 hours as needed for Shortness of Breath. Refills: 0 ARIPiprazole 5 mg tablet Commonly known as: ABILIFY Take 5 mg by mouth daily. 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 Refills: 0 fexofenadine 180 mg tablet Commonly known as: SRIDEVI Take 180 mg by mouth daily. Refills: 0 fluticasone 50 mcg/spray Hawley, Suspension Commonly known as: FLONASE Administer 2 Sprays in each nostril daily. Refills: 0 fluticasone-salmeterol 250-50 mcg/dose disk inhaler Commonly known as: ADVAIR DISKUS Take 1 Puff by inhalation 2 times daily. Signed by: Ryanne Walters MD Quantity: 1 Inhaler Refills: 5 ibuprofen 200 mg tablet Commonly known as: MOTRIN Take 200 mg by mouth every 6 hours as needed for Pain, Mild. Refills: 0 medroxyPROGESTERone 150 mg/mL Suspension Commonly known as: DEPO-PROVERA Inject 1 mL (150 mg) by intramuscular injection every 90 days. Signed by: Kailey Burleson MD Quantity: 1 mL Refills: 1 methylphenidate HCl 10 mg tablet Commonly known as: RITALIN Take 10 mg by mouth 2 times daily. Refills: 0 MIRENA 20 mcg/24 hr (5 years) IUD by Intrauterine route. Refills: 0 Generic drug: levonorgestrel montelukast 10 mg tablet Commonly known as: SINGULAIR Take 1 Tablet (10 mg) by mouth daily at bedtime. Signed by: Ryanne Walters MD Quantity: 30 Tablet Refills: 5 PROZAC ORAL Take 40 mg by mouth . Refills: 0 traZODone 50 mg tablet Commonly known as: DESYREL Take 100 mg by mouth daily at bedtime . Refills: 0 FOLLOW-UP: ??? With your doctor in 2 weeks. ??? Please contact your physician through the Cardiovascular Simulation page in the next few days in order to let him know how you are doing. If you have any concerns or need to speak with someone immediately, pleasecall the office or and after hours answering service. ??? If you have any questions, please do not hesitate to call your physician. Martinez Walker MD [facility] Minimally Invasive Gynecology [address], [place] [address] [place], [place] Office: documented in this encounter Medications at Time of Discharge Medication Sig Dispensed Refills Start Date End Date ibuprofen (MOTRIN) 600 mg tablet Take 1 Tablet by mouth every 6 hours as needed for pain secondary to inflammation. 60 Tablet 1 03/19/2018 fluticasone (FLONASE) 50 mcg/spray Hawley, Suspension Administer 2 Sprays in each nostril daily. fluticasone-salmeterol (ADVAIR DISKUS) 250-50 mcg/dose disk inhaler [...] tablet Take 300 mg by mouth daily chamber worker. methylphenidate HCl (RITALIN) 10 mg tablet Take 10 mg by mouth 2 times daily. albuterol HFA 90 mcg inhaler Take 2 Puffs by inhalation every 6 hours as needed for Shortness of Breath. ARIPiprazole (ABILIFY) 5 mg tablet Take 5 mg by mouth daily. 05/03/2018 FLUOXETINE HCL (PROZAC ORAL) Take 40 mg by mouth . 2017 traZODone (DESYREL) 50 mg tablet Take 100 mg by mouth daily at bedtime . 05/03/2018 documented as of this encounter Progress Notes * Martinez Walker MD - 03/19/2018 6:48 AM CDT CHIEF SERVICE OBSERVER Rounding note Subjective: Patient doing well this morning. No events overnight. WAlked to the cafeteria last night. Tolerating PO Liquids and solids. Pain well controlled. Objective: Vitals: 03/18/18 1751 03/18/18 2017 03/18/18 2319 03/19/18 0350 BP: 122/86 114/63 113/67 124/62 BP Location: Right arm Left arm Left arm Left arm Patient Position (BP): Sitting Supine Sitting Sitting Pulse: (!) 107 99 86 78 Resp: 16 18 17 18 Temp: 97.3 ??F (36.3 ??C) 98.7 ??F (37.1 ??C) 98.2 ??F (36.8 ??C) 99.2 ??F (37.3 ??C) TempSrc: Oral Oral Oral Oral SpO2: 95% 97% 95% 96% Weight: Height: General: NAD Heart: acyanotic Lungs: non-labored breathing Abdomen: Soft, appropriate, dressing clean/dry Extremities: No edema or calf tenderness; SCDs in place Active Problems: * No active hospital problems. * Assessment/Plan: 32 y.o. female POD#1 s/p TLH, LSO, RS, cystoscopy 1. Post-op: - afebrile, hemodynamically stable - UOP adequate 2. Asthma - PRECISION AGRONOMIST Singulair 3. Pain: well controlled with Chester, Motrin 4. Diet/fluids: general 5. DVT prophylaxis: SCDs in place, ambulate Anticipate discharge home today. Reji Collins, DO Attending Note: Patient seen and personally examined. Agree with above. Martinez Walker MD * Margoth Arreola MD - 03/18/2018 10:50 PM CDT CHIEF SERVICE OBSERVER NOS note Subjective: Patient doing well. Pain well controlled with PO pain meds. Denies nausea, vomiting, chest pain, or shortness of breath. Tolerating general diet. Objective: Vitals: 03/18/18 1630 03/18/18 1655 03/18/18 1751 03/18/182016 BP: 127/72 116/79 122/86 114/63 BP Location: Right arm Right arm Left arm Patient Position (BP): Supine Sitting Supine Pulse: (!) 107 99 Resp: 14 14 16 18 Temp: 97.9 ??F (36.6 ??C) 97.3 ??F (36.3 ??C) 98.7 ??F (37.1 ??C) TempSrc: Oral Oral Oral SpO2: 94% 94% 95% 97% Weight: Height: General: NAD Heart: RRR Lungs: CTAB Abdomen: Soft, appropriate, dressing clean/dry Extremities: No edema or calf tenderness; SCDs in place Urine Output: 750cc in 6hrs Active Problems: * No active hospital problems. * Assessment/Plan: 32 y.o. female POD#0 s/p TLH, LSO, RS, cystoscopy 1. Post-op: - afebrile, hemodynamically stable - UOP adequate 2. Asthma - PRECISION AGRONOMIST Singulair 3. Pain: well controlled with Chester, Motrin 4. Diet/fluids: general 5. DVT prophylaxis: SCDs in place, ambulate Margoth Arreola MD documented in this encounter H&P Notes * Martinez Walker MD - 03/18/2018 6:37 AM CDT HPI: Ms. Flores is a 32 y.o. who presents today for surgery Holly Flores is referred by Dr Burleson for evaluation [...] been undergoing pelvic floor physical therapy with [facility] without improvement in symptoms. She does report that she has completed childbearing and is interested in definitive treatment the form of a hysterectomy. center ultrasound has been completed and is essentially unremarkable. ?? OBHx: OB History Para Term AB Living 1 1 1 1 SAB TAB Ectopic Multiple Live Births 1 ?? # Outcome Date GA Lbr Lam/2nd Weight Sex Delivery Anes PTL Lv 1 Term 03/2013 ? M Vag-Spont ? HANS ? PMHx: has a past medical history of Asthma; Cervical high risk human papillomavirus (HPV) DNA test positive; Chronic abdominal pain; Community acquired pneumonia; Depression; GI bleed; Headache; and Obstructive sleep apnea. She also has no past medical history of Bronchiectasis; Nutritional anemia, unspecified; or Other emphysema. ?? SurgHx: Past??Surgical??History Past Surgical History: Procedure Laterality Date ??? BIOPSY CERVIX ?? 2018 ??? BRONCHOSCOPY ? HX LIPOMA RESECTION ? HX WISDOM TEETH EXTRACTION ? CO COLONOSCOPY FLX DX W/COLLJ SPEC WHEN PFRMD N/A 10/01/2017 ?? COLONOSCOPY performed by Gina Lan MD at [facility] ?? Meds: Current Outpatient Prescriptions on File Prior [...] by mouth every 4 hours as needed. ? ibuprofen (MOTRIN) 200 mg tablet Take 200 mg by mouth every 6 hours as needed for Pain, Mild. ? levonorgestrel (MIRENA) 20 mcg/24 hr (5 years) IUD by Intrauterine route. ? fexofenadine (SRIDEVI) 180 mg tablet Take 180 mg by mouth daily. ? FLUOXETINE HCL (PROZAC ORAL) Take 80 mg by mouth. ? buPROPion HCl (WELLBUTRIN XL) 300 mg Extended Release 24 hour tablet Take 300 mg by mouth dailyearly morning. ? methylphenidate HCl (RITALIN) 10 mg tablet Take 10 mg by mouth 2 times daily. ? traZODone (DESYREL) 50 mg tablet Take 50 mg by mouth daily at bedtime. ? albuterol HFA 90 mcg inhaler Take 2 Puffs by inhalation every 6 hours as needed for Shortness of Breath. ? No current facility-administered medications on file prior to visit. ?? Allergies:Patient has no known allergies. ?? SocHx: reports that she has never smoked. She has never used smokeless tobacco. She reports that she drinks about 1.2 oz of alcohol per week . She reports that she does not use drugs. ?? FamHx: family history includes Asthma in her [...] grandmother; Uterine Cancer in her maternal grandmother. ?? SexualHx: reports that she currently engages in sexual activity and has had male partners. She reports using the following method of control/protection: IUD. ?? RoS: Positives in Bold See patient intake questionnaire ?? PE: BP (!) 118/90 Ht 5' 7.5 (1.715 m) Wt 102.5 kg (226 lb) ? No BMI 34.87 kg/m? General appearance: Alert, in no distress Lungs: [...] texture, turgor normal. No rashes or lesions ?? Pelvis: exam chaperoned by medical educator EGBUS: Within normal limits Vulva: Normal Urethra: No lesions, no diverticula, non-tender to palpation Bladder: Non-tender to palpation Vagina: Normal mucosa, no discharge, no odor Cervix: Normal without lesions, polyps or tenderness Uterus: Normal size, shape, consistency, no mass or tenderness Adnexa: Normal in size without mass or tenderness ?? Pelvic Floor Muscles: Right side: Pubococcygeus: 1/3 tension, 1/3 pain Iliococcygeus: 1/3 tension, 1/3 pain Coccygeus: 1/3 tension, 1/3 pain Obturator internus: 1/3 tension, 1/3 pain Left side: Pubococcygeus: 1/3 tension, 2/3 pain Iliococcygeus: 2/3 tension, 2/3 pain Coccygeus: 2/3 tension, 2/3 pain Obturator internus: 2/3 tension, 2/3 pain A/P: 32 y.o. female presents for surgery ? 1. Dysmenorrhea We discussed in detail the [...] ovaries is considered the definitive treatment option. ?? She elects to proceed with hysterectomy. We [...] in resolution or improvement in her pain. ?? We discussed removal of the ovaries. She [...] medical risks, including osteoporosis and cardiovascular disease. ? 2. LLQ abdominal pain We discussed the risks and benefits of ovarian preservation versus LSO. She is in agreement with removal of the ovary to maximize the likelihood that her left lower quadrant pain is improved postoperatively. ?? 3. Dyspareunia in female ?? Plan: 1. Total laparoscopic hysterectomy with left salpingo-oophorectomy, right salpingectomy, possible treatment of endometriosis, cystoscopy 2. If pain persists postop, she will continue pelvic physical therapy with [facility]. She may benefit from a second opinion with Leona. ?? Martinez Walker MD Co-Director [facility] Minimally Invasive Gynecology [address], [facility] [address] ? This note was transcribed using [employer] voice recognition without a human wood panel inspector. This report may or may not have been adjusted for typographical, grammaticaland syntax errors. ?? documented in this encounter OR Notes * Operative Report - Martinez Walker MD - 03/18/2018 3:40 PM CDT [facility] Operative Report Holly Khalil Makr 03/18/2018 3:41 PM [id number] Pre-operative Diagnosis: ?? Dysmenorrhea ?? Left lower quadrant pain ?? Dyspareunia Post -operative Diagnosis: ?? Same Procedure: Procedure(s): HYSTERECTOMY TOTAL LAPAROSCOPIC RIGHT SALPINGECTOMY LAPAROSCOPIC LEFT SALPINGOOPHORECTOMY LAPAROSCOPIC CYSTOSCOPY INTRAUTERINE DEVICE REMOVAL Surgeon: Surgeon(s) and Role: * Martinez Walker MD - Primary phlebotomist medical lab assistant: [employer] Faculty Member: Belinda Stephenson RN Scrub: Tamara Carreno; Rossy Boles RN; Jigna Yañez RN Resident: Futterman, Reji M, DO Anesthesia: ?? General Findings: ?? Bimanual Exam: Normal size mobile uterus ?? Pelvic Peritoneum: normal left broad ligament, right broad ligament, posterior cul-de-sac, and anterior cul de sac with no evidence of endometriotic disease ?? Uterus: Normal in appearance ?? Right Fallopian Tube: Normal in appearance ?? Right Ovary: Normal in appearance ?? Left Fallopian Tube: Normal in appearance ?? Left Ovary: Normal in appearance ?? Abdomen: Normal-appearing large bowel, small bowel, liver, and stomach Specimen: ?? Uterus with cervix ?? Left tube and ovary ?? Right tube Estimated Blood Loss: ?? Minimal Blood Transfusion: ?? None Drains: ?? Uterine manipulator, removed post-procedure ?? Mcfadden Catheter, removed post-procedure Complications: ?? none Procedure Details After confirming informed consent for the planned procedure, the patient was transported to the operating room. She received prophylactic antibiotics per hospital protocol and SCD's were placed. She was Placed in the supine position for induction of general anesthesia. Adequate anesthesia was assured, and she was repositioned. Her arms were tucked at her sides with care taken to protect her digits and ensure no pressure was applied to the ulnar nerve. She was placed in dorsal lithotomy positionwith Juan R stirrups. Bimanual examination was performed, revealing the findings above. She was thenprepped with betadine vaginally, chloro-prep abdominally, and draped in the usual sterile fashion. The bladder was drained with a mcfadden catheter using sterile technique. The catheter was then attached to a bag of sterile saline, having been emptied of about 200 cc. This was left to drain by gravity. A speculum was placed vaginally, the cervix was visualized, and two Jayna clamps were placed on the anterior lip. The IUD was removed. The large V-care uterine manipulator was introduced without encountering any resistance or difficulty and the cup situated well in the vaginal fornices. A 10 mm vertical skin incision was created within the umbilicus. Koker clamps were used to grasp the anterior rectus fascia below the umbilicus. Fascial incision was created with the scalpel and secured with 0 Vicryl sutures. S retractors were used to dissect and bluntly enter within the peritoneum. The Bobby port was then placed and secured to the fascial stitches. Pneumoperitoneum was thenachieved with CO2 gas to a pressure of 15 mmHg. The scope was introduced and a complete survey of the abdomen and pelvis was performed with the findings above. There was no evidence of bowel or vascular injury below the entry site. Additional port placement was then performed under direct endoscopic visualization with 5 mm ports in the LLQ, suprapubic, and left lateral positions. The 3 mm ultra vision smoke evacuator system was introduced in the right lower quadrant position A thorough survey of the patient's pelvis revealed he findings above. The 5 mm ligasure was utilized for hemostatic dissection starting on the left side. The ureters were identified on each side and were noted to be away. The V- care was used to elevate the uterus and retract it to the right sidewall, putting the left broad ligament on stretch. The left round ligamentwas transected with the ligasure, opening up the retroperitoneal space. The space was then developed anteriorly, release the peritoneum overlying the bladder. The ligasure was then used to seal and transect the uteroovarian vessels. This dissected was then carried down through the fallopian tube and the posterior leaf of the broad ligament, hugging the uterus, until reaching the uterine vessels. With the V-care cup elevated, pulling the vessels cephalad away from the ureter, the ligasure was used to doubly clamp, seal, and transect the vessels. The uterus was then placed against the left sidewall, and the dissection repeated in an identical manner on the right side of the uterus. The bladder was then dissected free using the monopolar, while hugging the uterus. The bladder was backfilled as needed to delineate its margins and ensure bladder integrity. Bipolar coagulation was then performed on the descending cervical vessels. Having assured that the vasculature was coagulated, the colpotomy was performed in a circumferential fashion. Again, with the V-care elevated and the vaginal cup pulled cephalad away from the ureters, monopolar cautery was deployed for colpotomy. Once the colpotomy was completed, the V-care was removed. The uterus was then removed vaginally under direct laparoscopic vis ion. Salpingoophorectomy was then performed. The ureters were identified and noted to be well below the infundibulopelvic ligaments. The left ovary was grasped and retracted medially away from the pelvic sidewall. The ligasure device was used to clamp, coagulate, and transect the IP. The ovary was then delivered vaginally. The right fallopian tube was then removed, leaving the normal right ovary intact. The vaginal cuff was then closed with three #0 PDS figure of stitches. Care was taken with each pass of the needle to prevent incorporation of the rectum posteriorly or the bladder anteriorly. About a centimeter of healthy, full- thickness vaginal tissue was incorporated in each pass. Once colpotomyrepair was accomplished, excellent vaginal approximation and complete hemostasis were readily apparent. Sodium fluorescein dye was administered intravenously during the laparoscopic portion of the procedure. No extravasation of dye was noted in the abdominal cavity. Routine post-procedure cystoscopy was then performed utilizing a 30 degree 17 fr rigid cystoscope. Using sterile saline for distention, the scope was advanced. The entire length of the urethra was visualized upon entry and was noted to have normal mucosa. Once entering into the bladder, a complete survey of all bladder surfaces was obtained. There was no evidence of any preexisting pathology, and thermal or traumatic injury, or any suture extrusion to any surfaces. Bilateral ureteral orifices were identified, each noted to be single, and spontaneous flourescent copious urine jets were present. The vaginal cuff was inspected with a speculum and was noted to be well approximated and hemostatic. Being satisfied with the completion of the procedure, a final survey of the abdomen and pelvis was undertaken. There was no evidence of any injury to the bowel, bladder, or ureters. All operative sites were inspected and noted to be completely hemostatic under decreased pressure. The instruments were then removed from the patient's abdomen. The accessory ports were withdrawn under direct endoscopic visualization. There was no bleeding from the port sites with decreasing abdominal pressures. Thefascial defect of the umbilicus was closed with the fascial stiches. The skin incisions were approximated with subcuticular stitches and steri strips applied. [facility] Instrument, sponge, and needle counts were correct times three per nursing. She tolerated the procedure well. documented in this encounter Miscellaneous Notes * Care Plan - Lynda Ojeda RN - 03/19/2018 10:21 AM CDT Holly Flores will be discharged via wheelchair to home. Holly Flores is accompanied by spouseand will be transported via private vehicle. Discharge instructions reviewed with patient. Patient verbalizes understanding. * Care Plan - Madiha Stokes RN - 03/19/2018 3:38 AM CDT Pain controlled with po meds, denies nausea. Ambulates independently. Tolerating regular diet. Questions answered. Will continue to monitor. * Care Plan - Tammie David RN - 03/18/2018 6:53 PM CDT Patient is tolerating oral pain medication, regular diet and voiding without difficulty. Plan of care discussed and she verbalized understanding. * Care Plan - Batool Torres RN - 03/18/2018 3:53 PM CDT Potential for pain related to surgical/procedural intervention Interventions: Assess level of pain/comfort utilizing verbal/nonverbal pain scales; assess culturalor religion indicators attached to pain; administer pain medications as prescribed; utilize non-pharmacologic pain control and comfort measures Expected Outcome: Patient demonstrates and reports adequate pain control Outcome Met: prn meds available, pain well controlled Potential for alteration in thermoregulatory, circulatory, respiratory fluid & electrolyte status Interventions: Perform ongoing physical assessment; maintenance of airway or mechanical ventilation; monitor level of consciousness; initiate safety measures; observe patient???s respiratory status and oxygen saturation; obtain measurements of ongoing hemodynamic parameters, cardiac rhythm, and temperature; monitor intake and output; inspect wound dressings and/or drain output; perform prescribedtherapeutic regimens, treatments and tests; document and/or communicate care given Expected Outcome: Patient will maintain functional status compatible with preoperative status Outcome Met: vss, normothermic, patient able to maintain O2 sats, no bleeding or hematoma from surgical site * Care Plan - Tess Leo RN - 03/18/2018 8:29 AM CDT Knowledge deficit related to procedure/environment Interventions: Assess learning needs and willingness to learn; give clear, concise explanations of the environment and sequence of events surrounding the periop experience; address patient/family questions and concerns; provide teaching as indicated, provide teaching related to postoperative pain assessment utilizing pain scales Expected Outcome: Patient verbalizes or demonstrates awareness/understanding of surgery and perioperative experience Outcome Met: Pt/family questions/concerns addressed and understands preop process and flowPotentialfor anxiety related to surgical intervention Interventions: convey caring/supportive attitude; offer emotional support as needed; provide comfort measures (warm blanket, pillow, quiet environment); allow patient opportunity to verbalize concerns/fears/questions; explore coping behaviors; allow age-specific/special needs family support Expected Outcome: Patient will demonstrate decreased anxiety or adaptive coping strategies Outcome Met: Questions/concerns addressed and ready for OR documented in this encounter Plan of Treatment Not on file documented as of this encounter Procedures Procedure Name Priority Date/Time Associated Diagnosis Comments PATHOLOGY Pathology 03/18/2018 3:05 PM CDT INTRAUTERINE DEVICE REMOVAL 03/18/2018 1:50 PM CDT dysmenorrhea , dyspareunia Case Notes ZANDRA JEAN, CPT 03244, 40462, 30125 CYSTOURETHROSCOPY 03/18/2018 1:5 0 PM CDT dysmenorrhea , dyspareunia Case Notes ZANDRA JEAN, CPT 61146, 86205, 37779 OOPHORECTOMY LAPAROSCOPIC 03/18/2018 1:50 PM CDT dysmenorrhea , dyspareunia Case Notes ZANDRA JEAN, CPT 19673, 51441, 51325 SALPINGECTOMY LAPAROSCOPIC 03/18/2018 1:50 PM CDT dysmenorrhea , dyspareunia Case Notes ZANDRA JEAN, CPT 81339, 80468, 91228 HYSTERECTOMY TOTAL LAPAROSCOPIC 03/18/2018 1:50 PM CDT dysmenorrhea , dyspareunia Case Notes ANTHEM, NN, CPT 43580, 34436, 22016 POC , URINE Routine 03/18/2018 10:22 AM CDT VERIFICATION BLOOD GROUP Stat 03/18/2018 8:22 AM CDT Hematochezia documented in this encounter Results * PATHOLOGY (03/18/2018 3:05 PM CDT) CASE REPORT Surgical Pathology Report ? Case: [id number] ? Authorizing Provider: ??Martinez Walker MD ?Collected: ? 03/18/2018 03:05 PM ? Ordering Location: ? [facility] ?Received: ?03/18/2018 03:54 PM ? Operating Room ? Pathologist: ? Miguel Graham MD ? Specimen: ?Uterus, Cervix, Ovary, left, Fallopian tubes, bilateral, Fallopian tube right, left ? fallopian tube and ovary, uterus and cervix ? 03/24/2018 10:36 AM [facility] Stat Doctors [facility] FINAL DIAGNOSIS A. Uterus, cervix, bilateral fallopian tubes, left ovary, hysterectomy with bilateral salpingectomy and left oophorectomy: - Cervix: High grade squamous intraepithelial lesion (HSIL/KESHAWN 3). - Acute cervicitis. - Endometrium: Weakly proliferative endometrium with decidualization, consistent with exogenous hormone therapy. - Myometrium: Histologically unremarkable myometrium. - Serosal adhesions. - Right fallopian tube: Histologically unremarkable fallopian tube. - Left fallopian tube: Histologically unremarkable fallopian tube. - Left ovary: Multiple cystic follicles (up to 0.9 cm). 03/24/2018 10:36 AM [facility] IMEN DESCRIPTION (A) Right fallopian tube; (B) left fallopian tube and ovary; (C) uterus and cervix. 03/24/2018 10:36 AM [facility] OPERATIVE PROCEDURE Hysterectomy total laparoscopic, bilateral salpingectomy laparoscopic, left oophorectomy laparoscopic, cystoscopy, intrauterine device insertion. 03/24/2018 10:36 AM [facility] CLINICAL DIAGNOSIS Dysmenorrhea, dyspareunia. 03/24/2018 10:36 AM [facility] GROSS DESCRIPTION Received are three containers labeled Holly Flores. Received in the first container, additionally labeled A, right fallopian tube, is a 6.0 cm long and 0.5 cm in diameter fimbriated segment of fallopian tube. The surface is red and smooth. Sectioning demonstrates a pinpoint lumen. Senior Portfolio [employer] sections including the entire fimbriated end (perpendicularly sectioned) are submitted in cassette A1. Received in the second container labeled B, left fallopian tube and ovary is a 3.5 x 2.0 x 1.6-cm ovary with an attached 4.8 cm long and 0.5 cm in diameter fimbriated segment of treatment. The surface of the ovary is red-schulte, wrinkled, and focally disrupted with a 0.6-cm, slit-like defect. Sectioning demonstrates multiple uniloculated cysts filled with translucent, thin, red-schulte fluid ranging from 0.1 to 0.9 cm in greatest dimension. The surface of the fallopian tube is red and smooth. Sectioning demonstrates a pinpoint lumen. Senior Portfolio Manager sections of ovary are submitted in cassettes A2 and A3. Sections of fallopian tubed including the entire fimbriated end (perpendiculary sectioned) are submitted in cassette A4. Received in the third container labeled C, uterus and cervix is an 80-g, 8.2 x 5.0 x 3.7-cm uterus. The bilateral adnexa are absent. The serosa is red and glistening with a 0.5-cm, polypoid adhesion on the posterior aspect near the fundus. The 3.8 x 3.5-cm ectocervix is red-schulte, smooth, and glistening. The 1.1-cm, slit os leads into a 2.0-cm, red-schulte, trabeculated endocervical canal. The transformation zone is distinct. The 4.0 x 1.8-cm endometrial cavity contains minimal clotted blood and is lined by a 0.1 cm thick hemorrhagic, red-schulte endometrium. The 2.0 cm thick myometrium is red-schulte and coarsely trabeculated. Senior Portfolio Manager sections are submitted as follows: A5-anterior cervix; A6-posterior cervix; A7-anterior endomyometrium; A8-posterior endomyometrium; A9-serosal adhesions. Additional sections including the entire cervix as submitted as follows: A10 and T09-lsdhck 12 to 3 o'clock; A12 and Y43-ckscrf 3 to 6 o'clock; A14 and W73-vhdjtw 6 to 9 o'clock; A16 through N16-cijqty 9 to 12 o'clock; C65-clqjdfaj serosal adhesions. BHAVESH/amandeep/mac 03/24/2018 10:36 AM [facility] Stat Doctors [facility] MICROSCOPIC DESCRIPTION Slides received labeled [id number] and Ladan Flores Histologic sections of cervix show acute inflammation involving the squamous epithelium with a focus of thin, but markedly atypical epithelium in the transitional zone. Enlarged, hyperchromatic, irregularly-shaped nuclei are present at the surface. A 16 immunostains show strong, diffuse staining in this area. The epithelium in this region is very thin, but due to the presence of atypical nuclei at the surface, this is best characterized as high grade intraepithelial lesion 3. The endocervix shows patchy acute inflammation, reactive epithelial changes, and pigment laden macrophages. Endometrium shows history of small cystically dilated endometrial glands within the decidualized stroma and rare mitotic figures are identified within the endometrial glands. The myometrium is histologically unremarkable. The uterine serosal surface shows focal adhesions. The ovary shows numerous cystically dilated follicles and scattered corpora albicans. The clinical concern for endometriosis is noted, though endometriosis is not identified, correlating with the intraoperative findings. This case has been reviewed at the pathology intradepartmental review conference on 03/24/2018. 03/24/2018 10:36 AM CDT [facility] COMMENT Special stain and/or immunohistochemical results are interpreted with controls that demonstrate appropriate staining reactions. Note on use of immunocytochemistry reagents: This test was developed and its performance characteristic determined by [facility], Department of Laboratory Medicine. It has not [...] WF, WB and WH are performed by [address], [address]. All other case types are performed by [address], [address]. 03/24/2018 10:36 AM CDT [facility] Tissue (Uterus, Cervix, Ovary, left, Fallopian tubes, bilateral) Collection / Unknown 03/18/2018 3:05 PM CDT 03/18/2018 3:54 PM CDT Martinez Walker MD PATHOLOGY/CYTOLOGY O RDERABLES [facility] CLIA# [id number] [address] [place] [address] [place] [address] * POC , URINE (03/18/2018 10:22 AM CDT) HCG QUAL URINE Negative Negative 03/18/2018 3:29 PM CDT [facility] Urine 03/18/2018 10:2 2 AM CDT 03/18/2018 3:29 PM CDT Martinez Walker MD POINT OF CARE TESTIN [employer] [facility] - [facility]# [id number] [address] [place] [address] * VERIFICATION BLOOD GROUP (03/18/2018 8:22 AM CDT) ABO GROUP A 03/18/2018 9:23 AM CDT [facility] RH (D) TYPE Positive 03/18/2018 9:23 AM CDT [facility] Blood Collection / Unknown 03/18/2018 8:22 AM CDT 03/18/2018 9:08 AM CDT Berenice Michaels MD BLOOD BANK [facility]# [id number] [address] [place] [address] documented in this encounter Visit Diagnoses Not on filedocumented in this encounter Administered Medications Inactive Administered Medications - up to 3 most recent administrations Medication Order MAR Action Action Date Dose Rate Site bupivacaine-EPINEPHri ne (PF) (SENSORCAINE MPF WITH EPI) 0.5 %-1:200,000 injection INTRA-PROCEDURE PRN, Starting on Lalita 03/18/18 at 1457, Until Lalita 03/18/18 at 1540, Routine, Intra-op Given 03/18/2018 2:57 PM CDT 24 mL Operative Site bupivacaine-EPINEPHri ne (SENSORCAINE-EPINEPHR INE) 0.5 %-1:200,000 injection 250 mg 250 mg (50 mL), Infiltration, ONE TIME ONLY, 1 dose, On Lalita 03/18/18 at 1400, Routine, Intra-op Admin by Another Clinician (Comment) 03/18/2018 2:00 PM CDT 250 mg fentaNYL PF (SUBLIMAZE) 50 mcg/mL injection 50 mcg 50 mcg, IV, POST-PROCEDURE Q 3 MINUTES PRN, Starting on Lalita 03/18/18 at 0938, Until Lalita 03/18/18 at 1640, Pain, Severe, For pain scale 7-10, Routine, PACU Given 03/18/2018 4:13 PM CDT 50 mcg Given 03/18/2018 4:09 PM CDT 50 mcg HYDROcodone-acetaminophen (NORCO) 5-325 mg per tablet 1 Tablet 1 Tablet, Oral, EVERY 4 HOURS PRN, Starting on Lalita 03/18/18 at 1647, Until Thu03/19/18 at 1316, Pain (See admin instructions), Routine, Post-op - Floor Given 03/19/2018 7:25 AM CDT 1 Tablet Given 03/19/2018 2:22 AM CDT 1 Tablet Given 03/18/2018 11:14 PM CDT 1 Tablet HYDROcodone-acetaminophen (NORCO) 5-325 mg per tablet 1 Tablet 1 Tablet, Oral, EVERY 4 HOURS PRN, Starting on Lalita 03/18/18 at 1647, Until Thu03/19/18 at 1316, Pain (See admin instructions), Routine, Post-op - Floor Given 03/19/2018 10:27 AM CDT 1 T ablet ibuprofen (MOTRIN) tablet 600 mg 600 mg, Oral, EVERY 6 HOURS PRN, Starting on Lalita 03/18/18 at 1647, Until Thu03/19/18 at 1316, Pain, For pain secondary to inflammation, Routine, Post-op - Floor Given 03/19/2018 7:25 AM CDT 600 m g Given 03/18/2018 11:14 PM CDT 600 mg Given 03/18/2018 5:01 PM CDT 600 mg lactated Ringers solution IV, at 150 mL/hr, PRE-PROCEDURE CONTINUOUS, Starting on Lalita 03/18/18 at 0830, Until Lalita 03/18/18 at 1640, Routine Continue from Pre-Op 03/18/2018 2:08 PM CDT New Bag 03/18/2018 8:54 AM CDT 150 mL/hr lactated Ringers solution IV, at 125 mL/hr, CONTINUOUS, Starting on Lalita 03/18/18 at 1700, Until Thu03/19/18 at 1316, Routine, Post-op - Floor Restarted 03/18/2018 4:58 PM CDT 125 mL /hr montelukast (SINGULAIR) 10 mg tablet 10 mg 10 mg, Oral, DAILY AT BEDTIME, First dose on Lalita 03/18/18 at 2100, Until Discontinued, Routine Given 03/18/2018 8:17 PM CDT 10 mg morphine 4 mg/mL injection 4 mg 4 mg, IV, POST-PROCEDURE Q 5 MINUTES PRN, 2 doses, Starting on Lalita 03/18/18 at 0938, Until Lalita 03/18/18 at 1613, Pain, Moderate, For pain scale 4-6, Routine, PACU Given 03/18/2018 4:13 PM CDT 4 mg Given 03/18/2018 4:09 PM CDT 4 mg sodium chloride 0.9 % irrigation solution INTRA-PROCEDURE PRN, Starting on Lalita 03/18/18 at 1458, Until Lalita 03/18/18 at 1540, Routine, Intra-op Given 03/18/2018 2:58 PM CDT 1,000 mL Opera tive Site sodium chloride 0.9 % irrigation solution INTRA-PROCEDURE PRN, Starting on Lalita 03/18/18 at 1459, Until Lalita 03/18/18 at 1540, Routine, Intra-op Given 03/18/2018 2:59 PM CDT 1,000 mL Opera tive Site traZODone (DESYREL) tablet 100 mg 100 mg, Oral, DAILY AT BEDTIME, First dose on Lalita 03/18/18 at 2100, Until Discontinued, Routine Given 03/18/2018 8:17 PM CDT 100 mg documented in this encounter Active and Recently Administered Medications Times are shown in CDT. Scheduled Medication Order 03/17/2018 03/18/2018 03/19/2018 bupivacaine-EPINEPHrine (SENSORCAINE-EPINEPHRINE) 0.5 %-1:200,000 injection 250 mg (COMPLETED) 250 mg (50 mL), Infiltration, ONE TIME ONLY, 1 dose, On Lalita 03/18/18 at 1400, Routine, Intra-op 1400 (Admin by Another Clinician (Comment) - Provider: Batool Torres RN - Comment: given in OR) cefOXitin (MEFOXIN) 2,000 mg in sodium chloride 0.9% 50 mL IVPB (MBP) (COMPLETED) 2,000 mg, IV, PRE-PROCEDURE ONCE, 1 dose, Starting on Lalita 03/18/18 at 0830, Until Lalita 03/18/18 at 1455, Routine, Antibiotic Indication: Surgical prophylaxis 1425 (New Bag - Provider: Kwasi Martin CRNA)1455 (Stopped - Provider: Kwasi Martin CRNA) montelukast (SINGULAIR) 10 mg tablet 10 mg 10 mg, Oral, DAILY AT BEDTIME, First dose on Lalita 03/18/18 at 2100, Until Discontinued, Routine 2016 (Given - Provider: Braden Stokes, ADRIANA) naloxone (NARCAN) 0.4 mg/mL injection 0.1 mg 0.1 mg, IV, SEE ADMIN INSTRUCTIONS, Starting on Lalita 03/18/18 at 1647, Until Thu03/19/18 at 1316, Routine, Post-op - Floor traZODone (DESYREL) tablet 100 mg 100 mg, Oral, DAILY AT BEDTIME, First dose on Lalita 03/18/18 at 2100, Until Discontinued, Routine 2016 (Given - Provider: Braden Stokes RN) Continuous Medication Order 03/17/2018 03/18/2018 03/19/2018 lactated Ringers solution (CANCELED) IV, at 150 mL/hr, PRE-PROCEDURE CONTINUOUS, Starting on Lalita 03/18/18 at 0830, Until Lalita 03/18/18 at 1640, Routine 0854 (New Bag - Provider: Tess Leo RN)1408 (Continue from Pre-Op - Provider: Kwasi Martin CRNA)1520 (Stopped - Provider: Kwasi Martin CRNA) lactated Ringers solution IV, at 125 mL/hr, CONTINUOUS, Starting on Lalita 03/18/18 at 1700, Until Thu03/19/18 at 1316, Routine, Post-op - Floor 1658 (Restarted - Provider: Tammie David RN) PRN Medication Order 03/17/2018 03/18/2018 03/19/2018 bupivacaine-EPINEPHrine (PF) (SENSORCAINE MPF WITH EPI) 0.5 %-1:200,000 injection (CANCELED) INTRA-PROCEDURE PRN, Starting on Lalita 03/18/18 at 1457, Until Lalita 03/18/18 at 1540, Routine, Intra-op 1457 (Given - Provider: Martinez Walker MD) fentaNYL PF (SUBLIMAZE) 50 mcg/mL injection 50 mcg (CANCELED) 50 mcg, IV, POST-PROCEDURE Q 3 MINUTES PRN, Starting on Lalita 03/18/18 at 0938, Until Lalita 03/18/18 at 1640, Pain, Severe, For pain scale 7-10, Routine, PACU 1609 (Given - Provider: Batool Torres, ADRIANA)1613 (Given - Provider: Batool Torres, ADRIANA) HYDROcodone-acetaminophen (NORCO) 5-325 mg per tablet 1 Tablet 1 Tablet, Oral, EVERY 4 HOURS PRN, Starting on Lalita 03/18/18 at 1647, Until Thu03/19/18 at 1316, Pain (See admin instructions), Routine, Post-op - Floor 1851 (Given - Provider: Tammie David RN)2314 (Given - Provider: Berenice Cabezas RN) 022 (Given - Provider: Madiha Stokes, ADRIANA)0725 (Given - Provider: Madiha Stokes RN) HYDROcodone-acetaminophen (NORCO) 5-325 mg per tablet 1 Tablet 1 Tablet, Oral, EVERY 4 HOURS PRN, Starting on Lalita 03/18/18 at 1647, Until 03/19/18 at 1316, Pain (See admin instructions), Routine, Post-op - Floor 1027 (Given - Provid er: Lynda Ojeda RN) ibuprofen (MOTRIN) tablet 600 mg 600 mg, Oral, EVERY 6 HOURS PRN, Starting on Lalita 03/18/18 at 1647, Until Thu03/19/18 at 1316, Pain, For pain secondary to inflammation, Routine, Post-op - Floor 1701 (Given - Provider: Tammie David RN)231 (Given - Provider: Berenice Cabezas RN) 07 (Given - Provider: Madiha Stokes RN) morphine 4 mg/mL injection 4 mg (COMPLETED) 4 mg, IV, POST-PROCEDURE Q 5 MINUTES PRN, 2 doses, Starting on Lalita 03/18/18 at 0938, Until Lalita 03/18/18 at 1613, Pain, Moderate, For pain scale 4-6, Routine, PACU 1609 (Given - Provider: Batool Torres, RN)1613 (Given - Provider: Batool Torres, RN) morphine 4 mg/mL injection 4 mg 4 mg, IV, EVERY 2 HOURS PRN, Starting on Lalita 03/18/18 at 1647, Until 03/19/18 at 1316, Pain (See admin instructions), Pain, Severe, Routine, Post-op - Floor prochlorperazine (COMPAZINE) injection 5 mg 5 mg, IV, EVERY 4 HOURS PRN, Starting on Lalita 03/18/18 at 1647, Until 03/19/18 at 1316, Nausea/Emesis, Routine, Post-op - Floor sodium chloride 0.9 % irrigation solution (CANCELED) INTRA-PROCEDURE PRN, Starting on Lalita 03/18/18 at 1458, Until Lalita 03/18/18 at 1540, Routine, Intra-op 1458 (Given - Provider: Martinez Walker MD - Comment: for intra-abdominal irrigation) sodium chloride 0.9 % irrigation solution (CANCELED) INTRA-PROCEDURE PRN, Starting on Lalita 03/18/18 at 1459, Until Lalita 03/18/18 at 1540, Routine, Intra-op 1459 (Given - Provider: Martinez Walker MD - Comment: for the hysteroscopy) documented in this encounter Care Teams Crisis Therapist Relationship Specialty Start Date End Date Clovis Johnson MD PCP - General Family Practice 08/17/17 documented as of this encounter
--- OUTSIDE RECORDS SUMMARY | 2024-07-10 00:22 | XMS_ITS | Encounter Summary ---
Author Organization [facility] Address [address] [place] [address] Care Team Providers Care Gyroscopic Instrument Mechanic Name Role Phone Clovis Johnson MD Primary Care Provider [phone] Reason for Referral * Eval and Treat (Routine) - Closed Specialty Diagnoses / Procedures Referred By Contac t Referred To Contact Gynecology Diagnoses Chronic pelvic pain in female Kailey Burleson MD [address] [address] Martinez Walker MD [address] [place] [address] Referral ID Status Reason Start Date Expiration Date V isits Requested Visits Authorized [id number] Closed CRS To Schedule (STL) 01/26/2018 01/26/2019 1 1 Reason for Visit * Reason Comments Pelvic Pain Encounter Details Date Type Department Care Team (Late st Contact Info) Description 01/26/2018 8:45 AM CDT Office Visit [facility] 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 - [address] [place] [address] Kailey Burleson MD [address] [address] Chronic pelvic pain in female (Primary Dx) Social History Tobacco Use Types [...] Sign Reading Time Taken Comments Blood Pressure 142/88 01/26/2018 8:50 AM CDT Pulse - - Temperature - - Respiratory Rate - - Oxygen Saturation - - Inhaled Oxygen Concentration - - Weight 103.4 kg (228 lb) 01/26/2018 8:50 AM CDT Height 170.2 cm (5' 7 ) 01/26/2018 8:50 AM CDT Body Mass Index 35.71 01/26/2018 8:50 AM CDT documented in this encounter Progress Notes * Kailey Burleson MD - 01/26/2018 8:55 AM CDT CC: Follow up pelvic pain HPI: 32 y.o. female presents for follow up pelvic pain. No LMP recorded. Patient has had an implant.. Has been going to pelvic PT and trial of Depo started in 11/2017 after last visit. Had another exacerbation week in December (~week of )- nausea, vomiting, severe pain, lightheaded, minimal energy. States that she can't take it anymore. Wants a hysterectomy. 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 Colpo with biopsies- CIN1 History of abnormal paps -Amenorrheic with Mirena -Denies history of STIs -Contraception: Mirena (placed ~4yrs ago) - Sexually active: Yes ?? OB History: OB History Para Term AB Living 1 1 1 1 SAB TAB Ectopic Multiple Live Births 1 # Outcome Date GA Lbr Lam/2nd Weight Sex Delivery Anes PTL Lv 1 Term 03/2013 M Vag-Spont HANS Medical History: Past Medical History: Diagnosis Date ??? Asthma ??? Chronic abdominal pain ??? Community acquired pneumonia ??? Depression ??? GI bleed ??? Headache ??? Obstructive sleep apnea Surgical History: Past Surgical History: Procedure Laterality Date ??? BRONCHOSCOPY ??? HX LIPOMA RESECTION ??? HX WISDOM TEETH EXTRACTION ??? [place] COLONOSCOPY FLX DX W/COLLJ SPEC WHEN PFRMD N/A 10/01/2017 COLONOSCOPY performed by Gina Lan MD at [facility] Social History: Social History Social History ??? Marital status: Spouse name: N/A ??? Number of children: N/A ??? Years of education: N/A Occupational History ??? Not on file. Social History Main Topics ??? Smoking status: Never Smoker ??? Smokeless tobacco: Never Used ??? Alcohol use 1.2 oz/week 2 Glasses of wine per week ??? Drug use: No ??? Sexual activity: Not on file Other Topics Concern ??? Not on file Social History Narrative ??? No narrative on file Medications: Prior to Admission medications Medication Sig Start Date End Date Taking? Authorizing Provider fluticasone-salmeterol (ADVAIR DISKUS) 250-50 mcg/dose disk inhaler Take 1 Puff by inhalation 2 times daily. 01/12/18 Yes Ryanne Walters MD montelukast (SINGULAIR) 10 mg tablet Take 1 Tablet (10 mg) by mouth daily at bedtime. 01/12/18 Yes Ryanne Walters MD medroxyPROGESTERone (DEPO-PROVERA) 150 mg/mL Suspension Inject 1 mL (150 mg) by intramuscular injection every 90 days. 12/01/17 Yes Kailey Burleson MD acetaminophen (TYLENOL) 325 mg tablet Take by mouth every 4 hours as needed. Yes Provider, Historical ibuprofen (MOTRIN) 200 mg tablet Take 200 mg by mouth every 6 hours as needed for Pain, Mild. Yes Provider, Historical levonorgestrel (MIRENA) 20 mcg/24 hr (5 years) IUD by Intrauterine route. Yes Provider, Historical fexofenadine (SRIDEVI) 180 mg tablet Take 180 mg by mouth daily. Yes Provider, Historical FLUOXETINE HCL (PROZAC ORAL) Take 80 mg by mouth. 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 Yes Provider, Historical methylphenidate HCl (RITALIN) 10 mg tablet Take 10 mg by mouth 2 times daily. Yes Provider, Historical traZODone (DESYREL) 50 mg tablet Take 50 mg by mouth daily at bedtime. Yes Provider, Historical albuterol HFA 90 mcg inhaler Take 2 Puffs by inhalation every 6 hours as needed for Shortness of Breath. Yes Provider, Historical Allergies: No Known Allergies Review of Systems: No GARCIA/vision changes/RUQ pain No dyspnea/CP/palpitations No nausea/vomitting/fevers/chills/diarrhea No dysuria/hematuria/urinary urgency/frequency Objective: Vitals: 01/26/18 0850 BP: (!) 142/88 Last documented weight: Weight: 103.4 kg (228 lb) (01/26/18 0850) Body mass index is 35.71 kg/m??. Physical Exam: General: alert, cooperative, no distress HEENT: NCAT Pulmonary: regular respiratory rate Abdomen: deferred Female Genitalia: deferred Extremities: normal, non-tender bilaterally, no lower extremity edema Lab Review: None Assessment/Plan: 32 y.o. female here for follow up pelvic pain. 1. Pelvic pain: Feels like she has had minimal improvement with Depo and pelvic PT. States that shewants a hysterectomy, and that she can't handle this anymore. Discussed my concerns about hysterectomy when having no improvement with Depo/pelvic PT, as she may not have improvement of pain with thesurgery. We previously discussed referral to pelvic pain clinic, and recommended continuing pelvic PT and referral to see Dr. Walker. Referral provided 2. RTC 11/2018 for yearly annual exam I spent 20 minutes with this patient, with greater than 50% of this time spent counseling them regarding history, pelvic pain, and current symptoms. Kailey Burleson MD documented in this encounter Plan of Treatment Scheduled Referrals Name Type Priority Associated Diagnoses Order Schedule AMB REFERRAL TO GYNECOLOGY Outpatient Referral Routine Chronic pelvic pain in female Ordered: 01/26/2018 documented as of this encounter Visit Diagnoses Diagnosis Chronic pelvic pain in female- Primary Unspecified symptom associated with female genital organs documented in this encounter Care Teams Gyroscopic Instrument Mechanic Relationship Specialty Start Date End Date Clovis Johnson MD PCP - General Family Practice 08/17/17 documented as of this encounter
--- OUTSIDE RECORDS SUMMARY | 2024-07-10 00:22 | XMS_ITS | Encounter Summary ---
Author Organization [facility] Address [address] [place] [address] Care Team Providers Care Master Hearth Technician Name Role Phone Clovis Johnson MD Primary Care Provider [phone] Reason for Visit * Reason Comments Well Woman Exam Hysterectomy Encounter Details Date Type Department Care Team (Latest Contact Info) Description 09/03/2021 12:50 PM DIRECTOR OF NURSING Office Visit [facility] PROFESSOR OF VOICE - [address] [place] [address] Kailey uBrleson MD [address] [place] [address] Encounter for annual routine gynecological examination (Primary Dx); Screening for cervical cancer; History of abnormal cells from cervix Social History Tobacco Use Types Packs/Day Years [...] COVID-19? No / Unsure 09/03/2021 12:31 PM DIRECTOR OF NURSING documented as of this encounter Last Filed Vital Signs Vital Sign Reading Time Taken Comments Blood Pressure 137/83 09/03/2021 12:41 PM DIRECTOR OF NURSING Pulse - - Temperature - - Respiratory Rate - - Oxygen Saturation - - Inhaled Oxygen Concentration - - Weight 119.3 kg (263 lb) 09/03/2021 12:41 PM DIRECTOR OF NURSING Height 172.7 cm (5' 8 ) 09/03/2021 12:41 PM DIRECTOR OF NURSING Body Mass Index 39.99 09/03/2021 12:41 PM DIRECTOR OF NURSING documented in this encounter Progress Notes * Kailey Burleson MD - 09/03/2021 12:45 PM CST CC: Well woman exam HPI: 36 y.o. female presents for well woman exam. Patient's last menstrual period was 03/18/2014.. No complaints. ?? 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 Colpo with biopsies- CIN1 ?History of abnormal paps. -s/p hysterectomy (2018 path with high grade CIN3) -Denies??history of STIs - Sexually active: Yes OB History: OB History Para Term AB Living 1 1 1 1 SAB IAB Ectopic Multiple Live Births 1 # Outcome Date GA Lbr Lam/2nd Weight Sex Delivery Anes PTL Lv 1 Term 03/2013 M Vag-Spont HANS Medical History: Past Medical History: Diagnosis Date ??? Anxiety ??? Asthma ??? Cervical high risk human papillomavirus (HPV) DNA test positive ??? Chronic abdominal pain ??? Community acquired pneumonia ??? Depression ??? Endometriosis ??? GI bleed ??? Headache ??? History of complications due to general anesthesia PONV ??? Motion sickness ??? Obstructive sleep apnea ??? Ovarian cyst ??? Pelvic pain in female ??? PTSD (post-traumatic stress disorder) Surgical History: Past Surgical History: Procedure Laterality Date ??? BIOPSY CERVIX 2018 ??? BRONCHOSCOPY ??? HX LIPOMA RESECTION ??? HX WISDOM TEETH EXTRACTION ??? [place] COLONOSCOPY FLX DX W/COLLJ SPEC WHEN PFRMD N/A 10/01/2017 COLONOSCOPY performed by Gina Lan MD at [facility] ??? [place] CYSTOURETHROSCOPY N/A 03/18/2018 CYSTOSCOPY performed by Martinez Walker MD at [facility] ??? [place] LAP,RMV ADNEXAL STRUCTURE Bilateral 03/18/2018 SALPINGECTOMY LAPAROSCOPIC performed by Martinez Walker MD at [facility] ??? [place] LAP,RMV ADNEXAL STRUCTURE Left 03/18/2018 OOPHORECTOMY LAPAROSCOPIC performed by Martinez Walker MD at [facility] ??? [place] LAPAROSCOPY W TOT HYSTERECT UTERUS 250 GRAM OR LESS N/A 03/18/2018 HYSTERECTOMY TOTAL LAPAROSCOPIC performed by Martinez Walker MD at [facility] ??? [place] REMOVE INTRAUTERINE DEVICE N/A 03/18/2018 INTRAUTERINE DEVICE REMOVAL performed by Martinez Walker MD at [facility] Social History: Social History Socioeconomic History ??? Marital status: Spouse name: Not on file ??? Number of children: Not on file ??? Years of education: Not on file ??? Highest education level: Not on file Occupational History ??? Not on file Tobacco Use ??? Smoking status: Never Smoker ??? Smokeless tobacco: Never Used Substance and Sexual Activity ??? Alcohol use: Yes Alcohol/week: 2.0 standard drinks Types: 2 Glasses of wine per week Comment: socially ??? Drug use: No ??? Sexual activity: Yes Partners: Male control/protection: I.U.D. Other Topics Concern ??? Service Not Asked ??? Blood Transfusions Not Asked ??? Caffeine Concern Yes Comment: up to 6-7 serving daily ??? Occupational Exposure Not Asked ??? Hobby Hazards Not Asked ??? Sleep Concern Yes ??? Stress Concern Not Asked ??? Weight Concern Not Asked ??? Special Diet Not Asked ??? Back Care Not Asked ??? Exercise No ??? Bike Helmet Not Asked ??? Seat Belt Not Asked ??? Self-Exams Not Asked Social History Narrative ??? Not on file Social Determinants of Health Financial Resource Strain: Not on file Food Insecurity: Not on file Transportation Needs: Not on file Physical Activity: Not on file Stress: Not on file Social Connections: Not on file Intimate Partner Violence: Not on file Housing Stability: Not on file Family History: MGM with breast cancer (dx 70's, not genetic )- metastatic at end Denies family history of ovarian or colon cancer. Denies family history of bleeding or clotting disorders. Medications: Prior to Admission medications Medication Sig Start Date End Date Taking? Authorizing Provider FLUoxetine (PROzac) 40 mg capsule Take 40 mg by mouth daily. 04/15/18 Yes Provider, Historical traZODone (DESYREL) 100 mg tablet Take 100 mg by mouth daily. 04/15/18 Yes Provider, Historical ARIPiprazole (ABILIFY) 10 mg tablet Take 10 mg by mouth daily. 04/15/18 Yes Provider, Historical ibuprofen (MOTRIN) 600 mg tablet Take 1 Tablet by mouth every 6 hours as needed for pain secondary to inflammation. 03/19/18 Yes Reji Collins DO montelukast (SINGULAIR) 10 mg tablet Take 1 Tablet (10 mg) by mouth daily at bedtime. 01/12/18 Yes Ryanne Walters MD fexofenadine (SRIDEVI) 180 mg tablet Take 180 mg by mouth daily. Yes Provider, Historical buPROPion HCl (WELLBUTRIN XL) 300 mg Extended Release 24 hour tablet Take 300 mg by mouth daily parent trainer. Yes Provider, Historical methylphenidate HCl (RITALIN) 10 mg tablet Take 10 mg by mouth 2 times daily. Yes Provider, Historical albuterol HFA 90 mcg inhaler Take 2 Puffs by inhalation every 6 hours as needed for Shortness of Breath. Yes Provider, Historical fluticasone (FLONASE) 50 mcg/spray [place], Suspension Administer 2 Sprays in each nostril daily. Provider, Historical fluticasone-salmeterol (ADVAIR DISKUS) 250-50 mcg/dose disk inhaler Take 1 Puff by inhalation 2 times daily. 01/12/18 Ryanne Walters MD Allergies: No Known Allergies Review of Systems: No GARCIA/vision changes/RUQ pain No dyspnea/CP/palpitations No nausea/vomitting/fevers/chills/diarrhea No dysuria/hematuria/urinary urgency/frequency Objective: Vitals: 09/03/21 1241 BP: 137/83 Last documented weight: Weight: 119.3 kg (263 lb) (09/03/21 1241) Body mass index is 39.99 kg/m??. Physical Exam: General: alert, cooperative, no distress HEENT: NCAT, normal thyroid Cardiovascular: regular rate and rhythm Pulmonary: clear to auscultation bilaterally Breast: Normal appearance. No masses palpated, non-tender, yeast infection under breasts Abdomen: soft, NT, ND Female Genitalia: External genitalia and introitus normal with normal hair distribution, normal urethral meatus. Normal vaginal mucosa, cervix and uterus surgically absent. No adnexal masses or tenderness on bimanual exam Extremities: normal, non-tender bilaterally, no lower extremity edema Lab Review: None Screening: Last pap:2018 Assessment/Plan: 36 y.o. female here for annual exam. 1. Annual exam: Annual exam with pap performed. 2. RTC 1yr for WWE or prn Kailey Burleson MD CTOR OF NURSING documented in this encounter Miscellaneous Notes * Addendum Note - Rosmery Monsalve - 09/03/2021 1:44 PM CSTAddended by: ROSMERY MONSALVE on: 09/03/2021 01:44 PM Modules accepted: Orders CTOR OF NURSING documented in this encounter Plan of Treatment Not on file documented as of this encounter Procedures Procedure Name Priority Date/Time Associated Diagnosis Comments CERV/VAG CYTO AGE BASED SCREEN PAP Routine 09/03/2021 1:43 PM DIRECTOR OF NURSING History of abnormal cells from cervix Screening for cervical cancer Encounter for annual routine gynecological examination documented in this encounter Results * CERV/VAG CYTO AGE BASED SCREEN PAP (09/03/2021 1:43 PM DIRECTOR OF NURSING) COMMENT (PAP): [facility] Comment: This order for age-based cervical cancer and STI screening follows ACOG guidelines(PB 168, 140, FAJ428). See individual assays for performing site location. CLINICAL INFORMATION [facility] Comment: Hysterectomy, total CIN3 ON HYST SPEC IN 2018 LAST MENSTRUAL PERIOD [facility] Comment:INFORMATION NOT PROV IDED PREV PAP: [facility] Comment:INFORMATION NOT PROV IDED PREV BX: [facility] Comment:INFORMATION NOT PROV IDED SOURCE [facility] Comment:Vaginal cuff ADEQUACY: [facility] Comment:SATISFACTORY FOR RADHA LUATION PAP INTERP [facility] Comment:Negative for intraep ithelial lesion or malignancy. COMMENT (PAP TEST) [facility] Comment: This Pap test has been evaluated with computer assisted technology. ENGINEERED WOOD DESIGNER: [facility] Comment: MEF, CT(ASCP) CT screening location: [place] [address] [place] [address] EXPLANATORY NOTE [facility] Comment: EXPLANATORY NOTE: The Pap is a [...] information. HPV E6/E7 Not Detected Not Detected [facility] Comment: Methodology: [place]-Mediated Amplification This assay detects E6/E7 viral messenger RNA (mRNA) from 14 high-risk HPV types (16,18,31,33,35,39,45,51,52,56,58,59,66,68). The analytical performance characteristics of this assay have been determined by [facility]. The modifications have not been cleared or approved by the FDA. This assay has been validated pursuant to the CLIA regulations and is used for clinical purposes. For additional information, please refer to http://education.SunModular/faq/MKE609e7 (This link if provided for information/ educational purposes only.) Test Performed at: [facility] ??[id number] Junior Morales D.O., MPH SL Genital (Vaginal cuff) 09/03/2021 1:43 PM DIRECTOR OF NURSING 09/03/2021 11:11 PM DIRECTOR OF NURSING October Benjy WADE PATHOLOGY/CYTOLOGY [facility] [address] [place] [address] documented in this encounter Visit Diagnoses Diagnosis Encounter for annual routine gynecological examination- Primary Screening for cervical cancer Screening for malignant neoplasm of the cervix History of abnormal cells from cervix Personal history of other genital system and obstetric disorders documented in this encounter Care Teams Master Hearth Technician Relationship Specialty Start Date End Date Clovis Johnson MD PCP - General Family Practice 08/17/17 documented as of this encounter
--- OUTSIDE RECORDS SUMMARY | 2024-07-10 00:22 | XMS_ITS | Encounter Summary ---
Author Organization [facility] Address [address] [place] [address] Care Team Providers Care Manager Corporate Communications Name Role Phone Clovis Johnson MD Primary Care Provider [phone] Reason for Visit * Reason Onset Date Comments Results 02/22/2018 Encounter Details Date Type Department Care Team (Late st Contact Info) Description 02/22/2018 Telephone [facility] Pulmonology [facility] [address] [place] [address] Ryanne Walters MD [address] [place] [address] Results Social History Tobacco Use Types Packs/Day [...] encounter Miscellaneous Notes * Telephone Encounter - Jaylnee Stokes - 02/23/2018 3:26 PM CDT Spoke with the patient and the sleep study was not consistent with the diagnosis of sleep apnea. Dr. Walters recommended see if ENT would be helpful and Breathe strips could help the snoring. SS * Telephone Encounter - Ryanne Walters MD - 02/22/2018 10:53 AM CDT Please let the patient know that the sleep study was not consistent with a diagnosis of sleep apnea. Given the snoring ,an ENT evaluation could be considered for possible methods of resolution. Alternatively cwym-bef-wvsgyfy nasal dilators like Breathe Right strips, Theravent snore strips can also be useful. Weight reduction will also help. Please call back with any questions Patient may set up a follow up with me, if they desire, to discuss results in detail and for her other issues with asthma. documented in this encounter Plan of Treatment Not on file documented as of this encounter Visit Diagnoses Not on filedocumented in this encounter Care Teams Manager Corporate Communications Relationship Specialty Start Date End Date Clovis Johnson MD PCP - General Family Practice 08/17/17 documented as of this encounter
--- OUTSIDE RECORDS SUMMARY | 2024-07-10 00:22 | XMS_ITS | Encounter Summary ---
Author Organization [facility] Address [address] [place] [address] Care Team Providers Care Tank Farm Operator Name Role Phone Clovis Johnson MD Primary Care Provider [phone] Reason for Visit * Auth/Cert Specialty Diagnoses / Procedures Referred By Glendy t Referred To Contact General Surgery Diagnoses Dysmenorrhea, unspecified Unspecified dyspareunia DYSMENORRHEA , DYSPAURUNEA Procedures TN LAP,RMV ADNEXAL STRUCTURE TN LAP,RMV ADNEXAL STRUCTURE TN LAP,FULGURATE/EXCISE LESIONS TN LAPAROSCOPY W TOT HYSTERECTUTERUS <=250 GRAM W TUBE/OVARY TN CYSTOURETHROSCOPY HYSTERECTOMY TOTAL LAPAROSCOPIC SALPINGECTOMY LAPAROSCOPIC OOPHORECTOMY LAPAROSCOPIC CYSTOSCOPY ENDOMETRIOSIS EXCISION LASER LAPAROSCOPIC [facility] Or [address] [place] [address] Referral ID Status Reason Start Date Expiration Date Visits Re quested Visits Authorized [id number] 1 1 Encounter Details Date Type Department Care Team (Latest Contact Info) Description 03/18/2018 7:49 AM CDT - 03/19/2018 11:15 AM CDT Hospital Encounter [facility] [address] [place] [address] Martinez Walker MD [address] [facility] [address] [place] [address] Discharge Disposition: Home or Self Care Social [...] Sign Reading Time Taken Comments Blood Pressure 124/62 03/19/2018 3:50 AM CDT Pulse 78 03/19/2018 3:50 AM CDT Temperature [...] 03/19/2018 2:34 PM CDT Discharge Summary Holly Flores 03/19/2018 2:34 PM [id number] Admit Date: 03/18/2018 Discharge Date: 03/19/2018 Discharge Time: 2:34 PM Nursing Support Worker: Martinez Walker MD Surgery:Procedure(s): HYSTERECTOMY TOTAL LAPAROSCOPIC SALPINGECTOMY LAPAROSCOPIC OOPHORECTOMY LAPAROSCOPIC CYSTOSCOPY INTRAUTERINE DEVICE REMOVAL Hospital Course: The patient was admitted to [facility] on 03/18/2018 for a scheduled TLH, left salpingo-oophorectomy, right salpingectomy, cystoscopy. She tolerated the procedure well and on POD#0 was transferred to in stable condition. She was started on regular diet, and was ambulating and voiding without difficulty. On POD#1, having met post-operative mile-stones, she was discharged home. 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 DC meds: Medication List START taking these medications HYDROcodone-acetaminophen 5-325 mg tablet Commonly known as: NORCO Take 1 Tablet by mouth every 4 hours as needed for severe pain. Max Daily Amount: 6 Tablets Signed by: Reji Collins DO Quantity: 30 Tablet Refills: 0 CHANGE how you take these medications ibuprofen 600 mg tablet Commonly known as: MOTRIN What changed: ?? medication strength ?? how much to take ?? reasons to take this Take 1 Tablet by mouth every 6 hours as needed for pain secondary to inflammation. Signed by: Reji Collins DO Quantity: 60 Tablet Refills: 1 CONTINUE [...] XL Take 300 mg by mouth daily export agent. Refills: 0 fexofenadine 180 mg tablet Commonly known as: SRIDEVI Take 180 mg by mouth daily. Refills: 0 fluticasone 50 mcg/spray [place], Suspension Commonly known as: FLONASE Administer 2 [...] Your Medications These medications were sent to [address], [facility] [address] Hours: Thursday-Thursday: 8 a.m. - 8 p.m., Thursday: 9 a.m. - 5 p.m., Thursday: 10 a.m. - 2 p.m. ?? HYDROcodone-acetaminophen 5-325 mg tablet ?? ibuprofen 600 mg tablet Plan: D/C Instructions, post-op follow up, and patient's questions answered. Reviewed D/C Medications. Prescriptions provided: yes Follow-up appointment in [address] [facility] Minimally Invasive Gunecology [address] [facility] [facility], [facility] [address] [place], [place] Office: documented in this encounter Discharge Instructions * Discharge Instructions* Martinez Walker MD - 03/18/2018 3:[address] [facility] Minimally Invasive Gynecology Hysterectomy Discharge Instructions ACTIVITY: [...] XL Take 300 mg by mouth daily export agent. Refills: 0 fexofenadine 180 mg tablet Commonly known as: SRIDEVI Take 180 mg by mouth daily. Refills: 0 fluticasone 50 mcg/spray [place], Suspension Commonly known as: FLONASE Administer 2 [...] ??? Please contact your physician through the My [employer] page in the next few days in order to let him know how you are doing. If you have any concerns or need to speak with someone immediately, pleasecall the office or and after hours answering service. ??? If you have any questions, please do not hesitate to call your physician. Martinez Walker MD [facility] Minimally Invasive Gynecology [address] [facility], [facility] [address] [place], [place] Office: documented in this encounter Medications at Time of Discharge Medication Sig Dispensed Refills Start Date End Date ibuprofen (MOTRIN) 600 mg tablet Take 1 Tablet by mouth every 6 hours as needed for pain secondary to inflammation. 60 Tablet 1 03/19/2018 fluticasone (FLONASE) 50 mcg/spray [place], Suspension Administer 2 Sprays in each nostril [...] tablet Take 300 mg by mouth daily export agent. methylphenidate HCl (RITALIN) 10 mg tablet Take [...] Walker MD - 03/19/2018 6:48 AM CDT CUSTOMER SUPPORT AGENT Rounding note Subjective: Patient doing well this morning. No events overnight. WAlked to the cafeteria last night. Tolerating PO Liquids and solids. Pain well controlled. Objective: Vitals: 03/18/18 1751 03/18/18201603/18/18 2319 03/19/18 0350 BP: 122/86 114/63 113/67 124/62 BP Location: Right arm Left arm Left arm Left arm Patient Position (BP): Sitting Supine Sitting Sitting Pulse: (!) 107 99 86 78 Resp: 16 Temp: 97.3 ??F (36.3 ??C) 98.7 ??F [...] stable - UOP adequate 2. Asthma - CNC MAINTENANCE TECHNICIAN Singulair 3. Pain: well controlled with Bally, Motrin 4. Diet/fluids: general 5. DVT prophylaxis: SCDs in place, ambulate Anticipate discharge home today. Reji Collins, Attending Note: Patient seen and personally examined. Agree with above. Martinez Walker MD * Margoth Arreola MD - 03/18/2018 10:50 PM CDT CUSTOMER SUPPORT AGENT NOS note Subjective: Patient doing well. Pain [...] stable - UOP adequate 2. Asthma - CNC MAINTENANCE TECHNICIAN Singulair 3. Pain: well controlled with Bally, Motrin 4. Diet/fluids: general 5. DVT prophylaxis: [...] been undergoing pelvic floor physical therapy with [facility] without improvement in symptoms. She does report [...] RESECTION ? HX WISDOM TEETH EXTRACTION ? TN COLONOSCOPY FLX DX W/COLLJ SPEC WHEN PFRMD N/A 10/01/2017 ?? COLONOSCOPY performed by Gina Lan MD at [facility] ?? Meds: Current [...] lesions ?? Pelvis: exam chaperoned by medical administrative specialist EGBUS: Within normal limits Vulva: Normal Urethra: [...] she will continue pelvic physical therapy with lemoyne guillermo. She may benefit from a second opinion with Leona. ?? Martinez Walker MD Co-Director [facility] Minimally Invasive Gynecology [address], [place] [address] ? This note was transcribed using Loopster computerized voice recognition without a human school bus operator. This report may or may not have been adjusted for typographical, grammaticaland syntax errors. ?? documented in this encounter OR Notes * Operative Report - Martinez Walker MD - 03/18/2018 3:40 PM CDT [facility] Operative Report Holly Khalil Mark 03/18/2018 3:41 PM [id number] Pre-operative Diagnosis: ?? Dysmenorrhea ?? Left lower quadrant pain ?? Dyspareunia Post -operative Diagnosis: ?? Same Procedure: Procedure(s): HYSTERECTOMY TOTAL LAPAROSCOPIC RIGHT SALPINGECTOMY LAPAROSCOPIC LEFT SALPINGOOPHORECTOMY LAPAROSCOPIC CYSTOSCOPY INTRAUTERINE DEVICE REMOVAL Surgeon: Surgeon(s) and Role: * Martinez Walker MD - Primary special education teaching assistant: Cnc Mill Set Up Operator: Belinda Stephenson, RN Scrub: Tamara Carreno; Rossy Boles RN; Jigna Yañez RN Resident: Reji Collins, DO Anesthesia: ?? General Findings: ?? Bimanual [...] [facility] Instrument, sponge, and needle counts were correct times three per nursing. She tolerated the procedure well. documented in this encounter Miscellaneous Notes * Care Plan - Lynda Ojeda RN - 03/19/2018 10:21 AM CDT Holly Flroes will be discharged via wheelchair to home. [...] , dyspareunia Case Notes ZANDRA JEAN, CPT 45713, 47959, 50589 CYSTOURETHROSCOPY 03/18/2018 1:5 0 PM CDT dysmenorrhea , dyspareunia Case Notes ZANDRA JEAN, CPT 49579, 43910, 76968 OOPHORECTOMY LAPAROSCOPIC 03/18/2018 1:50 PM CDT dysmenorrhea , dyspareunia Case Notes ZANDRA JEAN, CPT 07374, 13039, 09149 SALPINGECTOMY LAPAROSCOPIC 03/18/2018 1:50 PM CDT dysmenorrhea , dyspareunia Case Notes ZANDRA JEAN, CPT 74273, 29136, 35690 HYSTERECTOMY TOTAL LAPAROSCOPIC 03/18/2018 1:50 PM CDT dysmenorrhea , dyspareunia Case Notes ZANDRA JEAN, CPT 65634, 15771, 72875 POC , URINE Routine 03/18/2018 10:22 AM CDT VERIFICATION BLOOD GROUP Stat 03/18/2018 8:22 AM CDT Hematochezia documented in this encounter Results * PATHOLOGY (03/18/2018 3:05 PM CDT) CASE REPORT Surgical Pathology Report ? Case: [id number] ? Authorizing Provider: ??Martinez Walker MD ?Collected: ? 03/18/2018 03:05 PM ? Ordering Location: ? [facility] ?Received: ?03/18/2018 03:54 PM ? Operating Room ? Pathologist: ? Miguel Graham MD ? Specimen: ?Uterus, Cervix, Ovary, left, Fallopian tubes, bilateral, Fallopian tube right, left ? fallopian tube and ovary, uterus and cervix ? 03/24/2018 10:36 AM CDT [facility] FINAL DIAGNOSIS A. Uterus, cervix, bilateral [...] (up to 0.9 cm). 03/24/2018 10:36 AM [facility] IMEN DESCRIPTION (A) Right fallopian tube; (B) left fallopian tube and ovary; (C) uterus and cervix. 03/24/2018 10:36 AM [facility] OPERATIVE PROCEDURE Hysterectomy total laparoscopic, bilateral salpingectomy laparoscopic, left oophorectomy laparoscopic, cystoscopy, intrauterine device insertion. 03/24/2018 10:36 AM [facility] [employer] [facility] CLINICAL DIAGNOSIS Dysmenorrhea, dyspareunia. 03/24/2018 10:36 AM [facility] [facility] GROSS DESCRIPTION Received are three containers labeled Holly Flores. Received in the first container, additionally labeled A, right fallopian tube, is a 6.0 cm long and 0.5 cm in diameter fimbriated segment of fallopian tube. The surface is red and smooth. Sectioning demonstrates a pinpoint lumen. Cryogenics Repairer sections including the entire fimbriated end (perpendicularly [...] and smooth. Sectioning demonstrates a pinpoint lumen. Cryogenics Repairer sections of ovary are submitted in cassettes [...] thick myometrium is red-schulte and coarsely trabeculated. Cryogenics Repairer sections are submitted as follows: A5-anterior cervix; A6-posterior cervix; A7-anterior endomyometrium; A8-posterior endomyometrium; A9-serosal adhesions. Additional sections including the entire cervix as submitted as follows: A10 and X84-homzeu 12 to 3 o'clock; A12 and I24-uljphg 3 to 6 o'clock; A14 and I79-dvguvi 6 to 9 o'clock; A16 through Q43-tgjxrt 9 to 12 o'clock; P07-jqtppfxm serosal adhesions. BHAVESH/amandeep/mac 03/24/2018 10:36 AM [facility] [employer] MICROSCOPIC DESCRIPTION Slides received labeled [id number] and Ladan Flores Histologic sections of cervix [...] review conference on 03/24/2018. 03/24/2018 10:36 AM [facility] [facility] COMMENT Special stain and/or immunohistochemical results are interpreted with controls that demonstrate appropriate staining reactions. Note on use of immunocytochemistry reagents: This test was developed and its performance characteristic determined by [facility], Department of Laboratory Medicine. It has not [...] WF, WB and WH are performed by [address], [address]. All other case types are performed by [facility] [address] [facility], [address]. 03/24/2018 10:36 AM CDT [facility] Tissue (Uterus, Cervix, Ovary, left, Fallopian tubes, bilateral) Collection / Unknown 03/18/2018 3:05 PM CDT 03/18/2018 3:54 PM CDT Martinez Walker MD PATHOLOGY/CYTOLOGY O RDERABLES Performing Organization Address City/[facility]/ZIP Co de Phone Number [facility] CLIA# [id number] [address] [place], [place] [address] [address] * POC , URINE (03/18/2018 10:22 AM CDT) HCG QUAL URINE Negative Negative 03/18/2018 3:29 PM CDT [facility] Urine 03/18/2018 10:2 2 AM CDT 03/18/2018 3:29 PM CDT Martinez Walker MD POINT OF CARE TESTIN G Performing Organization Address [facility]/ZIP Co de Phone Number [facility] CLIA# [id number] [address] [place] [address] [place] [address] * VERIFICATION BLOOD GROUP (03/18/2018 8:22 AM CDT) ABO GROUP A 03/18/2018 9:23 AM CDT [facility] RH (D) TYPE Positive 03/18/2018 9:23 AM CDT [facility] Blood Collection / Unknown 03/18/2018 8:22 AM CDT 03/18/2018 9:08 AM CDT Berenice Michaels MD BLOOD BANK LEIGH YOUNG [facility] Organization Address City/State/ZIP Co de Phone Number [facility] CLIA# [id number] [address] [place] [address] documented in this encounter Visit Diagnoses Diagnosis Hematochezia- Primary Blood in stool documented in this encounter Administered Medications Inactive Administered Medications - up to 3 most recent administrations Medication Order MAR Action Action Date Dose Rate Site bupivacaine-EPINEPHrine (SENSORCAINE-EPINEPHRINE) 0.5 %-1:200,000 injection 250 mg 250 mg (50 mL), Infiltration, ONE TIME ONLY, 1 dose, On Thu03/18/18 at 1400, Routine, Intra-op Admin by Another [...] Given 03/18/2018 4:09 PM CDT 4 mg traZODone (DESYREL) tablet 100 mg 100 mg, [...] 2016 (Given - Provider: Braden Stokes RN) naloxone (NARCAN) 0.4 mg/mL injection 0.1 mg [...] Routine, PACU 1609 (Given - Provider: Batool Torres RN)1613 (Given - Provider: Batool Torres, ADRIANA) HYDROcodone-acetaminophen (NORCO) 5-325 mg per tablet 1 Tablet 1 Tablet, Oral, EVERY 4 HOURS PRN, Starting on Lalita 03/18/18 at 1647, Until Thu03/19/18 at 1316, Pain (See admin instructions), Routine, Post-op - Floor 1851 (Given - Provider: Tammie David RN)2314 (Given - Provider: Berenice Cabezas RN) 0222 (Given - Provider: Madiha Stokes, ADRIANA)0725 (Given - Provider: Madiha Stokes, ADRIANA) HYDROcodone-acetaminophen (NORCO) 5-325 mg per tablet [...] - Floor 1701 (Given - Provider: Tammie David, ADRIANA)2314 (Given - Provider: Berenice Cabezas, ADRIANA) 0725 (Given - Provider: Madiha Stokes, ADRIANA) morphine 4 mg/mL injection 4 mg (COMPLETED) 4 mg, IV, POST-PROCEDURE Q 5 MINUTES PRN, 2 doses, Starting on Lalita 03/18/18 at 0938, Until Lalita 03/18/18 at 1613, Pain, Moderate, For pain scale 4-6, Routine, PACU 1609 (Given - Provider: Batool Torres, ADRIANA)1613 (Given - Provider: Batool Torres, ADRIANA) morphine 4 mg/mL injection 4 mg 4 mg, IV, EVERY 2 HOURS PRN, Starting on Lalita 03/18/18 at 1647, Until Thu03/19/18 at 1316, Pain (See admin instructions), Pain, Severe, Routine, Post-op - Floor prochlorperazine (COMPAZINE) injection 5 mg 5 mg, IV, EVERY 4 HOURS PRN, Starting on Lalita 03/18/18 at 1647, Until Thu03/19/18 at 1316, Nausea/Emesis, Routine, Post-op - Floor [...] hysteroscopy) documented in this encounter Care Teams Tank Farm Operator Relationship Specialty Start Date End Date Clovis Johnson MD PCP - General Family Practice 08/17/17 documented as of this encounter
--- OUTSIDE RECORDS SUMMARY | 2024-07-10 00:22 | XMS_ITS | Encounter Summary ---
Author Organization [facility] Address [address] [place] [address] Care Team Providers Care Template Layout Worker Name Role Phone Clovis Johnson MD Primary Care Provider [phone] Reason for Visit * Reason Onset Date Comments Question 01/04/2018 Encounter Details Date Type Department Care Team (Late st Contact Info) Description 01/04/2018 Telephone [facility] FIELD ENGINEER - [facility] [address] [place], [place] [id number] [address] Kailey Burleson MD [id number], [place] [address] Question Social History Tobacco Use Types Packs/Day Years [...] encounter Miscellaneous Notes * Telephone Encounter - John Chow RN - 01/04/2018 11:33 AM CDT Pt call to report that her abdominal pain has returned along with vomiting. She states that her current tx plan isn't working. She is c/o LLQ pain. Has colpo coming up on 01/11. She will f/u with once she comes back from vacation. documented in this encounter Plan of Treatment Not on file documented as of this encounter Visit Diagnoses Not on filedocumented in this encounter Care Teams Template Layout Worker Relationship Specialty Start Date End Date Clovis Johnson MD PCP - General Family Practice 08/17/17 documented as of this encounter
--- OUTSIDE RECORDS SUMMARY | 2024-07-10 00:22 | XMS_ITS | Encounter Summary ---
Author Organization [employer] Address [address] [place] [address] Care Team Providers Care Industrial Engineer Name Role Phone Clovis Johnson MD Primary Care Provider [phone] Reason for Referral * Outpatient Services (Routine) - Closed Specialty Diagnoses / Procedures Referred By Contac t Referred To Contact Sleep Center Diagnoses EZEQUIEL (obstructive sleep apnea) Procedures POLYSOMNOGRAPHY 4 OR MORE PARAMETERS WITH CPAP Ryanne Walters MD [address] [place] [address] [facility] Sleep Medicine [address] [place] [address] Referral ID Status Reason Start Date Expiration Date Visits Requested Visits Authorized [id number] Closed Performing Department To Schedule (STL) 01/12/2018 02/12/2019 1 1 Reason for Visit * Reason Comments Sleep Problem Encounter Details Date Type Department Care Team (Latest Contact Info) Description 01/12/2018 2:30 PM CDT Office Visit [facility] [place] Pulmonology [facility] [address] [place] [address] Ryanne Walters MD [address] [facility] [address] [place] [address] EZEQUIEL (obstructive sleep apnea) (Primary Dx); Mild intermittent asthma without complication; Seasonal allergic rhinitis due to pollen Social History Tobacco Use Types Packs/Day Years [...] Sign Reading Time Taken Comments Blood Pressure 128/82 01/12/2018 2:39 PM CDT Pulse 93 01/12/2018 2:39 PM CDT Temperature - - Respiratory Rate 16 01/12/2018 2:39 PM CDT R A Oxygen Saturation 97% 01/12/2018 2:39 PM CDT RA Inhaled Oxygen Concentration - - Weight 104.1 kg (229 lb 6.4 oz) 01/12/2018 2:39 PM CDT Height 170.2 cm (5' 7 ) 01/12/2018 2:39 PM CDT Body Mass Index 35.93 01/12/2018 2:39 PM CDT documented in this encounter Progress Notes * Ryanne Walters MD - 01/12/2018 2:46 PM CDT Pulmonary Outpatient Sleep History and Physical Ryanne Walters MD 01/12/2018 2:52 PM Patient Name: Holly Flores 1985 Primary Care Physician: Clovis Johnson MD Date of Service: 01/12/2018 Impression: 32-year-old female with a body mass index of 36 kg/m?? and Mallampati class IV airway with ?? Long-standing history of obstructive sleep apnea for which she is no longer on CPAP therapy ?? Mild, intermittent asthma ?? Chronic allergic rhinitis Recommendations: ?? Polysomnography with split night study- If the AHI >15 at 2 hrs will initiate CPAP therapy ?? I discussed the pathophysiology and treatment options for Obstructive Sleep apnea. Patient was counseled about weight reduction and avoiding sleeping supine. ?? She was also recommended against driving while sleepy. ?? Start on singulair 10 mg by mouth every afternoon ?? In addition flonase twice a day with sinus rinse twice daily ?? Trial of advair 250/50 twice daily ?? She will benefit from avoiding Pet dander , should at least get an air purifier in her bedroom Reason for consultation: Evaluation of Sleep apnea HPI: Patient is a 32 y.o. female who is seen in consultation. Was diagnosed with EZEQUIEL at [facility] 10 years ago, split night study, not compliant with CPAP and motivated to get back on treatment Asthma for 10 years, non smoker No passive smoking Family h/o asthma, sister is also on treatment 2 cats and 3 dogs at home Works as a On [employer] Seasonal worsening of allergy and asthma sympotms and it is fairly symptomatic round all the year Only albuterol as and when needed Was on Qvar but not since she lost insurance about 6 years ago. No hospitalised for asthma, a few prednisone tapers, last6 years Albuterol use 0-2 times Day, no nocturnal symptoms , no acid reflux The sleep history is reported as follows: ?? Bedtime: 11 pm-midnight ?? Wake up time: 6-7 ?? Sleep latency: few minutes ?? Number of awakenings on average: atleast 4-5 ?? Total Sleep time on average: 6-7 hours ?? Patient has a history of snoring. ?? Patient has a history of witnessed apneas. ?? Patient does not feel refreshed upon awakening. ?? Weight gain over the past 5 yrs:rohini 10 lbs due to ?? Ny[place] Sleepiness Scale score: 17/24 ?? The patient falls asleep in sedentary circumstances such as sitting and reading. ?? Neck size: 17 inches ?? Caffeine consumption:lots ?? ETOH consumption: 1-2 drinks weekly Past Medical History: Diagnosis Date ??? Asthma ??? Chronic abdominal pain ??? Community acquired pneumonia ??? Depression ??? GI bleed ??? Headache ??? Obstructive sleep apnea Past Surgical History: Procedure Laterality Date ??? BRONCHOSCOPY ??? HX LIPOMA RESECTION ??? HX WISDOM TEETH EXTRACTION ??? WA COLONOSCOPY FLX DX W/COLLJ SPEC WHEN PFRMD N/A 10/01/2017 COLONOSCOPY performed by Gina Lan MD at [facility] Current Medications: Current Outpatient Prescriptions Medication Sig Dispense Refill ??? nitrofurantoin (MACROBID) 100 mg capsule Take 1 Capsule (100 mg) by mouth 2 times daily. 10 Capsule 0 ??? medroxyPROGESTERone (DEPO-PROVERA) 150 mg/mL Suspension Inject [...] Shortness of Breath. No current facility-administered medications for this visit. Medication Allergies: No Known Allergies Family History Problem Relation Age of Onset ??? Breast Cancer Maternal Grandmother ??? Cancer Maternal Grandmother ??? Hypertension Maternal Grandmother ??? Asthma Maternal Grandmother ??? Lung Cancer Maternal Grandmother ??? Ovarian Cancer Maternal Grandmother ??? Uterine Cancer Maternal Grandmother ??? Crohn's Disease Maternal Aunt ??? Inflammatory Bowel Disease Maternal Aunt ??? Other Mother bolton's esophagus ??? Asthma Sister ??? Hypertension Maternal Grandfather ??? Colon Cancer Neg Hx ??? Diabetes Neg Hx ??? Heart Failure Neg Hx ??? Emphysema Neg Hx ??? Bronchitis Neg Hx ??? Mesothelioma Neg Hx Social History Substance Use Topics ??? Smoking status: Never Smoker ??? Smokeless tobacco: Never Used ??? Alcohol use 1.2 oz/week 2 Glasses of wine per week Review of Systems: General ROS: positive for - fatigue Dermatological ROS: negative for skin rashes or unusual skin lesions ENT ROS: positive for - headaches, nasal congestion and nasal discharge Respiratory ROS: positive for - dyspnea on exertion and shortness of breath Cardiovascular ROS: negative for chest pain or dyspnea on exertion Gastrointestinal ROS: positive for - abdominal pain and blood in stools Genito-Urinary ROS: negative for dysuria, trouble voiding, or hematuria Musculoskeletal ROS: positive for - joint pain and pain in back - lower Neurological ROS: positive for - dizziness Psychological ROS: positive for - anxiety and depression Endocrine ROS: negative for polyuria/polydipsia or new changes in weight Hematological and Lymphatic ROS: negative for swollen glands or abnormal bleeding Allergy and Immunology ROS: positive for - itchy/watery eyes and seasonal allergies positive snoring, positive apneas, positive daytime sleepiness, positive abnormal limb movements, negative insomnia Objective PHYSICAL EXAM BP 128/82 Pulse 93 Resp 16 Comment: RA Ht 5' 7 (1.702 m) Wt 104.1 kg (229 lb 6.4 oz) SpO2 97% Comment: RA BMI 35.93 kg/m?? General: No Distress HEENT: NCAT, Neck: Supple, symmetrical, trachea midline, no adenopathy, thyroid normal. The Soft palate is Mallampati Clas4 Lungs: Clear Breath Sounds Heart: S1, S2 Normal Abdomen: Soft Non-Tender Extremities: No cyanosis, Clubbing or Edema Skin: Skin Color, texture normal, No rashes Lymph Nodes: Cervical, supraclavicular nodes normal. Problem List Patient Active Problem List Diagnosis Date Noted ??? Hematochezia 09/15/2017 ??? LLQ abdominal pain 09/15/2017 ??? History of ovarian cyst 09/15/2017 Lab Results Component Value Date/Time NA 140 11/27/2017 12:56 PM K 4.0 11/27/2017 12:56 PM CL 101 11/27/2017 12:56 PM CO2 24 11/27/2017 12:56 PM CA 9.2 11/27/2017 12:56 PM BUN 8 11/27/2017 12:56 PM CREAT 1.11 (H) 11/27/2017 12:56 PM GLUCOSE 84 11/27/2017 12:56 PM TOTALPROTEIN 7.7 11/27/2017 12:56 PM ALBUMIN 4.4 11/27/2017 12:56 PM BILITOTAL 0.4 11/27/2017 12:56 PM ALKPHOS 71 11/27/2017 12:56 PM AST 13 11/27/2017 12:56 PM ALT 12 11/27/2017 12:56 PM ANIONGAP 15 11/27/2017 12:56 PM Lab Results Component Value Date/Time WBC 5.4 11/27/2017 12:56 PM HGB 14.8 11/27/2017 12:56 PM HCT 42.6 11/27/2017 12:56 PM PLT 261 11/27/2017 12:56 PM MCV 85.0 11/27/2017 12:56 PM This note was transcribed using [employer] speaking computerized voice recognition without a human dispute resolution specialist. This report may or may not have been adjusted for typographical, grammaticaland syntax errors. Ryanne Walters MD [facility] PULMONOLOGY [facility] [address] [facility] [address] Dept: [phone] Dept Loc: [phone] documented in this encounter Plan of Treatment Not on file documented as of this encounter Results * POLYSOMNOGRAPHY 4 OR MORE PARAMETERS WITH CPAP (02/16/2018 4:23 AM CDT) Narrative Procedure Note Mikal Minaya MD - 02/16/2018 4:23 AM CDT [place], [place] [address] Sleep Study CSN: [id number] DATE OF SERVICE: 02/05/2018 POLYSOMNOGRAPHY REPORT BRIEF HISTORY The patient is a 32-year-old female with a history of EZEQUIEL diagnosed at [facility] 10 years ago. The patient was not compliant with CPAPand now has had recurring symptoms and is motivated to restart CPAPtherapy. She presents for repeat evaluation. Ny[place] Sleepiness Scale of17. She has a history [...] of significant periodic limb movement disorder. SP:MEDQ [id number] Dictated by: Mikal Minaya MD cc: Ryanne Walters MD Ryanne Walters MD [facility] documented in this encounter Visit Diagnoses Diagnosis EZEQUIEL (obstructive sleep apnea)- Primary Obstructive sleep apnea (adult) (pediatric) Mild intermittent asthma without complication Unspecified asthma Seasonal allergic rhinitis due to pollen EZEQUIEL (obstructive sleep apnea) Obstructive sleep apnea (adult) (pediatric) documented in this encounter Care Teams Industrial Engineer Relationship Specialty Start Date End Date Clovis Johnson MD PCP - General Family Practice 08/17/17 documented as of this encounter
--- OUTSIDE RECORDS SUMMARY | 2024-07-10 00:22 | XMS_ITS | Encounter Summary ---
Author Organization [facility] Address [address] [place] [address] Care Team Providers Care Tank House Operator Helper Name Role Phone Clovis Johnson MD Primary Care Provider [phone] Encounter Details Date Type Department Care Team (Late st Contact Info) Description 01/13/2018 Abstract [facility] Pulmonology [facility] [address] [place] [address] Ryanne Walters MD [address] [place] [address] Social History Tobacco Use Types [...] on filedocumented in this encounter Care Teams Tank House Operator Helper Relationship Specialty Start Date End Date Clovis Johnson MD PCP - General Family Practice 08/17/17 documented as of this encounter
--- OUTSIDE RECORDS SUMMARY | 2024-07-10 00:22 | XMS_ITS | Encounter Summary ---
Author Organization [facility] Address [address] [place] [address] Care Team Providers Care Traffic Maintenance Officer Name Role Phone Clovis Johnson MD Primary Care Provider [phone] Encounter Details Date Type Department Care Team (Latest Contact Info) Description 03/04/2018 1:30 PM CDT - 03/04/2018 11:59 PM CDT Hospital Encounter [facility] [address] [place] [id number] Martinez Walker MD [address] [place] [address] Discharge Disposition: Home or Self Care Anesthesia Record Procedure Summary Procedure Name Responsible [...] with procedure. 03/19/2018 0934 Follow-up Complete Meds * Agents No agents on file. * Blood No blood administrations on file. [...] Martin CRNA 03/18/18 1533 by Kwasi Martin STORE WAREHOUSE ASSOCIATE Peripheral IV Orientation: Right; Location: Hand; Device: Angiocath; Gauge: 18 gauge; Removal Indication: no longer indicated; Removal Interventions: pressure dressing, catheter intact 03/18/18 1416 by Kwasi Martin STORE WAREHOUSE ASSOCIATE 03/18/182013 by Madiha Stokes RN Indwelling Urethral Catheter 03/18/18; 1431; No; Indwelling double lumen catheter; latex; 16 Fr; inserted; 1; 5; 10; 03/18/18; 1515 03/18/18 1431 by Belinda Stephenson RN 03/18/18 1515 by Jigna Yañez RN Adult Incision 03/18/18; 1526; surgical incision; other (comment); vagina; 03/19/18; 23103/18/18 1526 by Belinda Stephenson RN 03/19/18 2316 by PROVIDER, DISCHARGE PATIENT Adult Incision 03/18/18; 1526; surgical incision; other (comment); abdomen; 03/19/18; 2316 03/18/18 1526 by Belidna Stephenson RN 03/19/18 2316 by PROVIDER, DISCHARGE [...] Sign Reading Time Taken Comments Blood Pressure 130/84 03/04/2018 1:41 PM CDT Pulse 93 03/04/2018 1:41 PM CDT Temperature - - Respiratory Rate - - Oxygen Saturation 95% 03/04/2018 1:41 PM CDT Inhaled Oxygen Concentration - - Weight 103.8 kg (228 lb 12.8 oz) 03/04/2018 1:41 PM CDT Height 170.2 cm (5' 7 ) 03/04/2018 1:41 PM CDT Body Mass Index 35.84 03/04/2018 1:41 PM CDT documented in this encounter Medications at Time of Discharge Medication Sig Dispensed Refills Start Date End Date ibuprofen (MOTRIN) 600 mg tablet Take 1 Tablet by mouth every 6 hours as needed for pain secondary to inflammation. 60 Tablet 1 03/19/2018 fluticasone (FLONASE) 50 mcg/spray [place], Suspension Administer 2 Sprays in each nostril daily. fluticasone-salmeter ol (ADVAIR DISKUS) 250-50 mcg/dose disk [...] tablet Take 300 mg by mouth daily leather dresser. methylphenidate HCl (RITALIN) 10 mg tablet Take [...] . 05/03/2018 documented as of this encounter OR Notes * Anesthesia PAT Evaluation - Ivana Jacinto NP - 03/04/2018 2:05 PM CDT Pre-Procedure Anesthesiology Consultation and Evaluation (PACE) Service 03/04/2018 2:05 PM Name: Holly Flores Age: 32 y.o. Sex: female CSN: [id number] Procedure: HYSTERECTOMY TOTAL LAPAROSCOPIC SALPINGECTOMY LAPAROSCOPIC OOPHORECTOMY LAPAROSCOPIC CYSTOSCOPY ENDOMETRIOSIS EXCISION LASER LAPAROSCOPIC Surgeon: Aaron No Known Allergies Pre-Surgery Instructions: Medication Instructions ??? fluticasone (FLONASE) 50 mcg/spray [place], Suspension Continue taking as prescribed ??? fluticasone-salmeterol [...] 90 mcg inhaler Continue taking as prescribed ?? Patient Active Problem List Diagnosis Date Noted ??? Hematochezia 09/15/2017 ??? LLQ abdominal pain 09/15/2017 ??? History of ovarian cyst 09/15/2017 Past Medical History: Diagnosis Date ??? Anxiety [...] in female ??? PTSD (post-traumatic stress disorder) Past Surgical History: Procedure Laterality Date ??? BIOPSY CERVIX 2017 ??? BRONCHOSCOPY ??? HX LIPOMA RESECTION ??? HX WISDOM TEETH EXTRACTION ??? AZ COLONOSCOPY FLX DX W/COLLJ SPEC WHEN PFRMD N/A 10/01/2017 COLONOSCOPY performed by Gina Lan MD at [facility] Social History Substance Use Topics ??? Smoking status: Never Smoker ??? Smokeless tobacco: Never Used ??? Alcohol use 1.2 oz/week 2 Glasses of wine per week Comment: socially Family History Problem Relation Age of Onset ??? Hypertension Maternal Grandmother ??? Asthma Maternal Grandmother ??? Lung Cancer Maternal Grandmother ??? Ovarian Cancer Maternal Grandmother 78 ??? Uterine Cancer Maternal Grandmother ??? Breast Cancer Maternal Grandmother 78 ??? Cancer Maternal Grandmother 78 uterine ??? Crohn's Disease Maternal Aunt ??? Inflammatory Bowel Disease Maternal Aunt ??? Other Mother bolton's esophagus ??? Asthma Sister ??? Hypertension Maternal Grandfather ??? Colon Cancer Neg Hx ??? Diabetes Neg Hx ??? Heart Failure Neg Hx ??? Emphysema Neg Hx ??? Bronchitis Neg Hx ??? Mesothelioma Neg Hx Previous Anesthesia Problems/Concerns: Post-operative nausea & vomiting (PONV) History of PONV Yes Motion sickness: Yes Review of Systems Cardiovascular: negative for chest pain, chest pressure/discomfort, [...] negative Hepatic: negative Hematologic: Negative Onc: negative Grinder Operator External Tool: Endometriosis and ovarian cyst. PHYSICAL EXAM BP 130/84 Pulse 93 Ht [...] edema LABS Lab Results Component Value Date/Time WBC 5.4 11/27/2017 12:56 PM HEMOGLOBIN 14.8 11/27/2017 12:56 PM HEMATOCRIT 42.6 11/27/2017 12:56 PM PLATELETS 261 11/27/2017 12:56 PM MCV 85.0 11/27/2017 12:56 PM Lab Results Component Value Date/Time SODIUM 140 11/27/2017 12:56 PM POTASSIUM 4.0 11/27/2017 12:56 PM CHLORIDE 101 11/27/2017 12:56 PM CO2 24 11/27/2017 12:56 PM CALCIUM 9.2 11/27/2017 12:56 PM BUN 8 11/27/2017 12:56 PM CREATININE 1.11 (H) 11/27/2017 12:56 PM GLUCOSE 84 11/27/2017 12:56 PM ANION GAP 15 11/27/2017 12:56 PM No results found for: INR, PT, PROTIMEPOC Lab Results Component Value Date/Time HCG QUAL URINE Negative 01/11/2018 09:11 AM EKG: EKG not indicated today Other Studies/Considerations: None 02/16/18 Polysomnography IMPRESSION 1. There is no evidence of significant obstructive sleep apnea. 2. There is no evidence of significant periodic limb movement disorder. 11/28/10 Laryngoscopy Findings Nasal cavities Septum Moderate deviation left Turbinate enlargement Moderate deviation left ? Nasopharynx Patent Pharyngeal isthmus shape Intermediate type ? Palate and Uvula Redundant Tonsils +++ ? Lateral Pharyngeal Folds Redundant Palatopharyngeous folds/muscle Redundant Base of Tongue Redundant Tongue retro-displacement No Hypopharynx Patent ? Valeculla Occluded Epiglottis Normal Glottis Patent Snoring Stimulation/Luther maneuver Retro-palatal collapse/flutter Yes Risks/Alternatives discussed. Questions solicited and answered. Yes Postop pain management discussed yes Smoking/Tobacco Counseling: None Recommendations:Nausea prophylaxis ATTESTATIONS (Not in a hospital admission) I obtained, updated or reviewed the patient's current medications including dosage, frequency, and route of administration. This information was obtained directly from the patient or branch sales and service representative or caregiver or another available healthcare resource and updated in [facility] EMR. History Smoking Status ??? Never Smoker Smokeless Tobacco ??? Never Used Patient screened for tobacco use and identified as a Non-User of tobacco. REPORT AND NECESSARY FOLLOW-UP History and physical performed in [facility]; tests (ECG, blood work) reviewed. Abnormal Results Found: no Further Testing or Evaluation Required: no Final [facility] Review: May proceed with procedure/surgery: yes Patient had a negative sleep study 01/2018 Ivana Jacinto NP * Krista-OP - Judit Pepe RN - 03/04/2018 1:50 PM CDT Images from the original note were not included. [facility] Pre-Procedure Instructions PACE PACE Name: Holly Flores Age: 32 y.o. Please report to the: [x] Surgery Center Date of Procedure: 03/18/18 Arrive at the time your surgeon's office has instructed. If you are unsure of the arrival time, please call your surgeon's office 24-48 hours before your surgery to confirm. PLEASE NOTIFY your surgeon promptly if you begin to feel ill prior to your surgery. A cold, sore throat, fever, or flu may require postponing the surgery to another date for your safety. Please follow these important instructions PRE-PROCEDURE DIETARY INSTRUCTIONS ?? Do not eat solid food after midnight prior to your procedure including dairy or formula products. ?? Children may be breast fed 3 hours prior to arrival to the facility. ?? Do not consume energy drinks containing high levels of caffeine after midnight prior to your procedure. ?? You may consume clear fluids up to 2 hours prior to arrival unless the surgeon instructs you otherwise. ?? Examples of clear liquids include: Water; Gatorade or similar clear fluids with electrolytes arepreferred; carbonated beverages such as soda or sparkling water; tea and clear fruit juices withoutpulp such as apple, cranberry, or grape are allowed yet discouraged due to the acidity of the juices. WITHIN 24 HOURS PRIOR TO SURGERY ?? SHOWER AND SHAMPOO the evening before surgery using anti-bacterial soap. ?? DO NOT shave near the surgical site. ?? After showering the morning of surgery, DO NOT APPLY body lotions, oil, deodorants, mousse, gel,or powder. Apply no lotions, gels or creams at bedtime for infant's last diaper change prior to schedule surgery. ?? DO NOT WEAR JEWELRY (rings, earrings, and body piercings), or hair pieces to the hospital. ?? SMOKING AND USE OF TOBACCO PRODUCTS We recommend patients abstain from smoking for as long as possible before and after surgery, but even quitting for a brief period is still beneficial. DO NOT SMOKE OR USE TOBACCO PRODUCTS 12 hours before arrival to hospital. ?? PLEASE DO NOT EAT anything--including GUM, CANDY, or MINTS--after midnight. You may BRUSH YOUR TEETH. DAY OF SURGERY INSTRUCTIONS ?? YOU WILL NEED A RESPONSIBLE ADULT UPON DISCHARGE. ?? BRING a comfort item day of surgery. ?? BRING PRESCRIBED INHALERS to the hospital with you but DO NOT BRING ANY OTHER MEDICATIONS to thespital (unless otherwise instructed). ?? WEAR comfortable, loose fitting clothes or PJs to the hospital. ?? WEAR GLASSES instead of contact lenses to the hospital; bring a case if possible for glasses, dentures, and hearing aids as you will be asked to remove these items before your surgery. ?? PARENTS bring your insurance cards and courtesy van driver's license or photo ID. DO NOT BRING VALUABLES or large amounts of torres with you to the hospital. ?? Surgical times are estimates and can vary depending on numerous factors. ?? Expect a minimum post-op recovery of 1 hour. The medical staff will provide updates to family and/or friends as appropriate. .ADVANCED PLANNING FOR MEDICATION USE STOP taking for Seven (7) days prior to surgery any UNPRESCRIBED NSAIDS such as Motrin, Ibuprofen, Aleve, Naporsyn, Aspirin, Excedrin, vitamins or supplements. You may take Tylenol if needed. Pre-Surgery Instructions: Medication Instructions ??? fluticasone (FLONASE) 50 mcg/spray [place], Suspension Continue taking as prescribed ??? fluticasone-salmeterol [...] 90 mcg inhaler Continue taking as prescribed * Krista-OP - Judit Pepe RN - 03/04/2018 1:50 PM CDT Patient instructed to use the provided Chlorhexidine soap sponge(s) to clean the surgical site while in the shower the night before surgery and repeat same instructions the morning of surgery. Written detailed instructions reviewed with patient. Patient verbalized understanding of shower and soaps.Pt aware not to shave the surgical site.Patient instructed to stop taking vitamins and herbal supplements 7 days prior to scheduled surgery date. Patient also instructed to stop taking aspirin and NSAIDs (unless instructed otherwise by surgeon) 7 days prior to their scheduled surgery date.Patient was instructed to avoid shaving the surgical site for 24 hours prior to surgery. Patient instructed to not use/wear lotion, oils, cream or deodorant day of surgery. documented in this encounter Plan of Treatment Not on file documented as of this encounter Procedures Procedure Name Priority Date/Time Associated Diagnosis Comments EDUCATION ANESTHESIA (ADULT) Routine 03/04/2018 1:46 PM CDT URINALYSIS WITH REFLEX CULTURE Stat 03/04/2018 1:46 PM CDT CBC WITHOUT DIFFERENTIAL Stat 03/04/2018 1:46 PM CDT TYPE AND SCREEN Stat 03/04/2018 1:46 PM CDT documented in this encounter Results * EDUCATION ANESTHESIA (ADULT) - MAXINE (03/04/2018 1:46 PM CDT) Education Name ANESTHESIA (ADULT) MAXINE EDUCATION INTERFACE Education URL [email or web address] MAXINE EDUCATION INTERFACE EDUCATION ACCESS CODE [id number] MAXINE EDUCATION INTERFACE EDUCATION ISSUE DATE Mar 04, 2018 MAXINE EDUCATION INTERFACE EDUCATION START DATE Mar 04, 2018 MAXINE EDUCATION INTERFACE EDUCATION COMPLETED DATE This program was partially completed but flagged as on: Apr 04, 2018 MAXINE EDUCATION INTERFACE EDUCATION EXPIRATION DATE Apr 03, 2018 MAXINE EDUCATION INTERFACE EDUCATION MESSAGE EVENT MAXINE EDUCATION INTERFACE 03/04/2018 1:46 PM CDT Martinez Walker MD EXTERNAL EDUCATION O RDERABLES MAXINE EDUCATION INTERFACE * URINALYSIS WITH REFLEX CULTURE (03/04/2018 1:46 PM CDT) COLOR UA Yellow Pale to Dark Yellow 03/04/2018 4:04 PM CDT [facility] CLARITY UA Clear Clear 03/04/2018 4:04 PM CDT [facility] SPECIFIC GRAVITY UA 1.013 1.003 - 1.035 03/04/2018 4:04 PM CDT [facility] PH UA 7.0 5.0 - 8.0 03/04/2018 4:04 PM CDT [facility] LEUKOCYTE ESTERASE UA Negative Negative 03/04/2018 4:04 PM CDT [facility] NITRITE UA Negative Negative 03/04/2018 4:04 PM CDT [facility] PROTEIN UA Negative Negative 03/04/2018 4:04 PM T [facility] GLUCOSE UA Negative Negative 03/04/2018 4:04 PM T [facility] KETONES UA Negative Negative 03/04/2018 4:04 PM CDT [facility] UROBILINOGEN UA Normal <2.0 mg/dL 8 4:04 PM CDT [facility] BILIRUBIN UA Negative Negative 03/04/2018 4:04 PM CDT [facility] BLOOD UA Negative Negative 03/04/2018 4:04 PM CDT [facility] Urine URINE SPECIMEN OBTAINED BY CLEAN CATCH PROCEDURE / Unknown Collection / Unknown 03/04/2018 1:46 PM CDT 03/04/2018 3:41 PM CDT Martinez Walker MD URINE ORDERABLES Performing Organization Address [facility] Co de Phone Number [facility] [employer] [facility] CLIA# [id number] [address] [place] [address] * TYPE AND SCREEN (03/04/2018 1:46 PM CDT) Pathologist [facility] ANTIBODY SCREEN Negative 03/04/2018 7:57 PM CDT [facility] Comment:This result is arnaldo ed from POS result, resulted on 03/04/2018 6:02:10 PM ABO GROUP A 03/04/2018 7:57 PM CDT [facility] RH (D) TYPE Positive 03/04/2018 7:57 PM CDT [facility] Blood Venipuncture / Unknown 03/04/2018 1:46 PM CDT 03/04/2018 2:46 PM CDT Martinez Walker MD BLOOD BANK ORDERABLE S Performing Organization Address City/[facility] Co de Phone Number [facility] [employer] [facility] CLIA# [id number] [address] [place] [address] * CBC WITHOUT DIFFERENTIAL (03/04/2018 1:46 PM CDT) [facility] WBC 5.5 4.0 - 9.8 K/uL 03/04/2018 2:56 PM CDT [facility] RBC 4.71 3.90 - 4.90 M/uL 03/04/2018 2:56 PM CDT [facility] HEMOGLOBIN 13.7 11.8 - 14.8 g/dL 03/04/2018 2:56 PM CDT [facility] HEMATOCRIT 40.5 35.5 - 44.0 % 03/04/2018 2:56 PM CDT [facility] MCV 86.0 82.0 - 99.0 fL 03/04/2018 2:56 PM CDT [facility] MCH 29.1 27.2 - 32.6 pg 03/04/2018 2:56 PM CDT [facility] - . [facility] MCHC 33.8 31.5 - 35.5 g/dL 03/04/2018 2:56 PM CDT [facility] - . [facility] PLATELETS 284 140 - 350 K/uL 03/04/2018 2:56 PM CDT [facility] - . [facility] MPV 9.5 9.3 - 12.4 fL 03/04/2018 2:56 PM CDT [facility] - . [facility] RDW 12.6 11.5 - 14.5 % 03/04/2018 2:56 PM CDT [facility] - . [facility] RDW-STDEV 39.5 37.1 - 48.7 fL 03/04/2018 2:56 PM CDT [facility] Blood Venipuncture / Unknown 03/04/2018 1:46 PM CDT 03/04/2018 2:46 PM CDT Martinez Walker MD HEMATOLOGY ORDERABLE S [id number] [address] [place] [address] documented in this encounter Visit Diagnoses Not on filedocumented in this encounter Care Teams Traffic Maintenance Officer Relationship Specialty Start Date End Date Clovis Johnson MD PCP - General Family Practice 08/17/17 documented as of this encounter
--- OUTSIDE RECORDS SUMMARY | 2024-07-10 00:22 | XMS_ITS | Encounter Summary ---
Author Organization [facility] Address [address] [place] [address] Care Team Providers Care Brush Cleaner Name Role Phone Clovis Johnson MD Primary Care Provider [phone] Reason for Visit * Reason Comments Post-op Visit Encounter Details Date Type Department Care Team (Late st Contact Info) Description 04/05/2018 2:30 PM CDT Office Visit [facility] [address] [place] [address] Martinez Walker MD [address] [place] [address] Postop check (Primary Dx) Social History Tobacco Use Types [...] Sign Reading Time Taken Comments Blood Pressure 118/80 04/05/2018 2:20 PM CDT Pulse - - Temperature - - Respiratory Rate - - Oxygen Saturation - - Inhaled Oxygen Concentration - - Weight 101.2 kg (223 lb) 04/05/2018 2:20 PM CDT Height 170.2 cm (5' 7 ) 04/05/2018 2:20 PM CDT Body Mass Index 34.93 04/05/2018 2:20 PM CDT documented in this encounter Progress Notes * Martinze Walker MD - 04/05/2018 2:42 PM CDT [facility] Holly Flores 04/05/2018 2:42 PM [id number] Subjective: Ms. Flores is a 32 y.o. who presents today for post-op visit. She is now 2 weeksstatus post Laparoscopic hysterectomy with LSO. She reports recovering well. Pain is incisional, mild. She is afebrile, has a good appetite, and denies any nausea or vomiting. She is ambulating and voiding without difficulty. Bowel movements are per usual. Objective: BP 118/80 Ht 5' 7 (1.702 m) Wt 101.2 kg (223 lb) LMP 03/18/2014 BMI 34.93 kg/m?? General appearance: Alert, in no distress Abdomen: Soft, non-tender. No masses, no organomegaly. Extremities: Extremities normal, atraumatic, no cyanosis or edema, moves all extremities equally, no edema, redness or tenderness in the calves or thighs Skin: Skin color, texture, turgor normal. No rashes or lesions Incision: Clean, dry, and intact. No erythema or drainage. A/P: 32 y.o. female presents for Post-op Visit ?? Recovering well with no evidence of post-operative complication ?? Discussed surgical procedure and operative findings ?? Reviewed pathology results -pain was most likely secondary to pelvic congestion, which resolved postsurgically ?? We additionally discussed the finding of KESHAWN-3, and the need that she undergo Pap smears of the vaginal cuff for an additional 20 years ?? Reviewed surgical recovery and post-operative restrictions ?? Return to office in 4 week(s) Martinez Walker MD Co-Director [facility] [address] [facility], [facility] [address] [place], [place] Office: documented in this encounter Plan of Treatment Not on file documented as of this encounter Visit Diagnoses Diagnosis Postop check- Primary Follow-up examination, following unspecified surgery documented in this encounter Care Teams Brush Cleaner Relationship Specialty Start Date End Date Clovis Johnson MD PCP - General Family Practice 08/17/17 documented as of this encounter
--- OUTSIDE RECORDS SUMMARY | 2024-07-10 00:23 | XMS_ITS | Encounter Summary ---
Author Organization [facility] Address [address] [place] [address] Care Team Providers Care Top Former Name Role Phone Clovis Johnson MD Primary Care Provider [phone] Reason for Referral * Outpatient Services (Routine) - Closed Specialty Diagnoses / Procedures Referred By Contac t Referred To Contact Diagnoses Pelvic pain in female Kailey Burleson MD [address] [address] [facility] - [place] [address] Referral ID Status Reason Start Date Expiration Date V isits Requested Visits Authorized [id number] Closed [facility] CTS 12/01/2017 03/03/2018 6 6 Scheduling Instructions Needs pelvic PT for pelvic pain Reason for Visit * Reason Comments Well Woman Exam Encounter Details Date Type Department Care Team (Late st Contact Info) Description 12/01/2017 2:00 PM CDT Office Visit [facility]LESS [facility] - [facility] [address] [place] [address] Kailey Burleson MD [address] [address] Pelvic pain in female (Primary Dx); Dysmenorrhea; History of ovarian cyst; Screening for cervical cancer Social History Tobacco Use Types Packs/Day Years [...] Sign Reading Time Taken Comments Blood Pressure 140/90 12/01/2017 2:06 PM CDT Pulse - - Temperature - - Respiratory Rate - - Oxygen Saturation - - Inhaled Oxygen Concentration - - Weight 105.7 kg (233 lb) 12/01/2017 2:06 PM CDT Height 170.2 cm (5' 7 ) 12/01/2017 2:06 PM CDT Body Mass Index 36.49 12/01/2017 2:06 PM CDT documented in this encounter Progress Notes * Kailey Burleson MD - 12/01/2017 2:22 PM CDT CC: Pelvic pain HPI: 32 y.o. female presents for pelvic pain. No LMP recorded. Patient has had an implant.. Complains of pelvic pain since age 15. At young age had very heavy menses with significant dysmenorrhea and PMDD. Was started on prozac and then went on control, which helped managed. Even with contraception, would have painful menses and did best when didn't have menses. Has seen a GI doc and hadcolonoscopy, but was given clear. Ibuprofen and tylenol take the edge off of the pain, but does notmake it resolve. Pain is accompanied with dizziness, nausea. Has exacerbations every couple months for ~1wk. Pain is diffusely across lower abdomen, but more on left. Worse with walking and activity.Denies vaginal discharge or anyother concerns. Has never had a diagnostic laparoscopy, pelvic PT, or Lupron Key Operator History: -Last pap smear: 06/2016 Normal cytology. Denies history of abnormal paps -Amenorrheic with Mirena -Denies history of STIs -Contraception: Mirena (placed ~4yrs ago) - Sexually active: Yes OB History: OB History Para Term AB Living 1 1 1 1 SAB TAB Ectopic Multiple Live Births 1 # Outcome Date GA Lbr Lam/2nd Weight Sex Delivery Anes PTL Lv 1 Term 03/2013 M Vag-Spont HANS Medical History: Past Medical History: Diagnosis Date ??? Asthma ??? Chronic abdominal pain ??? Depression ??? GI bleed ??? Headache ??? Obstructive sleep apnea Surgical History: Past Surgical History: Procedure Laterality Date ??? HX LIPOMA RESECTION ??? HX WISDOM TEETH EXTRACTION ??? [place] COLONOSCOPY FLX DX W/COLLJ SPEC WHEN PFRMD N/A 10/01/2017 COLONOSCOPY performed by Gina Lan MD at [facility] Social History: Social History Social [...] History Narrative ??? No narrative on file Family History: MGM with breast cancer (dx 70's) Denies family history of ovarian or colon cancer. Denies family history of bleeding or clotting disorders. Medications: Prior to Admission medications Medication Sig Start Date End Date Taking? Authorizing Provider acetaminophen (TYLENOL) 325 mg tablet Take by mouth every 4 hours as needed. Provider, Historical ibuprofen (MOTRIN) 200 mg tablet Take 200 mg by mouth every 6 hours as needed for Pain, Mild. Provider, Historical levonorgestrel (MIRENA) 20 mcg/24 hr (5 years) IUD by Intrauterine route. Provider, Historical hyoscyamine 0.125 mg tablet Take 1 Tablet (0.125 mg) by mouth every 4 hours as needed for Spasm. 11/27/17 Geri Fox MD fexofenadine (SRIDEVI) 180 mg tablet Take 180 mg by mouth daily. Provider, Historical FLUOXETINE HCL (PROZAC ORAL) Take 80 mg by mouth. 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 Provider, Historical methylphenidate HCl (RITALIN) 10 mg tablet Take 10 mg by mouth 2 times daily. Provider, Historical traZODone (DESYREL) 50 mg tablet Take 50 mg by mouth daily at bedtime. Provider, Historical albuterol HFA 90 mcg inhaler Take 2 Puffs by inhalation every 6 hours as needed for Shortness of Breath. Provider, Historical Allergies: No Known Allergies Review of Systems: No GARCIA/vision changes/RUQ pain No dyspnea/CP/palpitations No nausea/vomitting/fevers/chills/diarrhea No dysuria/hematuria/urinary urgency/frequency Objective: Vitals: 12/01/17 1406 BP: (!) 140/90 Last documented weight: Weight: 105.7 kg (233 lb) (12/01/17 1406) Body mass index is 36.49 kg/m??. Physical Exam: General: alert, cooperative, no distress HEENT: NCAT, normal thyroid Cardiovascular: regular rate and rhythm Pulmonary: clear to auscultation bilaterally Breast: Normal appearance. No masses palpated, non-tender Abdomen: soft, diffusely tender in lower quadrants left>right, ND Female Genitalia: External genitalia and introitus normal, cervix visually normal. On bimanual, small midposition uterus and no adnexal masses noted, tender with entire exam particularly on left. Pain noted at introitus along entire pelvic floor Extremities: normal, non-tender bilaterally, no lower extremity edema Lab Review: None Screening: Last pap:06/2016 Normal cytology Assessment/Plan: 32 y.o. female here for pelvic pain 1. Pelvic pain: Going on for many years with minimal improvement. Also recently had ovarian cyst that became very painful for patient. Has Mirena in place, which we discussed does not stop ovulation.Concern for endometriosis- trial of Depo, which mildly improved her pain previously. Also plan for pelvic PT- will set up with U[facility] in [place], [place]. Consider Lupron or referral to [facility] if minimal improvement. 2. Screening for cervical cancer: Pap performed today. 3. RTC 3mos for follow up I spent 30 minutes with this patient, with greater than 50% of this time spent counseling them regarding pelvic pain and plan of care. Kailey Burleson MD documented in this encounter Plan of Treatment Scheduled Referrals Name Type Priority Associated Diagnoses Orde r Schedule AMB REFERRAL TO PHYSICAL THERAPY Outpatient Referral Routine Pelvic pain in female Ordered: 12/01/2017 documented as of this encounter Procedures Procedure Name Priority Date/Time Associated Diagnosis Comments CERV/VAG CYTO SCREEN PAP W/HPV Routine 12/01/2017 2:04 PM CDT documented in this encounter Results * (ABNORMAL) CERV/VAG CYTOPATH, THIN PREP HEAD WAITRESS AND HPV (12/01/2017 2:04 PM CDT) CLINICAL INFORMATION SEE COMMENT 12/08/2017 11:27 AM CDT [facility] Comment:Information not prov ided LAST MENSTRUAL PERIOD SEE COMMENT 12/08/2017 11:27 AM CDT [facility] Comment:Information not prov ided PREV PAP: SEE COMMENT 12/08/2017 11:27 AM CDT [facility] Comment:Information not prov ided PREV BX: SEE COMMENT 12/08/2017 11:27 AM CDT [facility] Comment:Information not prov ided SOURCE Endocervix 12/08/2017 11:27 AM CDT [facility] ADEQUACY: SEE COMMENT 12/08/2017 11:27 AM CDT [facility] Comment: Satisfactory for evaluation. Endocervical/transformation zone component present. GENERAL CATEGORIZATION: SEE COMMENT(A) 12/08/2017 11:27 AM CDT [facility] Comment:EPITHELIAL CELL ABNO RMALITY PAP INTERP SEE COMMENT(A) 12/08/2017 11:27 AM CDT [facility] Comment:Low Grade Squamous I ntraepithelial Lesion (LSIL) COMMENT SEE COMMENT 12/08/2017 11:27 AM CDT [facility] Comment: This Pap test has been evaluated with computer assisted technology. Suggest clinical correlation and follow-up as clinically appropriate Nix portions of this case have been reviewed by one or more pathologists. COMMUNICATIONS DEPARTMENT HEAD: SEE COMMENT 2017 11:27 AM CDT [facility] Comment: LMT, CT(ASCP) CT screening location: [place] [address] [place] [address] PATHOLOGIST SEE COMMENT 12/08/2017 11:27 AM CDT [facility] Comment: Emil Jimenez M.D., Board Certified in Anatomic Pathology and Cytopathology. (electronic signature) EXPLANATORY NOTE SEE COMMENT 018 11:27 AM CDT [facility] Comment: EXPLANATORY NOTE: The Pap is a screening test for cervical cancer. It is not a diagnostic test and is subject to false negative and false positive results. It is most reliable when a satisfactory sample, regularly obtained, is submitted with relevant clinical findings and history, and when the Pap result is evaluated along with historic and current clinical information. HPV E6/E7 Detected(A) Not Detected 12/08/2017 11:27 AM CDT [facility] Comment: This test was performed using the APTIMA HPV Assay ([employer] ? This assay detects E6/E7 viral messenger RNA (mRNA) from 14 high-risk HPV types (16,18,31,33,35,39,45,51,52,56,58,59,66,68). Genital SWAB OF ENDOCERVIX / Unknown Collection / Unknown 12/01/2017 2:04 PM CDT 12/01/2017 8:57 PM CDT Narrative [facility] - 12/08/2017 11:27 AM CDT Performing Organization Information: ?Site ID: [id number] ?Name: [facility] ?Address: [address] [place] [address] [place] [address] ?Director: Dorothy Agrawal October Benjy WADE PATHOLOGY/CYTOLOGY [facility] documented in this encounter Visit Diagnoses Diagnosis Pelvic pain in female- Primary Unspecified symptom associated with female genital organs Dysmenorrhea History of ovarian cyst Personal history of other genital system and obstetric disorders Screening for cervical cancer Screening for malignant neoplasm of the cervix documented in this encounter Care Teams Top Former Relationship Specialty Start Date End Date Clovis Johnson MD PCP - General Family Practice 08/17/17 documented as of this encounter
--- OUTSIDE RECORDS SUMMARY | 2024-07-10 00:23 | XMS_ITS | Encounter Summary ---
Author Organization [facility] Address [address] [place] [address] Care Team Providers Care Mine Supervisor Name Role Phone Clovis Johnson MD Primary Care Provider [phone] Reason for Visit * Auth/Cert Specialty Diagnoses / Procedures Referred By Contac t Referred To Contact Diagnoses Hematochezia Gina Lan MD [address] [facility] [address] [place] [address] Referral ID Status Reason Start Date Expiration Date Visits Re quested Visits Authorized [id number] 09/16/2017 1 1 Encounter Details Date Type Department Care Team (Latest Contact Info) Description 10/01/2017 11:04 AM CDT - 10/01/2017 12:56 PM CDT Hospital Encounter [facility] [address] [place] [place] [address] iGna Lan MD [address] [facility] [address] [place] [address] Hematochezia Discharge Disposition: Home or Self Care Social History Tobacco Use Types Packs/Day Years Used Date Smoking Tobacco: Never Smokeless Tobacco: Never Alcohol Use Standard Drinks/Week Comments Yes 0 (1 standard drink = 0.6 oz pur e alcohol) 2-3x a week Sex and Gender Information Value Date Recorded Sex Assigned at Not on file Gender Identity Not on file Sexual Orientation Not on file documented as of this encounter Last Filed Vital Signs Vital Sign Reading Time Taken Comments Blood Pressure 122/78 10/01/2017 12:42 PM CDT Pulse 74 10/01/2017 12:42 PM CDT Temperature 36.1 ??C (96.9 ??F) 10/01/2017 12:35 PM C DT Respiratory Rate 18 10/01/2017 12:42 PM CDT Oxygen Saturation 100% 10/01/2017 12:42 PM CDT Inhaled Oxygen Concentration - - Weight 105.7 kg (233 lb) 10/01/2017 11:42 AM CDT Height 170.2 cm (5' 7 ) 10/01/2017 11:42 AM CDT Body Mass Index 36.49 10/01/2017 11:42 AM CDT documented in this encounter Discharge Instructions * Discharge Instructions* Gina Lan MD - 10/01/2017 12:24 PM CDT Instructions after Colonoscopy After a colonoscopy it is normal to experience some minor ???gas pains?? because of the air that was introduced to your colon during the procedure. Tylenol will help to relieve any discomfort. You may not have a bowel movement for 1-3 days because of the colonoscopy prep. This is normal. DO NOT drink alcohol until tomorrow. DO NOT drive, operate machinery, make critical decisions until tomorrow. Limit activities that require coordination or balance for 24 hours. Resume your previous diet unless otherwise instructed. Resume your previous medications unless otherwise instructed. Notify your physician if you develop any of the following: ??? Severe pain ??? Fever of 101 degrees F ??? Large amount of bleeding, passing large blood clots, or black tarry stools ??? Redness or soreness at the IV site ??? Persistent cough with fever If tissue samples were taken during the procedure, you will be notified by phone or mail with the results. If you have not been notified within two weeks, please call the office. 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 methylphenidate HCl (RITALIN) 10 mg tablet Take 10 mg by mouth 2 times daily. albuterol HFA 90 mcg inhaler Take 2 Puffs by inhalation every 6 hours as needed for Shortness of Breath. FLUOXETINE HCL (PROZAC ORAL) Take 40 mg by mouth . 2017 traZODone (DESYREL) 50 mg tablet Take 100 mg by mouth daily at bedtime . 05/03/2018 documented as of this encounter H&P Notes * Gina Lan MD - 10/01/2017 12:03 PM CDT [facility] Pre-Endoscopy History & Physical Date: 10/01/2017 Patient: Holly Flores / 32 y.o. / female : 1985 CSN: [id number] Planned procedure: colonoscopy with possible biopsy/polypectomy SUBJECTIVE: Holly Flores is a 32 y.o. female presents for colonoscopy to further evaluate hematochezia and left sided abdominal pain. Hematochezia has improved. LLQ pain continues. Review of Systems: General: no unintentional weight loss HEENT: no acute changes in vision Respiratory: no shortness of breath Cardiovascular: no chest pain Gastrointestinal: as per HPI Genitourinary: no dysuria Musculoskeletal: no new joint discomfort Neuro: no headache Skin: no obvious rashes or lesions on visualized skin Hematology: no abnormal bruising Past Medical History: Diagnosis Date ??? Asthma ??? Chronic abdominal pain ??? Depression ??? GI bleed ??? Headache ??? Obstructive sleep apnea Past Surgical History: Procedure Laterality Date ??? HX LIPOMA RESECTION ??? HX WISDOM TEETH EXTRACTION History Smoking Status ??? Never Smoker Smokeless Tobacco ??? Never Used History Alcohol Use ??? Yes Comment: 2-3x a week Family History Problem Relation Age of Onset ??? Breast Cancer Maternal Grandmother ??? Ovarian Cancer Maternal Grandmother ??? Uterine Cancer Maternal Grandmother ??? Crohn's Disease Maternal Aunt ??? Inflammatory Bowel Disease Maternal Aunt ??? Other Mother bolton's esophagus ??? Colon Cancer Neg Hx No Known Allergies Current Facility-Administered Medications Medication Dose Route Frequency Provider Last Rate Last Dose ??? lactated Ringers solution IV Pre-Proc Continuous Gina Lan MD 125 mL/hr at 10/01/17 1155 OBJECTIVE: BP (!) 155/80 (BP Location: Right arm, Patient Position (BP): Sitting) Pulse 97 Resp 18 Ht 5'7 (1.702 m) Wt 105.7 kg (233 lb) SpO2 97% BMI 36.49 kg/m?? General: pleasant, laying in bed, no distress HEENT: conjunctivae clear Lungs: clear to auscultation bilaterally Heart: regular rate and rhythm Abdomen: soft, non-tender, non-distended, bowel sounds present Extremities: no pedal edema Skin: no obvious rashes or lesions on visualized skin Neuro: alert, cooperative, no gross focal signs on exam ASA classification per anesthesia ASSESSMENT: 1. Colonoscopy PLAN: - Indications for procedure as noted in HPI. - The patient was informed of the indications for the procedure, the risks/benefits and the alternatives, and agreed to proceed. In particular, the patient was informed of the risk of perforation/ (1:1000), medication side effect, infection, a missed lesion, or incomplete examination. In the case of dilatation, the patient was informed of the risk of perforation (1 to 5%). - Will proceed with the above mentioned procedure(s) as scheduled. Gina Lan MD Gastroenterology [facility] documented in this encounter Procedure Notes * Gina Lan MD - 10/01/2017 12:34 PM CDTAssociated Order(s): GI REPORT [facility] Endoscopy Patient Name: Holly Flores Procedure Date: 10/01/2017 Date of : 1985 Admit Type: Outpatient Attending MD: Gina Lan MD Procedure: Colonoscopy Indications: Hematochezia Patient Profile: 32 yo with hematochezia and LLQ abdominal pain, here for evaluation Providers: Gina Lan MD Referring MD: Clovis Johnson MD Medicines: Monitored Anesthesia Care Complications: No immediate complications. Procedure: Informed consent was obtained for the procedure, including moderate sedation after risks were discussed. Based on the pre-procedure assessment, including review of the patient's medical history, medications, allergies, and review of systems, the patient was deemed to be an appropriate candidate for sedation. A timeout was performed. Continuous ECG monitoring, pulse oximetry, blood pressure monitoring, and direct observation were performed. The scope was introduced through the anus and advanced to the terminal ileum. The colonoscopy was performed without difficulty. The patient tolerated the procedure well. The quality of the bowel preparation was evaluated using the BBPS ([place] Bowel Preparation Scale) with scores of: Right Colon = 2 (minor amount of residual staining, small fragments of stool and/or opaque liquid, but mucosa seen well), Transverse Colon = 3 (entire mucosa seen well with no residual staining, small fragments of stool or opaque liquid) and Left Colon = 3 (entire mucosa seen well with no residual staining, small fragments of stool or opaque liquid). The total BBPS score equals 8. The quality of the bowel preparation was good. The terminal ileum, ileocecal valve, appendiceal orifice, and rectum were photographed. Estimated Blood Loss: Estimated blood loss: none. Findings: The perianal and digital rectal examinations were normal. The terminal ileum appeared normal. A 3 mm polyp was found in the ascending colon. The polyp was sessile. The polyp was removed with a cold snare. Resection and retrieval were complete. The retroflexed view of the distal rectum and anal verge was normal and showed no anal or rectal abnormalities. Moderate Sedation: None Impression: - The examined portion of the ileum was normal. - One 3 mm polyp in the ascending colon, removed with a cold snare. Resected and retrieved. - The distal rectum and anal verge are normal on retroflexion view. Recommendation: - Await pathology results. - Repeat colonoscopy for surveillance based on pathology results. - Return to GI office in 6 months. iGna Lan MD 10/01/2017 12:34:46 PM This report has been signed electronically. Number of Addenda: [address]; [place] [address] documented in this encounter OR Notes * Krista-OP - Zulma Zavala RN - 10/01/2017 11:39 AM CDT Routine Pre-Anesthesia Protocol for GI Lab Procedures ?? [facility] ? ORDERS ARE ENTERED ???PER PROTOCOL? Enter the protocol in the patient???s electronic health record using [employer]: .anestprotocolgilab ?? NURSING ORDERS: Monitoring: ?? Obtain and record vital signs ?? Continuous vital signs (Non-invasive blood pressure, pulse oximetry and cardiac monitoring) for all inpatients and all patients currently taking beta-blockers ?? Place #20 gauge IV in non-dominant, non-operative or not otherwise excluded upper extremity ?? Contact responsible anesthesiologist if recommending use of a #22 gauge IV ?? See medication section for local Anesthetic to use to initiate IV ?? LABORATORY ORDERS: Screening Protocol: ? Urine bHCG (serum if necessary) Female of menses, or age > 12 y/o ?? Point of Care Testing: FOR PATIENTS WITH A HISTORY OF DIABETES, RECEIVING INSULIN, OR EXHIBITING SIGNS AND SYMPTOMS OF HYPOGLYCEMIA. ? POC glucose on initial assessment ?? POC glucose every 4 hours if NPO ?? POC glucose within 30 minutes of discharge or transfer to another unit (the time based intra-procedure POC check may be deferred during short procedures at the discretion of the provider) ?? POC for any patient exhibiting signs and symptoms of hypoglycemia ?? If POC Glucose results are critical, do not delay treatment. If appropriate, may confirm POC with: Nursing Only [id number] (this lab can be obtained at no cost to the patient when confirming a criticalhigh or critical low POC glucose ?? MEDICATION ORDERS: ? Local Anesthetic to use to initiate IV line: Lidocaine 2% 0.3mL intradermal ONE TIME to numb area of IV catheter insertion PRN. ?IV Fluid - Adult patients (age 18 years or greater): ? Lactated ringer???s solution to infuse at 125mL/hr, may discontinue upon discharge from procedure area ?? Patient specific modification as indicated: ? If patient is found to have a serum creatinine >2 or history of renal failure, RN may change fluid to NS at 10ml/hr ?? Contact provider to consider dextrose containing fluids for: ? NPO patients who have received PO or injectable antihyperglycemic agents and glucose is less than 100 mg/dl ?? NPO patients who have NOT received PO or injectable antiHYPERglycemic agents and POC glucose is less than 70 mg/dL. ? When receiving report on an inpatient, confirm if patient is receiving dextrose containing fluids to prevent hypoglycemia. Communicate with the anesthesiologist and request glucose containing fluids be continued or added to intraoperative fluids. ?? Any time a patient???s enteral or parenteral nutrition is interrupted for longer than four hoursand POC glucose or serum glucose is less than 100 mg/dL contact provider for dextrose containing fluids ? Notify provider for any POC glucose or serum glucose less than 70 mg/dL. RESCUE MEDICATION ORDERS - entered by the Pharmacist supervisor alteration workroom ? Meter Glucose less than 70, patient CONSCIOUS, able to swallow and allowed oral intake: ?? ? Give carbohydrates orally, choose one: ?? Give 15 gram food choice such as: Regular soda (6 oz), Apple juice (4 oz), Sugar, 1 tablespoon (4 packets or 5 cubes), or 1 container regular Jello. ?? Reminder: avoid mixing sugar into a drink such as soda or juice, as this will constitute 30 grams of carbs with the sugar and drink. ? Recheck POC Glucose: ?? Recheck POC Glucose every 15 minutes and re-treat with 15 grams of carbohydrates until blood glucose is 70 mg/dL or greater. Once POC glucose result is 70 mg/dL or greater after hypoglycemic episode, POC glucose to be checked every 30 minutes for 3 consecutive occurrences with results of 70 mg/dL or greater, then resume previous POC Glucose check orders. ? Meter Glucose less than 70, IV Access, patient UNCONSCIOUS, unable to swallow and/or NPO ?? ? Give dextrose IV: ?? Dextrose 50%, give 12.5grams IV push ONE TIME ? Recheck POC Glucose: ?? Recheck POC Glucose and re-treat every 15 minutes with 12.5 g of Dextrose 50%. Once POC Glucose 70 mg/dL or greater after hypoglycemic episode, POC glucose to be checked every 30 minutes for 3 occurrences, then resume previous POC Glucose check orders ? Meter Glucose less than 70, NO IV Accessible, patient UNCONSCIOUS, unable to swallow and/or NPO ?? ? Give glucagon IM ?? Glucagon (GLUCAGEN) 1 mg IM ONE TIME ?? Recheck POC Glucose: ?? Recheck blood glucose 15 minutes after administration of glucagon and re- treat accordingly. After administration of glucagon is complete insert peripheral IV and notify physician. ?? Once POC Glucose result is 70 mg/dL or greater after hypoglycemic episode, POC glucose to be checked every 30 minutes for 3 consecutive occurrences with results 70 mg/dL or greater, then resume previous POC orders ?? After Hypoglycemic Symptoms Subside and NOT NPO, Give a Snack o?SNACK CHOICES: Should include 1 carb and 1 fat servin saltine crackers and 2 teaspoonspeanut butter; or 1 slice of bread and 2 teaspoons peanut butter; or 1 oz cheese and 6 saltine crackers; or 1 cup 2% milk and 6 saltine crackers. ? Initiating Department(s): 04/2009 OR; Anesthesia; Nursing; GI Lab Reviewed: 06/19/2012, 03/2015, 07/2017 Revised: 06/19/2012, 03/2015 ?Approved by: Medical Executive Committee, Nursing Leadership, Pharmacy &??Therapeutics Committee ?Date:08/2017 documented in this encounter Plan of Treatment Not on file documented as of this encounter Procedures Procedure Name Priority Date/Time Associated Diagnosis Comments GI REPORT 10/01/2017 12:36 PM CDT PATHOLOGY Pathology 10/01/2017 12:21 PM CDT Hematochezia COLONOSCOPY 10/01/2017 12:01 PM CDT Hematochezia POC , URINE Routine 10/01/2017 11:50 AM CDT documented in this encounter Results * GI REPORT (10/01/2017 12:36 PM CDT) Narrative Procedure Note Gina Lan MD - 10/01/2017 12:34 PM CDT [facility] Endoscopy Patient Name: Holly Flores Procedure Date: 10/01/2017 Date of : 1985 Admit Type: Outpatient Attending MD: Gina Lan MD Procedure: Colonoscopy Indications: Hematochezia Patient Profile: 32 yo with hematochezia and LLQ abdominal pain, here for evaluation Providers: Gina Lan MD Referring MD: Clovis Johnson MD Medicines: Monitored Anesthesia Care Complications: No immediate complications. Procedure: Informed consent was obtained for the procedure, including moderate sedation after risks were discussed. Based on the pre-procedure assessment, including review of the patient's medical history, medications, allergies, and review of systems, the patient was deemed to be an appropriate candidate for sedation. A timeout was performed. Continuous ECG monitoring, pulse oximetry, blood pressure monitoring, and direct observation were performed. The scope was introduced through the anus and advanced to the terminal ileum. The colonoscopy was performed without difficulty. The patient tolerated the procedure well. The quality of the bowel preparation was evaluated using the BBPS ([place] Bowel Preparation Scale) with scores of: Right Colon = 2 (minor amount of residual staining, small fragments of stool and/or opaque liquid, but mucosa seen well), Transverse Colon = 3 (entire mucosa seen well with no residual staining, small fragments of stool or opaque liquid) and Left Colon = 3 (entire mucosa seen well with no residual staining, small fragments of stool or opaque liquid). The total BBPS score equals 8. The quality of the bowel preparation was good. The terminal ileum, ileocecal valve, appendiceal orifice, and rectum were photographed. Estimated Blood Loss: Estimated blood loss: none. Findings: The perianal and digital rectal examinations were normal. The terminal ileum appeared normal. A 3 mm polyp was found in the ascending colon. The polyp was sessile. The polyp was removed with a cold snare. Resection and retrieval were complete. The retroflexed view of the distal rectum and anal verge was normal and showed no anal or rectal abnormalities. Moderate Sedation: None Impression: - The examined portion of the ileum was normal. - One 3 mm polyp in the ascending colon, removed with a cold snare. Resected and retrieved. - The distal rectum and anal verge are normal on retroflexion view. Recommendation: - Await pathology results. - Repeat colonoscopy for surveillance based on pathology results. - Return to GI office in 6 months. Gina Lan MD 10/01/2017 12:34:46 PM This report has been signed electronically. Number of Addenda: [address]; [place] [address] Gina Lan MD GI PROCEDURE ORDERAB LES * PATHOLOGY (10/01/2017 12:21 PM CDT) CASE REPORT Surgical Pathology Report ? Case: [id number] ? Authorizing Provider: ??Gina Lan MD ? Collected: ? 10/01/2017 12:21 PM ? Ordering Location: ? [facility] [place] ??Received: ?10/01/2017 02:43 PM ? Pathologist: ? Karen Lion MD ? Specimen: ?Colon, ascending polyp ? 10/02/2017 1:31 PM CDT [employer] [facility] FINAL DIAGNOSIS Large intestine, ascending colon, polypectomy: - Tubular adenoma. - Negative for high-grade dysplasia. 10/02/2017 1:31 PM CDT [employer] LABORATORY [employer] [facility] IMEN DESCRIPTION Colon, ascending polyp. 10/02/2017 1:31 PM CDT [employer] [facility] OPERATIVE PROCEDURE Colonoscopy. 10/02/2017 1:31 PM CDT [employer] [facility] CLINICAL DIAGNOSIS Hematochezia (K92.1). Colon polyp(s). Adenomatous vs. hyperplastic vs. other. 10/02/2017 1:31 PM CDT [facility] GROSS DESCRIPTION Received in a container labeled Holly Flores, colon ascending polyp are two pieces of schulte-yellow tissue, 0.1 and 0.3 cm in maximal dimension. Both are entirely submitted in cassette A1. STM/pjs 10/02/2017 1:31 PM CDT [facility] MICROSCOPIC DESCRIPTION Received are slides labeled [id number] and Holly Flores. Microscopic examination substantiates the above diagnosis. 10/02/2017 1:31 PM CDT [facility] COMMENT Special stain and/or immunohistochemical results are interpreted with controls that demonstrate appropriate staining reactions. Note on use of immunocytochemistry reagents: This test was developed and its performance characteristic determined by [facility], Department of Laboratory Medicine. It [...] WF, WB and WH are performed by [address], [address]. All other case types are performed by [address], [address]. 10/02/2017 1:31 PM CDT [facility] Tissue SPECIMEN FROM COLON / Unknown Collection / Unknown 10/01/2017 12:21 PM CDT 10/01/2017 2:43 PM CDT Comment:Colon Polyp(s). Bulmaro omatous vs hyperplastic vs other. Gina Lan MD PATHOLOGY/CYTOLOGY O RDERABLES [facility] CLIA# [id number] [address] [place] [address] [place] [address] * POC , URINE (10/01/2017 11:50 AM CDT) HCG QUAL URINE Negative Negative 10/01/2017 11:55 AM CDT [facility] Urine 10/01/2017 11:5 0 AM CDT 10/01/2017 11:55 AM CDT Gina Lan MD POINT OF CARE TESTIN G [facility] CLIA# [id number] [address] [place] [address] documented in this encounter Visit Diagnoses Diagnosis Hematochezia Blood in stool documented in this encounter Administered Medications Inactive Administered Medications - up to 3 most recent administrations Medication Order MAR Action Action Date Dose Rate Site lactated Ringers solution IV, at 125 mL/hr, PRE-PROCEDURE CONTINUOUS, Starting on Lalita 10/01/17 at 1145, Until Lalita 10/01/17 at 1526, Routine, Pre-Procedure Continue from Pre-Op 10/01/2017 12:00 PM CDT New Bag 10/01/2017 11:55 AM CDT 125 mL/hr documented in this encounter Active and Recently Administered Medications Times are shown in CDT. Continuous Medication Order 09/29/2017 09/30/2017 10/01/2017 lactated Ringers solution IV, at 125 mL/hr, PRE-PROCEDURE CONTINUOUS, Starting on Lalita 10/01/17 at 1145, Until Lalita 10/01/17 at 1526, Routine, Pre-Procedure 1155 (New Bag - Prov ider: Zulma Zavala RN)1200 (Continue from Pre-Op - Provider: Brittany Bobby CRNA) documented in this encounter Care Teams Mine Supervisor Relationship Specialty Start Date End Date Clovis Johnson MD PCP - General Family Practice 08/17/17 documented as of this encounter
--- OUTSIDE RECORDS SUMMARY | 2024-07-10 00:23 | XMS_ITS | Encounter Summary ---
Author Organization [employer] Address [address] [place] [address] Care Team Providers Care Fiberglass Machine Operator Name Role Phone Clovis Johnson MD Primary Care Provider [phone] Reason for Referral * Eval and Treat (Routine) - Closed Specialty Diagnoses / Procedures Referred By Contac t Referred To Contact Gastroenterology Diagnoses Hematochezia Procedures Gina Howard MD [address] [facility] [address] [place] [address] Gina Lan MD [address] [facility] [address] [place] [address] Referral ID Status Reason Start Date Expiration Date V isits Requested Visits Authorized [id number] Closed CRS To Schedule (STL) 09/15/2017 09/15/2018 1 1 OR ENGINEER Reason for Visit * Reason Comments Anal Bleeding LLQ pain * Eval and Treat (Routine) - Closed Specialty Diagnoses / Procedures Referred By Contact Referred To Contact Internal Medicine / Gastroenterology Diagnoses OVN. rectal bleeding. anthem. johnson. mailed paperwork rz Procedures OFFICE VISIT NEW PATIENT Clovis Johnson MD [address] [place] [address] Gina Lan MD [address] [facility] [address] [place] [address] Referral ID Status Reason Start Date Expiration Date Visits Re quested Visits Authorized [id number] Closed 09/15/2017 10/16/2018 3 3 Encounter Details Date Type Department Care Team (Latest Contact Info) Description 09/15/2017 1:30 PM HARBOR ENGINEER Office Visit [facility] Gastroenterology [facility] [address] [facility] [address] [place] [address] Gina Lan MD [address] [facility] [address] [place] [address] Hematochezia (Primary Dx); LLQ abdominal pain; History of ovarian cyst Social History Tobacco Use Types Packs/Day Years [...] Sign Reading Time Taken Comments Blood Pressure 122/68 09/15/2017 1:36 PM HARBOR ENGINEER Pulse 84 09/15/2017 1:36 PM HARBOR ENGINEER Temperature - - Respiratory Rate - - Oxygen Saturation - - Inhaled Oxygen Concentration - - Weight 103.4 kg (228 lb) 09/15/2017 1:36 PM HARBOR ENGINEER Height 170.2 cm (5' 7 ) 09/15/2017 1:36 PM HARBOR ENGINEER Body Mass Index 35.71 09/15/2017 1:36 PM HARBOR ENGINEER documented in this encounter Progress Notes * Gina Lan MD - 09/15/2017 1:36 PM CST GASTROENTEROLOGY CLINIC CONSULT NOTE Today's date: 09/15/2017 Patient: Holly Flores : 1985 Primary care provider: Clovis Johnson MD Referring provider: Clovis Johnson MD Chief Complaint Patient presents with ??? Anal Bleeding LLQ pain SUBJECTIVE: Holly Flores is a 32 y.o. female with depression who is referred for further evaluation of hematochezia and abdominal pain. Hematochezia Present for many years but worse Having daily soft BMs, brown mixed with BRB Occurs for a few weeks at a time, but then stops Last episode was 2 weeks ago No anal pain or rectal pain with BMs Has not tried anything to help bowels Associated with LLQ abdominal pain- present for few years worse in the last 6 mo 5/10 crampy and sharp Pain is not better with BM No diarrhea or constipation When she has pain she has nausea and occasional vomiting Has an IUD so no menses, previously had bad pain with menses No history of endometriosis NSAIDs helps abdominal pain No heartburn No dysphagia No weight loss NSAIDs- 2-3 days a month with nsaid Does have an ovarian cyst left abdomen for few years Ultrasound in [place], showed ovarian cyst 01/2017. Had a CT at the hospital 01/2017 need records. Cyst. Review of systems: Constitutional: Negative for appetite change, fever, chills, fatigue, and unexpected weight change. HENT: Negative for congestion, ear pain, facial swelling, hearing loss, mouth sores, nosebleeds, and rhinorrhea. Eyes: Negative for photophobia, pain, redness, itching and visual disturbance. Respiratory: Negative for wheezing and stridor, cough, shortness of breath Cardiovascular: Negative for chest pain, palpitations and leg swelling. Gastrointestinal: As per HPI Genitourinary: Negative for dysuria, flank pain, frequency/urgency, genital sores, hematuria, pelvic pain, menstrual problems Musculoskeletal: Negative for joint swelling, myalgias, arthralgias. Neurological: Negative for dizziness, tremors, seizures, syncope, speech difficulty, weakness, numbness, headaches Psychiatric: Negative for agitation, behavioral problems, hallucinations, self- injury, suicidal ideas, anxiety, depression Integumentary: Negative for new skin rashes or lesions Hematologic: Negative for abnormal bruising Past Medical History: Diagnosis Date ??? Asthma ??? Chronic abdominal pain ??? Depression ??? GI bleed No abdominal surgeries Social History Substance Use Topics ??? Smoking status: Never Smoker ??? Smokeless tobacco: Never Used ??? Alcohol use Yes Comment: 2-3x a week Family History Problem Relation Age of Onset ??? Breast Cancer Maternal Grandmother ??? Ovarian Cancer Maternal Grandmother ??? Uterine Cancer Maternal Grandmother ??? Crohn's Disease Maternal Aunt ??? Inflammatory Bowel Disease Maternal Aunt ??? Other Mother bolton's esophagus ??? Colon Cancer Neg Hx PHYSICAL EXAM: BP 122/68 (BP Location: Left arm, Patient Position (BP): Sitting) Pulse 84 Ht 5' 7 (1.702 m) Wt 103.4 kg (228 lb) BMI 35.71 kg/m?? Wt Readings from Last 3 Encounters: 09/15/17 103.4 kg (228 lb) Constitutional: Appears well-developed and well-nourished. No acute distress. Eyes: No scleral icterus. HEENT: Normocephalic and atraumatic. Oropharynx is clear and moist. Normal lips and gums. Neck supple. No thyromegaly present. No masses palpated Cardiovascular: Regular rate and rhythm, no murmurs, rubs or gallops. Lungs: Clear to auscultation bilaterally. Abdomen: Soft, mild left lower abdomen tenderness, non-distended, bowel sounds present, no palpablemasses. No rebound or guarding. No hepatosplenomegaly. Musculoskeletal: No lower extremity edema. No tenderness to palpation of extremities. Skin: No obvious rashes or lesions on visualized skin Neuro: Alert, oriented to person, place and time. Cooperative, no gross focal findings on exam Rectal: Normal external anal exam, small skin tag, no hemorrhoids, no masses palpated, no blood on glove MEDICATIONS: Current Outpatient Prescriptions Medication Sig Dispense Refill ??? FLUOXETINE HCL (PROZAC ORAL) Take 80 [...] No current facility-administered medications for this visit. No Known Allergies LABS: No results found for: WBC, HGB, HGBPOC, HCT, HCTPOC, PLT, MCV No results found for: NA, K, CL, CO2, CA, BUN, CREAT, GLUCOSE No results found for: TOTALPROTEIN, ALBUMIN, BILITOTAL, ALKPHOS, AST, ALT CBC and BMP normal 07/2017 OSH IMAGING: PREVIOUS ENDOSCOPY: None ASSESSMENT: Holly Flores is a 32 y.o. female who presents for evaluation of: #Hematochezia: Chronic, worsening. CBC 07/2017 normal OSH. Needs evaluation. No constipation or straining. No hemorrhoids on rectal exam. #LLQ abdominal pain: recent CT at OSH, need records. Needs evaluation. #History of left ovarian cyst #NSAID use PLAN: - Obtain records from prior CT - Recommend colonoscopy for evaluation of hematochezia - Minimize NSAIDs, use tylenol for pain I appreciate the opportunity to be involved in the care of Holly Flores. Please do not hesitate tocontact me with any further questions or concerns. Gina Lan MD Gastroenterology [facility] CC: Clovis Johnson MD, Clovis Johnson MD OR ENGINEER documented in this encounter Plan of Treatment Scheduled Referrals Name Type Priority Associated Diagnoses Order Schedule AMB REFERRAL TO GASTROENTEROLOGY Outpatient Referral Routine Hematochezia Ordered: 09/15/2017 documented as of this encounter Visit Diagnoses Diagnosis Hematochezia- Primary Blood in stool LLQ abdominal pain Abdominal pain, left lower quadrant History of ovarian cyst Personal history of other genital system and obstetric disorders documented in this encounter Care Teams Fiberglass Machine Operator Relationship Specialty Start Date End Date Clovis Johnson MD PCP - General Family Practice 08/17/17 documented as of this encounter
--- OUTSIDE RECORDS SUMMARY | 2024-07-10 00:23 | XMS_ITS | Encounter Summary ---
Author Organization [facility] Address [address] [place] [address] Care Team Providers Care Printing Services Coordinator Name Role Phone Clovis Johnson MD Primary Care Provider [phone] Reason for Visit * Reason Onset Date Comments Results 10/08/2017 Encounter Details Date Type Department Care Team (Late st Contact Info) Description 10/08/2017 Telephone [facility] Gastroenterology [facility] [address] [facility] [address] [place] [address] Gina Lan MD [address] [facility] [address] [place] [address] Results Social History Tobacco Use Types Packs/Day [...] encounter Miscellaneous Notes * Telephone Encounter - Gina Lan MD - 10/08/2017 1:14 PM CDT Called patient to provide pathology results from recent GI procedure, no answer. Message left stating path result letter has been sent to patient and PCP. Advised patient to call back with good time/number to be reached if questions. Result letter sent to patient and patient's PCP. Letter in chart. Gina Lan MD documented in this encounter Plan of Treatment Not on file documented as of this encounter Visit Diagnoses Not on filedocumented in this encounter Care Teams Printing Services Coordinator Relationship Specialty Start Date End Date Clovis Johnson MD PCP - General Family Practice 08/17/17 documented as of this encounter
--- OUTSIDE RECORDS SUMMARY | 2024-07-10 00:23 | XMS_ITS | Encounter Summary ---
Author Organization [employer] Address [address] [place] [address] Care Team Providers Care Garage Door Service Technician Name Role Phone Karel Johnson MD Primary Care Provider [phone] Reason for Visit * Auth/Cert Specialty Diagnoses / Procedures Referred By Contac t Referred To Contact Diagnoses Hematochezia Gina Lan MD [address] [facility] [address] [place] [address] Referral ID Status Reason Start Date Expiration Date Visits Re quested Visits Authorized [id number] 09/16/2017 1 1 Encounter Details Date Type Department Care Team (Late st Contact Info) Description 10/01/2017 12:20 PM CDT - 10/01/2017 1:00 PM CDT Surgery [facility] GI Lab [address] [facility] [employer] [address] [place] [address] Gina Lan MD [address] [facility] [address] [place] [address] COLONOSCOPY Surgery Details Date/Time Status Location OR Service Patient Class Case Class Case Type Trauma Case? 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 methylphenidate HCl (RITALIN) 10 mg tablet Take [...] Lan MD - 10/01/2017 12:03 PM CDT [facility] Pre-Endoscopy History & Physical Date: 10/01/2017 Patient: Holly Flores / 32 y.o. / female : 1985 CSN: [id number] Planned procedure: colonoscopy with possible biopsy/polypectomy SUBJECTIVE: [...] procedure(s) as scheduled. Gina Lan MD Gastroenterology [facility] documented in this encounter Procedure Notes * Gina Lan MD - 10/01/2017 12:34 PM CDTAssociated Order(s): GI REPORT [facility] Endoscopy Patient Name: Holly Flores Procedure Date: 10/01/2017 Date of : 1985 Admit Type: Outpatient Attending MD: Gina Lan MD Procedure: Colonoscopy Indications: Hematochezia Patient Profile: 32 yo with hematochezia and LLQ abdominal pain, here for evaluation Providers: Gina Lan MD Referring MD: Karel Johnson MD Medicines: Monitored Anesthesia Care Complications: [...] bowel preparation was evaluated using the BBPS (Anderson Bowel Preparation Scale) with scores of: Right [...] of Addenda: [address]; [place] [address] documented in this encounter OR Notes * Krista-OP - Zulma Zavala RN - 10/01/2017 11:39 AM CDT Routine Pre-Anesthesia Protocol for GI Lab Procedures ?? [facility] ? ORDERS ARE ENTERED ???PER PROTOCOL? Enter the protocol in the patient???s electronic health record using [employer] Inke: .anestprotocolgilab ?? NURSING ORDERS: Monitoring: ?? Obtain [...] appropriate, may confirm POC with: Nursing Only [id number] (this lab can be obtained at no [...] MEDICATION ORDERS - entered by the Pharmacist senior quantity surveyor ? Meter Glucose less than 70, patient [...] Lan MD - 10/01/2017 12:34 PM CDT [facility] Endoscopy Patient Name: Holly Flores Procedure Date: 10/01/2017 Date of : 1985 Admit Type: Outpatient Attending MD: Gina Lan MD Procedure: Colonoscopy Indications: Hematochezia Patient Profile: 32 yo with hematochezia and LLQ abdominal pain, here for evaluation Providers: Gina Lan MD Referring MD: Karel Johnson MD Medicines: Monitored Anesthesia Care Complications: [...] bowel preparation was evaluated using the BBPS (Anderson Bowel Preparation Scale) with scores of: Right [...] of Addenda: [address]; [place] [address] Gina Lan MD GI PROCEDURE ORDERAB LES * PATHOLOGY (10/01/2017 12:21 PM CDT) CASE REPORT Surgical Pathology Report ? Case: [id number] ? Authorizing Provider: ??Gina Lan MD ? Collected: ? 10/01/2017 12:21 PM ? Ordering Location: ? [facility] [address] ??Received: ?10/01/2017 02:43 PM ? Pathologist: ? Karen Lion MD ? Specimen: ?Colon, ascending polyp ? 10/02/2017 1:31 PM CDT [facility] [employer] [facility] FINAL DIAGNOSIS Large intestine, ascending colon, polypectomy: - Tubular adenoma. - Negative for high-grade dysplasia. 10/02/2017 1:31 PM CDT [facility] IMEN DESCRIPTION Colon, ascending polyp. 10/02/2017 1:31 PM CDT [facility] OPERATIVE PROCEDURE Colonoscopy. 10/02/2017 1:31 PM CDT [facility] CLINICAL DIAGNOSIS Hematochezia (K92.1). Colon polyp(s). Adenomatous vs. hyperplastic vs. other. 10/02/2017 1:31 PM CDT [facility] GROSS DESCRIPTION Received in a container labeled Holly Flores, colon ascending polyp are two pieces of schulte-yellow tissue, 0.1 and 0.3 cm in maximal dimension. Both are entirely submitted in cassette A1. STM/pjs 10/02/2017 1:31 PM CDT [facility] MICROSCOPIC DESCRIPTION Received are slides labeled [id number] and Holly Flores. Microscopic examination substantiates the above diagnosis. 10/02/2017 1:31 PM CDT [facility] COMMENT Special stain and/or immunohistochemical results are interpreted with controls that demonstrate appropriate staining reactions. Note on use of immunocytochemistry reagents: This test was developed and its performance characteristic determined by [facility], Department of Laboratory Medicine. It has [...] WF, WB and WH are performed by [address], [address]. All other case types are performed by [address] [facility], [address]. 10/02/2017 1:31 PM CDT [facility] Tissue SPECIMEN FROM COLON / Unknown Collection / Unknown 10/01/2017 12:21 PM CDT 10/01/2017 2:43 PM CDT Comment:Colon Polyp(s). Bulmaro omatous vs hyperplastic vs other. Gina Lan MD PATHOLOGY/CYTOLOGY O RDERABLES [facility]# [id number] [address] [place] [address] * POC , URINE (10/01/2017 11:50 AM CDT) HCG QUAL URINE Negative Negative 10/01/2017 11:55 AM CDT [facility] [employer] [facility] Urine 10/01/2017 11:5 0 AM CDT 10/01/2017 11:55 AM CDT Gina Lan MD POINT OF CARE TESTIN G [facility] [employer] [facility]# [id number] [address] [place] [address] documented in this encounter Visit Diagnoses Diagnosis Hematochezia Blood in stool Hematochezia Blood in stool documented in this [...] CRNA) documented in this encounter Care Teams Garage Door Service Technician Relationship Specialty Start Date End Date Karel Johnson MD PCP - General Family Practice 08/17/17 documented as of this encounter
--- OUTSIDE RECORDS SUMMARY | 2024-07-10 00:23 | XMS_ITS | Continuity of Care Document ---
Author Organization [facility] Address [address] [place] [address] Phone Care Team Providers Care Calcine Furnace Tender Name Role Phone Sarah SHERIFF, TRAE, Wil Unavailable Unavailable Procedures Procedure Date Therapeutic Activities Neuromuscular Re-Ed Therapeutic Exercise Therapeutic Activities Neuromuscular Re-Ed Therapeutic Exercise Neuromuscular Re-Ed Therapeutic Activities Therapeutic Exercise Therapeutic Activities Therapeutic Exercise Neuromuscular Re-Ed Therapeutic Activities Therapeutic Exercise Neuromuscular Re-Ed Neuromuscular Re-Ed Therapeutic Activities Therapeutic Exercise PT Evaluation Moderate Complexity Therapeutic Activities Neuromuscular Re-Ed Therapeutic Exercise Advance Directives Directive Yes / No Effective Date File Name No Information Encounters Encounter Description Practice Location Reason(s) For Visit Diagnoses Date Provider Providers Copied on Encounter [facility], [place], [place], [id number], tel:[phone] [place] No Information 2 Sarah De La Torre. . [facility], [place], [place], [id number], tel:[phone] [place] No Information 2 Klahn Wil. . Referring Provider: Ezequiel Bocanegra [facility] [address], [place], [address]. tel:[phone] [facility], [address], [place], [place], [id number], [place] tel:[phone] [place] No Information 2 Klahn Wil. . Referring Provider: Ezequiel Bocanegra [facility] [address], [place], [address]. tel:[phone] [facility], [address], [place], [place], [id number], [place] tel:[phone] [place] No Information 2 Klahn Wil. . Referring Provider: Ezequiel Bocanegra [facility] [address], [place], [address]. tel:[phone] [facility], [address], [place], [place], [id number], [place] tel:[phone] [place] No Information 2 Klahn Wil. . Referring Provider: Ezequiel Bocanegra [address], [place], [address]. tel:[phone] [facility], [address], [place], [place], [address], [place] tel:[phone] [place] No Information 2 Klahn Wil. . Referring Provider: Ezequiel Bocanegra [facility] [address], [place], [address]. tel:[phone] [facility], [place], [place], [address], [place] tel:[phone] [place] No Information 2 Klahn Wil. . Referring Provider: Ezequiel Bocanegra [facility] [address], [place], [address]. tel:[phone] [employer] [facility], [address], [place], [place], [address], [place] tel:[phone] [place] No Information 2 Sarah De La Torre. . Referring Provider: Myles Pruett [address] [place] [address] [address], [place], [address]. tel:[phone] Family History Family Member Type Diagnosis Age At Onset No Information Payers Payer name Insurance type Covered republican ID Authortamara valentin(s) [facility] [id number] Social History Type Description Quantity Date Captured Comments Sex Female Smoking Status No Information Chief Complaint And Reason For Visit No Information Reason For Referral Reason For Referral No Information History Of Present Illness Encounter Date Complaint History Of Prese nt Illness No Information Functional Status Date Functional Assessmen t No Information Instructions Date Instruction Additional Infor zak Giving encouragement to exercise Related to Overweight Giving encouragement to exercise Related to Overweight Assessments Type Assessment Date No Information Patient Care Teams Name Effective Dates (start - stop) Status Members No Information
--- OUTSIDE RECORDS SUMMARY | 2024-07-10 00:23 | XMS_ITS | Encounter Summary ---
Author Organization [employer] Address [address] [place] [address] Care Team Providers Care Windows Administrator Name Role Phone Clovis Johnson MD Primary Care Provider [phone] Reason for Visit * Reason Comments Abdominal Pain pt arrives c/o sent from for lower abd pain off and on for 20 years, they've said ovarian cyst in the past. also c/o nausea and abd bloating for 5 days. last BM yesterday Encounter Details Date Type Department Care Team (Late st Contact Info) Description 11/27/2017 12:21 PM CDT - 11/27/2017 2:25 PM CDT Emergency [facility] Emergency Department [address] [place] [address] Geri Fox MD [address] [place] [address] Abdominal pain, unspecified abdominal location (Primary Dx) Discharge Disposition: Home or Self Care Social [...] Sign Reading Time Taken Comments Blood Pressure 117/81 11/27/2017 2:00 PM CDT Pulse 92 11/27/2017 2:00 PM CDT Temperature 36.9 ??C (98.5 ??F) 11/27/2017 12:00 PM C DT Respiratory Rate 18 11/27/2017 12:00 PM CDT Oxygen Saturation 96% 11/27/2017 2:00 PM CDT Inhaled Oxygen Concentration - - Weight 104.3 kg (230 lb) 11/27/2017 12:00 PM CDT Height 170.2 cm (5' 7 ) 11/27/2017 12:00 PM CDT Body Mass Index 36.02 11/27/2017 12:00 PM CDT documented in this encounter Discharge Instructions * Attachments The following attachments cannot be sent through Care Everywhere. * Abdominal Pain (Greek) documented in this encounter Medications at Time of Discharge Medication Sig Dispensed Refills Start Date End Date fexofenadine (SRIDEVI) 180 mg tablet Take 180 mg by mouth daily. buPROPion HCl (WELLBUTRIN XL) 300 mg Extended Release 24 hour tablet Take 300 mg by mouth daily clothes separator. methylphenidate HCl (RITALIN) 10 mg tablet Take 10 mg by mouth 2 times daily. albuterol HFA 90 mcg inhaler Take 2 Puffs by inhalation every 6 hours as needed for Shortness of Breath. acetaminophen (TYLENOL) 325 mg tablet Take by mouth every 4 hours as needed. 03/19/2018 ibuprofen (MOTRIN) 200 mg tablet Take 200 mg by mouth every 6 hours as needed for Pain, Mild. 03/19/2018 levonorgestrel (MIRENA) 20 mcg/24 hr (5 years) IUD by Intrauterine route. 02/19 FLUOXETINE HCL (PROZAC ORAL) Take 40 mg by mouth . 2017 traZODone (DESYREL) 50 mg tablet Take 100 mg by mouth daily at bedtime . 05/03/2018 documented as of this encounter ED Notes * Paris Rutledge RN - 11/27/2017 1:03 PM CDT Pt aware of order for urine sample, reports unable to provide sample at this time as she provided asample at * Paris Rutledge RN - 11/27/2017 1:01 PM CDT Agree with triage note pt arrives c/o sent from for lower abd pain off and on for 20 years, they've said ovarian cyst in the past. also c/o nausea and abd bloating for 5 days. last BM yesterday Pt appears drowsy and c/o pain 6/10 in pelvis. * Geri Fox MD - 11/27/2017 11:52 AM CDT HISTORY OF PRESENT ILLNESS Holly Flores, a 32 y.o. female presents to the ED with a Chief Complaint of Abdominal Pain Subjective 12:27 PM: Holly Flores is a 32 y.o. female with a history of IUD, GI bleed, asthma, depression, and chronic abd pain, who presents to the Emergency Department with complaints of recurrent chronic lower abd pain, with this last episode for the pat 5 days. She was sent here for further evaluation after UA showed trace amounts of blood. She is also complaining of nausea and abd bloating. She denies vaginal bleeding or DC. The pt reports a long history of ovarian cysts and is having cramping abdpain similar to prior episodes. She reports that every few months she will have a week of pain, where she will rotate Tylenol and Ibuprofen, which takes the edge off of her pain. She has tried musclerelaxers in the past without improvement. She has seen her OBGYN about this and has also seen GI specialist. NKDA. The pt has an appointment as a new patient with Dr. Burleson (OBGYN) for a second opinion. Physician(s): Clovis Johnson MD History provided by: The patient Arrived by: Private vehicle REVIEW OF SYSTEMS Review of Systems Constitutional: Negative for chills, fatigue and fever. HENT: Negative for ear pain, facial swelling, mouth sores and sore throat. Eyes: Negative for photophobia, redness and visual disturbance. Respiratory: Negative for cough, shortness of breath, wheezing and stridor. Cardiovascular: Negative for chest pain and palpitations. Gastrointestinal: Positive for abdominal distention, abdominal pain and nausea. Negative for vomiting. Genitourinary: Negative for dysuria, hematuria, urgency and vaginal discharge. Musculoskeletal: Negative for arthralgias and myalgias. Skin: Negative for rash. Neurological: Negative for dizziness, weakness and numbness. Psychiatric/Behavioral: Negative for hallucinations and suicidal ideas. PAST MEDICAL HISTORY REVIEWED MEDICAL: Patient has a past medical history of Asthma; Chronic abdominal pain; Depression; GI bleed; Headache; and Obstructive sleep apnea. SURGICAL: Patient has a past surgical history that includes hx wisdom teeth extraction; hx lipoma resection; and pr colonoscopy flx dx w/collj spec when pfrmd (N/A, 10/01/2017). FAMILY: Patient's family history includes Breast Cancer in her maternal grandmother; Crohn's Disease in hermaternal aunt; Inflammatory Bowel Disease in her maternal aunt; Other in her mother; Ovarian Cancerin her maternal grandmother; Uterine Cancer in her maternal grandmother. SOCIAL: reports that she has never smoked. She has never used smokeless tobacco. She reports that she drinks about 1.2 oz of alcohol per week . She reports that she does not use drugs. No history on file. Social History Other Topics Concern ??? Not on file PROBLEM LIST: Patient has Hematochezia; LLQ abdominal pain; and History of ovarian cyst on her problem list. ALLERGIES Patient has no known allergies. HOME MEDICATIONS Patient's Home Medications Current Home Medications ACETAMINOPHEN (TYLENOL) 325 MG TABLET ALBUTEROL HFA 90 MCG INHALER BUPROPION HCL (WELLBUTRIN XL) 300 MG EXTENDED RELEASE 24 HOUR TABLET FEXOFENADINE (SRIDEVI) 180 MG TABLET FLUOXETINE HCL (PROZAC ORAL) IBUPROFEN (MOTRIN) 200 MG TABLET LEVONORGESTREL (MIRENA) 20 MCG/24 HR (5 YEARS) IUD METHYLPHENIDATE HCL (RITALIN) 10 MG TABLET TRAZODONE (DESYREL) 50 MG TABLET Medications Modified during this Encounter Medications Discontinued during this Encounter Objective PHYSICAL EXAM INITIAL VS BP: 130/83 (11/27/17 1200), Heart Rate: 98 bpm (11/27/17 1200), Resp: 18 (11/27/17 1200), Temp: 98.5 ??F (36.9 ??C) (11/27/17 1200), Temp src: Oral (11/27/17 1200), SpO2: 97 % (11/27/17 1200), Height: 5' 7 (170.2 cm) (11/27/171199), Weight: 104.3 kg (230 lb) (11/27/171199), BMI (Calculated): 36.01 (11/27/171199) No LMP recorded. Patient has had an implant. Physical Exam Constitutional: She is oriented to person, place, and time. Appears uncomfortable HENT: Head: Normocephalic and atraumatic. Mouth/Throat: Oropharynx is clear and moist. Eyes: Conjunctivae are normal. Pupils are equal, round, and reactive to light. Neck: Normal range of motion. Neck supple. Cardiovascular: Normal rate, regular rhythm and intact distal pulses. No murmur heard. Pulmonary/Chest: Effort normal. No stridor. She has no wheezes. Abdominal: Soft. Bowel sounds are normal. She exhibits no mass. There is tenderness (low abd tenderness to palp) in the right lower quadrant and left lower quadrant. There is no rebound and no guarding. Musculoskeletal: Normal range of motion. She exhibits no edema or deformity. Lymphadenopathy: She has no cervical adenopathy. Neurological: She is alert and oriented to person, place, and time. She has normal strength. No cranial nerve deficit or sensory deficit. Skin: Skin is warm and dry. No rash noted. Psychiatric: She has a normal mood and affect. Judgment and thought content normal. Nursing note and vitals reviewed. DIAGNOSTICS LAB: CBC WITH DIFFERENTIAL - Abnormal Result Value WBC 5.4 RBC 5.01 (*) HEMOGLOBIN 14.8 HEMATOCRIT 42.6 MCV 85.0 MCH 29.5 MCHC 34.7 RDW 12.6 RDW-STDEV 38.3 PLATELETS 261 MPV 9.2 (*) NEUTROPHILS 66 LYMPHOCYTES 25 MONOCYTES 8 EOSINOPHILS 1 BASOPHILS 1 IMMATURE GRANULOCYTES 0 NEUTROPHIL ABSOLUTE 3.56 LYMPHOCYTE ABSOLUTE 1.36 MONOCYTE ABSOLUTE 0.43 EOSINOPHIL ABSOLUTE 0.04 BASOPHILS ABSOLUTE 0.04 IMMATURE GRANULOCYTES ABSOLUTE 0.01 URINALYSIS WITH REFLEX MICROSCOPIC - Normal COLOR UA Pale Yellow CLARITY UA Clear SPECIFIC GRAVITY UA 1.004 PH UA 6.0 LEUKOCYTE ESTERASE UA Negative NITRITE UA Negative PROTEIN UA Negative GLUCOSE UA Negative KETONES UA Negative UROBILINOGEN UA Normal BILIRUBIN UA Negative BLOOD UA Negative COMPREHENSIVE METABOLIC PANEL LIPASE POC LACTIC ACID POC LACTATE 0.9 COMMENT, GASES POC RN/MD NOTIFIED POC LACTIC ACID RADIOLOGY: No orders to display No orders to display PROCEDURES Procedures MEDICAL DECISION MAKING AND PLAN OF CARE 1:40 PM: Patient's symptoms have improved. Updated pt on their lab results. Patient will be discharged home. Recommended follow up with PCP and GI. RTER with worsening sx. Pt understands and agrees with the plan. All questions and concerns addressed. The patient is stable for discharge. ED provider and ED nurse verbally discussed patient plan of care at this time. MDM Summary Statement: Holly Flores is a 32 y.o. female with one years history of chronic low abdominal pain who presents with acute on chronic pain. She has had a CT scan that did not show colitis, diverticulitis, or obstructions. Pelvic ultrasound has shown small ovarian cysts in the past, but this is unchanged formbaseline, no suspicion for torsion. Reassuring lactates and CBC. No evidence of UTI. Given Haldol with improvement. Discharged with scheduled [facility] PATIENTS follow up. I have reviewed previous: notes and labs I have reviewed current: labs I have reviewed nursing notes related to past medical history, social history, and review of systems and agree, unless otherwise noted. Medications Administered During the ED Stay from 11/27/2017 1152 to 11/27/2017 1403 Date/Time Order Dose Route Action 11/27/2017 1251 ketorolac (TORADOL) injection 15 mg 15 mg IV Given 11/27/2017 1251 haloperidol lactate (HALDOL) injection 2.5 mg 2.5 mg IV Given 11/27/2017 1322 sodium chloride 0.9% bolus solution 1,000 mL 0 mL IV Stopped 11/27/2017 1252 sodium chloride 0.9% bolus solution 1,000 mL 1,000 mL IV New Bag . New Prescriptions for this Encounter LAST VS BP: 130/83 (11/27/17 1200), Heart Rate: 98 bpm (11/27/17 1200), Resp: 18 (11/27/17 1200), Temp: 98.5 ??F (36.9 ??C) (11/27/17 1200), Temp src: Oral (11/27/17 1200), SpO2: 97 % (11/27/17 1200) CLINICAL IMPRESSION Final diagnoses: [R10.9] Abdominal pain, unspecified abdominal location (Primary) DISPOSITION, EDUCATION AND MEDICATION RECONCILIATION Medications reconciled. See after visit summary for patient education on discharged patients. ED Disposition ED Disposition Condition User Date/Time Comment Discharge Stable Geri Fox MD ThuNovember 27, 2017 1:40 PM Follow up: Kailey Burleson MD [id number] [facility] [phone] keep your appointment as scheduled with gynecology. DISCHARGED HOME IN STABLE CONDITION. ATTESTATION STATEMENTS This note has been prepared by Ivana Barboza acting as a scribe for Dr. Geri Fox on 11/27/2017 at 1:48 PM. The scribe's documentation has been prepared under my direction and personally reviewed by me, Dr. Geri Fox, in its entirety on 11/27/17 at 2:03 PM. I confirm that the note above accurately reflects all work, treatment, procedures, and medical decision making performed by me. documented in this encounter Plan of Treatment Not on file documented as of this encounter Procedures Procedure Name Priority Date/Time Associated Diagnosis Comments URINALYSIS W/REFLEX MICROSCOPIC Stat 11/27/2017 1:34 PM CDT CBC WITH DIFFERENTIAL Stat 11/27/2017 12:56 PM CDT LIPASE Stat 11/27/2017 12:56 PM CDT COMPREHENSIVE METABOLIC PANEL Stat 11/27/2017 12:56 PM CDT POC LACTIC ACID Stat 11/27/2017 12:47 PM CDT documented in this encounter Results * URINALYSIS WITH REFLEX MICROSCOPIC (11/27/2017 1:34 PM CDT) COLOR UA Pale Yellow Pale to Dark Yellow 11/27/2017 1:46 PM CDT [facility] CLARITY UA Clear Clear 11/27/2017 1:46 PM CDT [facility] SPECIFIC GRAVITY UA 1.004 1.003 - 1.035 11/27/2017 1:46 PM CDT [facility] PH UA 6.0 5.0 - 8.0 11/27/2017 1:46 PM CDT [facility] - . [facility] LEUKOCYTE ESTERASE UA Negative Negative 11/27/2017 1:46 PM CDT [facility] NITRITE UA Negative Negative 11/27/2017 1:46 PM CDT [facility] PROTEIN UA Negative Negative 11/27/2017 1:46 PM CDT [facility] GLUCOSE UA Negative Negative 11/27/2017 1:46 PM CDT [facility] KETONES UA Negative Negative 11/27/2017 1:46 PM CDT [facility] UROBILINOGEN UA Normal <2.0 mg/dL 8 1:46 PM CDT [facility] BILIRUBIN UA Negative Negative 11/27/2017 1:46 PM CDT [facility] BLOOD UA Negative Negative 11/27/2017 1:46 PM CDT [facility] Urine URINE SPECIMEN OBTAINED BY CLEAN CATCH PROCEDURE / Unknown Collection / Unknown 11/27/2017 1:34 PM CDT 11/27/2017 1:40 PM CDT Geri Fox MD URINE ORDERABLES [facility] CLIA# [id number] [address] [place] [address] * LIPASE (11/27/2017 12:56 PM CDT) LIPASE 26 13 - 60 U/L 11/27/2017 2:19 PM CDT [facility] Blood Venipuncture / Unknown 11/27/2017 12:56 PM CDT 11/27/2017 1:02 PM CDT Geri Fox MD CHEMISTRY ORDERABLES [facility] CLIA# [id number] [address] [place] [address] * (ABNORMAL) COMPREHENSIVE METABOLIC PANEL (11/27/2017 12:56 PM CDT) [facility] SODIUM 140 136 - 145 mmol/L 11/27/2017 2:19 PM T [facility] POTASSIUM 4.0 3.5 - 5.0 mmol/L 11/27/2017 2:19 PM T [facility] CHLORIDE 101 98 - 107 mmol/L 11/27/2017 2:19 PM T [facility] CO2 24 22 - 29 mmol/L 11/27/2017 2:19 PM T [facility] CALCIUM 9.2 8.6 - 10.2 mg/dL 11/27/2017 2:19 PM CDT [facility] BUN 8 6 - 20 mg/dL 11/27/2017 2:19 PM T [facility] CREATININE 1.11(H) 0.51 - 0.95 mg/dL 11/27/2017 2:19 PM T [facility] GLUCOSE 84 74 - 99 mg/dL 11/27/2017 2:19 PM T [facility] TOTAL PROTEIN 7.7 6.7 - 8.6 g/dL 11/27/2017 2:19 PM T [facility] ALBUMIN 4.4 3.5 - 5.2 g/dL 11/27/2017 2:19 PM T [facility] BILIRUBIN TOTAL 0.4 0.3 - 1.2 mg/dL 11/27/2017 2:19 PM T [facility] ALKALINE PHOSPHATASE 71 35 - 104 U/L 11/27/2017 2:19 PM T [facility] AST 13 <33 U/L 11/27/2017 2:19 PM T [facility] ALT 12 <34 U/L 11/27/2017 2:19 PM [facility] GFR 57(L) >=60 mL/min/1.7 3 sq meter 11/27/2017 2:19 PM T [facility] Comment: eGFR has not been validated for use in the elderly (> 70 years of age), women, patients with serious co-morbid conditions, or persons with extremes of body size or muscle mass and should also be interpreted with caution in patients with acute kidney failure, dialysis dependent patients, patients reporting exceptional dietary intake (e.g. vegetarian diet, high protein diets, creatine supplementation), and patients with severe liver disease. Based on National Kidney Disease Education Program If patient is , please refer to the GFR result. GFR, >60 >=60 mL/min/1.7 3 sq meter 11/27/2017 2:19 PM CDT [facility] ANION GAP 15 8 - 16 mmol/L 11/27/2017 2:19 PM [facility] Blood Venipuncture / Unknown 11/27/2017 12:56 PM CDT 11/27/2017 1:02 PM CDT [facility] - 11/27/2017 2:19 PM CDT Samples containing indocyanine green cause interferences on Total and/or Direct Bilirubin and must not be measured. Geri Fox MD CHEMISTRY ORDERABLES [facility]# [id number] [address] [facility] [place] [address] * (ABNORMAL) CBC WITH DIFFERENTIAL (11/27/2017 12:56 PM CDT) Pathologist [facility] WBC 5.4 4.0 - 9.8 K/uL 11/27/2017 1:09 PM [facility] RBC 5.01(H) 3.90 - 4.90 M/uL 11/27/2017 1:09 PM [facility] HEMOGLOBIN 14.8 11.8 - 14.8 g/dL 11/27/2017 1:09 PM [facility] [employer] HEMATOCRIT 42.6 35.5 - 44.0 % 11/27/2017 1:09 PM [facility] MCV 85.0 82.0 - 99.0 fL 11/27/2017 1:09 PM [facility] MCH 29.5 27.2 - 32.6 pg 11/27/2017 1:09 PM CDT [facility] - [facility] MCHC 34.7 31.5 - 35.5 g/dL 11/27/2017 1:09 PM CDT [facility] RDW 12.6 11.5 - 14.5 % 11/27/2017 1:09 PM CDT [facility] RDW-STDEV 38.3 37.1 - 48.7 fL 11/27/2017 1:09 PM CDT [facility] PLATELETS 261 140 - 350 K/uL 11/27/2017 1:09 PM CDT [facility] MPV 9.2(L) 9.3 - 12.4 fL 11/27/2017 1:09 PM CDT [facility] NEUTROPHILS 66 % 11/27/2017 1:09 PM CDT [facility] LYMPHOCYTES 25 % 11/27/2017 1:09 PM CDT [facility] - . [facility] MONOCYTES 8 % 11/27/2017 1:09 PM CDT [facility] EOSINOPHILS 1 % 11/27/2017 1:09 PM CDT [facility] - . [facility] BASOPHILS 1 % 11/27/2017 1:09 PM CDT [facility] - . [facility] IMMATURE GRANULOCYTES 0 % 11/27/2017 1:09 PM CDT [facility] - . [facility] NEUTROPHIL ABSOLUTE 3.56 1.90 - 7.00 K/uL 11/27/2017 1:09 PM CDT [facility] - . [facility] LYMPHOCYTE ABSOLUTE 1.36 0.70 - 4.50 K/uL 11/27/2017 1:09 PM CDT [facility] - . [facility] MONOCYTE ABSOLUTE 0.43 0.10 - 1.30 K/uL 11/27/2017 1:09 PM CDT [facility] - . [facility] EOSINOPHIL ABSOLUTE 0.04 0.00 - 0.70 K/uL 11/27/2017 1:09 PM CDT [facility] - . [facility] BASOPHILS ABSOLUTE 0.04 0.00 - 0.20 K/uL 11/27/2017 1:09 PM CDT [facility] IMMATURE GRANULOCYTES ABSOLUTE 0.01 0.00 - 0.03 K/uL 11/27/2017 1:09 PM CDT [facility] Blood Venipuncture / Unknown 11/27/2017 12:56 PM CDT 11/27/2017 1:02 PM CDT Geri Fox MD HEMATOLOGY ORDERABLE S Performing Organization Address [facility]/ZIP Co de Phone Number [facility]# [id number] [address] [place] [address] * POC LACTIC ACID (11/27/2017 12:47 PM CDT) LACTIC ACID POC 0.9 0.5 - 2.2 mmol/L 11/27/2017 12:48 PM CDT [facility] COMMENT, GASES POC RN/MD NOTIFIED 11/27/2017 12:48 PM CDT [facility] Blood 11/27/2017 12:4 7 PM CDT 11/27/2017 12:48 PM CDT Geri Fox MD POINT OF CARE TESTIN G Performing Organization Address [facility] Co de Phone Number [facility]# [id number] [address] [place] [address] documented in this encounter Visit Diagnoses Diagnosis Abdominal pain, unspecified abdominal location- Primary documented in this encounter Administered Medications Inactive Administered Medications - up to 3 most recent administrations Medication Order MAR Action Action Date Dose Rate Site haloperidol lactate (HALDOL) injection 2.5 mg 2.5 mg, IV, ONE TIME ONLY, 1 dose, On Thu11/27/17 at 1245, Routine Given 11/27/2017 12:51 PM CDT 2.5 mg ketorolac (TORADOL) injection 15 mg 15 mg, IV, ONE TIME ONLY, 1 dose, On Thu11/27/17 at 1245, Routine Given 11/27/2017 12:51 PM CDT 15 mg sodium chloride 0.9% bolus solution 1,000 mL 1,000 mL, IV, ONE TIME ONLY, 1 dose, On Thu11/27/17 at 1245, at 2,000 mL/hr, Administer over 30 Minutes, Routine New Bag 11/27/2017 12:52 PM CDT 1,000 mL 2000 mL/hr documented in this encounter Active and Recently Administered Medications Times are shown in CDT. Scheduled Medication Order 11/25/2017 11/26/2017 11/27/2017 haloperidol lactate (HALDOL) injection 2.5 mg (COMPLETED) 2.5 mg, IV, ONE TIME ONLY, 1 dose, On Thu11/27/17 at 1245, Routine 1251 (Given - Provid er: Paris Rutledge RN) ketorolac (TORADOL) injection 15 mg (COMPLETED) 15 mg, IV, ONE TIME ONLY, 1 dose, On Thu11/27/17 at 1245, Routine 1251 (Given - Provid er: Paris Rutledge RN) sodium chloride 0.9% bolus solution 1,000 mL (COMPLETED) 1,000 mL, IV, ONE TIME ONLY, 1 dose, On Thu11/27/17 at 1245, at 2,000 mL/hr, Administer over 30 Minutes, Routine 1252 (New Bag - Prov ider: Paris Rutledge RN)1322 (Stopped - Provider: Paris Rutledge RN) documented in this encounter Care Teams Windows Administrator Relationship Specialty Start Date End Date Clovis Johnson MD PCP - General Family Practice 08/17/17 documented as of this encounter
--- OUTSIDE RECORDS SUMMARY | 2024-07-10 00:23 | XMS_ITS | Encounter Summary ---
Author Organization [facility] Address [address] [place] [address] Care Team Providers Care Pest Control Technician Name Role Phone Clovis Johnson MD Primary Care Provider [phone] Reason for Visit * Reason Onset Date Comments Abnormal Pap Smear 12/08/2017 Encounter Details Date Type Department Care Team (Late st Contact Info) Description 12/08/2017 Telephone [facility] MORTGAGE SPECIALIST - Medical [place] [id number] [place], [place] [id number] [address] Kailey Burleson MD [address] [place], [place] [address] [address] Abnormal Pap Smear Social History Tobacco Use Types Packs/Day Years [...] encounter Miscellaneous Notes * Telephone Encounter - Naomi Reyes - 12/08/2017 2:31 PM CDT Patient called for pap results. She was notified of results and recommendations per Dr. Burleson. Discussed colpo procedure. Call transferred to appt line. * Telephone Encounter - Naomi Reyes - 12/08/2017 2:31 PM CDT ----- Message from Kailey Burleson MD sent at 12/08/2017 12:31 PM CDT ----- Please let pt know that her pap is abnormnal (LGSIL). I recommend colposcopy. Please schedule documented in this encounter Plan of Treatment Not on file documented as of this encounter Visit Diagnoses Not on filedocumented in this encounter Care Teams Pest Control Technician Relationship Specialty Start Date End Date Clovis Johnson MD PCP - General Family Practice 08/17/17 documented as of this encounter
--- OUTSIDE RECORDS SUMMARY | 2024-07-10 00:23 | XMS_ITS | Encounter Summary ---
Author Organization [employer] Address [address] [place] [address] Care Team Providers Care Tool Profiling Machine Set Up Operator Name Role Phone Clovis Johnson MD Primary Care Provider [phone] Reason for Visit * Reason Comments Abdominal Pain chronic for years; d enies UTI sx, denies diarrhea/constipation; ovarian cyst dx one year ago; denies vag discharge; has appt with new ACID CRANE OPERATOR, Dr. Burleson, next week * Auth/Cert Specialty Diagnoses / Procedures Referred By Contac t Referred To Contact Urgent Care [facility] Care [address] [place] [address] Referral ID Status Reason Start Date Expiration Date Visits Re quested Visits Authorized [id number] 1 1 Encounter Details Date Type Department Care Team (Latest Contact Info) Description 11/27/2017 10:38 AM CDT - 11/27/2017 11:43 AM CDT Hospital Encounter [facility] Ur[facility] Care [facility] Enrique [facility] Luis Enrique [address] [place] [address] [place] [address] [facility] [address] [place] [address] Generalized abdominal pain (Primary Dx) Discharge Disposition: Acute Care Hospital Social History Tobacco Use Types Packs/Day Years [...] Sign Reading Time Taken Comments Blood Pressure 132/93 11/27/2017 10:34 AM CDT Pulse 103 11/27/2017 10:34 AM CDT Temperature 37 ??C (98.6 ??F) 11/27/2017 10:34 AM CDT Respiratory Rate 16 11/27/2017 10:34 AM CDT Oxygen Saturation 97% 11/27/2017 10:34 AM CDT Inhaled Oxygen Concentration - - Weight 104.3 kg (230 lb) 11/27/2017 10:34 AM CDT Height 170.2 cm (5' 7 ) 11/27/2017 10:34 AM CDT Body Mass Index 36.02 11/27/2017 10:34 AM CDT documented in this encounter Medications at Time of Discharge Medication Sig Dispensed Refills Start Date End Date fexofenadine (SRIDEVI) 180 mg tablet Take 180 mg by mouth daily. 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 methylphenidate HCl (RITALIN) 10 mg tablet Take [...] . 05/03/2018 documented as of this encounter Nursing Notes * Lona Draper RN - 11/27/2017 11:19 AM CDT Toradol written now but pt declined because her friend just arrived to drive her to the ED and she does not want to wait 15 min after the injection. Dr. Sanchez informed. * Lona Draper RN - 11/27/2017 10:48 AM CDT Pt here for eval of lower abdominal pain chronic since adolescence. Has 2-3 episodes a year. Hx of negative colonoscopy, ovarian cyst one year ago.Denies diarrhea, constipation, urinary frequency or burning, vaginal discharge or pain. Has an appt with a new ACID CRANE OPERATOR, Dr. Burleson, next week. Pt crying through discussion of history. St she is crying because she is so sick of it . Has missed some work this week because of this condition. Pt has been alternating four Tylenol with four Ibuprofen every two hours for last 4 days. Afebrile, skin warm and dry. A&O. Drove self here. St she will provide urine specimen after shedrinks some water. Water given. documented in this encounter ED Notes * Willie Sanchez MD - 11/27/2017 10:13 AM CDT HISTORY OF PRESENT ILLNESS Holly Flores, a 32 y.o. female presents with a Chief Complaint of Abdominal Pain (chronic for years; denies UTI sx, denies diarrhea/constipation; ovarian cyst dx one year ago; denies vag discharge; has appt with new ACID CRANE OPERATORDr. Burleson, next week) Subjective With history of recurrent abdominal pain more than a year or so and now with recurrent abdominal pain for 5 days and is not clearing. Nausea but no vomiting. History provided by: The patient Arrived by: Private vehicle Abdominal Pain Associated symptoms: nausea Associated symptoms: no cough, no diarrhea, no fever, no shortness of breath, no sore throat and novomiting REVIEW OF SYSTEMS Review of Systems Constitutional: Positive for activity change. Negative for fever. HENT: Negative for congestion and sore throat. Respiratory: Negative for cough and shortness of breath. Gastrointestinal: Positive for abdominal pain and nausea. Negative for diarrhea and vomiting. Neurological: Negative for weakness and numbness. PAST MEDICAL HISTORY REVIEWED MEDICAL: Patient has [...] Encounter Objective PHYSICAL EXAM INITIAL VS BP: (!) 132/93 (11/27/17 1034), Heart Rate: (not recorded), Pulse: (!) 103 (11/27/171033), Resp: 16 (11/27/171033), Temp: 98.6 ??F (37 ??C) (11/27/171033), Temp src: Oral (11/27/171033), SpO2: 97% (11/27/171033), Pain Score: SEVEN (11/27/171033), Height: 5' 7 (170.2 cm) (11/27/171033), Weight: 104.3 kg (230 lb) (11/27/171033), BMI (Calculated): 36.01 (11/27/171033) No LMP recorded. Patient has had an implant. Physical Exam Constitutional: She is oriented to person, place, and time. She appears well- developed and well-nourished. No distress. HENT: Head: Normocephalic and atraumatic. Mouth/Throat: No posterior oropharyngeal erythema. Eyes: Conjunctivae are normal. Neck: Neck supple. Cardiovascular: Normal rate, regular rhythm and normal heart sounds. No murmur heard. Pulmonary/Chest: Effort normal and breath sounds normal. Abdominal: Soft. She exhibits no distension and no mass. There is tenderness. There is guarding (with percussion, diffuse. ). There is no rebound. No hernia. Lymphadenopathy: She has no cervical adenopathy. Neurological: She is alert and oriented to person, place, and time. Skin: Skin is warm and dry. Capillary refill takes less than 2 seconds. Psychiatric: Her behavior is normal. Vitals reviewed. DIAGNOSTICS LAB: Results for orders placed or performed during the hospital encounter of 11/27/17 (from the past 24 hour(s)) POC URINALYSIS DIPSTICK AUTOMATED Result Value Ref Range COLOR UA Dark Yellow Pale to Dark Yellow CLARITY UA Clear Clear GLUCOSE UA Negative Negative BILIRUBIN UA Negative Negative KETONES UA Negative Negative SPECIFIC GRAVITY UA 1.015 1.003 - 1.035 BLOOD UA Trace (A) Negative PH UA 5.5 5.0 - 8.0 PROTEIN UA Negative Negative UROBILINOGEN UA 0.2 <2.0 mg/dL NITRITE UA Negative Negative LEUKOCYTE ESTERASE UA Negative Negative UHCG: negative RADIOLOGY: No orders to display No orders to display EKG: PROCEDURES Procedures MEDICAL DECISION MAKING AND PLAN OF CARE REEVALUATION CASE DISCUSSED . New Prescriptions for this Encounter LAST VS BP: (!) 132/93 (11/27/17 1034), Heart Rate: (not recorded), Pulse: (!) 103 (11/27/17 1034), Resp: 16 (11/27/17 103), Temp: 98.6 ??F (37 ??C) (11/27/17 1034), Temp src: Oral (11/27/17 1034), SpO2: 97% (11/27/17 1034), Pain Score: SEVEN (11/27/171033) CLINICAL IMPRESSION Final diagnoses: [R10.84] Generalized abdominal pain (Primary) CODING Coding Tx to [facility] ER due to abdominal pain, triage nurse was notified by [facility] nurse. A friend driving her. DISPOSITION, EDUCATION AND MEDICATION RECONCILIATION Medications reconciled. See after visit summary for patient education on discharged patients. documented in this encounter Plan of Treatment Not on file documented as of this encounter Procedures Procedure Name Priority Date/Time Associated Diagnosis Comments POC , URINE Stat 11/27/2017 11:15 AM CDT POC URINALYSIS DIPSTICK AUTOMATED Stat 11/27/2017 11:14 AM CDT documented in this encounter Results * POC , URINE (11/27/2017 11:15 AM CDT) HCG QUAL URINE Negative Negative 11/27/2017 1:47 PM CDT [facility] SPECIFIC GRAVITY UA 1.015 1.003 - 1.035 11/27/2017 1:47 PM CDT [facility] Urine 11/27/2017 11:1 5 AM CDT 11/27/2017 1:47 PM CDT Willie Sanchez MD POINT OF CARE TESTIN G [facility] CLIA # [id number] [address] [address] * (ABNORMAL) POC URINALYSIS DIPSTICK AUTOMATED (11/27/2017 11:14 AM CDT) COLOR UA Dark Yellow Pale to Dark Yellow 11/27/2017 11:11 AM CDT [facility] CLARITY UA Clear Clear 11/27/2017 11:11 AM CDT [facility] GLUCOSE UA Negative Negative 11/27/2017 11:11 AM CDT [facility] BILIRUBIN UA Negative Negative 11/27/2017 11:11 AM CDT [facility] KETONES UA Negative Negative 11/27/2017 11:11 AM CDT [facility] SPECIFIC GRAVITY UA 1.015 1.003 - 1.035 11/27/2017 11:11 AM CDT [facility] BLOOD UA Trace(A) Negative 11/27/2017 11:11 AM CDT [facility] PH UA 5.5 5.0 - 8.0 11/27/2017 11:11 AM CDT [facility] PROTEIN UA Negative Negative 11/27/2017 11:11 AM CDT [facility] UROBILINOGEN UA 0.2 <2.0 mg/dL 8 11:11 AM CDT [facility] NITRITE UA Negative Negative 11/27/2017 11:11 AM CDT [facility] LEUKOCYTE ESTERASE UA Negative Negative 11/27/2017 11:11 AM CDT [facility] Urine 11/27/2017 11:1 4 AM CDT 11/27/2017 11:11 AM CDT Willie Sanchez MD POINT OF CARE TESTIN G [facility] CLIA # [id number] [address] [facility] [facility] [place] [address] documented in this encounter Visit Diagnoses Diagnosis Generalized abdominal pain- Primary Abdominal pain, generalized documented in this encounter Active and Recently Administered Medications Care Teams Tool Profiling Machine Set Up Operator Relationship Specialty Start Date End Date Clovis Johnson MD PCP - General Family Practice 08/17/17 documented as of this encounter
--- OUTSIDE RECORDS SUMMARY | 2024-07-10 00:23 | XMS_ITS | Encounter Summary ---
Author Organization [email or web address] [facility] Address [address] [place] [address] Care Team Providers Care Radio Board Operator Announcer Name Role Phone Clovis Johnson MD Primary Care Provider [phone] Reason for Visit * Auth/Cert Specialty Diagnoses / Procedures Referred By Contac t Referred To Contact Diagnoses Hematochezia Gina Lan MD [address] [facility] [address] [facility] [address] [place] [address] Referral ID Status Reason Start Date Expiration Date Visits Re quested Visits Authorized [id number] 09/16/2017 1 1 Encounter Details Date Type Department Care Team (Late st Contact Info) Description 10/01/2017 12:00 PM CDT Anesthesia Event [facility] [address] [place] [address] Lance Torres MD [address] [place] [address] Anesthesia Record Procedure Summary Procedure Name Responsible Anesthesiologist Anesthesia Start Time Anesthesia Stop Time COLONOSCOPY (Anus) Lance Torres MD 10/01/17 1200 0 10/01/17 1234 Events Date Time Event Comment 10/01/2017 1139 AN Equip Check Anesthesia eq uipment and materials checked in accordance with local policy. 1200 1200 An Start 1200 An Start Data 1200 Pre-Induction Immediate pre- induction anesthetic assessment performed. Vital signs as noted on graphic. 1204 An Induction 1204 Anesthesia Ready 1230 an stop data 1234 An Stop Meds Name Total lidocaine (XYLOCAINE) 2% injection 60 mg propofol (DIPRIVAN) 10??mg/mL injection 350 mg lactated Ringers solution 0 mL * Agents Name O2 Inspired O2 N2O Inspired N2O * Blood No blood administrations on file. Lines, Drains, and Airways Type Details Placement Removal Supraglottic Airway Type: nasal cannula; Confirmation: end tidal CO2, satisfactory chest rise 10/01/17 1139 by Brittany Bobby CRNA 10/01/17 1242 by Kaitlynn Guzman RN Peripheral IV Pre-Hospital Start: No; Orientation: Right; Location: Hand; Device: Angiocath; Gauge: 20 gauge; Patient Tolerance: tolerated well 10/01/17 1155 by Zulma Zavala RN 10/01/17 1242 by Kaitlynn Guzman RN documented in this encounter Social History Tobacco [...] of this encounter OR Notes * Anesthesia Postprocedure Evaluation - Brittany Bobby CRNA - 10/01/2017 12:35 PM CDT Post Anesthesia Evaluation Vitals: BP (!) 155/80 (BP Location: Right arm, Patient Position (BP): Sitting) Pulse 97 Resp 18 Ht 5' 7 (1.702 m) Wt 105.7 kg (233 lb) SpO2 97% BMI 36.49 kg/m?? Pain Rating: Nausea/Vomiting: no nausea and no vomiting Post-Op hydration: well hydrated Respiratory function: no respiratory symptoms Airway patency: normal Cardiovascular function: Normal - Regular rate and rhythm Mental status, LOC: 0=alert; keenly responsive Patient participated in evaluation: yes Unanticipated Events: no Brittany Bobby CRNA * Anesthesia Handoff - Brittany Bobby CRNA - 10/01/2017 12:34 PM CDT Post-Anesthetic transfer of care report [...] questions and acknowledgement of understanding. Vital Signs: BP: 155/80 (10/01/2017 11:50 AM) Pulse: 97 (10/01/2017 11:50 AM) Resp: 18 (10/01/2017 11:50 AM) SpO2: 97 % (10/01/2017 11:50 AM) 12:34 PM Brittany Bobby CRNA * Anesthesia Preprocedure Evaluation - Lance Torres MD - 10/01/2017 11:59 AM CDT Relevant Problems (+) History of ovarian cyst Anesthesia Evaluation Patient summary reviewed Airway Mallampati: II TM distance: >3 FB Neck ROM: full Dental - normal exam Pulmonary breath sounds clear to auscultation (+) asthma, sleep apnea, Cardiovascular - negative ROS Exercise tolerance: good (-) hypertension Rhythm: regular Rate: normal Neuro/Psych (+) headaches, psychiatric history GI/Hepatic/Renal (+) bowel prep Comments: Abdominal pain, rectal bleeding Endo/Other - negative ROS (-) diabetes mellitus Abdominal (+) obese, Anesthesia History No history of anesthetic complications. Anesthesia Plan ASA 2 MAC Intravenous induction Supraglottic airway maintenance NPO status > 8 hours Anesthetic plan and risks discussed with Patient. Plan discussed with Nurse Software Engineering Specialist. Smoking Compliance Patient did not smoke on day of surgery documented in this encounter Plan of Treatment [...] Bag 10/01/2017 11:55 AM CDT 125 mL/hr lidocaine 2 % (XYLOCAINE) injection INTRA-PROCEDURE PRN, Starting on Lalita 10/01/17 at 1204, Until Lalita 10/01/17 at 1234, Other (See Comment), Routine, Anesthesia Intra-op Given 10/01/2017 12:04 PM CDT 60 mg propofol (DIPRIVAN) injection INTRA-PROCEDURE PRN, Starting on Lalita 10/01/17 at 1204, Until Lalita 10/01/17 at 1234, Anesthesia Intra-op Given 10/01/2017 12:19 PM CDT 50 mg Given 10/01/2017 12:14 PM CDT 50 mg Given 10/01/2017 12:10 PM CDT 50 mg documented in this encounter Care Teams Radio Board Operator Announcer Relationship Specialty Start Date End Date Clovis Johnson MD PCP - General Family Practice 08/17/17 documented as of this encounter
--- OUTSIDE RECORDS SUMMARY | 2024-07-10 00:23 | XMS_ITS | Encounter Summary ---
Author Organization [facility] Address [address] [place] [address] Care Team Providers Care Dry Ice Machine Operator Name Role Phone Clovis Johnson MD Primary Care Provider [phone] Encounter Details Date Type Department Care Team (Late st Contact Info) Description 10/01/2017 Chart Note [facility] Gastroenterology [place] [address] [address] [place] [address] Gina Lan MD [address] [facility] [address] [place] [address] Social History Tobacco Use Types Packs/Day Years Used Date Smoking Tobacco: Never Smokeless Tobacco: Never Alcohol Use Standard Drinks/Week Comments Yes 0 (1 standard drink = 0.6 oz pur e alcohol) 2-3x a week Sex and Gender Information Value Date Recorded Sex Assigned at Not on file Gender Identity Not on file Sexual Orientation Not on file documented as of this encounter Progress Notes * Gina Lan MD - 10/01/2017 10:[address] OSH records obtained CT 12/2016 Normal stomach, liver, bowels. No acute abnormalities. Gina Lan MD documented in this encounter Plan of Treatment Not on file documented as of this encounter Visit Diagnoses Not on filedocumented in this encounter Care Teams Dry Ice Machine Operator Relationship Specialty Start Date End Date Clovis Johnson MD PCP - General Family Practice 08/17/17 documented as of this encounter
--- OUTSIDE RECORDS SUMMARY | 2024-07-10 00:23 | XMS_ITS | Encounter Summary ---
Author Organization [facility] Address [address] [place] [address] Care Team Providers Care Drying Oven Attendant Name Role Phone Clovis Johnson MD Primary Care Provider [phone] Reason for Visit * Reason Onset Date Comments Referral 12/02/2017 Encounter Details Date Type Department Care Team (Late st Contact Info) Description 12/02/2017 Telephone [facility] DIRECTOR BUSINESS DEVELOPMENT - Medical [facility] [address] [place] [address] [address] [place] [address] Kailey Burleson MD [address] [facility] [address] [place] [address] Referral Social History Tobacco Use Types Packs/Day Years [...] encounter Miscellaneous Notes * Telephone Encounter - Evens Massey - 12/02/2017 12:19 PM CDT LM on a labeled VM relaying information. Advised to call the office with any questions or concerns, or if we need to fax an a order to the PT. * Telephone Encounter - Evens Massey - 12/02/2017 12:17 PM CDT ----- Message from Kailey Burleson MD sent at 12/02/2017 11:50 AM CDT ----- I put in an external referral for pelvic PT for this patient and I want her to see Umm Adrian. Morenold the pt we would call her with the info... Would you mind calling her with this info? I don't know if there is anything else I need to do referral arredondo. Thanks Umm Adrian [facility] [address] [phone] documented in this encounter Plan of Treatment Not on file documented as of this encounter Visit Diagnoses Not on filedocumented in this encounter Care Teams Drying Oven Attendant Relationship Specialty Start Date End Date Clovis Johnson MD PCP - General Family Practice 08/17/17 documented as of this encounter
--- OUTSIDE RECORDS SUMMARY | 2024-07-10 00:23 | XMS_ITS | Encounter Summary ---
Author Organization [facility] Address [address] [place] [address] Care Team Providers Care Livestock Nutritionist Name Role Phone Clovis Johnson MD Primary Care Provider [phone] Encounter Details Date Type Department Care Team (Late st Contact Info) Description 10/01/2017 Abstract [facility] Gastroenterology [place] [address] [address] [facility] [address] [place] [address] Gina Lan MD [address] [facility] [address] [place] [address] Social History Tobacco Use Types [...] on filedocumented in this encounter Care Teams Livestock Nutritionist Relationship Specialty Start Date End Date Clovis Johnson MD PCP - General Family Practice 08/17/17 documented as of this encounter
--- OUTSIDE RECORDS SUMMARY | 2024-07-10 00:23 | XMS_ITS | Encounter Summary ---
Author Organization Lorena Gaxiola [facility] Address [address] [place] [address] Care Team Providers Care Medical Records Supervisor Name Role Phone Clovis Johnson MD Primary Care Provider [phone] Reason for Visit * Reason Comments Foot Laceration right foot laceratio n after stepping on a broken kitchen glass X 10 hours 11/13/17 @ 0930 Preeti WRIGHT * Auth/Cert Specialty Diagnoses / Procedures Referred By Contshiraz t Referred To Contact Urgent Care [facility] [address] [address] Referral ID Status Reason Start Date Expiration Date Visits Re quested Visits Authorized [id number] 1 1 Encounter Details Date Type Department Care Team (Latest Contact Info) Description 11/13/2017 9:23 AM CDT - 11/13/2017 10:09 AM CDT Hospital Encounter [facility] [address] [address] Superficial laceration of foot, initial encounter (Primary Dx) Discharge Disposition: Home or Self [...] Sign Reading Time Taken Comments Blood Pressure 155/88 11/13/2017 9:26 AM CDT Pulse 97 11/13/2017 9:26 AM CDT Temperature 36.6 ??C (97.9 ??F) 11/13/2017 9:26 AM CD T Respiratory Rate 16 11/13/2017 9:26 AM CDT Oxygen Saturation 100% 11/13/2017 9:26 AM CDT Inhaled Oxygen Concentration - - Weight 106.6 kg (235 lb) 11/13/2017 9:26 AM CDT Height 170.2 cm (5' 7 ) 11/13/2017 9:26 AM CDT Body Mass Index 36.81 11/13/2017 9:26 AM CDT documented in this encounter Discharge Instructions * Discharge Instructions* Gretel Rojo NP - 11/13/2017 9:50 AM CDT Images from the original note were not included. Keep skin clean and dry with soap and water Apply neosporin and bandaid daily when soiled Follow up with a primary care provider in the next 2-3 days for recheck. Report to the Emergency Department for new or worsening symptoms Please follow with your primary care physician, Clovis Johnson MD in 48-72 hours if NO better. If your symptoms worsen recheck at your local ER. If you do not have a primary doctor, [facility] offers a free referral service by calling [phone], , or toll free . This information can also be accessed on the web at [email or web address]. If a test or physician referral was ordered for you today, you can schedule these by calling Central Testing Scheduling (CTS),[phone], or Central Referral Scheduling (CRS), during normal work hours. Inform them you had a test or referral ordered during your visit at the [facility]. If you are female and on hormone based control there is a slight increase in risk with the use of antibiotics, the patient is asked to back up her OCP with condom or other method during this (or any) cycle during which she is taking antibiotics. Thank you for choosing to the [facility] Location [address] [place] [address] [place] [address] [place] [address] [facility] Location [address] [facility] [address] [place] [address] [place] [address] [phone] [place] [facility] [place] [address] [address] [place] [address] [place] [address] [phone] [place] Location [address] [place]. [address] IMPORTANT: You were examined and treated today on an urgent basis. This was not a substitute for, nor an effort to provide, complete and ongoing medical care. On arrival to [facility], you may have reported taking home medications that will be listed on your After Visit Summary. If applicable, this regimen is not being changed, except as noted and discussed with you. You should follow up with your primary care physician for ongoing medication management. This AVS (after visit summary) is a printed copy of the form that is part of your permanent electronic medical record. By accepting this form you acknowledge that your tests, diagnosis, treatment plan, and follow up care has been discussed with you by appropriate medical personnel. Thank-you again for choosing [facility]. * Attachments The following attachments cannot be sent through Care Everywhere. * Lacerations: Open (Chilean) documented in this encounter Medications at Time of Discharge Medication Sig Dispensed Refills Start Date End Date fexofenadine (SRIDEVI) 180 mg tablet Take 180 mg by mouth daily. 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 methylphenidate HCl (RITALIN) 10 mg tablet Take [...] as of this encounter Nursing Notes * Rani Joyner, RN - 11/13/2017 9:32 AM CDT Patient presents to the with right foot laceration after stepping on a broken kitchen glass yesterday evening at 2300. Unsure if any glass remains. Cut doesn't appear to have penetrated past the dermis. Pt ambulated to exam room independently. Alert and oriented. No acute distress noted. Skin warm and dry. Calm and cooperative. documented in this encounter ED Notes * Gretel Rojo NP - 11/13/2017 9:20 AM CDT Images from the original note were not included. HISTORY OF PRESENT ILLNESS Holly Flores, a 32 y.o. female presents with a Chief Complaint of Foot Laceration (right foot laceration after stepping on a broken kitchen glass X 10 hours 11/13/17 @ 0930 Preeti WRIGHT) Subjective HPI 32 yr old female c/o acute onset right foot pain s/p stepping on a broken glass last night Little to no bleeding no pain with walking No drainage today No fever or redness Unsure of last tetanus Concerned may have glass still in there and feels like its gaping No home care Asking for it to be checked and if needs to be glued otw feels well Also asking for work note REVIEW OF SYSTEMS Review of Systems PAST MEDICAL HISTORY REVIEWED MEDICAL: Patient has [...] smokeless tobacco. She reports that she drinks alcohol. She reports that she does not use drugs. No history on file. Social History Other Topics Concern ??? Not on file PROBLEM LIST: Patient has Hematochezia; LLQ abdominal pain; and History of ovarian cyst on her problem list. ALLERGIES Patient has no known allergies. HOME MEDICATIONS Discharge Medication List as of 11/13/2017 9:50 AM CONTINUE these medications which have NOT CHANGED Details fexofenadine (SRIDEVI) 180 mg tablet Take 180 mg by mouth daily. FLUOXETINE HCL (PROZAC ORAL) Take 80 mg by mouth. 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 methylphenidate HCl (RITALIN) 10 mg tablet Take 10 mg by mouth 2 times daily. traZODone (DESYREL) 50 mg tablet Take 50 mg by mouth daily at bedtime. albuterol HFA 90 mcg inhaler Take 2 Puffs by inhalation every 6 hours as needed for Shortness of Breath. Objective PHYSICAL EXAM INITIAL VS BP: (!) 155/88 (11/13/17925), Heart Rate: (not recorded), Pulse: 97 (11/13/17925), Resp: 16 (11/13/17925), Temp: 97.9 ??F (36.6 ??C) (11/13/17925), Temp src: Oral (11/13/17925), SpO2: 100 %(11/13/17925), Pain Score: Three (11/13/17925), Height: 5' 7 (170.2 cm) (11/13/17925), Weight: 106.6 kg (235 lb) (11/13/17925), BMI (Calculated): 36.8 (11/13/17925) No LMP recorded. Patient has had an implant. Physical Exam Constitutional: She appears well-developed. Cardiovascular: Normal rate. Pulmonary/Chest: Effort normal. Musculoskeletal: Right foot: There is laceration (1.5 cm by 1mm by 1mm linear superficial lac, no through dermis. noactive bleeding. cleansed with skin cleanser and no glass found with splinter forceps. no signs of secondary infection. n/v intact). There is normal range of motion, no tenderness, no bony tendernessand no swelling. Feet: Nursing note and vitals reviewed. DIAGNOSTICS LAB: RADIOLOGY: XR FOOT 3+ VW RIGHT XR FOOT 3+ VW RIGHT Radiologist Impression IMPRESSION: No evidence of acute osseous injury. No evidence of retained radiopaque foreign body. EKG: PROCEDURES Procedures MEDICAL DECISION MAKING AND PLAN OF CARE REEVALUATION CASE DISCUSSED Medications Administered During the ED Stay from 11/13/2017 0921 to 11/13/2017 1041 Date/Time Order Dose Route Action 11/13/2017 1002 tetanus and diphtheria toxoids and acellular pertussis vaccine PF (adult) (Tdap) (ADACEL) injection syringe 0.5 mL 0.5 mL IM Given 11/13/2017 1003 bacitracin zinc 500 unit/gram topical ointment 1 Packet 1 Packet Topical Given Discharge Medication List as of 11/13/2017 9:50 AM CONTINUE these medications which have NOT CHANGED Details fexofenadine (SRIDEVI) 180 mg tablet Take 180 mg by mouth daily. FLUOXETINE HCL (PROZAC ORAL) Take 80 mg by mouth. 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 methylphenidate HCl (RITALIN) 10 mg tablet Take 10 mg by mouth 2 times daily. traZODone (DESYREL) 50 mg tablet Take 50 mg by mouth daily at bedtime. albuterol HFA 90 mcg inhaler Take 2 Puffs by inhalation every 6 hours as needed for Shortness of Breath. LAST VS BP: (!) 155/88 (11/13/17925), Heart Rate: (not recorded), Pulse: 97 (11/13/17925), Resp: 16 (11/13/17925), Temp: 97.9 ??F (36.6 ??C) (11/13/17925), Temp src: Oral (11/13/17925), SpO2: 100 %(11/13/17925), Pain Score: Three (11/13/17925) CLINICAL IMPRESSION Final diagnoses: [S91.319A] Superficial laceration of foot, initial encounter (Primary) CODING Coding avs DISPOSITION, EDUCATION AND MEDICATION RECONCILIATION Medications reconciled. See after visit summary for patient education on discharged patients. documented in this encounter Plan of Treatment Not on file documented as of this encounter Procedures Procedure Name Priority Date/Time Associated Diagnosis Comments XR FOOT 3+ VW RIGHT Stat 11/13/2017 9 :39 AM CDT documented in this encounter Results * XR FOOT 3+ VW RIGHT (11/13/2017 9:39 AM CDT) Anatomical Region Laterality Modality Ankle / Foot Computed Radiogr aphy 11/13/2017 9:40 AM CDT Impressions 11/13/2017 10:02 AM CDT IMPRESSION: No evidence of acute osseous injury. No evidence of retained radiopaque foreign body. Narrative 11/13/2017 10:02 AM CDT XR FOOT 3+ VW RIGHT DATE: 11/13/2017 9:39 AM HISTORY: Stepped on broken glass. COMPARISON: None. FINDINGS: There is no evidence of acute fracture or dislocation. No concerning osseous lesions are identified. There is no evidence of retained radiopaque foreign body. Procedure Note Aretha Hein MD - 11/13/2017 XR FOOT 3+ VW RIGHT DATE: 11/13/2017 9:39 AM HISTORY: Stepped on broken glass. COMPARISON: None. FINDINGS: There is no evidence of acute fracture or dislocation. No concerning osseous lesions are identified. There is no evidence of retained radiopaque foreign body. IMPRESSION: No evidence of acute osseous injury. No evidence of retained radiopaque foreign body. Amandeep Kelly MD DIAGNOSTIC IMAGING ORDERABLES documented in this encounter Visit Diagnoses Diagnosis Superficial laceration of foot, initial encounter- Primary documented in this encounter Administered Medications Inactive Administered Medications - up to 3 most recent administrations Medication Order MAR Action Action Date Dose Rate Site bacitracin zinc 500 unit/gram topical ointment 1 Packet Topical, ONE TIME ONLY, 1 dose, On Thu11/13/17 at 0945, Routine Given 11/13/2017 10:03 AM CDT 1 Packet Foot, Right documented in this encounter Active and Recently Administered Medications Times are shown in CDT. Scheduled Medication Order 11/11/2017 11/12/2017 11/13/2017 bacitracin zinc 500 unit/gram topical ointment 1 Packet (COMPLETED) Topical, ONE TIME ONLY, 1 dose, On Thu11/13/17 at 0945, Routine 1003 (Given - Provid er: Rani Joyner RN) documented in this encounter Care Teams Medical Records Supervisor Relationship Specialty Start Date End Date Clovis Johnson MD PCP - General Family Practice 08/17/17 documented as of this encounter
--- OUTSIDE RECORDS SUMMARY | 2024-07-10 00:23 | XMS_ITS | Encounter Summary ---
Author Organization [facility] Address [address] [place] [address] Care Team Providers Care Network Diagnostic Support Specialist Name Role Phone Clovis Johnson MD Primary Care Provider [phone] Reason for Visit * Reason Onset Date Comments Fax Orders 12/02/2017 Encounter Details Date Type Department Care Team (Late st Contact Info) Description 12/02/2017 Telephone [facility] DIGITAL CAMERA TECHNICIAN - Medical [place] [id number] [address] [place] [address] [id number] [place] [address] Kailey Burleson MD [address] [facility] [address], [place] [address] Fax Orders Social History Tobacco Use Types Packs/Day Years [...] Telephone Encounter - John Chow RN - 12/02/2017 1:51 PM CDT Pt called to have referral faxed to Dr. Barnes's office #[phone] documented in this encounter Plan of Treatment Not on file documented as of this encounter Visit Diagnoses Not on filedocumented in this encounter Care Teams Network Diagnostic Support Specialist Relationship Specialty Start Date End Date Clovis Johnson MD PCP - General Family Practice 08/17/17 documented as of this encounter
== END 2024-07-04 07:50 | disposition home or self-care (01) ==
LOC: ANHLAB 07:52
PROVIDERS: PCP Internal Medicine; Visit Provider Nurse Practitioner Psychiatric/Mental Health
DX: F41.1 Generalized anxiety disorder (principal); F33.0 Major depressive disorder, recurrent, mild; F43.12 Post-traumatic stress disorder, chronic; R03.0 Elevated blood-pressure reading, without diagnosis of hypertension; Z79.899 Other long term (current) drug therapy
CPT/HCPCS: 36415; 80053; 80061; 82248; 82306; 83036; 84443; 85025

== ENCOUNTER 2024-08-02 17:01 | Emergency (ER) | payer BC, SELFPAY ==
--- NOTE | 2024-08-02 17:04 | ED.NAVMDI ---
HPI - Nausea/Vomiting/Diarrhea General Chief complaint: Nausea/Vomiting/Diarrhea Stated complaint: Vomiting/Stomach Pains Time Seen by Provider: 08/02/24 17:04 Source: patient Mode of arrival: ambulatory Limitations: no limitations History of Present Illness HPI Narrative: Patient is a 39-year-old female that presents with 3 days of nausea, vomiting and abdominal cramping. Patient denies any diarrhea or constipation. Patient started on Ozempic in May and has gone up to 50 units 2 weeks ago. Patient has had nausea the entire time she has been on the new medication. Denies any fever, chills, congestion, cough, sore throat. Patient states she used told a side patient is pancreatitis and is concerned that is what she. Related Data Home Medications ?Medication ?Instructions ?Recorded ?Confirmed ?Last Taken ?Type albuterol sulfate 90 mcg/actuation 1 puff inhalation Q4H PRN 08/19/21 04/28/24 Unknown History aerosol inhaler Shortness Of Breath bupropion HCl 300 mg 24 hr tablet, 300 mg PO DAILY 08/19/21 04/28/24 Unknown History extended release cetirizine 10 mg tablet (Zyrtec) 10 mg PO DAILY 08/19/21 04/28/24 Unknown History fluoxetine 40 mg capsule (Prozac) 40 mg PO DAILY 08/19/21 04/28/24 Unknown History esketamine 84 mg (28 mg x 3) nasal spray intranasal 04/23/23 04/28/24 Unknown History spray (Spravato) aripiprazole 20 mg tablet (Abilify) 15 mg PO DAILY 08/18/23 04/28/24 Unknown History lamotrigine 25 mg tablet 150 mg PO DAILY 08/18/23 04/28/24 Unknown History semaglutide 0.25 mg or 0.5 mg (2 0.25 mg subcut WEEKLY 04/28/24 04/28/24 Unknown History mg/3 mL) subcutaneous pen injector Allergies Allergy/AdvReac Type Severity Reaction Status Date / Time No Known Allergies Allergy Verified 04/28/24 09:28 Review of Systems Review of Systems: All systems reviewed & are unremarkable except as noted in HPI and below Constitutional: Constitutional: Denies body ache(s), Denies chills, Denies fatigue, Denies fever(s), Denies headache(s), Denies malaise and Denies weakness Eyes: Eyes: Denies blurry vision, Denies irritation and Denies loss of vision ENT: Denies otalgia, Denies headache(s), Denies nasal discharge, Denies sinus pain and Denies sore throat Cardiovascular: Cardiovascular: Denies chest pain, Denies irregular heart rhythm and Denies dyspnea Respiratory: Respiratory: Denies dyspnea Gastrointestinal: Gastrointestinal: Reports abdominal pain, Denies melena, Denies hematochezia, Denies diarrhea, Reports nausea and Reports vomiting Musculoskeletal: Musculoskeletal: Denies back pain, Denies myalgias and Denies arthralgias Integumentary/Breasts: Skin/Breast: Denies pruritus and Denies rash Neurologic: Denies headache(s), Denies loss of vision and Denies weakness Psychiatric: Psychiatric: Reports no additional psychiatric complaints Endocrine: Endocrine: Denies fatigue PMFSH Past Medical History Medical History Exposure to sexually transmitted disease (STD) Normal colonoscopy Erosive esophagitis Irritable bowel syndrome with diarrhea Nausea and vomiting Depression Asthma Allergies Surgical History Surgical History History of hysterectomy Family History Family History Father Diabetes mellitus Hypertension Mother Hypertension Depression Sibling Asthma Grandparent Cancer Depression Heart disease Grandparent Alcoholism Social History Social History Smoking status: Never smoker Alcohol intake: current Drinks per week: 2 Alcohol use details: Wine Substance use: current Substance use type: marijuana Other substance usage details: THC Lack of Transportation: No Lack of Food: Never True Current Housing: I Have Housing Concerned About Future Housing: No Difficulty Paying Gas/Electric Bills: No Difficulty Paying for Meds: No Currently Unemployed: No Education: Master's Degree or Higher Difficulty w/ Childcare or Family Care: No Living arrangements: with family Occupation/Education: occupation Additional occupation/education comments: [employer] Gender identity (if verbalized by the patient): Female Spiritual care concerns: No Comments At time of signature, agree with nursing past medical, surgical, social and family history. There is no relevant family history pertinent to the presenting complaint. Exam Const: General: cooperative, healthy appearing, comfortable, no acute distress and well nourished Nutritional Appearance: well nourished Orientation/consciousness: patient oriented x3 Limitations: no limitations HENMT: Head: normal to inspection, normocephalic and atraumatic Ears: hearing grossly normal bilaterally and external ears normal Face/Nose/Sinus: Normal external nose present, normal facial exam and face symmetric Face and sinus: normal facial exam and face symmetric Mouth: Yes lip normal Eyes: General: appearance normal, both eyes and all related structures Alignment and Position: alignment normal and position normal Periorbital: periorbital findings normal Eyelids: eyelids normal Pupils: Equal, round and reactive pupils present EOM: EOMs intact bilaterally Neck: Neck: normal visual inspection, full ROM and supple Chest: Chest palpation & inspection: normal inspection of the chest Resp: Effort & Inspection: normal respiratory effort and able to speak in complete sentences Auscultation: clear to auscultation bilaterally Cardio: Rate: regular rate Rhythm: regular rhythm Heart sounds: S1 normal heart sound present and S2 normal heart sound present GI: Inspection: normal to inspection GI Palp: Yes abdominal tenderness, Yes Soft to palpation and No Guarding due to palpation present (GI) Skin: General skin exam: normal color and no rashes or lesions noted Neuro: General: patient oriented x3 and moves all extremities Cranial nerves: Yes Equal, round and reactive pupils present Speech: normal speech Gait exam (Neuro): Normal gait present Extrem: General: normal to inspection, full ROM and no edema Psych: Appearance: grossly normal and well kempt Mental Status: mental status grossly normal Speech and movement: Normal speech and movement present Affect: normal affect Attitude: cooperative Thought process: Normal thought process present Course Course Emergency Course: Patient being transferred [facility] for further workup and imaging to rule out pancreatitis or other abdominal inflammation along with electrolyte imbalances from vomiting Portions of this record may have been created with voice recognition software Level of Care: Express Care Visit Vital Signs Vital signs: Vital Signs Temperature 37.0 C 08/02/24 17:08 Pulse Rate 91 08/02/24 17:08 Respiratory Rate 16 08/02/24 17:08 Blood Pressure 126/101 H 08/02/24 17:08 Pulse Oximetry 100 08/02/24 17:08 Temperature 37.0 C 08/02/24 17:08 Pulse Rate 91 08/02/24 17:08 Respiratory Rate 16 08/02/24 17:08 Blood Pressure 126/101 H 08/02/24 17:08 Pulse Oximetry 100 08/02/24 17:08 Reviewed Transfer Transfered to: [place] Transportation: Other (Private auto) Transfer rationale: Patient being transferred [facility] for further workup and imaging to rule out pancreatitis or other abdominal inflammation along with electrolyte imbalances from vomiting Accepting physician: Berenice CUEVA MDM - Nausea/Vomiting/Diarrhea MDM Narrative Medical decision making narrative: Patient being transferred [facility] for further workup and imaging to rule out pancreatitis or other abdominal inflammation along with electrolyte imbalances from vomiting Differential Diagnosis Differential diagnosis: Likely food poisoning, gastroenteritis, drug-induced nausea and vomiting and dehydration Medical Records Attestation: I reviewed the patient's medical records. Lab Data Labs: Lab Results 08/02/24 Range/Units 17:42 POC Influenza A Ag Negative (Negative) POC Influenza B Ag Negative (Negative) POC SARS CoV-2 Ag Negative (Negative) Discharge Plan Discharge Clinical Impression: Nausea and vomiting Qualifiers: Vomiting type: unspecified Qualified Code(s): R11.2 - Nausea with vomiting, unspecified Patient Disposition: Acute Care Hospital Condition: Stable Patient Language: Israeli Prescriptions: No Action albuterol sulfate 90 mcg/actuation HFA aerosol inhaler 1 puff inhalation Q4H PRN (Reason: Shortness Of Breath) fluoxetine [Prozac] 40 mg capsule 40 mg PO DAILY bupropion HCl 300 mg tablet extended release 24 hr 300 mg PO DAILY cetirizine [Zyrtec] 10 mg tablet 10 mg PO DAILY Spravato 84 mg (28 mg x 3) spray,non-aerosol intranasal semaglutide 0.25 mg or 0.5 mg (2 mg/3 mL) pen injector 0.25 mg subcut WEEKLY Rx Instructions: for 4 weeks aripiprazole [Abilify] 20 mg tablet 15 mg PO DAILY lamotrigine 25 mg tablet 150 mg PO DAILY mecobalamin (vitamin B12) 1,000 mcg tablet,chewable 1,000 mcg PO DAILY Qty: 90 0RF amlodipine 5 mg tablet 5 mg PO DAILY Qty: 90 1RF omeprazole 20 mg capsule,delayed release(DR/EC) 20 mg PO DAILY Qty: 90 3RF fluconazole 150 mg tablet 150 mg PO Q72H Qty: 2 0RF Follow-up/Referrals: PHYSICIAN,CREDIT RISK ASSOCIATE [Primary Care Provider] - Time of Disposition: 18:01
[2024-08-02 17:08] VITALS: BP 126/101; PULSE 91; RESP 16; TEMP 37; O2SAT 100
[2024-08-02 17:44] LABS: EDCOVIDSCREEN Negative (Negative); EDINFLUASCREEN Negative (Negative); EDINFLUBSCREEN Negative (Negative)
== END 2024-08-02 17:55 | disposition short-term general hospital (02) ==
PROVIDERS: Emergency Provider Nurse Practitioner Family
DX: R11.2 Nausea with vomiting, unspecified (principal); Z20.822 Contact with and (suspected) exposure to COVID-19; F12.90 Cannabis use, unspecified, uncomplicated; J45.909 Unspecified asthma, uncomplicated; K20.90 Esophagitis, unspecified without bleeding; F32.A Depression, unspecified
CPT/HCPCS: 87426; 87804; 99212; G0463

== ENCOUNTER 2024-08-02 18:17 | Emergency (ER) | payer BC, SELFPAY ==
--- NOTE | ~2024-08-02 | CT_ITS ---
CLINICAL INDICATION: Nausea vomiting and abdominal pain COMPARISON: 08/01/2022. TECHNIQUE: Multiple contiguous axial images of the abdomen and pelvis were performed following the ad ministration of with 100 mL Omnipaque-350 intravenous contrast The dose-length product (DLP) was 1279.39 mGy-cm. Automated exposure control and iterative reconstruction technique were employed. FINDINGS/OBSERVATIONS: Visualized lower thorax: The bilateral lung bases are clear. The heart is of normal size, without pericardial effusion. Small hiatal hernia is present. Liver: The liver enhances homogeneously, and is borderline enlarged measuring 19 cm in longitudinal dimensio n. Gallbladder and biliary system: The gallbladder is only minimally distended, and otherwise unremarkable. Pancreas: The pancreas enhances homogeneously without ductal dilatation. Spleen: The spleen enhances homogeneously and is not enlarged measuring 11 cm in longitudinal dimension. Kidneys: The bilateral kidneys enhance symmetrically without hydronephrosis or renal calculi. Adrenal glands: Unremarkable. Gastrointestinal tract: Mural thickening and edema is identified within the cecum extending to the rectum with surrounding in flammatory change, findings consistent with a ríos colitis (which improves distally). Appendix: The air-filled appendix is of normal caliber (axial series, images 124 through 136) Vasculature: Unremarkable. Lymph nodes: No pathologically enlarged or morphologically suspicious lymph nodes within the retroperitoneum or at the root of the mesentery. Pelvic structures: The bladder is distended, and otherwise unremarkable. The uterus is surgically absent. Body wall and musculoskeletal: Small fat-containing umbilical hernia. No significant degenerative disease within the lower thoracic or lumbosacral spine. IMPRESSION: Findings consistent with a pancolitis, far worse in the cecum and ascending colon with less mural bowen ma in the distal colon and rectum. Reviewed, dictated and finalized at location A. OR MATERIALS SCIENTIST IMPRESSION: Findings consistent with a pancolitis, far worse in the cecum and ascending col on with less mural edema in the distal colon and rectum.
[2024-08-02 18:22] VITALS: BP 155/100; PULSE 99; RESP 16; TEMP 36.4; O2SAT 100
[2024-08-02 21:03] LABS: Basophils Absolute Auto 0.1 K/mm3 (0.0-0.1); Basophils Percent Auto 0.5 % (0.2-1.2); Eosinophils Percent Auto 0.3 % (0-4.4); Hematocrit 42.8 % (37.0-47.0); Hemoglobin 14.7 g/dL (12.0-15.0); Immature Granulocyte Absolute 0.01 K/mm3 (0.00-0.031); Immature Granulocyte Percent A 0.1 % (0-0.5); Lymphocytes Absolute Auto 2.53 K/mm3 (0.9-3.2); Lymphocytes Percent Auto 25.5 % (18.3-44.2); Mean Corpuscular HGB Conc 34.3 g/dl (32-36); Mean Corpuscular Hemoglobin 28.7 pg (26-34); Mean Corpuscular Volume 83.6 fl (80-100); Mean Platelet Volume 9.3 fl (7.4-10.4); Monocytes Absolute Auto 0.6 K/mm3 (0.1-0.6); Monocytes Percent Auto 5.7 % (2.6-8.5); Neutrophils Absolute Auto 6.7 K/mm3 (1.3-6.7); Neutrophils Percent Auto 67.9 % (45.5-73.1); Platelet Count Result 332 k/mm3 (150-375); Red Blood Count 5.12 M/mm3 (4.2-5.4); Red Cell Distribution Width 12.6 % (11.5-14.5); White Blood Count 9.9 K/mm3 (4.5-10.0)
[2024-08-02 21:21] LABS: Alanine Aminotransferase 21 U/L (6-35); Albumin Level 4.7 g/dL (3.5-5.1); Alkaline Phosphatase 76 U/L (38-126); Anion Gap 13 mmol/L (4-12); Aspartate Amino Transferase 20 U/L (14-36); Blood Urea Nitrogen 6 mg/dL (7-17); Calcium 9.3 mg/dL (8.4-10.2); Carbon Dioxide 24 mmol/L (22-30); Chloride 102 mmol/L (98-107); Estimated CRCL calculation 97 ml/min; Estimated Glomerular Filt Rate > 60; Glucose 100 mg/dL (65-110); Lipase 70 U/L (23-300); Potassium 3.6 mmol/L (3.4-5.0); Sodium 139 mmol/L (137-145)
[2024-08-02] MEDS: MORPHINE SULFATE (*CRX) 4 MG/ML INJ IV PUSH (21:58)
[2024-08-02] MEDS: SODIUM CHLORIDE 0.9% IV 1,000 ML 999 ML IV CONT ×2 (21:58)
[2024-08-02] MEDS: ONDANSETRON INJ 4 MG/2 ML VIAL IV PUSH (21:58)
[2024-08-02] MEDS: FAMOTIDINE 20 MG/2 ML VIAL IV PUSH (21:59)
[2024-08-02 22:02] LABS: Magnesium 2.1 mg/dL (1.6-2.3)
[2024-08-02 22:06] VITALS: BP 147/96; PULSE 92; RESP 16; O2SAT 100
--- NOTE | 2024-08-02 22:10 | ED.ABDPAIN ---
HPI - Abdominal Pain General Chief Complaint: Abdominal Pain Stated Complaint: abd pain, n/v Time Seen by Provider: 08/02/24 20:59 Source: patient Mode of arrival: ambulatory Limitations: no limitations History of Present Illness HPI narrative: Patient is a 39-year-old female who presents the ED with report of nausea, vomiting, diarrhea. Patient reports she was recently started on semaglutide. She states she has been having issues with nausea and vomiting since being started on the medication, however this has become worse over the last 3 days. She states she has not been able to keep down any food or drink. Complains of pain throughout her upper abdomen. Also reports having profuse diarrhea today. Denies fevers, rectal bleeding, melena, sick contacts, suspicious food exposure, cough or cold symptoms. Was tested negative for influenza and COVID at the urgent care today. Related Data Home Medications ?Medication ?Instructions ?Recorded ?Confirmed ?Last Taken ?Type albuterol sulfate 90 mcg/actuation 1 puff inhalation Q4H PRN 08/19/21 04/28/24 Unknown History aerosol inhaler Shortness Of Breath bupropion HCl 300 mg 24 hr tablet, 300 mg PO DAILY 08/19/21 04/28/24 Unknown History extended release cetirizine 10 mg tablet (Zyrtec) 10 mg PO DAILY 08/19/21 04/28/24 Unknown History fluoxetine 40 mg capsule (Prozac) 40 mg PO DAILY 08/19/21 04/28/24 Unknown History esketamine 84 mg (28 mg x 3) nasal spray intranasal 04/23/23 04/28/24 Unknown History spray (Spravato) aripiprazole 20 mg tablet (Abilify) 15 mg PO DAILY 08/18/23 04/28/24 Unknown History lamotrigine 25 mg tablet 150 mg PO DAILY 08/18/23 04/28/24 Unknown History semaglutide 0.25 mg or 0.5 mg (2 0.25 mg subcut WEEKLY 04/28/24 04/28/24 Unknown History mg/3 mL) subcutaneous pen injector Allergies Allergy/AdvReac Type Severity Reaction Status Date / Time No Known Allergies Allergy Verified 08/02/24 18:18 Review of Systems Review of Systems: All systems reviewed & are unremarkable except as noted in HPI. All systems reviewed & are unremarkable except as noted in HPI and below PMFSH Past Medical History Medical History Exposure to sexually transmitted disease (STD) Normal colonoscopy Erosive esophagitis Irritable bowel syndrome with diarrhea Nausea and vomiting Depression Asthma Allergies Surgical History Surgical History History of hysterectomy Family History Family History Father Diabetes mellitus Hypertension Mother Hypertension Depression Sibling Asthma Grandparent Cancer Depression Heart disease Grandparent Alcoholism Social History Social History Smoking status: Never smoker Alcohol intake: current Drinks per week: 2 Alcohol use details: Wine Substance use: current Substance use type: marijuana Other substance usage details: THC Lack of Transportation: No Lack of Food: Never True Current Housing: I Have Housing Concerned About Future Housing: No Difficulty Paying Gas/Electric Bills: No Difficulty Paying for Meds: No Currently Unemployed: No Education: Master's Degree or Higher Difficulty w/ Childcare or Family Care: No Living arrangements: with family Occupation/Education: occupation 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 HEAD: Normocephalic, atraumatic. RESPIRATORY: Airway patent, respirations nonlabored. Clear to auscultation bilaterally, no rales, rhonchi, wheezing. CARDIOVASCULAR: Regular rate and rhythm without murmurs, rubs, or gallops. ABDOMINAL: Soft, tenderness in left upper quadrant, epigastric region, right upper quadrant, nondistended. Normoactive BS. MUSCULOSKELETAL: Moves all extremities. No gross deformities. SKIN: Warm, dry, normal color. NEURO: A&O X3. Speech clear. PSYCHIATRIC: Appropriate mood and affect. Normal interaction. Course Vital Signs Vital signs: Vital Signs Temperature 97.6 F 08/02/24 18:22 Pulse Rate 99 08/02/24 18:22 Respiratory Rate 16 08/02/24 18:22 Blood Pressure 155/100 H 08/02/24 18:22 Pulse Oximetry 100 08/02/24 18:22 Oxygen Delivery Room Air 08/02/24 18:22 Temperature 97.6 F 08/02/24 18:22 Pulse Rate 92 08/02/24 22:06 Respiratory Rate 16 08/02/24 22:06 Blood Pressure 147/96 H 08/02/24 22:06 Pulse Oximetry 100 08/02/24 22:06 Oxygen Delivery Room Air 08/02/24 18:22 MDM - Abdominal Pain MDM Narrative Medical decision making narrative: Patient presented to ED with 3 day history of nausea, vomiting, diarrhea, on semaglutide and has had GI side effects r/t this. Vital signs are stable upon arrival. Patient is in no acute distress. Cbc with blood cell count of 9.9. CMP with anion gap of 13, no other significant abnormalities. Fluids ongoing. Stable electrolytes. Stable kidney function. Normal magnesium. Normal LFTs and lipase. Urinalysis with 1+ ketones, 6-10 whites, 3+ urine bacteria, though moderate squamous cells are noted. Sent for culture. CT abd/pelvis obtained and consistent with pancolitis. Consistent with clinical picture. Patient given fluids, pain/nausea medication, pepcid. On re-evaluation, she is feeling improved. Having slight increase of pain, but overall improved. Was able to tolerate p.o. intake. Given profound and multiple day nature of symptoms, will treat as infectious colitis with antibiotics. Discussed discharge home versus admission for IV antibiotics. Utilize shared decision-making with patient. Patient would prefer to go home. She is otherwise stable. She is not meeting sepsis criteria. Feel she is safe for discharge home with close outpatient follow-up and strict return precautions. Discussed these with patient. Recommended very close follow-up with primary care doctor, discussion of alternative weight loss medications. Also recommended follow-up with GI. Patient does have a GI specialist that she has previously seen. History of IBS. She did have a colonoscopy last year which did not show evidence of inflammatory bowel disease. Again emphasized strict return precautions and patient voiced understanding. She does feel comfortable going home. Discharged in stable condition. Medical Records Attestation: I reviewed the patient's medical records. Lab Data Attestation: I reviewed the patient's lab results. 08/02/24 20:55 08/02/24 20:55 Labs: Lab Results 08/02/24 08/02/24 Range/Units 20:55 22:06 WBC 9.9 (4.5-10.0) K/mm3 RBC 5.12 (4.2-5.4) M/mm3 Hgb 14.7 (12.0-15.0) g/dL Hct 42.8 (37.0-47.0) % MCV 83.6 (80-100) fl MCH 28.7 (26-34) pg MCHC 34.3 (32-36) g/dl RDW 12.6 (11.5-14.5) % Plt Count 332 (150-375) k/mm3 MPV 9.3 (7.4-10.4) fl Immature Gran % (Auto) 0.1 (0-0.5) % Neut % (Auto) 67.9 (45.5-73.1) % Lymph % (Auto) 25.5 (18.3-44.2) % [place] % (Auto) 5.7 (2.6-8.5) % Eos % (Auto) 0.3 (0-4.4) % Baso % (Auto) 0.5 (0.2-1.2) % Lymph # (Auto) 2.53 (0.9-3.2) K/mm3 [place] # (Auto) 0.6 (0.1-0.6) K/mm3 Eos # (Auto) 0.0 (0-0.3) K/mm3 Baso # (Auto) 0.1 (0.0-0.1) K/mm3 Abs Immat Gran (auto) 0.01 (0.00-0.031) K/mm3 Absolute Neuts (auto) 6.7 (1.3-6.7) K/mm3 Absolute Nucleated RBC 0.000 (0.0-0.012) K/mm3 Nucleated RBC % 0.0 (0.0-0.2) % Sodium 139 (137-145) mmol/L Potassium 3.6 (3.4-5.0) mmol/L Chloride 102 (98-107) mmol/L Carbon Dioxide 24 (22-30) mmol/L Anion Gap 13 H (4-12) mmol/L BUN 6 L (7-17) mg/dL Creatinine 0.90 (0.7-1.0) mg/dL Estim Creat Clear Calc 97 ml/min Estimated GFR > 60 (59 - ) Glucose 100 (65-110) mg/dL Calcium 9.3 (8.4-10.2) mg/dL Magnesium 2.1 (1.6-2.3) mg/dL Total Bilirubin 1.0 (0.2-1.3) mg/dL AST 20 (14-36) U/L ALT 21 (6-35) U/L Alkaline Phosphatase 76 (38-126) U/L Total Protein 8.0 (6.3-8.2) g/dL Albumin 4.7 (3.5-5.1) g/dL Lipase 70 (23-300) U/L Urine Color Yellow (Yellow) Urine Appearance Cloudy H (Clear) Urine pH 5.5 (5.0-9.0) Ur Specific [place] 1.026 (1.001-1.035) Urine Protein Negative (Negative) mg/dL Urine Glucose (UA) Negative (Negative) mg/dL Urine Ketones 1+ H (Negative) mg/dL Ur Blood (Man) Negative (Negative) Urine Nitrate Negative (Negative) Urine Bilirubin Negative (Negative) Urine Urobilinogen 0.2 (<2.0) mg/dL Leukocyte Esterase Rfl Negative (Negative) ALEXA/UL Urine RBC 0-2 (0-2) /hpf Urine WBC 6-10 H (0-3) /hpf Ur Squamous Epith Cells Moderate (Few) /hpf Urine Bacteria 3+ H /hpf Urine Casts 3-5 Imaging Data Attestation: I personally reviewed and interpreted this imaging study as follows: Radiologist's impression: ITS Impressions Abdomen/Pelvis CT 08/02/24 21:59 IMPRESSION: Findings consistent with a pancolitis, far worse in the cecum and ascending colon with less mural edema in the distal colon and rectum. Discharge Plan Discharge Clinical Impression: Pancolitis Nausea and vomiting Qualifiers: Vomiting type: unspecified Qualified Code(s): R11.2 - Nausea with vomiting, unspecified Patient Disposition: Home, Self-Care Condition: Stable Instructions: Antibiotic Form, Acute Nausea and Vomiting (ED), Colitis (ED) Additional Instructions: Take antibiotics as prescribed. Follow-up closely with your primary care doctor and GI specialist for further evaluation. Recommend Tylenol, Bentyl as needed for further abdominal discomfort. You can also take Pepcid daily for acid reflux. Utilize zofran as needed for further nausea. Increase fluid intake as much as possible. Recommend electrolyte rich fluids, gatorade, pedialyte, body armour. Recommend clear liquids or bland diet until symptoms improve, such as bananas, rice, applesauce, toast, or crackers. Return to the ED if you experience worsening or severe symptoms, unable to keep down food or drink, severe pain, fevers, rectal bleeding, vomiting blood, or any other symptoms of concern. Patient Language: [place] Citizen Prescriptions: New metronidazole 500 mg tablet 500 mg PO Q8H 10 Days Qty: 30 0RF ciprofloxacin HCl 500 mg tablet 500 mg PO Q12H 10 Days Qty: 20 0RF dicyclomine 20 mg tablet 20 mg PO TID PRN (Reason: Abdominal Discomfort) Qty: 20 0RF ondansetron 4 mg tablet,disintegrating 4 mg PO Q8H PRN (Reason: nausea and vomiting) Qty: 15 0RF No Action albuterol sulfate 90 mcg/actuation HFA aerosol inhaler 1 puff inhalation Q4H PRN (Reason: Shortness Of Breath) fluoxetine [Prozac] 40 mg capsule 40 mg PO DAILY bupropion HCl 300 mg tablet extended release 24 hr 300 mg PO DAILY cetirizine [Zyrtec] 10 mg tablet 10 mg PO DAILY Spravato 84 mg (28 mg x 3) spray,non-aerosol intranasal semaglutide 0.25 mg or 0.5 mg (2 mg/3 mL) pen injector 0.25 mg subcut WEEKLY Rx Instructions: for 4 weeks aripiprazole [Abilify] 20 mg tablet 15 mg PO DAILY lamotrigine 25 mg tablet 150 mg PO DAILY mecobalamin (vitamin B12) 1,000 mcg tablet,chewable 1,000 mcg PO DAILY Qty: 90 0RF amlodipine 5 mg tablet 5 mg PO DAILY Qty: 90 1RF omeprazole 20 mg capsule,delayed release(DR/EC) 20 mg PO DAILY Qty: 90 3RF fluconazole 150 mg tablet 150 mg PO Q72H Qty: 2 0RF Follow-up/Referrals: PHYSICIAN,[employer] SUPERVISOR [Primary Care Provider] - Time of Disposition: 00:12
[2024-08-02 22:19] LABS: Add Urine Microscopic? YES; Appearance Urine Cloudy (Clear); Bacteria Urine 3+ /hpf; Bilirubin Urine Negative (Negative); Blood Urine Negative (Negative); Color Urine Yellow (Yellow); Glucose Urine UA Negative (Negative); Ketones Urine 1+ mg/dL (Negative); Leukocyte Esterase Ur Negative LEU/UL (Negative); Nitrate Urine Negative (Negative); Protein Urine Negative (Negative); RBC Urine 0-2 /hpf (0-2); Specific Grav Ur 1.026 (1.001-1.035); Squamous Epithelial Cell Urine Moderate /hpf (Few); Urobilinogen Urine 0.2 mg/dL (<2.0); pH Urine 5.5 (5.0-9.0)
[2024-08-03] MEDS: CIPROFLOXACIN 500 MG TAB PO (00:11)
[2024-08-03] MEDS: KETOROLAC 30 MG/ML VIAL (*BKC) IV PUSH (00:11)
[2024-08-03] MEDS: ONDANSETRON INJ 4 MG/2 ML VIAL IV PUSH (00:11)
[2024-08-03] MEDS: DICYCLOMINE HCL 10 MG CAPSULE 20 MG PO (00:11)
[2024-08-03] MEDS: metroNIDAZOLE 500 MG TABLET PO (00:12)
[2024-08-03 00:23] VITALS: BP 138/90; PULSE 93; RESP 19; O2SAT 100
== END 2024-08-03 00:23 | disposition home or self-care (01) ==
PROVIDERS: Emergency Medicine; Student in an Organized Health Care Education/Training Program; Emergency Provider Physician Assistant
DX: K52.9 Noninfective gastroenteritis and colitis, unspecified (principal); R11.2 Nausea with vomiting, unspecified; F32.A Depression, unspecified; J45.909 Unspecified asthma, uncomplicated
CPT/HCPCS: 36415; 74177; 80053; 81001; 83690; 83735; 85025; 87086; 96361; 96374; 96375; 96376; 99284; A9270; J1885; J2270; J2405; J7030; Q9967

== ENCOUNTER 2024-08-07 20:08 | Emergency (ER) | payer BC, SELFPAY ==
--- NOTE | ~2024-08-07 | CT_ITS ---
EXAMINATION: CT abdomen pelvis w con DATE: 08/07/2024 21:56 INDICATION: diffuse abd pain TECHNIQUE: Computed tomography (CT) of the abdomen and pelvis was performed with 100 mL Omnipaque-350 intravenous contrast. Automated exposure control and iterative reconstruction technique were employe d. The dose-length product was 1298.17 mGy-cm. COMPARISON: 08/02/2024. FINDINGS: Lower thorax: Unremarkable Liver: Enlarged. Biliary/Gallbladder: Gallbladder is normal. No bile duct dilation. Pancreas: No mass or duct dilation. Spleen: Normal. Adrenals:No mass. Kidneys: No suspicious mass, obstructing stone, or hydronephrosis. GI tract: No small or large bowel dilation. Colonic submucosal fat as can be seen with chronic IBD, o besity, chemotherapy treatment, and celiac disease. Normal appendix. Mesentery/Peritoneum: No ascites, mass, or free air. Retroperitoneum: No mass. Pelvis: Absent uterus. Partially distended urinary bladder with mild wall thickening. Left ovary not confidently visualized. Normal right ovary which contains a 1.7 cm simple cyst or dominant follicle. Soft Tissues: Small uncomplicated fat-containing umbilical hernia. Bones: No acute osseous finding. IMPRESSION: Hepatomegaly. Mild bladder wall thickening, may be secondary to cystitis or incomplete distention. Otherwise, no acute abdominopelvic process detected. Reviewed, dictated and finalized at location K. R VEHICLE ASSEMBLER IMPRESSION: Hepatomegaly. Mild bladder wall thickening, may be secondary to cystitis or incomplete disten tion. Otherwise, no acute abdominopelvic process detected.
[2024-08-07 20:17] VITALS: BP 139/87; PULSE 83; RESP 17; TEMP 36.6; O2SAT 100
--- NOTE | 2024-08-07 20:44 | ECG_ITS ---
Test Date: 2024-08-07 21:05:24 Measurements Intervals [place] Rate: 82 P: 25 UT: 149 QRS: 16 QRSD: 94 T: 8 QT: 376 QTc: 440 Interpretive Statements SINUS RHYTHM No previous ECG available for comparison Electronically Signed On 08-08-2024 18:09:49 APPLIED MARINE PHYSICS PROFESSOR by Irais Fritz M.D.
--- NOTE | 2024-08-07 20:45 | ED.ABDPAIN ---
HPI - Abdominal Pain General Chief Complaint: Abdominal Pain Stated Complaint: abdominal pain Time Seen by Provider: 08/07/24 20:36 History of Present Illness HPI narrative: 39 y/o F with a PMHx of IBS presents to the emergency department for abdominal pain, N/V/D for over 1 week. Patient was seen in our emergency department on 08/02/2024 for the same symptoms and diagnosed with pancolitis on CT. She was discharged home with Flagyl, Cipro, dicyclomine and Zofran which she has been taking with out improvement. Patient presents today for worsening pain. States the pain is diffusely throughout her abdomen over send epigastrium. She reports approximately 6-7 episodes of watery diarrhea daily and several episodes of vomiting. She is unable to tolerate p.o. intake today. She denies fever, prior abdominal surgeries, dysuria or hematuria. She does admit to a history of C diff 1 year ago. States she is unsure what caused the C diff. She does not work in healthcare. Denies recent travel, surgeries or hospitalizations. Related Data Home Medications ?Medication ?Instructions ?Recorded ?Confirmed ?Last Taken ?Type albuterol sulfate 90 mcg/actuation 1 puff inhalation Q4H PRN 08/19/21 04/28/24 Unknown History aerosol inhaler Shortness Of Breath bupropion HCl 300 mg 24 hr tablet, 300 mg PO DAILY 08/19/21 04/28/24 Unknown History extended release cetirizine 10 mg tablet (Zyrtec) 10 mg PO DAILY 08/19/21 04/28/24 Unknown History fluoxetine 40 mg capsule (Prozac) 40 mg PO DAILY 08/19/21 04/28/24 Unknown History esketamine 84 mg (28 mg x 3) nasal spray intranasal 04/23/23 04/28/24 Unknown History spray (Spravato) aripiprazole 20 mg tablet (Abilify) 15 mg PO DAILY 08/18/23 04/28/24 Unknown History lamotrigine 25 mg tablet 150 mg PO DAILY 08/18/23 04/28/24 Unknown History semaglutide 0.25 mg or 0.5 mg (2 0.25 mg subcut WEEKLY 04/28/24 04/28/24 Unknown History mg/3 mL) subcutaneous pen injector Allergies Allergy/AdvReac Type Severity Reaction Status Date / Time No Known Allergies Allergy Verified 08/02/24 18:18 Review of Systems Review of Systems: All systems reviewed & are unremarkable except as noted in HPI and below PMFSH Past Medical History Medical History Exposure to sexually transmitted disease (STD) Normal colonoscopy Erosive esophagitis Irritable bowel syndrome with diarrhea Nausea and vomiting Depression Asthma Allergies Surgical History Surgical History History of hysterectomy Family History Family History Father Diabetes mellitus Hypertension Mother Hypertension Depression Sibling Asthma Grandparent Cancer Depression Heart disease Grandparent Alcoholism Social History Social History Smoking status: Never smoker Alcohol intake: current Drinks per week: 2 Alcohol use details: Wine Substance use: current Substance use type: marijuana Other substance usage details: THC Lack of Transportation: No Lack of Food: Never True Current Housing: I Have Housing Concerned About Future Housing: No Difficulty Paying Gas/Electric Bills: No Difficulty Paying for Meds: No Currently Unemployed: No Education: Master's Degree or Higher Difficulty w/ Childcare or Family Care: No Living arrangements: with family Occupation/Education: occupation 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 HEAD: Normocephalic, atraumatic. EYES: EOMI. ENT: Nares clear, no rhinorrhea or epistaxis. Mucous membranes dry NECK: Supple. CHEST: Clear to auscultation. No respiratory distress. HEART: Regular rate and rhythm. No murmur heard. Normal peripheral pulses. ABDOMEN: Normoactive bowel sounds. Abdomen soft with diffuse tenderness. No rebound, guarding or rigidity. No CVA tenderness EXTREMITIES: Normal range of motion. No edema. SKIN: Warm, dry, no rash. NEURO: No focal deficits. Alert and oriented x3 Course Vital Signs Vital signs: Vital Signs Temperature 98 F 08/07/24 20:17 Pulse Rate 83 08/07/24 20:17 Respiratory Rate 17 08/07/24 20:17 Blood Pressure 139/87 08/07/24 20:17 Pulse Oximetry 100 08/07/24 20:17 Oxygen Delivery Room Air 08/07/24 20:17 Temperature 97.8 F 08/07/24 23:08 Pulse Rate 97 08/07/24 23:08 Respiratory Rate 18 08/07/24 23:08 Blood Pressure 126/72 08/07/24 23:08 Pulse Oximetry 100 08/07/24 23:08 Oxygen Delivery Room Air 08/07/24 20:17 MDM - Abdominal Pain MDM Narrative Medical decision making narrative: 39-year-old female with history of C diff in IBS presents to emergency department for several days of watery diarrhea, N/V, abdominal pain. Patient was evaluated in our ED 5 days ago and discharged home with diagnosis of ríos colitis and p.o. antibiotics. She has been taking these without improvement, symptoms have worsened. Vitals are stable. Exam is significant for the above. DX includes diverticulitis, colitis, UTI, ACS and other CBC without leukocytosis or anemia. Chemistries are unremarkable, no electrolyte derangements. Lipase normal. EKG shows sinus rhythm, normal [place] interval, normal QRS duration, normal QTC no ST elevations or depressions. Troponin undetectable. CT abdomen pelvis shows hepatomegaly, mild bladder wall thickening which may be secondary to cystitis recurrent incomplete distension, otherwise no acute intra-abdominal or pelvic process. Lactic normal at 1.1. Patient unable to provide a stool sample while monitored in the ED. She received IV fluids, morphine and Zofran. She is tolerating p.o. intake. Advised continue course of antibiotics and f/u with PCP and GI. Return precautions discussed. She is agreeable with the plan verbalized understanding. Discharged in stable condition. Lab Data 08/07/24 20:57 08/07/24 20:57 Labs: Lab Results 08/07/24 08/07/24 08/07/24 Range/Units 20:57 20:57 22:52 WBC 9.0 (4.5-10.0) K/mm3 RBC 4.93 (4.2-5.4) M/mm3 Hgb 14.2 (12.0-15.0) g/dL Hct 41.8 (37.0-47.0) % MCV 84.8 (80-100) fl MCH 28.8 (26-34) pg MCHC 34.0 (32-36) g/dl RDW 12.5 (11.5-14.5) % Plt Count 334 (150-375) k/mm3 MPV 9.7 (7.4-10.4) fl Immature Gran % (Auto) 0.2 (0-0.5) % Neut % (Auto) 68.1 (45.5-73.1) % Lymph % (Auto) 25.4 (18.3-44.2) % [place] % (Auto) 4.9 (2.6-8.5) % Eos % (Auto) 0.7 (0-4.4) % Baso % (Auto) 0.7 (0.2-1.2) % Lymph # (Auto) 2.29 (0.9-3.2) K/mm3 [place] # (Auto) 0.4 (0.1-0.6) K/mm3 Eos # (Auto) 0.1 (0-0.3) K/mm3 Baso # (Auto) 0.1 (0.0-0.1) K/mm3 Abs Immat Gran (auto) 0.02 (0.00-0.031) K/mm3 Absolute Neuts (auto) 6.2 (1.3-6.7) K/mm3 Absolute Nucleated RBC 0.000 (0.0-0.012) K/mm3 Nucleated RBC % 0.0 (0.0-0.2) % Sodium 140 (137-145) mmol/L Potassium 3.5 (3.4-5.0) mmol/L Chloride 105 (98-107) mmol/L Carbon Dioxide 25 (22-30) mmol/L Anion Gap 10 (4-12) mmol/L BUN 7 (7-17) mg/dL Creatinine 0.87 (0.7-1.0) mg/dL Estim Creat Clear Calc 101 ml/min Estimated GFR > 60 (59 - ) Glucose 95 (65-110) mg/dL Lactic Acid 1.1 (0.7-2.0) mmol/L Calcium 9.5 (8.4-10.2) mg/dL Total Bilirubin 0.4 (0.2-1.3) mg/dL AST 20 (14-36) U/L ALT 19 (6-35) U/L Alkaline Phosphatase 65 (38-126) U/L Troponin I < 0.012 Cancelled (0.000-0.034) ng/mL Total Protein 7.0 (6.3-8.2) g/dL Albumin 4.4 (3.5-5.1) g/dL Lipase 65 (23-300) U/L Urine Color Yellow (Yellow) Urine Appearance Clear (Clear) Urine pH 7.0 (5.0-9.0) Ur Specific [place] 1.040 H (1.001-1.035) Urine Protein Negative (Negative) mg/dL Urine Glucose (UA) Negative (Negative) mg/dL Urine Ketones Negative (Negative) mg/dL Ur Blood (Man) Negative (Negative) Urine Nitrate Negative (Negative) Urine Bilirubin Negative (Negative) Urine Urobilinogen 0.2 (<2.0) mg/dL Leukocyte Esterase Rfl Negative (Negative) ALEXA/UL Imaging Data Radiologist's impression: ITS Impressions Abdomen/Pelvis CT 08/07/24 21:59 IMPRESSION: Hepatomegaly. Mild bladder wall thickening, may be secondary to cystitis or incomplete distention. Otherwise, no acute abdominopelvic process detected. Discharge Plan Discharge Clinical Impression: Nausea & vomiting, Hepatomegaly Diarrhea Qualifiers: Diarrhea type: unspecified type Qualified Code(s): R19.7 - Diarrhea, unspecified Patient Disposition: Home, Self-Care Condition: Stable Instructions: Antibiotic Form, Acute Nausea and Vomiting (DC), Acute Diarrhea (ED), Abdominal Pain (ED) Additional Instructions: You were evaluated in the emergency department for abdominal pain, nausea, vomiting diarrhea. Your workup here is reassuring with no electrolyte abnormalities. The CT shows an enlarged liver but otherwise is unremarkable. Please follow-up with your primary care provider. Continue taking the medications that were prescribed to you at your most recent visit. Return to the emergency department if you develop focal abdominal pain, fever, you are unable to tolerate food or fluids, or other concerning symptoms. Patient Language: [place] Prescriptions: No Action albuterol sulfate 90 mcg/actuation HFA aerosol inhaler 1 puff inhalation Q4H PRN (Reason: Shortness Of Breath) fluoxetine [Prozac] 40 mg capsule 40 mg PO DAILY bupropion HCl 300 mg tablet extended release 24 hr 300 mg PO DAILY cetirizine [Zyrtec] 10 mg tablet 10 mg PO DAILY Spravato 84 mg (28 mg x 3) spray,non-aerosol intranasal semaglutide 0.25 mg or 0.5 mg (2 mg/3 mL) pen injector 0.25 mg subcut WEEKLY Rx Instructions: for 4 weeks aripiprazole [Abilify] 20 mg tablet 15 mg PO DAILY lamotrigine 25 mg tablet 150 mg PO DAILY metronidazole 500 mg tablet 500 mg PO Q8H 10 Days Qty: 30 0RF ciprofloxacin HCl 500 mg tablet 500 mg PO Q12H 10 Days Qty: 20 0RF dicyclomine 20 mg tablet 20 mg PO TID PRN (Reason: Abdominal Discomfort) Qty: 20 0RF ondansetron 4 mg tablet,disintegrating 4 mg PO Q8H PRN (Reason: nausea and vomiting) Qty: 15 0RF mecobalamin (vitamin B12) 1,000 mcg tablet,chewable 1,000 mcg PO DAILY Qty: 90 0RF amlodipine 5 mg tablet 5 mg PO DAILY Qty: 90 1RF omeprazole 20 mg capsule,delayed release(DR/EC) 20 mg PO DAILY Qty: 90 3RF fluconazole 150 mg tablet 150 mg PO Q72H Qty: 2 0RF Follow-up/Referrals: PHYSICIAN,TOUR SALES REPRESENTATIVE [Non-Staff] -
[2024-08-07] MEDS: LACTATED RINGERS 1,000 ML 999 ML IV CONT (20:53)
[2024-08-07] MEDS: ONDANSETRON INJ 4 MG/2 ML VIAL IV PUSH (20:53)
[2024-08-07] MEDS: MORPHINE SULFATE (*CRX) 4 MG/ML INJ IV PUSH (20:53)
[2024-08-07 21:07] LABS: Basophils Absolute Auto 0.1 K/mm3 (0.0-0.1); Basophils Percent Auto 0.7 % (0.2-1.2); Eosinophils Absolute Auto 0.1 K/mm3 (0-0.3); Eosinophils Percent Auto 0.7 % (0-4.4); Hematocrit 41.8 % (37.0-47.0); Hemoglobin 14.2 g/dL (12.0-15.0); Immature Granulocyte Absolute 0.02 K/mm3 (0.00-0.031); Immature Granulocyte Percent A 0.2 % (0-0.5); Lymphocytes Absolute Auto 2.29 K/mm3 (0.9-3.2); Lymphocytes Percent Auto 25.4 % (18.3-44.2); Mean Corpuscular Hemoglobin 28.8 pg (26-34); Mean Corpuscular Volume 84.8 fl (80-100); Mean Platelet Volume 9.7 fl (7.4-10.4); Monocytes Absolute Auto 0.4 K/mm3 (0.1-0.6); Monocytes Percent Auto 4.9 % (2.6-8.5); Neutrophils Absolute Auto 6.2 K/mm3 (1.3-6.7); Neutrophils Percent Auto 68.1 % (45.5-73.1); Platelet Count Result 334 k/mm3 (150-375); Red Blood Count 4.93 M/mm3 (4.2-5.4); Red Cell Distribution Width 12.5 % (11.5-14.5)
[2024-08-07 21:24] LABS: Alanine Aminotransferase 19 U/L (6-35); Albumin Level 4.4 g/dL (3.5-5.1); Alkaline Phosphatase 65 U/L (38-126); Anion Gap 10 mmol/L (4-12); Aspartate Amino Transferase 20 U/L (14-36); Bilirubin,Total 0.4 mg/dL (0.2-1.3); Blood Urea Nitrogen 7 mg/dL (7-17); Calcium 9.5 mg/dL (8.4-10.2); Carbon Dioxide 25 mmol/L (22-30); Chloride 105 mmol/L (98-107); Estimated CRCL calculation 101 ml/min; Estimated Glomerular Filt Rate > 60; Glucose 95 mg/dL (65-110); Lipase 65 U/L (23-300); Potassium 3.5 mmol/L (3.4-5.0); Sodium 140 mmol/L (137-145)
[2024-08-07 21:36] LABS: Troponin I < 0.012 ng/mL (0.000-0.034)
[2024-08-07 22:17] VITALS: BP 133/83; PULSE 87; RESP 18; O2SAT 100
[2024-08-07 23:01] LABS: Add Urine Microscopic? NO; Appearance Urine Clear (Clear); Bilirubin Urine Negative (Negative); Blood Urine Negative (Negative); Color Urine Yellow (Yellow); Glucose Urine UA Negative (Negative); Ketones Urine Negative (Negative); Leukocyte Esterase Ur Negative LEU/UL (Negative); Nitrate Urine Negative (Negative); Protein Urine Negative (Negative); Urobilinogen Urine 0.2 mg/dL (<2.0)
[2024-08-07 23:08] VITALS: BP 126/72; PULSE 97; RESP 18; TEMP 36.6; O2SAT 100
[2024-08-07 23:12] LABS: Lactic Acid Reflex 1.1 mmol/L (0.7-2.0)
--- OUTSIDE RECORDS SUMMARY | 2024-08-11 10:59 | XMS_ITS | Continuity of Care Document ---
Author Organization [facility] Address [address] [place] [address] Phone Care Team Providers Care Cryogenic Transport Driver Name Role Phone Sarah SHERIFF, TRAE, Wil Unavailable Unavailable Procedures Procedure Date Therapeutic Activities Neuromuscular Re-Ed Therapeutic Exercise Therapeutic Activities Neuromuscular Re-Ed Therapeutic Exercise Therapeutic Activities Neuromuscular Re-Ed Therapeutic Exercise Therapeutic Activities Neuromuscular Re-Ed Therapeutic Exercise Therapeutic Activities Neuromuscular Re-Ed Therapeutic Exercise Therapeutic Activities Neuromuscular Re-Ed Therapeutic Exercise PT Evaluation Moderate Complexity Therapeutic Activities Neuromuscular Re-Ed Therapeutic Exercise Advance Directives Directive Yes / No Effective Date File Name No Information Encounters Encounter Description Practice Location Reason(s) For Visit Diagnoses Date Provider Providers Copied on Encounter [facility], [place], [place], [id number], tel:[phone] [place] No Information 2 Sarah De La Torre. . [facility], [place], [place], [id number], tel:[phone] [place] No Information 2 Klahn Wil. . Referring Provider: Ezequiel Bocanegra [facility] [address], [place], [address]. tel:[phone] [facility], [address], [place], [place], [address], [place] tel:[phone] [place] No Information 2 Klahn Wil. . Referring Provider: Ezequiel Bocanegra [facility] [address], [place], [address]. tel:[phone] [facility], [address], [place], [place], [address], [place] tel:[phone] [place] No Information 2 Klahn Wil. . Referring Provider: Ezequiel Bocanegra [facility] [address], [place], [address]. tel:[phone] [facility], [address], [place], [place], [address], [place] tel:[phone] [place] No Information 2 Klahn Wil. . Referring Provider: Ezequiel Bocanegra [address], [place], [address]. tel:[phone] [facility], [address], [place], [place], [address], [place] tel:[phone] [place] No Information 2 Klahn Wil. . Referring Provider: Ezequiel Bocanegra [facility] [address], [place], [address]. tel:[phone] [facility], [place], [place], [address], [place] tel:[phone] [place] No Information 2 Klahn Wil. . Referring Provider: Ezequiel Bocanegra [facility] [address], [place], [address]. tel:[phone] [facility], [address], [place], [place], [address], [place] tel:[phone] [place] No Information 2 Sarah De La Torre. . Referring Provider: Myles Pruett [address] [place] [address] [address], [place], [address]. tel:[phone] Family History Family Member Type Diagnosis Age At Onset No Information Payers Payer name Insurance type Covered constitution party ID Authortamara valentin(s) [facility] [id number] Social History Type Description Quantity Date Captured [...]
--- OUTSIDE RECORDS SUMMARY | 2024-08-11 10:59 | XMS_ITS | Referral Summary ---
Author Organization [facility] [employer] Address [address] [place] [address] Care Team Providers Care Urologist Name Role Phone Myles Pruett DO Primary Care Provider [phone] Source Comments [facility] [employer],non-owned Affiliates and Associated Physician Practices is amultiple site organization consisting of ambulatory clinics and hospital sitesin [place], [place], [place] and [place]. This disclosure is being madepursuant to the Care Everywhere program and may not contain all information available regarding this patient. Last updated 18.[facility] [employer] Allergies No known active allergies Active Problems [...] Not on file Administered Medications Care Teams Urologist Relationship Specialty Start Date End Date Myles Pruett DO [address] [place] [address] PCP - General 10/03/22
--- OUTSIDE RECORDS SUMMARY | 2024-08-11 10:59 | XMS_ITS | Clinical Summary ---
Author Organization [facility] Address [address] [place] [address] Care Team Providers Care Workers Compensation Claims Specialist Name Role Phone Myles Pruett DO Primary Care Provider [phone] Source Comments [facility],non-owned Affiliates and Associated Physician Practices is amultiple site organization consisting of ambulatory clinics and hospital sitesin [place], [place], [place] and [place]. This disclosure is being madepursuant to the Care Everywhere program and may not contain all information available regarding this patient. Last updated 18.[facility] Allergies No known active allergies Active Problems [...] of 3 - 19+ 3-dose series) 2004 COVID-19 VACCINE (2023-2 5 season) 2024 INFLUENZA VACCINE (#1) 2024 9, 04/23/2017 DEPRESSION SCREENING 07/20/2024 ZOSTER VACCINE (1 of 2) 2035 HIB VACCINE Aged Out No longer eligi ble based on patient's age to complete this topic HPV VACCINE Aged Out No longer eligi ble based on patient's age to complete this topic MENINGOCOCCAL (Group B) VACCINE Aged Out No longer eligible b ased on patient's age to complete this topic MENINGOCOCCAL VACCINE Aged Out No christian roberta eligible based on patient's age to complete this topic PNEUMOCOCCAL VACCINE Aged Out No long er eligible based on patient's age to complete this topic Care Teams Workers Compensation Claims Specialist Relationship Specialty Start Date End Date Myles Pruett DO [address] [place] [phone] PCP - General 10/03/22
--- OUTSIDE RECORDS SUMMARY | 2024-08-11 10:59 | XMS_ITS | Clinical Summary ---
Author Organization [facility] Address [address] [place] [address] Phone Care Team Providers Care Edge Stitcher Name Role Phone Clovis Johnson MD Primary Care Provider [phone] Allergies No known active allergies Medications buPROPion HCl (WELLBUTRIN XL) 300 mg Extended Release 24 hour tablet Take 300 mg by mouth daily nurse head. Active methylphenidate HCl (RITALIN) 10 mg tablet Take 10 mg by mouth 2 times daily. Active albuterol HFA 90 mcg inhaler Take 2 Puffs by inhalation every 6 hours as needed for Shortness of Breath. Active fexofenadine (SRIDEVI) 180 mg tablet Take 180 mg by mouth daily. Active fluticasone-krista meterol (ADVAIR DISKUS) 250-50 mcg/dose disk inhaler Take 1 Puff by inhalation 2 times daily. 1 Inhaler 5 8 Active montelukast (SINGULAIR) 10 mg tablet Take 1 Tablet (10 mg) by mouth daily at bedtime. 30 Tablet 5 8 Active fluticasone (FLONASE) 50 mcg/spray [place], Suspension Administer 2 Sprays in each nostril daily. Active ibuprofen (MOTRIN) 600 mg tablet Take 1 Tablet by mouth every 6 hours as needed for pain secondary to inflammation. 60 Tablet 1 03/19/2018 11:35 AM CDT 8 Active FLUoxetine (PROzac) 40 mg capsule Take 40 mg by mouth daily. 8 Active traZODone (DESYREL) 100 mg tablet Take 100 mg by mouth daily. 8 Active ARIPiprazole (ABILIFY) 10 mg tablet Take 10 mg by mouth daily. 8 Active Active Problems Problem Noted Date Diagnosed Date Hematochezia 09/15/2017 LLQ abdominal pain 09/15/2017 History of ovarian cyst 09/15/2017 Immunizations Immunization Administration Dates Next Due (ADACEL/BOOSTRIX)(10 YR UP) [...] = 0.6 oz pur e alcohol) socially Comments No Sex and Gender Information Value Date Recorded Sex Assigned at Not on file Legal Sex Female 3:47 PM CONTAINER FINISHER Gender Identity Not on file Sexual Orientation Not on file Last Filed Vital Signs Vital Sign Reading Time Taken Comments Blood Pressure 137/83 09/03/2021 12:41 PM CONTAINER FINISHER Pulse 78 03/19/2018 3:50 AM CDT Temperature 37.3 ??C (99.2 ??F) 03/19/2018 3:50 AM CD T Respiratory Rate 18 03/19/2018 3:50 AM CDT Oxygen Saturation 96% 03/19/2018 3:50 AM CDT Inhaled Oxygen Concentration - - Weight 119.3 kg (263 lb) 09/03/2021 12:41 PM CONTAINER FINISHER Height 172.7 cm (5' 8 ) 09/03/2021 12:41 PM CONTAINER FINISHER Body Mass Index 39.99 09/03/2021 12:41 PM CONTAINER FINISHER Plan of Treatment Health Maintenance Due Date [...] this topic Medical Devices Explanted Type Area Administrative Medical Director Device Identifier Shelf Expiration Date Model / Serial / Lot Interuterine Device For Control Explanted:Qty: 1 on 03/18/2018 by Martinez Walker MD at [facility] Procedures Procedure Name Priority Date/Time Associated Diagnosis Comments CERV/VAG CYTO AGE BASED SCREEN PAP Routine 09/03/2021 1:43 PM CONTAINER FINISHER History of abnormal cells from cervix Screening for cervical cancer Encounter for annual routine gynecological examination from Last 3 Months or Most Recently Relevant to Health Maintenance Results * CERV/VAG CYTO AGE BASED SCREEN PAP (09/03/2021 1:43 PM CONTAINER FINISHER) COMMENT (PAP): [facility] Comment: This order for age-based cervical cancer and STI screening follows ACOG guidelines(PB 168, 140, OHQ718). See individual assays for performing site location. 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 COMMENT (PAP TEST) [facility] Comment: This Pap test has been evaluated with computer assisted technology. MAIL READER: [facility] Comment: MEF, CT(ASCP) CT screening location: [place] [address] [place] [address] EXPLANATORY NOTE [facility] Comment: EXPLANATORY NOTE: The Pap is [...] information. HPV E6/E7 Not Detected Not Detected [facility] Comment: Methodology: Mathematical Technician-Mediated Amplification This assay detects E6/E7 viral messenger RNA (mRNA) from 14 high-risk HPV types (16,18,31,33,35,39,45,51,52,56,58,59,66,68). The analytical performance characteristics of this assay have been determined by [facility]. The modifications have not been cleared or approved by the FDA. This assay has been validated pursuant to the CLIA regulations and is used for clinical purposes. For additional information, please refer to http://education.Gotuit/faq/UPE759x6 (This link if provided for information/ educational purposes only.) Test Performed at: [facility] [address] [place], [place] ??[address] Junior Morales D.O., MPH SL Genital (Vaginal cuff) 09/03/2021 1:43 PM CONTAINER FINISHER 09/03/2021 11:11 PM CONTAINER FINISHER October Benjy WADE PATHOLOGY/CYTOLOGY ORDERABLES Final Result Performing Organization Address City/State/[facility] Co de Phone Number [facility] [address] [place] [address] from Last 3 Months or Most Recently Relevant to Health Maintenance Insurance BCBS BLUE ACCESS/TRUE BLUE PPO [employer] Advance Directives For more information, please contact: [phone] * Full Code (Latest Code Status on File) Date Activated Date Inactivated Comments 03/18/2018 8:20 AM 03/18/2018 4:47 PM * Full Code Date Activated Date Inactivated Comments 10/01/2017 11:40 AM 10/01/2017 3:26 PM Care Teams Edge Stitcher Relationship Specialty Start Date End Date Clovis Johnson MD PCP - General Family Practice 08/17/17
--- OUTSIDE RECORDS SUMMARY | 2024-08-11 10:59 | XMS_ITS | Patient Health Summary ---
Author Organization [facility] Address [address] [place] [address] Care Team Providers Care Greens Keeper Name Role Phone PierreremyMyles DO Primary Care Provider [phone] Note from [facility],non-owned Affiliates and Associated Physician Practices is amultiple site organization consisting of ambulatory clinics and hospital sitesin [place], [place], [place] and [place]. This disclosure is being madepursuant to the Care Everywhere program and may not contain all information available regarding this patient. Last updated 18.[facility] Allergies No known active allergies Active Problems [...] Unknown 03/10/2021 4:40 PM CDT Adelaida Lazaro BUDDHIST MONK-SPEAKING UNIT ASSEMBLER LAB - POINT OF CARE ORDERABLES [facility] [address] [phone] Care Teams Greens Keeper Relationship Specialty Start Date End Date Myles Pruett DO [address] [place] [address] PCP - General 10/03/22
== END 2024-08-08 00:05 | disposition home or self-care (01) ==
PROVIDERS: Preventive Medicine Aerospace Medicine; Emergency Provider Physician Assistant
DX: R11.2 Nausea with vomiting, unspecified (principal); R16.0 Hepatomegaly, not elsewhere classified; K58.0 Irritable bowel syndrome with diarrhea; J45.909 Unspecified asthma, uncomplicated; Z79.899 Other long term (current) drug therapy; Z90.710 Acquired absence of both cervix and uterus
CPT/HCPCS: 36415; 74177; 80053; 81003; 83605; 83690; 84484; 85025; 93005; 96361; 96374; 96375; 99284; J2270; J2405; J7120; Q9967

== ENCOUNTER 2024-11-01 01:18 | Day surgery (SDC) | payer BC, SELFPAY ==
[2024-10-26 11:17] VITALS: BMI 40.4
--- OUTSIDE RECORDS SUMMARY | 2024-11-01 01:29 | XMS_ITS | Clinical Summary ---
Author Organization [facility] Address [address] [place] [address] Phone Care Team Providers Care Jigsawyer Name Role Phone Clovis Johnson MD Primary Care Provider [phone] Allergies No known active allergies Medications buPROPion HCl (WELLBUTRIN XL) 300 mg Extended Release 24 hour tablet Take 300 mg by mouth daily early childhood teacher. Active methylphenidate HCl (RITALIN) 10 mg tablet [...] 5 8 Active fluticasone (FLONASE) 50 mcg/spray [place], Suspension Administer 2 Sprays in each nostril [...] on file Legal Sex Female 3:47 PM HYDRAULIC DESIGN ENGINEER Gender Identity Not on file Sexual Orientation Not on file Last Filed Vital Signs Vital Sign Reading Time Taken Comments Blood Pressure 137/83 09/03/2021 12:41 PM HYDRAULIC DESIGN ENGINEER Pulse 78 03/19/2018 3:50 AM CDT Temperature 37.3 C (99.2 F) 03/19/2018 3:50 AM CDT Respiratory Rate 18 03/19/2018 3:50 AM CDT Oxygen Saturation 96% 03/19/2018 3:50 AM CDT Inhaled Oxygen Concentration - - Weight 119.3 kg (263 lb) 09/03/2021 12:41 PM HYDRAULIC DESIGN ENGINEER Height 172.7 cm (5' 8 ) 09/03/2021 12:41 PM HYDRAULIC DESIGN ENGINEER Body Mass Index 39.99 09/03/2021 12:41 PM HYDRAULIC DESIGN ENGINEER Plan of Treatment Health Maintenance Due Date Last Done Comments HEPATITIS B VACCINES (1 of 3 - 19+ 3-dose series) 2004 COLORECTAL SCREENING 10/01/2022 10/01/2017 INFLUENZA VACCINE (#1) 2024 9, 08/09/2018, 04/23/2017 PAP SMEAR 09/03/2024 09/03/2021, 12/01/2017 DTAP/TDAP/TD VACCINES (2 - T d or Tdap) 11/14/2027 11/13/2017 HPV VACCINES Aged Out No longer eligi ble based on patient's age to complete this topic PNEUMOCOCCAL VACCINE 0-49 YEARS Aged Out No longer eligible b ased on patient's age to complete this topic Medical Devices Explanted Type Area Tool And Die Manager Device Identifier Shelf Expiration Date Model / Serial / Lot Interuterine Device For Control Explanted:Qty: 1 on 03/18/2018 by Martinez Walker MD at [facility] Procedures Procedure Name Priority Date/Time Associated Diagnosis Comments CERV/VAG CYTO AGE BASED SCREEN PAP Routine 09/03/2021 1:43 PM HYDRAULIC DESIGN ENGINEER History of abnormal cells from cervix Screening for cervical cancer Encounter for annual routine gynecological examination from Last 3 Months or Most Recently Relevant to Health Maintenance Results * CERV/VAG CYTO AGE BASED SCREEN PAP (09/03/2021 1:43 PM HYDRAULIC DESIGN ENGINEER) COMMENT (PAP): [facility] Comment: This order for age-based cervical cancer and STI screening follows ACOG guidelines(PB 168, 140, LNX413). See individual assays for performing site location. CLINICAL INFORMATION 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 Comment:INFORMATION NOT PROV IDED PREV BX: [facility] Comment:INFORMATION NOT PROV IDED SOURCE [facility] Comment:Vaginal cuff ADEQUACY: [facility] Comment:SATISFACTORY FOR RADHA LUATION PAP INTERP [facility] Comment:Negative for intraep ithelial lesion or malignancy. COMMENT (PAP TEST) [facility] Comment: This Pap test has been evaluated with computer assisted technology. PAVER: [facility] Comment: MEF, CT(ASCP) CT screening location: [place] [address] [place] [address] EXPLANATORY NOTE [facility] Comment: EXPLANATORY NOTE: The Pap is a [...] information. HPV E6/E7 Not Detected Not Detected [facility] Comment: Methodology: Embossing Machine Operator Helper-Mediated Amplification This assay detects E6/E7 viral messenger RNA (mRNA) from 14 high-risk HPV types (16,18,31,33,35,39,45,51,52,56,58,59,66,68). The analytical performance characteristics of this assay have been determined by [facility]. The modifications have not been cleared or approved by the FDA. This assay has been validated pursuant to the CLIA regulations and is used for clinical purposes. For additional information, please refer to http://education.Celleration/faq/PQE743o6 (This link if provided for information/ educational purposes only.) Test Performed at: [facility] [address] [place] [address] Junior Morales D.O., MPH SL Genital (Vaginal cuff) 09/03/2021 1:43 PM HYDRAULIC DESIGN ENGINEER 09/03/2021 11:11 PM HYDRAULIC DESIGN ENGINEER October Benjy WADE PATHOLOGY/CYTOLOGY ORDERABLES Final Result Performing Organization Address City/State/[facility] Co de Phone Number [facility] [address] [place] [address] from Last 3 Months or Most Recently Relevant to Health Maintenance Insurance [employer] Advance Directives For more information, please contact: [phone] * Full Code (Latest Code Status on File) Date Activated Date Inactivated Comments 03/18/2018 8:20 AM 03/18/2018 4:47 PM * Full Code Date Activated Date Inactivated Comments 10/01/2017 11:40 AM 10/01/2017 3:26 PM Care Teams Jigsawyer Relationship Specialty Start Date End Date Clovis Johnson MD PCP - General Family Practice 08/17/17
--- OUTSIDE RECORDS SUMMARY | 2024-11-01 01:29 | XMS_ITS | Clinical Summary ---
Author Organization [facility] Address [address] [place] [address] Care Team Providers Care Tool Rental Technician Name Role Phone Myles Pruett DO Primary Care Provider [phone] Source Comments [facility],non-owned Affiliates and Associated Physician Practices is amultiple site organization consisting of ambulatory clinics and hospital sitesin [place], [place] and [place]. This disclosure is being madepursuant to the Care Everywhere program and may not contain all information available regarding this patient. Last updated 18.[facility] Allergies No known active allergies Active Problems [...] drink = 0.6 oz pur e alcohol) Comments Unknown Sex and Gender Information Value Date Recorded Sex Assigned at Not on file Legal Sex Female 7:[address] TECH Gender Identity Not on file Sexual Orientation Not on file Plan of Treatment Health Maintenance Due Date Last Done Comments HIV SCREENING 2000 HEPATITIS C SCREENING 07/21/2003 DTAP/TDAP/TD VACCINES (1 - Tdap) 2004 HEPATITIS B VACCINE (1 of 3 - 19+ 3-dose series) 2004 COVID-19 VACCINE (2023-2 5 season) 2024 DEPRESSION SCREENING 07/20/2024 INFLUENZA VACCINE (Season Ended) 2025 05/24/2019, 04/23/2017 ZOSTER VACCINE (1 of 2) 2035 HIB VACCINE Aged Out No longer eligi ble based on patient's age to complete this topic HPV VACCINE Aged Out No longer eligi ble based on patient's age to complete this topic MENINGOCOCCAL (Group B) VACCINE SHARED DECISION-MAKING Aged Out No longer eligible based on patient's age to complete this topic MENINGOCOCCAL GROUPS A/C/Y/W VACCINE Aged Out No longer eligible b ased on patient's age to complete this topic PNEUMOCOCCAL VACCINE Aged Out No long er eligible based on patient's age to complete this topic Care Teams Tool Rental Technician Relationship Specialty Start Date End Date Myles Pruett DO [address] [place] [phone] PCP - General 10/03/22
--- OUTSIDE RECORDS SUMMARY | 2024-11-01 01:29 | XMS_ITS | Continuity of Care Document ---
Author Organization [facility] Address [address] [place] [address] Phone Care Team Providers Care Concrete Paving Machine Operator Name Role Phone Sarah SHERIFF, TRAE, Wil Unavailable Unavailable Procedures Procedure Date Therapeutic Activities Neuromuscular Re-Ed Therapeutic Exercise Therapeutic Exercise Neuromuscular Re-Ed Therapeutic Activities Therapeutic Activities Neuromuscular Re-Ed Therapeutic Exercise Therapeutic Activities Neuromuscular Re-Ed Therapeutic Exercise Therapeutic Activities Therapeutic Exercise Neuromuscular Re-Ed Therapeutic Activities Neuromuscular Re-Ed Therapeutic Exercise PT Evaluation Moderate Complexity Neuromuscular Re-Ed Therapeutic Exercise Therapeutic Activities Advance Directives Directive Yes / No Effective Date File Name No Information Encounters Encounter Description Practice Location Reason(s) For Visit Diagnoses Date Provider Providers Copied on Encounter [facility], [place], [place], [id number], tel:[phone] [place] No Information 2 Sarah De La Torre. . [facility], [place], [place], [id number], tel:[phone] [place] No Information Sep- 8- 2 Klahn Wil. . Referring Provider: Myles Pruett, [address] [place] [address], [address]. tel:[phone] [place], [place] [address] [address], [place], [place], [address], [place] tel:[phone] [place] No Information Sep-0 8 2 Klahn Wil. . Referring Provider: Myles Pruett, [address] [place] [address], [address]. tel:[phone] [place] [address], [address], [place], [place], [id number], [place] tel:[phone] [place] No Information Sep-0 3 2 Klahn Wil. . Referring Provider: Myles Pruett, [address] [place] [address], [place], [address]. tel:[phone] [place] [address], [place], [place], [id number], [place] tel:[phone] [place] No Information b-2 2- 2 Klahn Wil. . Referring Provider: Myles Pruett, [address] [place] [address], [address]. tel:[phone] [place] [address], [place], [place], [id number], [place] tel:[phone] [place] No Information Aug- 2 Klahn Wil. . Referring Provider: Myles Pruett, [address] [place] [address], [address]. tel:[phone] [place] [address] [address], [place], [place], [id number], [place] tel:[phone] [place] No Information b- 0-202 2 Klahn Wil. . Referring Provider: Myles Pruett [address] [place] [address], [place], [address]. tel:[phone] [place] [address] [address], [place], [place], [id number], tel:[phone] [place] No Information 2 Sarah De La Torre. . Referring Provider: Myles Pruett, [address] [facility], [place], [address]. tel:[phone] Family History Family Member Type Diagnosis Age At Onset No Information Payers Payer name Insurance type Covered green party ID Authoresther hanson(s) [facility] [id number] Social History Type Description Quantity Date Captured Comments Sex Female Smoking Status No Information Chief Complaint And Reason For Visit No Information Reason For Referral Reason For Referral No Information History Of Present Illness Encounter Date Complaint History Of Prese nt Illness No Information Functional Status Date Functional Assessmen t No Information Instructions Date Instruction Additional Infor mation Giving encouragement to exercise Related to Overweight Giving encouragement to exercise Related to Overweight Assessments Type Assessment Date No Information Patient Care Teams Name Effective Dates (start - stop) Status Members No Information
[2024-11-01 07:20] VITALS: BP 149/96; PULSE 92; RESP 18; TEMP 36.1; O2SAT 99
[2024-11-01] MEDS: LACTATED RINGERS 1,000 ML 150 ML IV CONT (07:29)
--- NOTE | 2024-11-01 07:35 | WPDANESEPPF ---
Anes - Initial Pre Proc Eval Procedure: Operation Date: 11/01/24 08:30 Proposed Procedures p Colonoscopy - Marky López MD Date/Time: 11/01/24 07:35 Surgeon: Marky López MD Pre Op Diagnosis: diarrhea,gastro and colitis Patient Data Age: 39 Gender: F Height: 1.73 m Weight: 114.8 kg Last Vital Signs Temp 36.1 C L 11/01/24 07:20 Pulse 92 11/01/24 07:20 Resp 18 11/01/24 07:20 BP 149/96 H 11/01/24 07:20 Pulse Ox 99 11/01/24 07:20 O2 Del Method Room Air 11/01/24 07:20 Allergies Allergy/AdvReac Type Severity Reaction Status Date / Time No Known Allergies Allergy Verified 11/01/24 07:17 Home Medications ?Medication ?Instructions ?Recorded ?Confirmed ?Type albuterol sulfate 90 mcg/actuation 1 puff inhalation Q4H PRN 08/19/21 10/26/24 History aerosol inhaler Shortness Of Breath bupropion HCl 300 mg 24 hr tablet, 300 mg PO DAILY 08/19/21 11/01/24 History extended release cetirizine 10 mg tablet (Zyrtec) 10 mg PO DAILY 08/19/21 11/01/24 History fluoxetine 40 mg capsule (Prozac) 40 mg PO DAILY 08/19/21 11/01/24 History esketamine 84 mg (28 mg x 3) nasal 3 spray intranasal .every other 04/23/23 11/01/24 History spray (Spravato) week aripiprazole 20 mg tablet (Abilify) 15 mg PO DAILY 08/18/23 11/01/24 History lamotrigine 25 mg tablet 150 mg PO DAILY 08/18/23 11/01/24 History omeprazole 20 mg capsule,delayed 20 mg PO DAILY #90 caps 03/08/24 11/01/24 Rx release amlodipine 5 mg tablet 5 mg PO DAILY #90 tabs 08/10/24 11/01/24 Rx multivitamin (Daily Multi-Vitamin 1 tablet PO DAILY 10/26/24 11/01/24 History tablet) prazosin 1 mg capsule 1 mg PO DAILY 10/26/24 11/01/24 History ramelteon 8 mg tablet 8 mg PO DAILY PRN sleep 10/26/24 11/01/24 History Patient hx anesthesia problems: post op nausea/vomiting Family hx anesthesia problems: none Results Review: All pre-operative results and documents have been reviewed as part of the pre-operative evaluation. [facility] Past Medical History Medical History Colitis Exposure to sexually transmitted disease (STD) Normal colonoscopy Erosive esophagitis Irritable bowel syndrome with diarrhea Nausea and vomiting Depression Asthma Allergies Surgical History Surgical History History of hysterectomy Family History Family History Father Diabetes mellitus Hypertension Mother Hypertension Depression Sibling Asthma Grandparent Cancer Depression Heart disease Grandparent Alcoholism Social History Social History Smoking status: Never smoker Alcohol intake: current Drinks per week: 1 Alcohol use details: Wine Substance use: current Substance use type: marijuana Other substance usage details: gummies Lack of Transportation: No Lack of Food: Never True Current Housing: I Have Housing Concerned About Future Housing: No Difficulty Paying Gas/Electric Bills: No Difficulty Paying for Meds: No Currently Unemployed: No Education: Master's Degree or Higher Difficulty w/ Childcare or Family Care: No Living arrangements: with family Occupation/Education: occupation 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 Informed Consent: The patient's anesthetic plan and its attendant risks and benefits were discussed with the patient/family/POA. Questions were solicited and answers provided to the satisfaction of the patient/family/POA.
--- NOTE | 2024-11-01 08:18 | P.HP_ITS ---
History of Present Illness History of Present Illness Consent: Risks, benefits, and alternatives have been discussed and questions answered. Patient agrees to proceed with procedure. Chief complaint: diarrhea,gastro and colitis Narrative: Holly Flores is a 39 year old female with episode of colitis earlier this year (noted by CT scan), last colonoscopy 2022 without colitis. Review of Systems Review of Systems: All systems reviewed & are unremarkable except as noted in HPI and below PMFSH Past Medical History Medical History (Updated 11/01/24 @ 08:19 by Marky López MD) History of colitis Colitis Exposure to sexually transmitted disease (STD) Normal colonoscopy Erosive esophagitis Irritable bowel syndrome with diarrhea Nausea and vomiting Depression Asthma Allergies Surgical History Surgical History History of hysterectomy Family History Family History Father Diabetes mellitus Hypertension Mother Hypertension Depression Sibling Asthma Grandparent Cancer Depression Heart disease Grandparent Alcoholism Social History Social History Smoking status: Never smoker Alcohol intake: current Drinks per week: 1 Alcohol use details: Wine Substance use: current Substance use type: marijuana Other substance usage details: gummies Lack of Transportation: No Lack of Food: Never True Current Housing: I Have Housing Concerned About Future Housing: No Difficulty Paying Gas/Electric Bills: No Difficulty Paying for Meds: No Currently Unemployed: No Education: Master's Degree or Higher Difficulty w/ Childcare or Family Care: No Living arrangements: with family Occupation/Education: occupation 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[employer] Gender identity (if verbalized by the patient): Female Spiritual care concerns: No Meds Home Medications and Allergies Home Medications ?Medication ?Instructions ?Recorded ?Confirmed ?Type albuterol sulfate 90 mcg/actuation 1 puff inhalation Q4H PRN 08/19/21 10/26/24 History aerosol inhaler Shortness Of Breath bupropion HCl 300 mg 24 hr tablet, 300 mg PO DAILY 08/19/21 11/01/24 History extended release cetirizine 10 mg tablet (Zyrtec) 10 mg PO DAILY 08/19/21 11/01/24 History fluoxetine 40 mg capsule (Prozac) 40 mg PO DAILY 08/19/21 11/01/24 History esketamine 84 mg (28 mg x 3) nasal 3 spray intranasal .every other 04/23/23 11/01/24 History spray (Spravato) week aripiprazole 20 mg tablet (Abilify) 15 mg PO DAILY 08/18/23 11/01/24 History lamotrigine 25 mg tablet 150 mg PO DAILY 08/18/23 11/01/24 History omeprazole 20 mg capsule,delayed 20 mg PO DAILY #90 caps 03/08/24 11/01/24 Rx release amlodipine 5 mg tablet 5 mg PO DAILY #90 tabs 08/10/24 11/01/24 Rx multivitamin (Daily Multi-Vitamin 1 tablet PO DAILY 10/26/24 11/01/24 History tablet) prazosin 1 mg capsule 1 mg PO DAILY 10/26/24 11/01/24 History ramelteon 8 mg tablet 8 mg PO DAILY PRN sleep 10/26/24 11/01/24 History Allergies Allergy/AdvReac Type Severity Reaction Status Date / Time No Known Allergies Allergy Verified 11/01/24 07:17 Vital Signs Vital Signs - 24 hr 11/01/24 07:20 Temperature 96.9 F L Pulse Rate 92 Respiratory Rate 18 Blood Pressure 149/96 H Pulse Oximetry 99 Oxygen Delivery Room Air Exam Const: General: comfortable and no acute distress HENMT: Face/Nose/Sinus: Normal nares present Eyes: General: appearance normal, both eyes and all related structures Neck: Neck: no JVD Resp: Auscultation: clear to auscultation bilaterally Cardio: Rate: regular rate Rhythm: regular rhythm GI: Inspection: non-distended GI Palp: Yes Soft to palpation Skin: General skin exam: normal color Neuro: General: gait normal Speech: normal speech Extrem: General: normal to inspection Psych: Mental Status: mental status grossly normal Assessment and Plan Assessment and plan (1) History of colitis: Code(s): Z87.19 - Personal history of other diseases of the digestive system Status: Acute Assessment and Plan: colonoscopy
[2024-11-01 08:32] VITALS: BP 126/76; PULSE 766; RESP 191; O2SAT 99
[2024-11-01 08:42] VITALS: BP 121/82; PULSE 76; RESP 19; O2SAT 99
[2024-11-01 08:52] VITALS: BP 133/93; PULSE 74; RESP 19; O2SAT 100
== END 2024-11-01 09:02 | disposition home or self-care (01) ==
PROVIDERS: PCP Nurse Practitioner; Referring Provider Nurse Practitioner Family; Visit Provider Internal Medicine Gastroenterology
PROC: 0DJD8ZZ Inspection of Lower Intestinal Tract, Via Natural or Artificial Opening Endoscopic (ICD-10-PCS; CPT 45378; principal; 2024-11-01 08:30)
DX: K64.8 Other hemorrhoids (principal); K58.0 Irritable bowel syndrome with diarrhea; J45.909 Unspecified asthma, uncomplicated; F32.A Depression, unspecified; F12.90 Cannabis use, unspecified, uncomplicated; E66.9 Obesity, unspecified; Z68.38 Body mass index [BMI] 38.0-38.9, adult; Z79.51 Long term (current) use of inhaled steroids; Z98.890 Other specified postprocedural states; Z87.19 Personal history of other diseases of the digestive system; Z80.9 Family history of malignant neoplasm, unspecified; Z82.49 Family history of ischemic heart disease and other diseases of the circulatory system
CPT/HCPCS: 45380; 88305; J2704; J7120

== ENCOUNTER 2024-12-20 16:58 | Emergency (ER) | payer BC, SELFPAY ==
[2024-12-20 17:05] VITALS: BP 131/86; PULSE 86; RESP 16; TEMP 36.9; O2SAT 99
--- NOTE | 2024-12-20 17:31 | ED_ITS ---
HPI - URI/Sore Throat General Chief Complaint: Upper Respiratory Infection Stated Complaint: Sore Throat Time Seen by Provider: 12/20/24 17:30 Source: patient, RN notes reviewed and old records reviewed Mode of arrival: ambulatory Limitations: no limitations History of Present Illness HPI Narrative: 39 year old female who presents to express care with complaints of nasal congestion and drainage with post nasal drainage to back of throat which is making her throat sore, has had no fevers or chills or sweats has had some headache and facial pressure going on for the past 2 weeks. Patient reports that she has been taking allergy medication and some Tylenol and Ibuprofen without improvement in symptoms. MD elicited complaint: cough, sore throat, rhinorrhea, nasal congestion, sinus pain and other (headache) Pertinent past history: sinusitis Onset (ago): week(s) (2) Consistency: constant Severity: moderate Able to tolerate fluids by mouth: Yes Treatments prior to arrival: acetaminophen, ibuprofen and other (sinus medication) Related Data Home Medications ?Medication ?Instructions ?Recorded ?Confirmed ?Last Taken ?Type albuterol sulfate 90 mcg/actuation 1 puff inhalation Q4H PRN 08/19/21 10/26/24 Unknown History aerosol inhaler Shortness Of Breath bupropion HCl 300 mg 24 hr tablet, 300 mg PO DAILY 08/19/21 11/01/24 10/30/24 History extended release cetirizine 10 mg tablet (Zyrtec) 10 mg PO DAILY 08/19/21 11/01/24 10/31/24 History fluoxetine 40 mg capsule (Prozac) 40 mg PO DAILY 08/19/21 11/01/24 10/31/24 History esketamine 84 mg (28 mg x 3) nasal 3 spray intranasal .every other 04/23/23 11/01/24 10/27/24 History spray (Spravato) week aripiprazole 20 mg tablet (Abilify) 15 mg PO DAILY 08/18/23 11/01/24 10/31/24 History lamotrigine 25 mg tablet 150 mg PO DAILY 08/18/23 11/01/24 10/30/24 History multivitamin (Daily Multi-Vitamin 1 tablet PO DAILY 10/26/24 11/01/24 10/31/24 History tablet) prazosin 1 mg capsule 1 mg PO DAILY 10/26/24 11/01/24 10/30/24 History ramelteon 8 mg tablet 8 mg PO DAILY PRN sleep 10/26/24 11/01/24 10/30/24 History aripiprazole 15 mg tablet mg 12/20/24 Unknown History lamotrigine 150 mg tablet mg 12/20/24 Unknown History Allergies Allergy/AdvReac Type Severity Reaction Status Date / Time No Known Allergies Allergy Verified 12/20/24 17:01 Review of Systems Review of Systems: CONSTITUTIONAL: reports malaise, no chills, sweats, or fever. EYES: Denies visual changes, redness, or discharge. ENT: Reports rhinorrhea, congestion, sinus pain, otalgia and sore throat. CARDIOVASCULAR: Denies chest pain, palpitations, or edema. RESPIRATORY: Reports dry cough.? Denies dyspnea. GASTROINTESTINAL: Denies abdominal pain, nausea, vomiting, diarrhea SKIN: Denies rash or itching. MUSCULOSKELETAL: Denies myalgia. NEUROLOGIC: reports headache. All systems reviewed & are unremarkable except as noted in HPI and below PMFSH Past Medical History Medical History History of colitis Colitis Exposure to sexually transmitted disease (STD) Normal colonoscopy Erosive esophagitis Irritable bowel syndrome with diarrhea Nausea and vomiting Depression Asthma Allergies Surgical History Surgical History History of hysterectomy Family History Family History Father Diabetes mellitus Hypertension Mother Hypertension Depression Sibling Asthma Grandparent Cancer Depression Heart disease Grandparent Alcoholism Social History Social History Smoking status: Never smoker Alcohol intake: current Drinks per week: 1 Alcohol use details: Wine Substance use: current Substance use type: marijuana Other substance usage details: ozieles Lack of Transportation: No Lack of Food: Never True Current Housing: I Have Housing Concerned About Future Housing: No Difficulty Paying Gas/Electric Bills: No Difficulty Paying for Meds: No Currently Unemployed: No Education: Master's Degree or Higher Difficulty w/ Childcare or Family Care: No Living arrangements: with family Occupation/Education: occupation 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 There is no relevant family history pertinent to the presenting complaint Exam Narrative: GENERAL: Well-appearing, well-nourished, and in no acute distress. HEAD: Normocephalic EYES: PERRLA, conjunctivae clear ENT: Nares clear, turbinates edematous and erythematous, clear discharge sinus pressure and headache. Mucous membranes moist. TM pearly trent with dull light reflex bilaterally; no tragal tenderness. Oropharynx erythematous without lesions. Tonsils not enlarged and without exudate, no drooling, no hoarseness, no trismus, uvula midline. NECK: Supple. No lymphadenopathy CHEST: Clear to auscultation, breath sounds equal. No wheezing, rhonchi, rales, or stridor. No respiratory distress, speaks in full sentences.occasional dry coughSAO2 99% on room air HEART: Regular rate and rhythm. No murmur heard. SKIN: Warm, dry, no rash. NEURO: Alert and oriented x3. PSYCH: Normal mood and affect Course Course Emergency Course: Patient is aware of diagnosis, understands and agrees to treatment plan.? Anticipatory guidance given.? Patient agrees to follow-up as directed and is aware of reasons to seek care at the emergency department. Portions of this record may have been created with voice recognition software Level of Care: Express Care Visit Vital Signs Vital signs: Vital Signs Temperature 36.9 C 12/20/24 17:05 Pulse Rate 86 12/20/24 17:05 Respiratory Rate 16 12/20/24 17:05 Blood Pressure 131/86 12/20/24 17:05 Pulse Oximetry 99 12/20/24 17:05 Temperature 36.9 C 12/20/24 17:05 Pulse Rate 86 12/20/24 17:05 Respiratory Rate 16 12/20/24 17:05 Blood Pressure 131/86 12/20/24 17:05 Pulse Oximetry 99 12/20/24 17:05 Reviewed MDM - URI/Sore Throat MDM Narrative Medical decision making narrative: Differential diagnosis considered: Peoples virus, strep pharyngitis, allergic rhinitis, upper respiratory tract infection, sinusitis, rhinosinusitis, nasopharyngitis. viral pharyngitis, otitis media, otitis externa, pneumonia, bronchitis, viral cough syndrome, viral syndrome, and influenza.? Exam findings show no acute concerns or changes; patient is non-toxic appearing and is in no distress.? Patient is appropriate for outpatient treatment and follow-up. Differential Diagnosis Differential diagnosis: Likely upper respiratory infection, sinusitis, viral infection, pharyngitis and other Medical Records Attestation: I reviewed the patient's medical records. Lab Data Attestation: I reviewed the patient's lab results. Critical Care Time Critical Care Time Critical Care Time: No Discharge Plan Discharge Clinical Impression: Sinusitis Qualifiers: Sinusitis location: pansinusitis Chronicity: acute Recurrence: not specified as recurrent Qualified Code(s): J01.40 - Acute pansinusitis, unspecified Patient Disposition: Home Condition: Stable Instructions: Antibiotic Form, Sinusitis (ED) Additional Instructions: Increase fluids especially juices and water Vfyh-vtq-tcohyje cough and cold medicine of your choice for your symptoms Zyrtec Claritin or Sadaf daily include Coricidin brand decongestant heat to the face 20-30 minutes 4-6 times a day for pain Salt water gargles, throat lozenges or throat sprays as desired Antibiotic as directed--finished the medication If your symptoms persist, change or worsen significantly before you can contact your personal physician then please, without delay, go to the emergency department for further evaluation. Follow-up with PCP in 7-10 days or sooner if needed Follow up with PCP soon in regards to your blood pressure which is elevated above threshold for referral. Blood pressure above 120/80 may indicate pre- hypertension. 131/86 Patient Language: Eritrean Prescriptions: New amoxicillin-pot clavulanate 875-125 mg tablet 1 tablet PO Q12H Qty: 20 0RF Rx Instructions: take with food, probiotic or eat Activia yogurt while on this medication No Action lamotrigine 150 mg tablet aripiprazole 15 mg tablet albuterol sulfate 90 mcg/actuation HFA aerosol inhaler 1 puff inhalation Q4H PRN (Reason: Shortness Of Breath) fluoxetine [Prozac] 40 mg capsule 40 mg PO DAILY bupropion HCl 300 mg tablet extended release 24 hr 300 mg PO DAILY cetirizine [Zyrtec] 10 mg tablet 10 mg PO DAILY Spravato 84 mg (28 mg x 3) spray,non-aerosol 3 spray intranasal .every other week aripiprazole [Abilify] 20 mg tablet 15 mg PO DAILY lamotrigine 25 mg tablet 150 mg PO DAILY amlodipine 5 mg tablet 5 mg PO DAILY Qty: 90 3RF prazosin 1 mg capsule 1 mg PO DAILY ramelteon 8 mg tablet 8 mg PO DAILY PRN (Reason: sleep) multivitamin [Daily Multi-Vitamin] Tablet 1 tablet PO DAILY omeprazole 20 mg capsule,delayed release(DR/EC) 20 mg PO DAILY Qty: 90 3RF Follow-up/Referrals: PHYSICIAN,HOME LIGHTING ADVISER [Primary Care Provider] - Time of Disposition: 17:46 Quality Vandana Coma Scale Eyes: Open Verbal: Oriented and Alert Motor: Follows Commands Vandana Coma Total Score: 15
== END 2024-12-20 17:48 | disposition home or self-care (01) ==
PROVIDERS: Emergency Provider Registered Nurse
DX: J01.40 Acute pansinusitis, unspecified (principal); Z79.899 Other long term (current) drug therapy
CPT/HCPCS: 99213; G0463

== ENCOUNTER 2025-02-26 16:33 | Emergency (ER) | payer BC, SELFPAY ==
--- OUTSIDE RECORDS SUMMARY | 2025-02-26 16:36 | XMS_ITS | Clinical Summary ---
Author Organization [facility] Address [address] [place] [address] Phone Care Team Providers Care Monorail Crane Operator Name Role Phone Clovis Johnson MD Primary Care Provider [phone] Allergies No known active allergies Medications buPROPion HCl (WELLBUTRIN XL) 300 mg Extended Release 24 hour tablet Take 300 mg by mouth daily cane cutter. 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 Gender Identity Not on file Sexual Orientation Not on file Last Filed Vital Signs Vital Sign Reading Time Taken Comments Blood Pressure 137/83 09/03/2021 12:41 PM ENGLISH LANGUAGE LEARNER TUTOR Pulse 78 03/19/2018 3:50 AM CDT Temperature 37.3 C (99.2 F) 03/19/2018 3:50 AM CDT Respiratory Rate 18 03/19/2018 3:50 AM CDT Oxygen Saturation 96% 03/19/2018 3:50 AM CDT Inhaled Oxygen Concentration - - Weight 119.3 kg (263 lb) 09/03/2021 12:41 PM ENGLISH LANGUAGE LEARNER TUTOR Height 172.7 cm (5' 8) 09/03/2021 12:41 PM ENGLISH LANGUAGE LEARNER TUTOR Body Mass Index 39.99 09/03/2021 12:41 PM ENGLISH LANGUAGE LEARNER TUTOR Plan of Treatment Health Maintenance Due Date Last Done Comments HPV VACCINES (1 - 3-dose series) 2000 HEPATITIS B VACCINES (1 of 3 - 19+ 3-dose series) 2004 COLORECTAL SCREENING 10/01/2022 10/01/2017 INFLUENZA VACCINE (#1) 2025 9, 08/09/2018, 04/23/2017 DTAP/TDAP/TD VACCINES (2 - T d or Tdap) 11/14/2027 11/13/2017 Medical Devices Explanted Type Area Carton Forming Machine Operator Device Identifier Shelf Expiration Date Model / Serial / Lot Interuterine Device For Control Explanted:Qty: 1 on 03/18/2018 by Martinez Walker MD at [facility] BS BLUE ACCESS/TRUE BLUE PPO RX [employer] Advance Directives For more information, please contact: [phone] * Full Code (Latest Code Status on File) Date Activated Date Inactivated Comments 03/18/2018 8:20 AM 03/18/2018 4:47 PM * Full Code Date Activated Date Inactivated Comments 10/01/2017 11:40 AM 10/01/2017 3:26 PM Care Teams Monorail Crane Operator Relationship Specialty Start Date End Date Clovis Johnson MD PCP - General Family Practice 08/17/17
--- OUTSIDE RECORDS SUMMARY | 2025-02-26 16:36 | XMS_ITS | Clinical Summary ---
Author Organization [facility] Address [address] [place] [address] Care Team Providers Care Data Technician Name Role Phone Pierreremy Myles PIZARRO Primary Care Provider [phone] Source Comments [facility],non-owned Affiliates and Associated Physician Practices is amultiple site organization consisting of ambulatory clinics and hospital sitesin [place], [place], [place] and [place]. This disclosure is being madepursuant to the Care Everywhere program and may not contain all information available regarding this patient. 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 Gender Identity Not on file Sexual Orientation Not on file Plan of Treatment Health Maintenance Due Date Last Done Comments HIV SCREENING 2000 HEPATITIS C SCREENING 07/21/2003 DTAP/TDAP/TD VACCINES (1 - Tdap) 2004 HEPATITIS B VACCINE (1 of 3 - 19+ 3-dose series) 2004 PAP SMEAR 2006 HPV VACCINE (1 - 3-dose SCDM series) 2012 COVID-19 VACCINE (1 - 2023-2 5 season) 2024 DEPRESSION SCREENING 07/20/2024 INFLUENZA VACCINE (#1) 2025 9, 04/23/2017 ZOSTER VACCINE (1 of 2) [...] on patient's age to complete this topic Insurance [facility] SELF PAY NO INSURANCE Member Subscriber Plan / Payer (Ef fective for All Dates) Name:[employer] Member ID:Not on file Relation to Subscriber:Not on file Name:[employer] Subscriber ID:Not on file (Home) Address: [address] [place] [id number] Payer ID:Not on file Group ID:Not on file Type:Self Pay Address: [facility] Care Teams Data Technician Relationship Specialty Start Date End Date Myles Pruett DO [address] [place] [id number] PCP - General 10/03/22
--- OUTSIDE RECORDS SUMMARY | 2025-02-26 16:36 | XMS_ITS | Continuity of Care Document ---
Author Organization [facility] Address [address] [place] [address] Phone Care Team Providers Care Honey Producer Name Role Phone Sarah SHERIFF, TRAE, Wil Unavailable Unavailable Procedures Procedure Date Neuromuscular Re-Ed Therapeutic Activities Therapeutic Exercise Therapeutic Activities Neuromuscular Re-Ed Therapeutic Exercise Therapeutic Exercise Neuromuscular Re-Ed Therapeutic Activities Therapeutic Activities Therapeutic Exercise Neuromuscular Re-Ed Therapeutic Activities Therapeutic Exercise Neuromuscular Re-Ed Therapeutic Exercise Neuromuscular Re-Ed Therapeutic Activities PT Evaluation Moderate Complexity Therapeutic Exercise Neuromuscular Re-Ed Therapeutic Activities Advance Directives Directive Yes / No Effective Date File Name No Information Encounters Encounter Description Practice Location Reason(s) For Visit Diagnoses Date Provider Providers Copied on Encounter [facility], [place], [place], [id number], tel:[phone] [place] No Information 2 Sarah De La Torre. . [facility], [place], [place], [id number], tel:[phone] [place] No Information Sep- 8- 2 Klahn Wil. . Referring Provider: Myles Pruett, [address] [place] [address], [address]. tel:[phone] [place], [place] [address], [place], [place], [id number], [place] tel:[phone] [place] No Information Sep-0 8 2 Klahn Wil. . Referring Provider: Myles Pruett, [address] [place] [address], [address]. tel:[phone] [place] [address], [address], [place], [place], [id number], [place] tel:[phone] [place] No Information Sep-0 3 2 Klahn Wil. . Referring Provider: Myles Pruett, [address] [place] [address], [place], [address]. tel:[phone] [place] [address] [address], [place], [place], [id number], [place] tel:[phone] [place] No Information b-2 2- 2 Klahn Wil. . Referring Provider: Myles Pruett, [address] [place] [address], [address]. tel:[phone] [place] [address] [address], [place], [place], [id number], [place] tel:[phone] [place] No Information Aug- 2 Klahn Wil. . Referring Provider: Myles Pruett, [address] [place] [address], [address]. tel:[phone] [place] [address] [address], [place], [place], [id number], [place] tel:[phone] [place] No Information b- 0-202 2 Klahn Wil. . Referring Provider: Myles Pruett [address] [place] [address], [place], [address]. tel:[phone] [place], [place] [id number] [address], [place], [place], [id number], tel:[phone] [place] No Information 2 Saarh De La Torre. . Referring Provider: Myles Pruett, [address] [facility], [place], [address]. tel:[phone] Family History Family Member Type Diagnosis Age At Onset No Information Payers Payer name Insurance type Covered democrat ID Authoresther hanson(s) [facility] [id number] Social History Type Description Quantity Date Captured [...]
--- OUTSIDE RECORDS SUMMARY | 2025-02-26 16:36 | XMS_ITS | Patient Health Record ---
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 dietary guidelines: Consider referral to a registered dietitian or jukebox routeman. The USDA approximate food plate volumes (http_s://www.[place] plate.gov) are: Vegetables and fruits should comprise half the volume of food on the plate Vegetables: 30% of plate; fruits 20% of plate Whole grains: 30% of plate Protein: 20% of plate Recommended sources of dietary components: Fat: plant sources such as olive or canola oil, avocados, seeds and nuts, and fatty fish Carbohydrates: fruits, vegetables, whole grains, and legumes Protein: poultry, fish, legumes, low-fat dairy foods, and nuts While the risks and benefits of soy foods for cancer survivors have been debated for many years, most studies to date show that moderate consumption of soy foods (up to 3 servings per day) are beneficial in promoting overall health and survival, with the strongest evidence existing for the prevention of lung cancer and reduction of breast cancer recurrence. -Practice portion control. Make informed food choices through routine evaluation of food labels. Incorporate physical activity, particularly strength training, to assure optimal lean body mass (SPA-1). Track weight, diet, calories, and physical activity routines (eg, journaling, mobile phone apps). Limit alcohol intake to one drink per day or less for a woman and two drinks or less per day for a man. educated on all medications, benefits, side effects [...] effects including loss of libido, increased suicidal thoughts/behavio rs in children and young adults, and serotonin [...] common with first generation antipsychotics) and more. Follow-up - Plan: discuss medication adjustments. and will monitor depression and anxiety Continue to monitor patient's progress and response to treatment during subsequent visits. Continue Spravato every 2 weeks Medication Management and Follow-Up - Plan: - Schedule follow-up appointments every 1-3 months to monitor the patient's response to the medication regimen. - Reinforce the importance of avoiding recreational drug use due to potential neurotoxicity and interactions with prescribed medications. 09/15/2024 Major depressive disorder, recurrent severe without psychotic features (ICD-10 - F33.2) continue current treatment as prescribed by primary psychiatric care provider. 09/15/2024 Elevated blood pressure reading (ICD-10 - R03.0) 09/01/2024 Major depressive disorder, recurrent severe without psychotic features (ICD-10 - F33.2) continue current treatment as prescribed by primary psychiatric care provider. 08/18/2024 Major depressive disorder, recurrent severe without psychotic features (ICD-10 - F33.2) continue current treatment as prescribed by primary psychiatric care provider. 08/04/2024 Major depressive disorder, recurrent severe without psychotic features (ICD-10 - F33.2) continue current treatment as prescribed by primary psychiatric care provider. 1. Depression - Patient rates depression as 4/10. - Plan: a. Continue current antidepressant medication. b. Monitor mood and depressive symptoms at follow-up visits. c. Encourage patient to engage in regular physical activity and social interactions. d. encouraged initiation of psychotherapy. 2. Anxiety - Patient rates anxiety as 4/10. - Plan: a. Continue current anxiolytic medication. b. Encourage patient to engage in relaxation techniques. 3. Sleep - Patient reports getting approximately 7 hours of sleep per night. - Plan: a. Encourage maintaining good sleep hygiene. b. Encourage consistent sleep schedule. 4. Appetite and Pancreatitis - Patient reports poor appetite due to recent diagnosis of pancreatitis. - Patient currently on a liquid diet as per ER instructions. - Plan: a. Recommend close follow-up with gastroenterologi st for management of pancreatitis and guidance on diet progression. b. Monitor weight and nutritional status during follow-up appointments. 5. Safety - Patient denies any thoughts of suicide, self-harm, or harm to others. - Patient denies experiencing hallucinations, delusions, or paranoia. - Plan: a. Continue to monitor mental status and safety during follow-up appointments. 07/21/2024 Major depressive disorder, recurrent severe without psychotic features (ICD-10 - F33.2) continue current treatment as prescribed by primary psychiatric are provider. 1. Depression - Patient rates depression as 5/10. - PHQ-9: 10 - Plan: a. Continue current treatment plan and monitor progress. b. Encourage regular physical activity and social interactions. 2. Anxiety - Patient rates anxiety as 6/10. - RACHNA-7: 8. - Plan: a. Continue current treatment plan and monitor progress. b. Recommend relaxation techniques (deep breathing, mindfulness, meditation). 3. Sleep - Patient reports approximately 7 hours of sleep per night. - Plan: a. Encourage maintaining good sleep hygiene. b. Recommend consistent sleep schedule and relaxing bedtime routine. 4. Appetite - Patient reports decreased appetite due to weight loss injections. - Plan: a. Monitor weight and nutritional status at follow-ups. b. Encourage balanced diet and hydration. 5. Suicidal Ideation, Self-Harm, and Harm to Others - Patient denies thoughts of suicide, self-harm, or harming others. - Plan: a. Continue to assess for changes in mood or behavior at follow-ups. 6. Psychotic Symptoms - Patient denies hallucinations, delusions, or paranoia. - Plan: a. Continue monitoring for signs of psychotic symptoms at follow-ups. 7. Medications - Patient reports no new medications. - Plan: a. Review current medication regimen for efficacy and side effects at follow-ups. 8. Physical Complaints - Patient reports no new physical complaints. - Plan: a. Continue monitoring overall health at follow-ups. b. Address any concerns during follow-up visits. 07/08/2024 Major depressive disorder, recurrent severe without psychotic features (ICD-10 - F33.2) Depression Plan: - continue esketamine treatments and treatment plan recommendations per Naomi Georges your regular psychiatric provider. 1 Review patient medical records, any recent test results, last visit summary, etc Yes, Time spent 5 2 Greet patient and escort to the treatment room Yes, Time spent 1 3 Initial Obtained vital signs No 4 Prepare equipment and supplies No 5 Reviewed and documented history and medication Yes, Time spent 3 6 Evaluate patient's clinical status [relevant history/physical assessment] and determine readiness/approp riateness of treatment Yes, Time spent 6 7 Confirm orders and review plans with staff Yes, Time spent 1 8 Ensure appropriate positioning for administration, observe patient administration, ensure patient comfort and safety Yes, Time spent 2 9 Obtained vital signs: Assess treatment tolerance No 10 Assess the patient response to treatment: Visually and verbally evaluate the patient; review treatment progress with staff [vital signs, patient tolerance, side effects, etc.] Yes, Time spent 15 11 obtained vital signs: assess treatment tolerance No 12 At the completion of observation., Reviewed treatment course and assess the patient for clinical stability/discha rge readiness Yes, Time spent 14 13 Write a prescription or Reviewed RX for next session and submit to pharmacy No 14 Provide patient education/instru ction/ Yes, Time spent 12 15 Coordinate home-going [that is, discharged to escorted transportation] No 16 Complete medical record documentation Yes, Time spent 9 17 cleaning of room/equipment by clinical staff No 18 complete medical record documentation; complete and submit rems patient monitoring form No I attest to the total time spent Before, During and after ecounter was (in Minutes) 68 06/24/2024 Major depressive disorder, recurrent severe without [...] clinical status [relevant history/physical assessment] and determine readiness/approp riateness of treatment Yes6 Time spent 157 Confirm [...] and after ecounter was (in Minutes) 52 06/10/2024 Major depressive disorder, recurrent severe without psychotic features (ICD-10 - F33.2) Continue esketamine treatments every other week Continue current medications per Olga 05/27/2024 Major depressive disorder, recurrent severe without [...] to practice good sleep hygiene. c. Consider non-pharmacologi thomas interventions, such as relaxation techniques and cognitive-behavi oral therapy for insomnia (CBT-I). 6. Appetite - [...] to practice good sleep hygiene. c. Consider non-pharmacologi thomas interventions, such as relaxation techniques and cognitive-behavi oral therapy for insomnia (CBT-I). 6. Appetite - [...] prazosin as discussed for sleep and nightmares. 05/13/2024 MDD (major depressive disorder), recurrent episode, [...] new or worsening physical symptoms during follow-ups. 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 SPRAVATO can cause serious side effects, including: Sedation, dissociation, and respiratory depression. SPRAVATO may cause sleepiness (sedation), fainting, dizziness, spinning sensation, anxiety, or feeling disconnected from yourself, your thoughts, feelings, space and time (dissociation), and breathing problems (respiratory depression and respiratory arrest). Tell your healthcare provider right away if you feel like you cannot stay awake or if you feel like you are going to pass out. Your healthcare provider must monitor you for serious side effects for at least 2 hours after taking SPRAVATO. Your healthcare provider will decide when you are ready to leave the healthcare setting. Abuse and misuse. There is a risk for abuse and misuse with SPRAVATO, which may lead to physical and psychological dependence. Your healthcare provider should check you for signs of abuse, misuse, and dependence before and during treatment. Tell your healthcare provider if you have ever abused or been dependent on alcohol, prescription medicines, or street drugs. Your healthcare provider can tell you more about the differences between physical and psychological dependence in drug addiction. SPRAVATO Risk Evaluation and Mitigation Strategy (REMS). Because of the risks for sedation, dissociation, respiratory depression, and abuse and misuse, SPRAVATO is only available through a restricted program called the SPRAVATO Risk Evaluation and Mitigation Strategy (REMS) Program. SPRAVATO can only be administered at healthcare settings certified in the SPRAVATO REMS Program. Patients treated in outpatient healthcare settings (such as medical offices and clinics) must be enrolled in the program. Increased risk of suicidal thoughts and actions. Antidepressant medicines may increase suicidal thoughts and actions in some people 24 years of age and younger, especially within the first few months of treatment or when the dose is changed. SPRAVATO is not for use in children. Depression and other serious mental illnesses are the most important causes of suicidal thoughts and actions. Some people may have a higher risk of having suicidal thoughts or actions. These include people who have (or have a family history of) depression or a history of suicidal thoughts or actions. How can I watch for and try to prevent suicidal thoughts and actions in myself or a family member? Pay close attention to any changes, especially sudden changes, in mood, behavior, thoughts, or feelings, or if you develop suicidal thoughts or actions. Tell your healthcare provider right away if you have any new or sudden changes in mood, behavior, thoughts, or feelings, or if you develop suicidal thoughts or actions. Keep all follow-up visits with your healthcare provider as scheduled. Call your healthcare provider between visits as needed, especially if you have concerns about symptoms. Tell your healthcare provider or get emergency help right away if you or your family member have any of the following symptoms, especially if they are new, worse, or worry you: thoughts about suicide or dying new or worse depression feeling very agitated or restless trouble sleeping (insomnia) acting aggressive, being angry or violent an extreme increase in activity and talking (yung) suicide attempts new or worse anxiety panic attacks new or worse irritability acting on dangerous impulses other unusual changes in behavior or mood Do not drive, operate machinery, or do anything where you need to be completely alert after taking SPRAVATO. Do not take part in these activities until the next day following a restful sleep. Increased blood pressure. SPRAVATO can cause a temporary increase in your blood pressure that may last for about 4 hours after taking a dose. Your healthcare provider will check your blood pressure before taking SPRAVATO and for at least 2 hours after you take SPRAVATO. Tell your healthcare provider right away if you get chest pain, shortness of breath, sudden severe headache, change in vision, or seizures after taking SPRAVATO. Problems with thinking clearly. Tell your healthcare provider if you have problems thinking or remembering. Bladder problems. Tell your healthcare provider if you develop trouble urinating, such as a frequent or urgent need to urinate, pain when urinating, or urinating frequently at night. The most common side effects of SPRAVATO include: feeling disconnected from yourself, your thoughts, feelings and things around you dizziness nausea feeling sleepy spinning sensation decreased feeling of sensitivity (numbness) feeling anxious lack of energy increased blood pressure vomiting feeling drunk headache feeling very happy or excited If these common side effects occur, they usually happen right after taking SPRAVATO and go away the same day. 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 05/06/2024 Generalized anxiety disorder (ICD-10 - F41.1) [...] follow up with JOS[facility] provider by every 7th -9th Spravato milagros rasheedweifouzia rx schedule therapy Billy [facility] 07/05/2024 Major depressive disorder, recurrent severe without [...] every other week at this time 07/05/2024 Insomnia due to other mental disorder [...] Spravato every other week at this time 09/29/2024 Encounter for screening for depression (ICD-10 - Z13.31) 10/13/2024 Encounter for screening for cardiovascular disorders (ICD-10 - Z13.6) 11/24/2024 Encounter for screening for depression (ICD-10 - Z13.31) 05/06/2024 Major depressive disorder, recurrent, mild (ICD-10 [...] up with J[facility] provider by every -th Billavato milagros grace rx schedule therapy Billy KUMAR 10/20/2024 Insomnia due to other mental disorder (ICD-10 - F51.05) 1. Depressive Abilify 15 mg at bedtime Lamotrigine 150 mg daily Prozac 40 mg daily Lamotrigine lamotrigine has a serious rashes requiring hospitalization and discontinue treatment including Carlos Agustin syndrome rare case of toxic epidermal necrolysis and cache related deaths. Incidence with adjunct of epilepsy treatment 0.8% in 2 to 16 years old and 0.3% in adults, bipolar and other mood disorders incidence 0.8% this initial monotherapy and 0.13% as adjunctive treatment. Other risk factor may include concomitant use of valproate acid derivative or exceeding initial lamotrigine does or does as clinician recommendation; most life-threatening rash of occurring first 2 to 8 week of treatment with isolated cases after prolonged treatment; though benign may occur, discontinue treatment at first sign of rash unless clearly not a drug related; TC treatment may not prevent trash from becoming life-threatening or permanently disabling or disfiguring. Comment reaction include, nausea/vomiting, dizziness/vertig o, visual disturbances, somnolence, ataxia, pruritus/rash, pharyngitis, headache, rhinitis, diarrhea, fever, asthenia, insomnia, tremor, abdominal pain, cough, accidental injury, constipation, dysmenorrhea, incoordination, anxiety, seizures, irritability, anorexia, xerostomia, and photosensitivity . Serious reactions include: Rash, severe; Hernandez Agustin syndrome; toxic epidermal necrosis; injury edema, hypersensitivity reactions. Including fatal, multiple organ failure to safe fatal, rash with eosinophilia systemic symptoms, DIC, neutropenia, leukopenia, thrombocytopenia , pancytopenia, aplastic anemia, hemolytic anemia, i pancreatitis, hepatic failure, rhabdomyolysis, worsening of suicidal ideation, worsening of depression, cleft lip/palate [first trimester use] DO not Change Cosmetic, perfumes or soap for next 4 weeks. The patient was advice to take lamotrigine as prescribed the patient was instructed not to deviate from the prescription dosages. Stop lamotrigine is the first sign of rash. Patient was insisted to inform office if any of the serious side effect develops. - Assessment: Patient reports improvement with Spravato treatment, currently every 2 weeks. Mild depression persists, but is manageable. AIMS= 0 07/05/24 [facility] forms completed Patient confirms treatment has been ongoing for over a year and is going well. - Plan: Continue Spravato treatment and monitor response. every 2 weeks 2. Anxiety Prozac 40 mg daily 3. Insomnia Ramelteon 8 mg bedtime sleep hygiene limit media and social media time 4. PTSD Prazosin 1 mg bedtime sleep hygiene schedule with therapy 5. HTN educated on healthy b/p 120/80 monitor b/p at home refer to PCP, heart healthy diet and excise limit salt intake limit soda intake and caffiene increase water Reported just had B/P RX Medication Management - Assessment: Current medications include Wellbutrin, Prozac, lamotrigine (150 mg), and Abilify (15 mg). Prazosin 1 mg Patient reports no current movement disorders. - Plan: Consider decreasing lamotrigine to 100 mg to potentially improve mood.- will consider after holidays related to have depresison currently discuss reduce Abilify from 15 mg to 10 mg- taina reported 15 mg dose is helping her presently dicuss metabolic and movement disorders including tardive dyskinesia risks. Monitor for any movement disorders. Eat healthy, including plenty of fresh fruits and vegetables daily. Strive to have 2/3 cup of your plate to be vegetables, fruits, whole grains and beans, while 1/3 or less should be an animal product. Choose fish and chicken and limit red meat and processed meats. - Assess dietary pattern for daily intake of fruits, vegetables, and whole grains, as well as red and processed meats, alcohol, and processed foods or beverages with added fats and/or sugars. Assess timing of meals and snacking habits, portion size, frequency of eating out, and use of added fats and/or sugars to foods or beverages. All survivors should be encouraged to: Follow a predominantly nutrient-rich plant-based diet, including vegetables, fruit, and whole grains. Make informed choices about food to ensure variety and adequate nutrient intake. Limit consumption of red meat such as beef, pork, or harris to no more than 18 ounces (cooked) per week. Eat processed meats such as ham, hot dogs, deli cuts, fritz, and sausage sparingly if at all. Limit consumption of fast foods and other processed foods that are high in fat, starches, or sugars such as chips, cookies, candy bars, desserts, processed baked goods, sugary cereals, and fried foods. Limit refined sugars to <6 tsp (25 g) for a 2000-calorie daily diet and <9 tsp (38 g) for a 3000-calorie daily diet. One medium cookie has about 2 tsp of sugar; a 12-oz can of a soft drink has about 10 tsp. Track calorie intake. Self-monitoring of food and beverage intake has been shown to be an effective strategy for weight management. Prolonged periods of fasting may impair adequate caloric and nutrient intake. Drink alcohol sparingly if at all. Lower levels of alcohol consumption are associated with a lower risk of cancer. For patients desiring further recommendations for dietary guidelines: Consider referral to a registered dietitian or jukebox routeman. The USDA approximate food plate volumes (http_s://www.[place] plate.gov) are: Vegetables and fruits should comprise half the volume of food on the plate Vegetables: 30% of plate; fruits 20% of plate Whole grains: 30% of plate Protein: 20% of plate Recommended sources of dietary components: Fat: plant sources such as olive or canola oil, avocados, seeds and nuts, and fatty fish Carbohydrates: fruits, vegetables, whole grains, and legumes Protein: poultry, fish, legumes, low-fat dairy foods, and nuts While the risks and benefits of soy foods for cancer survivors have been debated for many years, most studies to date show that moderate consumption of soy foods (up to 3 servings per day) are beneficial in promoting overall health and survival, with the strongest evidence existing for the prevention of lung cancer and reduction of breast cancer recurrence. -Practice portion control. Make informed food choices through routine evaluation of food labels. Incorporate physical activity, particularly strength training, to assure optimal lean body mass (SPA-1). Track weight, diet, calories, and physical activity routines (eg, journaling, mobile phone apps). Limit alcohol intake to one drink per day or less for a woman and two drinks or less per day for a man. educated on all medications, benefits, side effects [...] effects including loss of libido, increased suicidal thoughts/behavio rs in children and young adults, and serotonin [...] common with first generation antipsychotics) and more. Follow-up - Plan: discuss medication adjustments. and will monitor depression and anxiety Continue to monitor patient's progress and response to treatment during subsequent visits. Continue Spravato every 2 weeks Medication Management and Follow-Up - Plan: - Schedule follow-up appointments every 1-3 months to monitor the patient's response to the medication regimen. - Reinforce the importance of avoiding recreational drug use due to potential neurotoxicity and interactions with prescribed medications. 11/10/2024 Encounter for screening for cardiovascular disorders (ICD-10 - Z13.6) 1 Review patient medical records, any recent test results, last visit summary, etc Yes, Time spent 3 2 Greet patient and escort to the treatment room Yes, Time spent 2 3 Initial Obtained vital signs No 4 Prepare equipment and supplies No 5 Reviewed and documented history and medication Yes, Time spent 1 6 Evaluate patient's clinical status [relevant history/physical assessment] and determine readiness/approp riateness of treatment Yes, Time spent 4 7 Confirm orders and review plans with staff Yes, Time spent 1 8 Ensure appropriate positioning for administration, observe patient administration, ensure patient comfort and safety Yes, Time spent 2 9 Obtained vital signs: Assess treatment tolerance No 10 Assess the patient response to treatment: Visually and verbally evaluate the patient; review treatment progress with staff [vital signs, patient tolerance, side effects, etc.] Yes, Time spent 15 11 obtained vital signs: assess treatment tolerance No 12 At the completion of observation., Reviewed treatment course and assess the patient for clinical stability/discha rge readiness Yes, Time spent 6 13 Write a prescription or Reviewed RX for next session and submit to pharmacy No 14 Provide patient education/instru ction/ Yes, Time spent 4 15 Coordinate home-going [that is, discharged to escorted transportation] No 16 Complete medical record documentation Yes, Time spent 12 17 cleaning of room/equipment by clinical staff No 18 complete medical record documentation; complete and submit rems patient monitoring form No I attest to the total time spent Before, During and after ecounter was (in Minutes) 50 12/08/2024 Insomnia due to other mental disorder (ICD-10 - F51.05) 12/22/2024 Encounter for screening for cardiovascular disorders (ICD-10 - Z13.6) 01/05/2025 Benign essential HTN (ICD-10 - I10) 01/19/2025 Generalized anxiety disorder (ICD-10 - F41.1) 01/27/2025 Dietary counseling and surveillance (ICD-10 - Z71.3) 1. Depressive GDR Abilify 10 mg at bedtime Lamotrigine 150 mg daily Prozac 40 mg daily reported seeing PCP and US for enlarge liver scheduled and labs completed ER CT and labs 08/13 Lamotrigine lamotrigine has a serious rashes requiring hospitalization and discontinue treatment including Carlos Agustin syndrome rare case of toxic epidermal necrolysis and cache related deaths. Incidence with adjunct of epilepsy treatment 0.8% in 2 to 16 years old and 0.3% in adults, bipolar and other mood disorders incidence 0.8% this initial monotherapy and 0.13% as adjunctive treatment. Other risk factor may include concomitant use of valproate acid derivative or exceeding initial lamotrigine does or does as clinician recommendation; most life-threatening rash of occurring first 2 to 8 week of treatment with isolated cases after prolonged treatment; though benign may occur, discontinue treatment at first sign of rash unless clearly not a drug related; TC treatment may not prevent trash from becoming life-threatening or permanently disabling or disfiguring. Comment reaction include, nausea/vomiting, dizziness/vertig o, visual disturbances, somnolence, ataxia, pruritus/rash, pharyngitis, headache, rhinitis, diarrhea, fever, asthenia, insomnia, tremor, abdominal pain, cough, accidental injury, constipation, dysmenorrhea, incoordination, anxiety, seizures, irritability, anorexia, xerostomia, and photosensitivity . Serious reactions include: Rash, severe; Hernandez Agustin syndrome; toxic epidermal necrosis; injury edema, hypersensitivity reactions. Including fatal, multiple organ failure to safe fatal, rash with eosinophilia systemic symptoms, DIC, neutropenia, leukopenia, thrombocytopenia , pancytopenia, aplastic anemia, hemolytic anemia, i pancreatitis, hepatic failure, rhabdomyolysis, worsening of suicidal ideation, worsening of depression, cleft lip/palate [first trimester use] DO not Change Cosmetic, perfumes or soap for next 4 weeks. The patient was advice to take lamotrigine as prescribed the patient was instructed not to deviate from the prescription dosages. Stop lamotrigine is the first sign of rash. Patient was insisted to inform office if any of the serious side effect develops. - Assessment: Patient reports improvement with Spravato treatment, currently every 2 weeks. depression persists, but is manageable and Spravato helps AIMS= 0 07/05/24 AIMS= 0 01/27/25 FLMA forms completed Patient confirms treatment has been ongoing for over a year and is going well. - Plan: Continue Spravato treatment and monitor response. every 2 weeks 2. Anxiety Prozac 40 mg daily 3. Insomnia- appointment with PCP to discuss sleep study and r/o narcolepsy reported FH narcolepsy Ramelteon 8 mg bedtime sleep hygiene limit media and social media time Sleep Hygeine- - KEEP YOUR BEDROOM DARK - GET LOTS OF NATURAL LIGHT IN THE MORNING. - DON'T WORK ON YOUR COMPUTER OR PHONE LATE AT NIGHT. - AVOID NAPS DURING THE DAY. - NO CAFFEINE 3 HOURS OR MORE AFTER WAKE UP TIME. - ONLY USE YOUR BED FOR SLEEPING - GET A RELAXATION ROUTINE BEFORE BED. - IF YOU CAN'T GET TO SLEEP AFTER 15 TO 30 MINUTES GET OUT OF BED AND DO SOMETHING RELAXING. - DON'T DRINK ALCOHOL IN THE EVENING or limit alcohol to 1 drink. 4. PTSD Prazosin 1 mg bedtime sleep hygiene schedule with therapy 5. HTN- appointment with PCP 02/10 to discuss HTN and B/P rx and sleep study educated on healthy b/p 120/80 monitor b/p at home refer to PCP, heart healthy diet and excise limit salt intake limit soda intake and caffiene increase water B/P RX Monitor for any movement disorders. Eat healthy, including plenty of fresh fruits and vegetables daily. Strive to have 2/3 cup of your plate to be vegetables, fruits, whole grains and beans, while 1/3 or less should be an animal product. Choose fish and chicken and limit red meat and processed meats. - Assess dietary pattern for daily intake of fruits, vegetables, and whole grains, as well as red and processed meats, alcohol, and processed foods or beverages with added fats and/or sugars. Assess timing of meals and snacking habits, portion size, frequency of eating out, and use of added fats and/or sugars to foods or beverages. All survivors should be encouraged to: Follow a predominantly nutrient-rich plant-based diet, including vegetables, fruit, and whole grains. Make informed choices about food to ensure variety and adequate nutrient intake. Limit consumption of red meat such as beef, pork, or harris to no more than 18 ounces (cooked) per week. Eat processed meats such as ham, hot dogs, deli cuts, fritz, and sausage sparingly if at all. Limit consumption of fast foods and other processed foods that are high in fat, starches, or sugars such as chips, cookies, candy bars, desserts, processed baked goods, sugary cereals, and fried foods. Limit refined sugars to <6 tsp (25 g) for a 2000-calorie daily diet and <9 tsp (38 g) for a 3000-calorie daily diet. One medium cookie has about 2 tsp of sugar; a 12-oz can of a soft drink has about 10 tsp. Track calorie intake. Self-monitoring of food and beverage intake has been shown to be an effective strategy for weight management. Prolonged periods of fasting may impair adequate caloric and nutrient intake. Drink alcohol sparingly if at all. Lower levels of alcohol consumption are associated with a lower risk of cancer. For patients desiring further recommendations for dietary guidelines: Consider referral to a registered dietitian or jukebox routeman. The USDA approximate food plate volumes (http_s://www.[employer] plate.gov) are: Vegetables and fruits should comprise half the volume of food on the plate Vegetables: 30% of plate; fruits 20% of plate Whole grains: 30% of plate Protein: 20% of plate Recommended sources of dietary components: Fat: plant sources such as olive or canola oil, avocados, seeds and nuts, and fatty fish Carbohydrates: fruits, vegetables, whole grains, and legumes Protein: poultry, fish, legumes, low-fat dairy foods, and nuts While the risks and benefits of soy foods for cancer survivors have been debated for many years, most studies to date show that moderate consumption of soy foods (up to 3 servings per day) are beneficial in promoting overall health and survival, with the strongest evidence existing for the prevention of lung cancer and reduction of breast cancer recurrence. -Practice portion control. Make informed food choices through routine evaluation of food labels. Incorporate physical activity, particularly strength training, to assure optimal lean body mass (SPA-1). Track weight, diet, calories, and physical activity routines (eg, journaling, mobile phone apps). Limit alcohol intake to one drink per day or less for a woman and two drinks or less per day for a man. educated on all medications, benefits, side effects [...] effects including loss of libido, increased suicidal thoughts/behavio rs in children and young adults, and serotonin [...] common with first generation antipsychotics) and more. Follow-up - Plan: GDR Abilify 10 mg daily discuss medication adjustments. and will monitor depression and anxiety Continue to monitor patient's progress and response to treatment during subsequent visits. Continue Spravato every 2 weeks Medication Management and Follow-Up - Plan: - Schedule follow-up appointments every 1-3 months to monitor the patient's response to the medication regimen. - Reinforce the importance of avoiding recreational drug use due to potential neurotoxicity and interactions with prescribed medications. 03/18/2024 Generalized anxiety disorder (ICD-10 - F41.1) Learning About Generalized Anxiety Disorder material was published, Generalized Anxiety Disorder: Care Instructions material was published, Learning About Anxiety Disorders material was published Seen in [facility] [place] by Gary GARZA and patient requested rx refill and reported nightmares and Gary requested Prazosin rx sent to local [facility] Prazosin 1 mg PO HS # 30 AND MONITOR B/P Appointment with Naomi Georges [facility] to be schedule and also with therapist all other rx sent to [facility] 01/27/2025 Generalized anxiety disorder (ICD-10 - F41.1) 1. Depressive GDR Abilify 10 mg at bedtime Lamotrigine 150 mg daily Prozac 40 mg daily reported seeing PCP and US for enlarge liver scheduled and labs completed ER CT and labs 08/13 Lamotrigine lamotrigine has a serious rashes requiring hospitalization and discontinue treatment including Carlos Agustin syndrome rare case of toxic epidermal necrolysis and cache related deaths. Incidence with adjunct of epilepsy treatment 0.8% in 2 to 16 years old and 0.3% in adults, bipolar and other mood disorders incidence 0.8% this initial monotherapy and 0.13% as adjunctive treatment. Other risk factor may include concomitant use of valproate acid derivative or exceeding initial lamotrigine does or does as clinician recommendation; most life-threatening rash of occurring first 2 to 8 week of treatment with isolated cases after prolonged treatment; though benign may occur, discontinue treatment at first sign of rash unless clearly not a drug related; TC treatment may not prevent trash from becoming life-threatening or permanently disabling or disfiguring. Comment reaction include, nausea/vomiting, dizziness/vertig o, visual disturbances, somnolence, ataxia, pruritus/rash, pharyngitis, headache, rhinitis, diarrhea, fever, asthenia, insomnia, tremor, abdominal pain, cough, accidental injury, constipation, dysmenorrhea, incoordination, anxiety, seizures, irritability, anorexia, xerostomia, and photosensitivity . Serious reactions include: Rash, severe; Hernandez Agustin syndrome; toxic epidermal necrosis; injury edema, hypersensitivity reactions. Including fatal, multiple organ failure to safe fatal, rash with eosinophilia systemic symptoms, DIC, neutropenia, leukopenia, thrombocytopenia , pancytopenia, aplastic anemia, hemolytic anemia, i pancreatitis, hepatic failure, rhabdomyolysis, worsening of suicidal ideation, worsening of depression, cleft lip/palate [first trimester use] DO not Change Cosmetic, perfumes or soap for next 4 weeks. The patient was advice to take lamotrigine as prescribed the patient was instructed not to deviate from the prescription dosages. Stop lamotrigine is the first sign of rash. Patient was insisted to inform office if any of the serious side effect develops. - Assessment: Patient reports improvement with Spravato treatment, currently every 2 weeks. depression persists, but is manageable and Spravato helps AIMS= 0 07/05/24 AIMS= 0 01/27/25 FLMA forms completed Patient confirms treatment has been ongoing for over a year and is going well. - Plan: Continue Spravato treatment and monitor response. every 2 weeks 2. Anxiety Prozac 40 mg daily 3. Insomnia- appointment with PCP to discuss sleep study and r/o narcolepsy reported FH narcolepsy Ramelteon 8 mg bedtime sleep hygiene limit media and social media time Sleep Hygeine- - KEEP YOUR BEDROOM DARK - GET LOTS OF NATURAL LIGHT IN THE MORNING. - DON'T WORK ON YOUR COMPUTER OR PHONE LATE AT NIGHT. - AVOID NAPS DURING THE DAY. - NO CAFFEINE 3 HOURS OR MORE AFTER WAKE UP TIME. - ONLY USE YOUR BED FOR SLEEPING - GET A RELAXATION ROUTINE BEFORE BED. - IF YOU CAN'T GET TO SLEEP AFTER 15 TO 30 MINUTES GET OUT OF BED AND DO SOMETHING RELAXING. - DON'T DRINK ALCOHOL IN THE EVENING or limit alcohol to 1 drink. 4. PTSD Prazosin 1 mg bedtime sleep hygiene schedule with therapy 5. HTN- appointment with PCP 02/10 to discuss HTN and B/P rx and sleep study educated on healthy b/p 120/80 monitor b/p at home refer to PCP, heart healthy diet and excise limit salt intake limit soda intake and caffiene increase water B/P RX Monitor for any movement disorders. Eat healthy, including plenty of fresh fruits and vegetables daily. Strive to have 2/3 cup of your plate to be vegetables, fruits, whole grains and beans, while 1/3 or less should be an animal product. Choose fish and chicken and limit red meat and processed meats. - Assess dietary pattern for daily intake of fruits, vegetables, and whole grains, as well as red and processed meats, alcohol, and processed foods or beverages with added fats and/or sugars. Assess timing of meals and snacking habits, portion size, frequency of eating out, and use of added fats and/or sugars to foods or beverages. All survivors should be encouraged to: Follow a predominantly nutrient-rich plant-based diet, including vegetables, fruit, and whole grains. Make informed choices about food to ensure variety and adequate nutrient intake. Limit consumption of red meat such as beef, pork, or harris to no more than 18 ounces (cooked) per week. Eat processed meats such as ham, hot dogs, deli cuts, fritz, and sausage sparingly if at all. Limit consumption of fast foods and other processed foods that are high in fat, starches, or sugars such as chips, cookies, candy bars, desserts, processed baked goods, sugary cereals, and fried foods. Limit refined sugars to <6 tsp (25 g) for a 2000-calorie daily diet and <9 tsp (38 g) for a 3000-calorie daily diet. One medium cookie has about 2 tsp of sugar; a 12-oz can of a soft drink has about 10 tsp. Track calorie intake. Self-monitoring of food and beverage intake has been shown to be an effective strategy for weight management. Prolonged periods of fasting may impair adequate caloric and nutrient intake. Drink alcohol sparingly if at all. Lower levels of alcohol consumption are associated with a lower risk of cancer. For patients desiring further recommendations for dietary guidelines: Consider referral to a registered dietitian or jukebox routeman. The [employer] approximate food plate volumes (http_s://www.[employer] plate.gov) are: Vegetables and fruits should comprise half the volume of food on the plate Vegetables: 30% of plate; fruits 20% of plate Whole grains: 30% of plate Protein: 20% of plate Recommended sources of dietary components: Fat: plant sources such as olive or canola oil, avocados, seeds and nuts, and fatty fish Carbohydrates: fruits, vegetables, whole grains, and legumes Protein: poultry, fish, legumes, low-fat dairy foods, and nuts While the risks and benefits of soy foods for cancer survivors have been debated for many years, most studies to date show that moderate consumption of soy foods (up to 3 servings per day) are beneficial in promoting overall health and survival, with the strongest evidence existing for the prevention of lung cancer and reduction of breast cancer recurrence. -Practice portion control. Make informed food choices through routine evaluation of food labels. Incorporate physical activity, particularly strength training, to assure optimal lean body mass (SPA-1). Track weight, diet, calories, and physical activity routines (eg, journaling, mobile phone apps). Limit alcohol intake to one drink per day or less for a woman and two drinks or less per day for a man. educated on all medications, benefits, side effects [...] effects including loss of libido, increased suicidal thoughts/behavio rs in children and young adults, and serotonin [...] common with first generation antipsychotics) and more. Follow-up - Plan: GDR Abilify 10 mg daily discuss medication adjustments. and will monitor depression and anxiety Continue to monitor patient's progress and response to treatment during subsequent visits. Continue Spravato every 2 weeks Medication Management and Follow-Up - Plan: - Schedule follow-up appointments every 1-3 months to monitor the patient's response to the medication regimen. - Reinforce the importance of avoiding recreational drug use due to potential neurotoxicity and interactions with prescribed medications. 01/19/2025 Insomnia due to other mental disorder (ICD-10 - F51.05) 12/22/2024 Encounter for screening for depression (ICD-10 - Z13.31) 12/08/2024 Post-traumatic stress disorder, chronic (ICD-10 - F43.12) 11/24/2024 Encounter for screening for cardiovascular disorders (ICD-10 - Z13.6) 10/20/2024 Other usp (current) drug therapy (ICD-10 - Z79.899) 1. Depressive Abilify 15 mg at bedtime Lamotrigine 150 mg daily Prozac 40 mg daily Lamotrigine lamotrigine has a serious rashes requiring hospitalization and discontinue treatment including Calros Agustin syndrome rare case of toxic epidermal necrolysis and cache related deaths. Incidence with adjunct of epilepsy treatment 0.8% in 2 to 16 years old and 0.3% in adults, bipolar and other mood disorders incidence 0.8% this initial monotherapy and 0.13% as adjunctive treatment. Other risk factor may include concomitant use of valproate acid derivative or exceeding initial lamotrigine does or does as clinician recommendation; most life-threatening rash of occurring first 2 to 8 week of treatment with isolated cases after prolonged treatment; though benign may occur, discontinue treatment at first sign of rash unless clearly not a drug related; TC treatment may not prevent trash from becoming life-threatening or permanently disabling or disfiguring. Comment reaction include, nausea/vomiting, dizziness/vertig o, visual disturbances, somnolence, ataxia, pruritus/rash, pharyngitis, headache, rhinitis, diarrhea, fever, asthenia, insomnia, tremor, abdominal pain, cough, accidental injury, constipation, dysmenorrhea, incoordination, anxiety, seizures, irritability, anorexia, xerostomia, and photosensitivity . Serious reactions include: Rash, severe; Hernandez Agustin syndrome; toxic epidermal necrosis; injury edema, hypersensitivity reactions. Including fatal, multiple organ failure to safe fatal, rash with eosinophilia systemic symptoms, DIC, neutropenia, leukopenia, thrombocytopenia , pancytopenia, aplastic anemia, hemolytic anemia, i pancreatitis, hepatic failure, rhabdomyolysis, worsening of suicidal ideation, worsening of depression, cleft lip/palate [first trimester use] DO not Change Cosmetic, perfumes or soap for next 4 weeks. The patient was advice to take lamotrigine as prescribed the patient was instructed not to deviate from the prescription dosages. Stop lamotrigine is the first sign of rash. Patient was insisted to inform office if any of the serious side effect develops. - Assessment: Patient reports improvement with Spravato treatment, currently every 2 weeks. Mild depression persists, but is manageable. AIMS= 0 07/05/24 FLMA forms completed Patient confirms treatment has been ongoing for over a year and is going well. - Plan: Continue Spravato treatment and monitor response. every 2 weeks 2. Anxiety Prozac 40 mg daily 3. Insomnia Ramelteon 8 mg bedtime sleep hygiene limit media and social media time 4. PTSD Prazosin 1 mg bedtime sleep hygiene schedule with therapy 5. HTN educated on healthy b/p 120/80 monitor b/p at home refer to PCP, heart healthy diet and excise limit salt intake limit soda intake and caffiene increase water Reported just had B/P RX Medication Management - Assessment: Current medications include Wellbutrin, Prozac, lamotrigine (150 mg), and Abilify (15 mg). Prazosin 1 mg Patient reports no current movement disorders. - Plan: Consider decreasing lamotrigine to 100 mg to potentially improve mood.- will consider after holidays related to have depresison currently discuss reduce Abilify from 15 mg to 10 mg- pateint reported 15 mg dose is helping her presently dicuss metabolic and movement disorders including tardive dyskinesia risks. Monitor for any movement disorders. Eat healthy, including plenty of fresh fruits and vegetables daily. Strive to have 2/3 cup of your plate to be vegetables, fruits, whole grains and beans, while 1/3 or less should be an animal product. Choose fish and chicken and limit red meat and processed meats. - Assess dietary pattern for daily intake of fruits, vegetables, and whole grains, as well as red and processed meats, alcohol, and processed foods or beverages with added fats and/or sugars. Assess timing of meals and snacking habits, portion size, frequency of eating out, and use of added fats and/or sugars to foods or beverages. All survivors should be encouraged to: Follow a predominantly nutrient-rich plant-based diet, including vegetables, fruit, and whole grains. Make informed choices about food to ensure variety and adequate nutrient intake. Limit consumption of red meat such as beef, pork, or harris to no more than 18 ounces (cooked) per week. Eat processed meats such as ham, hot dogs, deli cuts, fritz, and sausage sparingly if at all. Limit consumption of fast foods and other processed foods that are high in fat, starches, or sugars such as chips, cookies, candy bars, desserts, processed baked goods, sugary cereals, and fried foods. Limit refined sugars to <6 tsp (25 g) for a 2000-calorie daily diet and <9 tsp (38 g) for a 3000-calorie daily diet. One medium cookie has about 2 tsp of sugar; a 12-oz can of a soft drink has about 10 tsp. Track calorie intake. Self-monitoring of food and beverage intake has been shown to be an effective strategy for weight management. Prolonged periods of fasting may impair adequate caloric and nutrient intake. Drink alcohol sparingly if at all. Lower levels of alcohol consumption are associated with a lower risk of cancer. For patients desiring further recommendations for dietary guidelines: Consider referral to a registered dietitian or jukebox routeman. The USDA approximate food plate volumes (http_s://www.[employer] plate.gov) are: Vegetables and fruits should comprise half the volume of food on the plate Vegetables: 30% of plate; fruits 20% of plate Whole grains: 30% of plate Protein: 20% of plate Recommended sources of dietary components: Fat: plant sources such as olive or canola oil, avocados, seeds and nuts, and fatty fish Carbohydrates: fruits, vegetables, whole grains, and legumes Protein: poultry, fish, legumes, low-fat dairy foods, and nuts While the risks and benefits of soy foods for cancer survivors have been debated for many years, most studies to date show that moderate consumption of soy foods (up to 3 servings per day) are beneficial in promoting overall health and survival, with the strongest evidence existing for the prevention of lung cancer and reduction of breast cancer recurrence. -Practice portion control. Make informed food choices through routine evaluation of food labels. Incorporate physical activity, particularly strength training, to assure optimal lean body mass (SPA-1). Track weight, diet, calories, and physical activity routines (eg, journaling, mobile phone apps). Limit alcohol intake to one drink per day or less for a woman and two drinks or less per day for a man. educated on all medications, benefits, side effects [...] effects including loss of libido, increased suicidal thoughts/behavio rs in children and young adults, and serotonin [...] common with first generation antipsychotics) and more. Follow-up - Plan: discuss medication adjustments. and will monitor depression and anxiety Continue to monitor patient's progress and response to treatment during subsequent visits. Continue Spravato every 2 weeks Medication Management and Follow-Up - Plan: - Schedule follow-up appointments every 1-3 months to monitor the patient's response to the medication regimen. - Reinforce the importance of avoiding recreational drug use due to potential neurotoxicity and interactions with prescribed medications. 05/06/2024 Post-traumatic stress disorder, chronic (ICD-10 - F43.12) 1. 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 Depressive Abilify 15 mg at bedtime Lamotrigine 150 mg daily Prozac 40 mg daily Lamotrigine lamotrigine has a serious rashes requiring hospitalization and discontinue treatment including Carlos Agustin syndrome rare case of toxic epidermal necrolysis and cache related deaths. Incidence with adjunct of epilepsy treatment 0.8% in 2 to 16 years old and 0.3% in adults, bipolar and other mood disorders incidence 0.8% this initial monotherapy and 0.13% as adjunctive treatment. Other risk factor may include concomitant use of valproate acid derivative or exceeding initial lamotrigine does or does as clinician recommendation; most life-threatening rash of occurring first 2 to 8 week of treatment with isolated cases after prolonged treatment; though benign may occur, discontinue treatment at first sign of rash unless clearly not a drug related; TC treatment may not prevent trash from becoming life-threatening or permanently disabling or disfiguring. Comment reaction include, nausea/vomiting, dizziness/vertig o, visual disturbances, somnolence, ataxia, pruritus/rash, pharyngitis, headache, rhinitis, diarrhea, fever, asthenia, insomnia, tremor, abdominal pain, cough, accidental injury, constipation, dysmenorrhea, incoordination, anxiety, seizures, irritability, anorexia, xerostomia, and photosensitivity . Serious reactions include: Rash, severe; Hernandez Agustin syndrome; toxic epidermal necrosis; injury edema, hypersensitivity reactions. Including fatal, multiple organ failure to safe fatal, rash with eosinophilia systemic symptoms, DIC, neutropenia, leukopenia, thrombocytopenia , pancytopenia, aplastic anemia, hemolytic anemia, i pancreatitis, hepatic failure, rhabdomyolysis, worsening of suicidal ideation, worsening of depression, cleft lip/palate [first trimester use] DO not Change Cosmetic, perfumes or soap for next 4 weeks. The patient was advice to take lamotrigine as prescribed the patient was instructed not to deviate from the prescription dosages. Stop lamotrigine is the first sign of rash. Patient was insisted to inform office if any of the serious side effect develops. - Assessment: Patient reports improvement with Spravato treatment, currently every 2 weeks. Mild depression persists, but is manageable. AIMS= 0 07/05/24 FLMA forms completed Patient confirms treatment has been ongoing for over a year and is going well. - Plan: Continue Spravato treatment and monitor response. every 2 weeks 2. Anxiety Prozac 40 mg daily 3. Insomnia Ramelteon 8 mg bedtime sleep hygiene limit media and social media time 4. PTSD Prazosin 1 mg bedtime sleep hygiene schedule with therapy 5. HTN educated on healthy b/p 120/80 monitor b/p at home refer to PCP, heart healthy diet and excise limit salt intake limit soda intake and caffiene increase water Reported just had B/P RX Medication Management - Assessment: Current medications include Wellbutrin, Prozac, lamotrigine (150 mg), and Abilify (15 mg). Prazosin 1 mg Patient reports no current movement disorders. - Plan: Consider decreasing lamotrigine to 100 mg to potentially improve mood.- will consider after holidays related to have depresison currently discuss reduce Abilify from 15 mg to 10 mg- pateint reported 15 mg dose is helping her presently dicuss metabolic and movement disorders including tardive dyskinesia risks. Monitor for any movement disorders. Eat healthy, including plenty of fresh fruits and vegetables daily. Strive to have 2/3 cup of your plate to be vegetables, fruits, whole grains and beans, while 1/3 or less should be an animal product. Choose fish and chicken and limit red meat and processed meats. - Assess dietary pattern for daily intake of fruits, vegetables, and whole grains, as well as red and processed meats, alcohol, and processed foods or beverages with added fats and/or sugars. Assess timing of meals and snacking habits, portion size, frequency of eating out, and use of added fats and/or sugars to foods or beverages. All survivors should be encouraged to: Follow a predominantly nutrient-rich plant-based diet, including vegetables, fruit, and whole grains. Make informed choices about food to ensure variety and adequate nutrient intake. Limit consumption of red meat such as beef, pork, or harris to no more than 18 ounces (cooked) per week. Eat processed meats such as ham, hot dogs, deli cuts, fritz, and sausage sparingly if at all. Limit consumption of fast foods and other processed foods that are high in fat, starches, or sugars such as chips, cookies, candy bars, desserts, processed baked goods, sugary cereals, and fried foods. Limit refined sugars to <6 tsp (25 g) for a 2000-calorie daily diet and <9 tsp (38 g) for a 3000-calorie daily diet. One medium cookie has about 2 tsp of sugar; a 12-oz can of a soft drink has about 10 tsp. Track calorie intake. Self-monitoring of food and beverage intake has been shown to be an effective strategy for weight management. Prolonged periods of fasting may impair adequate caloric and nutrient intake. Drink alcohol sparingly if at all. Lower levels of alcohol consumption are associated with a lower risk of cancer. For patients desiring further recommendations for dietary guidelines: Consider referral to a registered dietitian or jukebox routeman. The USDA approximate food plate volumes (http_s://www.[place] plate.gov) are: Vegetables and fruits should comprise half the volume of food on the plate Vegetables: 30% of plate; fruits 20% of plate Whole grains: 30% of plate Protein: 20% of plate Recommended sources of dietary components: Fat: plant sources such as olive or canola oil, avocados, seeds and nuts, and fatty fish Carbohydrates: fruits, vegetables, whole grains, and legumes Protein: poultry, fish, legumes, low-fat dairy foods, and nuts While the risks and benefits of soy foods for cancer survivors have been debated for many years, most studies to date show that moderate consumption of soy foods (up to 3 servings per day) are beneficial in promoting overall health and survival, with the strongest evidence existing for the prevention of lung cancer and reduction of breast cancer recurrence. -Practice portion control. Make informed food choices through routine evaluation of food labels. Incorporate physical activity, particularly strength training, to assure optimal lean body mass (SPA-1). Track weight, diet, calories, and physical activity routines (eg, journaling, mobile phone apps). Limit alcohol intake to one drink per day or less for a woman and two drinks or less per day for a man. educated on all medications, benefits, side effects [...] effects including loss of libido, increased suicidal thoughts/behavio rs in children and young adults, and serotonin [...] common with first generation antipsychotics) and more. Follow-up - Plan: discuss medication adjustments. and will monitor depression and anxiety Continue to monitor patient's progress and response to treatment during subsequent visits. Continue Spravato every 2 weeks Medication Management and Follow-Up - Plan: - Schedule follow-up appointments every 1-3 months to monitor the patient's response to the medication regimen. - Reinforce the importance of avoiding recreational drug use due to potential neurotoxicity and interactions with prescribed medications. 01/27/2025 MDD (major depressive disorder), recurrent episode, mild (ICD-10 - F33.0) 1. Depressive GDR Abilify 10 mg at bedtime Lamotrigine 150 mg daily Prozac 40 mg daily reported seeing PCP and US for enlarge liver scheduled and labs completed ER CT and labs 08/13 Lamotrigine lamotrigine has a serious rashes requiring hospitalization and discontinue treatment including Carlos Agustin syndrome rare case of toxic epidermal necrolysis and cache related deaths. Incidence with adjunct of epilepsy treatment 0.8% in 2 to 16 years old and 0.3% in adults, bipolar and other mood disorders incidence 0.8% this initial monotherapy and 0.13% as adjunctive treatment. Other risk factor may include concomitant use of valproate acid derivative or exceeding initial lamotrigine does or does as clinician recommendation; most life-threatening rash of occurring first 2 to 8 week of treatment with isolated cases after prolonged treatment; though benign may occur, discontinue treatment at first sign of rash unless clearly not a drug related; TC treatment may not prevent trash from becoming life-threatening or permanently disabling or disfiguring. Comment reaction include, nausea/vomiting, dizziness/vertig o, visual disturbances, somnolence, ataxia, pruritus/rash, pharyngitis, headache, rhinitis, diarrhea, fever, asthenia, insomnia, tremor, abdominal pain, cough, accidental injury, constipation, dysmenorrhea, incoordination, anxiety, seizures, irritability, anorexia, xerostomia, and photosensitivity . Serious reactions include: Rash, severe; Hernandez Agustin syndrome; toxic epidermal necrosis; injury edema, hypersensitivity reactions. Including fatal, multiple organ failure to safe fatal, rash with eosinophilia systemic symptoms, DIC, neutropenia, leukopenia, thrombocytopenia , pancytopenia, aplastic anemia, hemolytic anemia, i pancreatitis, hepatic failure, rhabdomyolysis, worsening of suicidal ideation, worsening of depression, cleft lip/palate [first trimester use] DO not Change Cosmetic, perfumes or soap for next 4 weeks. The patient was advice to take lamotrigine as prescribed the patient was instructed not to deviate from the prescription dosages. Stop lamotrigine is the first sign of rash. Patient was insisted to inform office if any of the serious side effect develops. - Assessment: Patient reports improvement with Spravato treatment, currently every 2 weeks. depression persists, but is manageable and Spravato helps AIMS= 0 07/05/24 AIMS= 0 01/27/25 FLMA forms completed Patient confirms treatment has been ongoing for over a year and is going well. - Plan: Continue Spravato treatment and monitor response. every 2 weeks 2. Anxiety Prozac 40 mg daily 3. Insomnia- appointment with PCP to discuss sleep study and r/o narcolepsy reported narcolepsy Ramelteon 8 mg bedtime sleep hygiene limit media and social media time Sleep Hygeine- - KEEP YOUR BEDROOM DARK - GET LOTS OF NATURAL LIGHT IN THE MORNING. - DON'T WORK ON YOUR COMPUTER OR PHONE LATE AT NIGHT. - AVOID NAPS DURING THE DAY. - NO CAFFEINE 3 HOURS OR MORE AFTER WAKE UP TIME. - ONLY USE YOUR BED FOR SLEEPING - GET A RELAXATION ROUTINE BEFORE BED. - IF YOU CAN'T GET TO SLEEP AFTER 15 TO 30 MINUTES GET OUT OF BED AND DO SOMETHING RELAXING. - DON'T DRINK ALCOHOL IN THE EVENING or limit alcohol to 1 drink. 4. PTSD Prazosin 1 mg bedtime sleep hygiene schedule with therapy 5. HTN- appointment with PCP 02/10 to discuss HTN and B/P rx and sleep study educated on healthy b/p 120/80 monitor b/p at home refer to PCP, heart healthy diet and excise limit salt intake limit soda intake and caffiene increase water B/P RX Monitor for any movement disorders. Eat healthy, including plenty of fresh fruits and vegetables daily. Strive to have 2/3 cup of your plate to be vegetables, fruits, whole grains and beans, while 1/3 or less should be an animal product. Choose fish and chicken and limit red meat and processed meats. - Assess dietary pattern for daily intake of fruits, vegetables, and whole grains, as well as red and processed meats, alcohol, and processed foods or beverages with added fats and/or sugars. Assess timing of meals and snacking habits, portion size, frequency of eating out, and use of added fats and/or sugars to foods or beverages. All survivors should be encouraged to: Follow a predominantly nutrient-rich plant-based diet, including vegetables, fruit, and whole grains. Make informed choices about food to ensure variety and adequate nutrient intake. Limit consumption of red meat such as beef, pork, or harris to no more than 18 ounces (cooked) per week. Eat processed meats such as ham, hot dogs, deli cuts, fritz, and sausage sparingly if at all. Limit consumption of fast foods and other processed foods that are high in fat, starches, or sugars such as chips, cookies, candy bars, desserts, processed baked goods, sugary cereals, and fried foods. Limit refined sugars to <6 tsp (25 g) for a 2000-calorie daily diet and <9 tsp (38 g) for a 3000-calorie daily diet. One medium cookie has about 2 tsp of sugar; a 12-oz can of a soft drink has about 10 tsp. Track calorie intake. Self-monitoring of food and beverage intake has been shown to be an effective strategy for weight management. Prolonged periods of fasting may impair adequate caloric and nutrient intake. Drink alcohol sparingly if at all. Lower levels of alcohol consumption are associated with a lower risk of cancer. For patients desiring further recommendations for dietary guidelines: Consider referral to a registered dietitian or jukebox routeman. The USDA approximate food plate volumes (http_s://www.[place] plate.gov) are: Vegetables and fruits should comprise half the volume of food on the plate Vegetables: 30% of plate; fruits 20% of plate Whole grains: 30% of plate Protein: 20% of plate Recommended sources of dietary components: Fat: plant sources such as olive or canola oil, avocados, seeds and nuts, and fatty fish Carbohydrates: fruits, vegetables, whole grains, and legumes Protein: poultry, fish, legumes, low-fat dairy foods, and nuts While the risks and benefits of soy foods for cancer survivors have been debated for many years, most studies to date show that moderate consumption of soy foods (up to 3 servings per day) are beneficial in promoting overall health and survival, with the strongest evidence existing for the prevention of lung cancer and reduction of breast cancer recurrence. -Practice portion control. Make informed food choices through routine evaluation of food labels. Incorporate physical activity, particularly strength training, to assure optimal lean body mass (SPA-1). Track weight, diet, calories, and physical activity routines (eg, journaling, mobile phone apps). Limit alcohol intake to one drink per day or less for a woman and two drinks or less per day for a man. educated on all medications, benefits, side effects [...] effects including loss of libido, increased suicidal thoughts/behavio rs in children and young adults, and serotonin [...] common with first generation antipsychotics) and more. Follow-up - Plan: GDR Abilify 10 mg daily discuss medication adjustments. and will monitor depression and anxiety Continue to monitor patient's progress and response to treatment during subsequent visits. Continue Spravato every 2 weeks Medication Management and Follow-Up - Plan: - Schedule follow-up appointments every 1-3 months to monitor the patient's response to the medication regimen. - Reinforce the importance of avoiding recreational drug use due to potential neurotoxicity and interactions with prescribed medications. 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 [...] follow up with JOSÉ provider by every - Spravato vist conitnue rx schedule therapy [facility] 05/06/2024 Elevated blood pressure reading (ICD-10 - [...] follow up with JOSÉ provider by every - Spravato vist conitnue rx schedule therapy [facility] 01/27/2025 Insomnia due to other mental disorder (ICD-10 - F51.05) 1. Depressive GDR Abilify 10 mg at bedtime Lamotrigine 150 mg daily Prozac 40 mg daily reported seeing PCP and US for enlarge liver scheduled and labs completed ER CT and labs 08/13 Lamotrigine lamotrigine has a serious rashes requiring hospitalization and discontinue treatment including Carlos Agustin syndrome rare case of toxic epidermal necrolysis and cache related deaths. Incidence with adjunct of epilepsy treatment 0.8% in 2 to 16 years old and 0.3% in adults, bipolar and other mood disorders incidence 0.8% this initial monotherapy and 0.13% as adjunctive treatment. Other risk factor may include concomitant use of valproate acid derivative or exceeding initial lamotrigine does or does as clinician recommendation; most life-threatening rash of occurring first 2 to 8 week of treatment with isolated cases after prolonged treatment; though benign may occur, discontinue treatment at first sign of rash unless clearly not a drug related; TC treatment may not prevent trash from becoming life-threatening or permanently disabling or disfiguring. Comment reaction include, nausea/vomiting, dizziness/vertig o, visual disturbances, somnolence, ataxia, pruritus/rash, pharyngitis, headache, rhinitis, diarrhea, fever, asthenia, insomnia, tremor, abdominal pain, cough, accidental injury, constipation, dysmenorrhea, incoordination, anxiety, seizures, irritability, anorexia, xerostomia, and photosensitivity . Serious reactions include: Rash, severe; Hernandez Agustin syndrome; toxic epidermal necrosis; injury edema, hypersensitivity reactions. Including fatal, multiple organ failure to safe fatal, rash with eosinophilia systemic symptoms, DIC, neutropenia, leukopenia, thrombocytopenia , pancytopenia, aplastic anemia, hemolytic anemia, i pancreatitis, hepatic failure, rhabdomyolysis, worsening of suicidal ideation, worsening of depression, cleft lip/palate [first trimester use] DO not Change Cosmetic, perfumes or soap for next 4 weeks. The patient was advice to take lamotrigine as prescribed the patient was instructed not to deviate from the prescription dosages. Stop lamotrigine is the first sign of rash. Patient was insisted to inform office if any of the serious side effect develops. - Assessment: Patient reports improvement with Spravato treatment, currently every 2 weeks. depression persists, but is manageable and Spravato helps AIMS= 0 07/05/24 AIMS= 0 01/27/25 FLMA forms completed Patient confirms treatment has been ongoing for over a year and is going well. - Plan: Continue Spravato treatment and monitor response. every 2 weeks 2. Anxiety Prozac 40 mg daily 3. Insomnia- appointment with PCP to discuss sleep study and r/o narcolepsy reported FH narcolepsy Ramelteon 8 mg bedtime sleep hygiene limit media and social media time Sleep Hygeine- - KEEP YOUR BEDROOM DARK - GET LOTS OF NATURAL LIGHT IN THE MORNING. - DON'T WORK ON YOUR COMPUTER OR PHONE LATE AT NIGHT. - AVOID NAPS DURING THE DAY. - NO CAFFEINE 3 HOURS OR MORE AFTER WAKE UP TIME. - ONLY USE YOUR BED FOR SLEEPING - GET A RELAXATION ROUTINE BEFORE BED. - IF YOU CAN'T GET TO SLEEP AFTER 15 TO 30 MINUTES GET OUT OF BED AND DO SOMETHING RELAXING. - DON'T DRINK ALCOHOL IN THE EVENING or limit alcohol to 1 drink. 4. PTSD Prazosin 1 mg bedtime sleep hygiene schedule with therapy 5. HTN- appointment with PCP 02/10 to discuss HTN and B/P rx and sleep study educated on healthy b/p 120/80 monitor b/p at home refer to PCP, heart healthy diet and excise limit salt intake limit soda intake and caffiene increase water B/P RX Monitor for any movement disorders. Eat healthy, including plenty of fresh fruits and vegetables daily. Strive to have 2/3 cup of your plate to be vegetables, fruits, whole grains and beans, while 1/3 or less should be an animal product. Choose fish and chicken and limit red meat and processed meats. - Assess dietary pattern for daily intake of fruits, vegetables, and whole grains, as well as red and processed meats, alcohol, and processed foods or beverages with added fats and/or sugars. Assess timing of meals and snacking habits, portion size, frequency of eating out, and use of added fats and/or sugars to foods or beverages. All survivors should be encouraged to: Follow a predominantly nutrient-rich plant-based diet, including vegetables, fruit, and whole grains. Make informed choices about food to ensure variety and adequate nutrient intake. Limit consumption of red meat such as beef, pork, or harris to no more than 18 ounces (cooked) per week. Eat processed meats such as ham, hot dogs, deli cuts, fritz, and sausage sparingly if at all. Limit consumption of fast foods and other processed foods that are high in fat, starches, or sugars such as chips, cookies, candy bars, desserts, processed baked goods, sugary cereals, and fried foods. Limit refined sugars to <6 tsp (25 g) for a 2000-calorie daily diet and <9 tsp (38 g) for a 3000-calorie daily diet. One medium cookie has about 2 tsp of sugar; a 12-oz can of a soft drink has about 10 tsp. Track calorie intake. Self-monitoring of food and beverage intake has been shown to be an effective strategy for weight management. Prolonged periods of fasting may impair adequate caloric and nutrient intake. Drink alcohol sparingly if at all. Lower levels of alcohol consumption are associated with a lower risk of cancer. For patients desiring further recommendations for dietary guidelines: Consider referral to a registered dietitian or jukebox routeman. The USDA approximate food plate volumes (http_s://www.[place] plate.gov) are: Vegetables and fruits should comprise half the volume of food on the plate Vegetables: 30% of plate; fruits 20% of plate Whole grains: 30% of plate Protein: 20% of plate Recommended sources of dietary components: Fat: plant sources such as olive or canola oil, avocados, seeds and nuts, and fatty fish Carbohydrates: fruits, vegetables, whole grains, and legumes Protein: poultry, fish, legumes, low-fat dairy foods, and nuts While the risks and benefits of soy foods for cancer survivors have been debated for many years, most studies to date show that moderate consumption of soy foods (up to 3 servings per day) are beneficial in promoting overall health and survival, with the strongest evidence existing for the prevention of lung cancer and reduction of breast cancer recurrence. -Practice portion control. Make informed food choices through routine evaluation of food labels. Incorporate physical activity, particularly strength training, to assure optimal lean body mass (SPA-1). Track weight, diet, calories, and physical activity routines (eg, journaling, mobile phone apps). Limit alcohol intake to one drink per day or less for a woman and two drinks or less per day for a man. educated on all medications, benefits, side effects [...] effects including loss of libido, increased suicidal thoughts/behavio rs in children and young adults, and serotonin [...] common with first generation antipsychotics) and more. Follow-up - Plan: GDR Abilify 10 mg daily discuss medication adjustments. and will monitor depression and anxiety Continue to monitor patient's progress and response to treatment during subsequent visits. Continue Spravato every 2 weeks Medication Management and Follow-Up - Plan: - Schedule follow-up appointments every 1-3 months to monitor the patient's response to the medication regimen. - Reinforce the importance of avoiding recreational drug use due to potential neurotoxicity and interactions with prescribed medications. 10/20/2024 Encounter for screening for depression (ICD-10 - Z13.31) 1. Depressive Abilify 15 mg at bedtime Lamotrigine 150 mg daily Prozac 40 mg daily Lamotrigine lamotrigine has a serious rashes requiring hospitalization and discontinue treatment including Carlos Agustin syndrome rare case of toxic epidermal necrolysis and cache related deaths. Incidence with adjunct of epilepsy treatment 0.8% in 2 to 16 years old and 0.3% in adults, bipolar and other mood disorders incidence 0.8% this initial monotherapy and 0.13% as adjunctive treatment. Other risk factor may include concomitant use of valproate acid derivative or exceeding initial lamotrigine does or does as clinician recommendation; most life-threatening rash of occurring first 2 to 8 week of treatment with isolated cases after prolonged treatment; though benign may occur, discontinue treatment at first sign of rash unless clearly not a drug related; TC treatment may not prevent trash from becoming life-threatening or permanently disabling or disfiguring. Comment reaction include, nausea/vomiting, dizziness/vertig o, visual disturbances, somnolence, ataxia, pruritus/rash, pharyngitis, headache, rhinitis, diarrhea, fever, asthenia, insomnia, tremor, abdominal pain, cough, accidental injury, constipation, dysmenorrhea, incoordination, anxiety, seizures, irritability, anorexia, xerostomia, and photosensitivity . Serious reactions include: Rash, severe; Hernandez Agustin syndrome; toxic epidermal necrosis; injury edema, hypersensitivity reactions. Including fatal, multiple organ failure to safe fatal, rash with eosinophilia systemic symptoms, DIC, neutropenia, leukopenia, thrombocytopenia , pancytopenia, aplastic anemia, hemolytic anemia, i pancreatitis, hepatic failure, rhabdomyolysis, worsening of suicidal ideation, worsening of depression, cleft lip/palate [first trimester use] DO not Change Cosmetic, perfumes or soap for next 4 weeks. The patient was advice to take lamotrigine as prescribed the patient was instructed not to deviate from the prescription dosages. Stop lamotrigine is the first sign of rash. Patient was insisted to inform office if any of the serious side effect develops. - Assessment: Patient reports improvement with Spravato treatment, currently every 2 weeks. Mild depression persists, but is manageable. AIMS= 0 07/05/24 [facility] forms completed Patient confirms treatment has been ongoing for over a year and is going well. - Plan: Continue Spravato treatment and monitor response. every 2 weeks 2. Anxiety Prozac 40 mg daily 3. Insomnia Ramelteon 8 mg bedtime sleep hygiene limit media and social media time 4. PTSD Prazosin 1 mg bedtime sleep hygiene schedule with therapy 5. HTN educated on healthy b/p 120/80 monitor b/p at home refer to PCP, heart healthy diet and excise limit salt intake limit soda intake and caffiene increase water Reported just had B/P RX Medication Management - Assessment: Current medications include Wellbutrin, Prozac, lamotrigine (150 mg), and Abilify (15 mg). Prazosin 1 mg Patient reports no current movement disorders. - Plan: Consider decreasing lamotrigine to 100 mg to potentially improve mood.- will consider after holidays related to have depresison currently discuss reduce Abilify from 15 mg to 10 mg- pateint reported 15 mg dose is helping her presently dicuss metabolic and movement disorders including tardive dyskinesia risks. Monitor for any movement disorders. Eat healthy, including plenty of fresh fruits and vegetables daily. Strive to have 2/3 cup of your plate to be vegetables, fruits, whole grains and beans, while 1/3 or less should be an animal product. Choose fish and chicken and limit red meat and processed meats. - Assess dietary pattern for daily intake of fruits, vegetables, and whole grains, as well as red and processed meats, alcohol, and processed foods or beverages with added fats and/or sugars. Assess timing of meals and snacking habits, portion size, frequency of eating out, and use of added fats and/or sugars to foods or beverages. All survivors should be encouraged to: Follow a predominantly nutrient-rich plant-based diet, including vegetables, fruit, and whole grains. Make informed choices about food to ensure variety and adequate nutrient intake. Limit consumption of red meat such as beef, pork, or harris to no more than 18 ounces (cooked) per week. Eat processed meats such as ham, hot dogs, deli cuts, fritz, and sausage sparingly if at all. Limit consumption of fast foods and other processed foods that are high in fat, starches, or sugars such as chips, cookies, candy bars, desserts, processed baked goods, sugary cereals, and fried foods. Limit refined sugars to <6 tsp (25 g) for a 2000-calorie daily diet and <9 tsp (38 g) for a 3000-calorie daily diet. One medium cookie has about 2 tsp of sugar; a 12-oz can of a soft drink has about 10 tsp. Track calorie intake. Self-monitoring of food and beverage intake has been shown to be an effective strategy for weight management. Prolonged periods of fasting may impair adequate caloric and nutrient intake. Drink alcohol sparingly if at all. Lower levels of alcohol consumption are associated with a lower risk of cancer. For patients desiring further recommendations for dietary guidelines: Consider referral to a registered dietitian or jukebox routeman. The USDA approximate food plate volumes (http_s://www.[place] plate.gov) are: Vegetables and fruits should comprise half the volume of food on the plate Vegetables: 30% of plate; fruits 20% of plate Whole grains: 30% of plate Protein: 20% of plate Recommended sources of dietary components: Fat: plant sources such as olive or canola oil, avocados, seeds and nuts, and fatty fish Carbohydrates: fruits, vegetables, whole grains, and legumes Protein: poultry, fish, legumes, low-fat dairy foods, and nuts While the risks and benefits of soy foods for cancer survivors have been debated for many years, most studies to date show that moderate consumption of soy foods (up to 3 servings per day) are beneficial in promoting overall health and survival, with the strongest evidence existing for the prevention of lung cancer and reduction of breast cancer recurrence. -Practice portion control. Make informed food choices through routine evaluation of food labels. Incorporate physical activity, particularly strength training, to assure optimal lean body mass (SPA-1). Track weight, diet, calories, and physical activity routines (eg, journaling, mobile phone apps). Limit alcohol intake to one drink per day or less for a woman and two drinks or less per day for a man. educated on all medications, benefits, side effects [...] effects including loss of libido, increased suicidal thoughts/behavio rs in children and young adults, and serotonin [...] common with first generation antipsychotics) and more. Follow-up - Plan: discuss medication adjustments. and will monitor depression and anxiety Continue to monitor patient's progress and response to treatment during subsequent visits. Continue Spravato every 2 weeks Medication Management and Follow-Up - Plan: - Schedule follow-up appointments every 1-3 months to monitor the patient's response to the medication regimen. - Reinforce the importance of avoiding recreational drug use due to potential neurotoxicity and interactions with prescribed medications. 12/08/2024 Benign essential HTN (ICD-10 - I10) 10/20/2024 Encounter for screening for cardiovascular disorders (ICD-10 - Z13.6) 1. Depressive Abilify 15 mg at bedtime Lamotrigine 150 mg daily Prozac 40 mg daily Lamotrigine lamotrigine has a serious rashes requiring hospitalization and discontinue treatment including Carlos Agustin syndrome rare case of toxic epidermal necrolysis and cache related deaths. Incidence with adjunct of epilepsy treatment 0.8% in 2 to 16 years old and 0.3% in adults, bipolar and other mood disorders incidence 0.8% this initial monotherapy and 0.13% as adjunctive treatment. Other risk factor may include concomitant use of valproate acid derivative or exceeding initial lamotrigine does or does as clinician recommendation; most life-threatening rash of occurring first 2 to 8 week of treatment with isolated cases after prolonged treatment; though benign may occur, discontinue treatment at first sign of rash unless clearly not a drug related; TC treatment may not prevent trash from becoming life-threatening or permanently disabling or disfiguring. Comment reaction include, nausea/vomiting, dizziness/vertig o, visual disturbances, somnolence, ataxia, pruritus/rash, pharyngitis, headache, rhinitis, diarrhea, fever, asthenia, insomnia, tremor, abdominal pain, cough, accidental injury, constipation, dysmenorrhea, incoordination, anxiety, seizures, irritability, anorexia, xerostomia, and photosensitivity . Serious reactions include: Rash, severe; Hernandez Agustin syndrome; toxic epidermal necrosis; injury edema, hypersensitivity reactions. Including fatal, multiple organ failure to safe fatal, rash with eosinophilia systemic symptoms, DIC, neutropenia, leukopenia, thrombocytopenia , pancytopenia, aplastic anemia, hemolytic anemia, i pancreatitis, hepatic failure, rhabdomyolysis, worsening of suicidal ideation, worsening of depression, cleft lip/palate [first trimester use] DO not Change Cosmetic, perfumes or soap for next 4 weeks. The patient was advice to take lamotrigine as prescribed the patient was instructed not to deviate from the prescription dosages. Stop lamotrigine is the first sign of rash. Patient was insisted to inform office if any of the serious side effect develops. - Assessment: Patient reports improvement with Spravato treatment, currently every 2 weeks. Mild depression persists, but is manageable. AIMS= 0 07/05/24 [facility] forms completed Patient confirms treatment has been ongoing for over a year and is going well. - Plan: Continue Spravato treatment and monitor response. every 2 weeks 2. Anxiety Prozac 40 mg daily 3. Insomnia Ramelteon 8 mg bedtime sleep hygiene limit media and social media time 4. PTSD Prazosin 1 mg bedtime sleep hygiene schedule with therapy 5. HTN educated on healthy b/p 120/80 monitor b/p at home refer to PCP, heart healthy diet and excise limit salt intake limit soda intake and caffiene increase water Reported just had B/P RX Medication Management - Assessment: Current medications include Wellbutrin, Prozac, lamotrigine (150 mg), and Abilify (15 mg). Prazosin 1 mg Patient reports no current movement disorders. - Plan: Consider decreasing lamotrigine to 100 mg to potentially improve mood.- will consider after holidays related to have depresison currently discuss reduce Abilify from 15 mg to 10 mg- pateint reported 15 mg dose is helping her presently dicuss metabolic and movement disorders including tardive dyskinesia risks. Monitor for any movement disorders. Eat healthy, including plenty of fresh fruits and vegetables daily. Strive to have 2/3 cup of your plate to be vegetables, fruits, whole grains and beans, while 1/3 or less should be an animal product. Choose fish and chicken and limit red meat and processed meats. - Assess dietary pattern for daily intake of fruits, vegetables, and whole grains, as well as red and processed meats, alcohol, and processed foods or beverages with added fats and/or sugars. Assess timing of meals and snacking habits, portion size, frequency of eating out, and use of added fats and/or sugars to foods or beverages. All survivors should be encouraged to: Follow a predominantly nutrient-rich plant-based diet, including vegetables, fruit, and whole grains. Make informed choices about food to ensure variety and adequate nutrient intake. Limit consumption of red meat such as beef, pork, or harris to no more than 18 ounces (cooked) per week. Eat processed meats such as ham, hot dogs, deli cuts, fritz, and sausage sparingly if at all. Limit consumption of fast foods and other processed foods that are high in fat, starches, or sugars such as chips, cookies, candy bars, desserts, processed baked goods, sugary cereals, and fried foods. Limit refined sugars to <6 tsp (25 g) for a 2000-calorie daily diet and <9 tsp (38 g) for a 3000-calorie daily diet. One medium cookie has about 2 tsp of sugar; a 12-oz can of a soft drink has about 10 tsp. Track calorie intake. Self-monitoring of food and beverage intake has been shown to be an effective strategy for weight management. Prolonged periods of fasting may impair adequate caloric and nutrient intake. Drink alcohol sparingly if at all. Lower levels of alcohol consumption are associated with a lower risk of cancer. For patients desiring further recommendations for dietary guidelines: Consider referral to a registered dietitian or jukebox routeman. The USDA approximate food plate volumes (http_s://www.[place] plate.gov) are: Vegetables and fruits should comprise half the volume of food on the plate Vegetables: 30% of plate; fruits 20% of plate Whole grains: 30% of plate Protein: 20% of plate Recommended sources of dietary components: Fat: plant sources such as olive or canola oil, avocados, seeds and nuts, and fatty fish Carbohydrates: fruits, vegetables, whole grains, and legumes Protein: poultry, fish, legumes, low-fat dairy foods, and nuts While the risks and benefits of soy foods for cancer survivors have been debated for many years, most studies to date show that moderate consumption of soy foods (up to 3 servings per day) are beneficial in promoting overall health and survival, with the strongest evidence existing for the prevention of lung cancer and reduction of breast cancer recurrence. -Practice portion control. Make informed food choices through routine evaluation of food labels. Incorporate physical activity, particularly strength training, to assure optimal lean body mass (SPA-1). Track weight, diet, calories, and physical activity routines (eg, journaling, mobile phone apps). Limit alcohol intake to one drink per day or less for a woman and two drinks or less per day for a man. educated on all medications, benefits, side effects [...] effects including loss of libido, increased suicidal thoughts/behavio rs in children and young adults, and serotonin [...] common with first generation antipsychotics) and more. Follow-up - Plan: discuss medication adjustments. and will monitor depression and anxiety Continue to monitor patient's progress and response to treatment during subsequent visits. Continue Spravato every 2 weeks Medication Management and Follow-Up - Plan: - Schedule follow-up appointments every 1-3 months to monitor the patient's response to the medication regimen. - Reinforce the importance of avoiding recreational drug use due to potential neurotoxicity and interactions with prescribed medications. 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 Depressive GDR Abilify 10 mg at bedtime Lamotrigine 150 mg daily Prozac 40 mg daily reported seeing PCP and US for enlarge liver scheduled and labs completed ER CT and labs 08/13 Lamotrigine lamotrigine has a serious rashes requiring hospitalization and discontinue treatment including Carlos Agustin syndrome rare case of toxic epidermal necrolysis and cache related deaths. Incidence with adjunct of epilepsy treatment 0.8% in 2 to 16 years old and 0.3% in adults, bipolar and other mood disorders incidence 0.8% this initial monotherapy and 0.13% as adjunctive treatment. Other risk factor may include concomitant use of valproate acid derivative or exceeding initial lamotrigine does or does as clinician recommendation; most life-threatening rash of occurring first 2 to 8 week of treatment with isolated cases after prolonged treatment; though benign may occur, discontinue treatment at first sign of rash unless clearly not a drug related; TC treatment may not prevent trash from becoming life-threatening or permanently disabling or disfiguring. Comment reaction include, nausea/vomiting, dizziness/vertig o, visual disturbances, somnolence, ataxia, pruritus/rash, pharyngitis, headache, rhinitis, diarrhea, fever, asthenia, insomnia, tremor, abdominal pain, cough, accidental injury, constipation, dysmenorrhea, incoordination, anxiety, seizures, irritability, anorexia, xerostomia, and photosensitivity . Serious reactions include: Rash, severe; Hernandez Agustin syndrome; toxic epidermal necrosis; injury edema, hypersensitivity reactions. Including fatal, multiple organ failure to safe fatal, rash with eosinophilia systemic symptoms, DIC, neutropenia, leukopenia, thrombocytopenia , pancytopenia, aplastic anemia, hemolytic anemia, i pancreatitis, hepatic failure, rhabdomyolysis, worsening of suicidal ideation, worsening of depression, cleft lip/palate [first trimester use] DO not Change Cosmetic, perfumes or soap for next 4 weeks. The patient was advice to take lamotrigine as prescribed the patient was instructed not to deviate from the prescription dosages. Stop lamotrigine is the first sign of rash. Patient was insisted to inform office if any of the serious side effect develops. - Assessment: Patient reports improvement with Spravato treatment, currently every 2 weeks. depression persists, but is manageable and Spravato helps AIMS= 0 07/05/24 AIMS= 0 01/27/25 [facility]MA forms completed Patient confirms treatment has been ongoing for over a year and is going well. - Plan: Continue Spravato treatment and monitor response. every 2 weeks 2. Anxiety Prozac 40 mg daily 3. Insomnia- appointment with PCP to discuss sleep study and r/o narcolepsy reported FH narcolepsy Ramelteon 8 mg bedtime sleep hygiene limit media and social media time Sleep Hygeine- - KEEP YOUR BEDROOM DARK - GET LOTS OF NATURAL LIGHT IN THE MORNING. - DON'T WORK ON YOUR COMPUTER OR PHONE LATE AT NIGHT. - AVOID NAPS DURING THE DAY. - NO CAFFEINE 3 HOURS OR MORE AFTER WAKE UP TIME. - ONLY USE YOUR BED FOR SLEEPING - GET A RELAXATION ROUTINE BEFORE BED. - IF YOU CAN'T GET TO SLEEP AFTER 15 TO 30 MINUTES GET OUT OF BED AND DO SOMETHING RELAXING. - DON'T DRINK ALCOHOL IN THE EVENING or limit alcohol to 1 drink. 4. PTSD Prazosin 1 mg bedtime sleep hygiene schedule with therapy 5. HTN- appointment with PCP 02/10 to discuss HTN and B/P rx and sleep study educated on healthy b/p 120/80 monitor b/p at home refer to PCP, heart healthy diet and excise limit salt intake limit soda intake and caffiene increase water B/P RX Monitor for any movement disorders. Eat healthy, including plenty of fresh fruits and vegetables daily. Strive to have 2/3 cup of your plate to be vegetables, fruits, whole grains and beans, while 1/3 or less should be an animal product. Choose fish and chicken and limit red meat and processed meats. - Assess dietary pattern for daily intake of fruits, vegetables, and whole grains, as well as red and processed meats, alcohol, and processed foods or beverages with added fats and/or sugars. Assess timing of meals and snacking habits, portion size, frequency of eating out, and use of added fats and/or sugars to foods or beverages. All survivors should be encouraged to: Follow a predominantly nutrient-rich plant-based diet, including vegetables, fruit, and whole grains. Make informed choices about food to ensure variety and adequate nutrient intake. Limit consumption of red meat such as beef, pork, or harris to no more than 18 ounces (cooked) per week. Eat processed meats such as ham, hot dogs, deli cuts, fritz, and sausage sparingly if at all. Limit consumption of fast foods and other processed foods that are high in fat, starches, or sugars such as chips, cookies, candy bars, desserts, processed baked goods, sugary cereals, and fried foods. Limit refined sugars to <6 tsp (25 g) for a 2000-calorie daily diet and <9 tsp (38 g) for a 3000-calorie daily diet. One medium cookie has about 2 tsp of sugar; a 12-oz can of a soft drink has about 10 tsp. Track calorie intake. Self-monitoring of food and beverage intake has been shown to be an effective strategy for weight management. Prolonged periods of fasting may impair adequate caloric and nutrient intake. Drink alcohol sparingly if at all. Lower levels of alcohol consumption are associated with a lower risk of cancer. For patients desiring further recommendations for dietary guidelines: Consider referral to a registered dietitian or jukebox routeman. The USDA approximate food plate volumes (http_s://www.[place] plate.gov) are: Vegetables and fruits should comprise half the volume of food on the plate Vegetables: 30% of plate; fruits 20% of plate Whole grains: 30% of plate Protein: 20% of plate Recommended sources of dietary components: Fat: plant sources such as olive or canola oil, avocados, seeds and nuts, and fatty fish Carbohydrates: fruits, vegetables, whole grains, and legumes Protein: poultry, fish, legumes, low-fat dairy foods, and nuts While the risks and benefits of soy foods for cancer survivors have been debated for many years, most studies to date show that moderate consumption of soy foods (up to 3 servings per day) are beneficial in promoting overall health and survival, with the strongest evidence existing for the prevention of lung cancer and reduction of breast cancer recurrence. -Practice portion control. Make informed food choices through routine evaluation of food labels. Incorporate physical activity, particularly strength training, to assure optimal lean body mass (SPA-1). Track weight, diet, calories, and physical activity routines (eg, journaling, mobile phone apps). Limit alcohol intake to one drink per day or less for a woman and two drinks or less per day for a man. educated on all medications, benefits, side effects [...] effects including loss of libido, increased suicidal thoughts/behavio rs in children and young adults, and serotonin [...] common with first generation antipsychotics) and more. Follow-up - Plan: GDR Abilify 10 mg daily discuss medication adjustments. and will monitor depression and anxiety Continue to monitor patient's progress and response to treatment during subsequent visits. Continue Spravato every 2 weeks Medication Management and Follow-Up - Plan: - Schedule follow-up appointments every 1-3 months to monitor the patient's response to the medication regimen. - Reinforce the importance of avoiding recreational drug use due to potential neurotoxicity and interactions with prescribed medications. 01/19/2025 Encounter for screening for depression (ICD-10 - Z13.31) 12/08/2024 Major depressive disorder, recurrent severe without psychotic features (ICD-10 - F33.2) 10/20/2024 Dietary counseling and surveillance (ICD-10 - Z71.3) 1. Depressive Abilify 15 mg at bedtime Lamotrigine 150 mg daily Prozac 40 mg daily Lamotrigine lamotrigine has a serious rashes requiring hospitalization and discontinue treatment including Carlos Agustin syndrome rare case of toxic epidermal necrolysis and cache related deaths. Incidence with adjunct of epilepsy treatment 0.8% in 2 to 16 years old and 0.3% in adults, bipolar and other mood disorders incidence 0.8% this initial monotherapy and 0.13% as adjunctive treatment. Other risk factor may include concomitant use of valproate acid derivative or exceeding initial lamotrigine does or does as clinician recommendation; most life-threatening rash of occurring first 2 to 8 week of treatment with isolated cases after prolonged treatment; though benign may occur, discontinue treatment at first sign of rash unless clearly not a drug related; TC treatment may not prevent trash from becoming life-threatening or permanently disabling or disfiguring. Comment reaction include, nausea/vomiting, dizziness/vertig o, visual disturbances, somnolence, ataxia, pruritus/rash, pharyngitis, headache, rhinitis, diarrhea, fever, asthenia, insomnia, tremor, abdominal pain, cough, accidental injury, constipation, dysmenorrhea, incoordination, anxiety, seizures, irritability, anorexia, xerostomia, and photosensitivity . Serious reactions include: Rash, severe; Hernandez Agustin syndrome; toxic epidermal necrosis; injury edema, hypersensitivity reactions. Including fatal, multiple organ failure to safe fatal, rash with eosinophilia systemic symptoms, DIC, neutropenia, leukopenia, thrombocytopenia , pancytopenia, aplastic anemia, hemolytic anemia, i pancreatitis, hepatic failure, rhabdomyolysis, worsening of suicidal ideation, worsening of depression, cleft lip/palate [first trimester use] DO not Change Cosmetic, perfumes or soap for next 4 weeks. The patient was advice to take lamotrigine as prescribed the patient was instructed not to deviate from the prescription dosages. Stop lamotrigine is the first sign of rash. Patient was insisted to inform office if any of the serious side effect develops. - Assessment: Patient reports improvement with Spravato treatment, currently every 2 weeks. Mild depression persists, but is manageable. AIMS= 0 07/05/24 [facility] forms completed Patient confirms treatment has been ongoing for over a year and is going well. - Plan: Continue Spravato treatment and monitor response. every 2 weeks 2. Anxiety Prozac 40 mg daily 3. Insomnia Ramelteon 8 mg bedtime sleep hygiene limit media and social media time 4. PTSD Prazosin 1 mg bedtime sleep hygiene schedule with therapy 5. HTN educated on healthy b/p 120/80 monitor b/p at home refer to PCP, heart healthy diet and excise limit salt intake limit soda intake and caffiene increase water Reported just had B/P RX Medication Management - Assessment: Current medications include Wellbutrin, Prozac, lamotrigine (150 mg), and Abilify (15 mg). Prazosin 1 mg Patient reports no current movement disorders. - Plan: Consider decreasing lamotrigine to 100 mg to potentially improve mood.- will consider after holidays related to have depresison currently discuss reduce Abilify from 15 mg to 10 mg- pateint reported 15 mg dose is helping her presently dicuss metabolic and movement disorders including tardive dyskinesia risks. Monitor for any movement disorders. Eat healthy, including plenty of fresh fruits and vegetables daily. Strive to have 2/3 cup of your plate to be vegetables, fruits, whole grains and beans, while 1/3 or less should be an animal product. Choose fish and chicken and limit red meat and processed meats. - Assess dietary pattern for daily intake of fruits, vegetables, and whole grains, as well as red and processed meats, alcohol, and processed foods or beverages with added fats and/or sugars. Assess timing of meals and snacking habits, portion size, frequency of eating out, and use of added fats and/or sugars to foods or beverages. All survivors should be encouraged to: Follow a predominantly nutrient-rich plant-based diet, including vegetables, fruit, and whole grains. Make informed choices about food to ensure variety and adequate nutrient intake. Limit consumption of red meat such as beef, pork, or harris to no more than 18 ounces (cooked) per week. Eat processed meats such as ham, hot dogs, deli cuts, fritz, and sausage sparingly if at all. Limit consumption of fast foods and other processed foods that are high in fat, starches, or sugars such as chips, cookies, candy bars, desserts, processed baked goods, sugary cereals, and fried foods. Limit refined sugars to <6 tsp (25 g) for a 2000-calorie daily diet and <9 tsp (38 g) for a 3000-calorie daily diet. One medium cookie has about 2 tsp of sugar; a 12-oz can of a soft drink has about 10 tsp. Track calorie intake. Self-monitoring of food and beverage intake has been shown to be an effective strategy for weight management. Prolonged periods of fasting may impair adequate caloric and nutrient intake. Drink alcohol sparingly if at all. Lower levels of alcohol consumption are associated with a lower risk of cancer. For patients desiring further recommendations for dietary guidelines: Consider referral to a registered dietitian or jukebox routeman. The USDA approximate food plate volumes (http_s://www.[place] plate.gov) are: Vegetables and fruits should comprise half the volume of food on the plate Vegetables: 30% of plate; fruits 20% of plate Whole grains: 30% of plate Protein: 20% of plate Recommended sources of dietary components: Fat: plant sources such as olive or canola oil, avocados, seeds and nuts, and fatty fish Carbohydrates: fruits, vegetables, whole grains, and legumes Protein: poultry, fish, legumes, low-fat dairy foods, and nuts While the risks and benefits of soy foods for cancer survivors have been debated for many years, most studies to date show that moderate consumption of soy foods (up to 3 servings per day) are beneficial in promoting overall health and survival, with the strongest evidence existing for the prevention of lung cancer and reduction of breast cancer recurrence. -Practice portion control. Make informed food choices through routine evaluation of food labels. Incorporate physical activity, particularly strength training, to assure optimal lean body mass (SPA-1). Track weight, diet, calories, and physical activity routines (eg, journaling, mobile phone apps). Limit alcohol intake to one drink per day or less for a woman and two drinks or less per day for a man. educated on all medications, benefits, side effects [...] effects including loss of libido, increased suicidal thoughts/behavio rs in children and young adults, and serotonin [...] common with first generation antipsychotics) and more. Follow-up - Plan: discuss medication adjustments. and will monitor depression and anxiety Continue to monitor patient's progress and response to treatment during subsequent visits. Continue Spravato every 2 weeks Medication Management and Follow-Up - Plan: - Schedule follow-up appointments every 1-3 months to monitor the patient's response to the medication regimen. - Reinforce the importance of avoiding recreational drug use due to potential neurotoxicity and interactions with prescribed medications. 01/27/2025 Elevated blood pressure reading (ICD-10 - R03.0) 1. Depressive GDR Abilify 10 mg at bedtime Lamotrigine 150 mg daily Prozac 40 mg daily reported seeing PCP and US for enlarge liver scheduled and labs completed ER CT and labs 08/13 Lamotrigine lamotrigine has a serious rashes requiring hospitalization and discontinue treatment including Carlos Agustin syndrome rare case of toxic epidermal necrolysis and cache related deaths. Incidence with adjunct of epilepsy treatment 0.8% in 2 to 16 years old and 0.3% in adults, bipolar and other mood disorders incidence 0.8% this initial monotherapy and 0.13% as adjunctive treatment. Other risk factor may include concomitant use of valproate acid derivative or exceeding initial lamotrigine does or does as clinician recommendation; most life-threatening rash of occurring first 2 to 8 week of treatment with isolated cases after prolonged treatment; though benign may occur, discontinue treatment at first sign of rash unless clearly not a drug related; TC treatment may not prevent trash from becoming life-threatening or permanently disabling or disfiguring. Comment reaction include, nausea/vomiting, dizziness/vertig o, visual disturbances, somnolence, ataxia, pruritus/rash, pharyngitis, headache, rhinitis, diarrhea, fever, asthenia, insomnia, tremor, abdominal pain, cough, accidental injury, constipation, dysmenorrhea, incoordination, anxiety, seizures, irritability, anorexia, xerostomia, and photosensitivity . Serious reactions include: Rash, severe; Hernandez Agustin syndrome; toxic epidermal necrosis; injury edema, hypersensitivity reactions. Including fatal, multiple organ failure to safe fatal, rash with eosinophilia systemic symptoms, DIC, neutropenia, leukopenia, thrombocytopenia , pancytopenia, aplastic anemia, hemolytic anemia, i pancreatitis, hepatic failure, rhabdomyolysis, worsening of suicidal ideation, worsening of depression, cleft lip/palate [first trimester use] DO not Change Cosmetic, perfumes or soap for next 4 weeks. The patient was advice to take lamotrigine as prescribed the patient was instructed not to deviate from the prescription dosages. Stop lamotrigine is the first sign of rash. Patient was insisted to inform office if any of the serious side effect develops. - Assessment: Patient reports improvement with Spravato treatment, currently every 2 weeks. depression persists, but is manageable and Spravato helps AIMS= 0 07/05/24 AIMS= 0 01/27/25 [facility] forms completed Patient confirms treatment has been ongoing for over a year and is going well. - Plan: Continue Spravato treatment and monitor response. every 2 weeks 2. Anxiety Prozac 40 mg daily 3. Insomnia- appointment with PCP to discuss sleep study and r/o narcolepsy reported FH narcolepsy Ramelteon 8 mg bedtime sleep hygiene limit media and social media time Sleep Hygeine- - KEEP YOUR BEDROOM DARK - GET LOTS OF NATURAL LIGHT IN THE MORNING. - DON'T WORK ON YOUR COMPUTER OR PHONE LATE AT NIGHT. - AVOID NAPS DURING THE DAY. - NO CAFFEINE 3 HOURS OR MORE AFTER WAKE UP TIME. - ONLY USE YOUR BED FOR SLEEPING - GET A RELAXATION ROUTINE BEFORE BED. - IF YOU CAN'T GET TO SLEEP AFTER 15 TO 30 MINUTES GET OUT OF BED AND DO SOMETHING RELAXING. - DON'T DRINK ALCOHOL IN THE EVENING or limit alcohol to 1 drink. 4. PTSD Prazosin 1 mg bedtime sleep hygiene schedule with therapy 5. HTN- appointment with PCP 02/10 to discuss HTN and B/P rx and sleep study educated on healthy b/p 120/80 monitor b/p at home refer to PCP, heart healthy diet and excise limit salt intake limit soda intake and caffiene increase water B/P RX Monitor for any movement disorders. Eat healthy, including plenty of fresh fruits and vegetables daily. Strive to have 2/3 cup of your plate to be vegetables, fruits, whole grains and beans, while 1/3 or less should be an animal product. Choose fish and chicken and limit red meat and processed meats. - Assess dietary pattern for daily intake of fruits, vegetables, and whole grains, as well as red and processed meats, alcohol, and processed foods or beverages with added fats and/or sugars. Assess timing of meals and snacking habits, portion size, frequency of eating out, and use of added fats and/or sugars to foods or beverages. All survivors should be encouraged to: Follow a predominantly nutrient-rich plant-based diet, including vegetables, fruit, and whole grains. Make informed choices about food to ensure variety and adequate nutrient intake. Limit consumption of red meat such as beef, pork, or harris to no more than 18 ounces (cooked) per week. Eat processed meats such as ham, hot dogs, deli cuts, fritz, and sausage sparingly if at all. Limit consumption of fast foods and other processed foods that are high in fat, starches, or sugars such as chips, cookies, candy bars, desserts, processed baked goods, sugary cereals, and fried foods. Limit refined sugars to <6 tsp (25 g) for a 2000-calorie daily diet and <9 tsp (38 g) for a 3000-calorie daily diet. One medium cookie has about 2 tsp of sugar; a 12-oz can of a soft drink has about 10 tsp. Track calorie intake. Self-monitoring of food and beverage intake has been shown to be an effective strategy for weight management. Prolonged periods of fasting may impair adequate caloric and nutrient intake. Drink alcohol sparingly if at all. Lower levels of alcohol consumption are associated with a lower risk of cancer. For patients desiring further recommendations for dietary guidelines: Consider referral to a registered dietitian or jukebox routeman. The USDA approximate food plate volumes (http_s://www.[place] plate.gov) are: Vegetables and fruits should comprise half the volume of food on the plate Vegetables: 30% of plate; fruits 20% of plate Whole grains: 30% of plate Protein: 20% of plate Recommended sources of dietary components: Fat: plant sources such as olive or canola oil, avocados, seeds and nuts, and fatty fish Carbohydrates: fruits, vegetables, whole grains, and legumes Protein: poultry, fish, legumes, low-fat dairy foods, and nuts While the risks and benefits of soy foods for cancer survivors have been debated for many years, most studies to date show that moderate consumption of soy foods (up to 3 servings per day) are beneficial in promoting overall health and survival, with the strongest evidence existing for the prevention of lung cancer and reduction of breast cancer recurrence. -Practice portion control. Make informed food choices through routine evaluation of food labels. Incorporate physical activity, particularly strength training, to assure optimal lean body mass (SPA-1). Track weight, diet, calories, and physical activity routines (eg, journaling, mobile phone apps). Limit alcohol intake to one drink per day or less for a woman and two drinks or less per day for a man. educated on all medications, benefits, side effects [...] effects including loss of libido, increased suicidal thoughts/behavio rs in children and young adults, and serotonin [...] common with first generation antipsychotics) and more. Follow-up - Plan: GDR Abilify 10 mg daily discuss medication adjustments. and will monitor depression and anxiety Continue to monitor patient's progress and response to treatment during subsequent visits. Continue Spravato every 2 weeks Medication Management and Follow-Up - Plan: - Schedule follow-up appointments every 1-3 months to monitor the patient's response to the medication regimen. - Reinforce the importance of avoiding recreational drug use due to potential neurotoxicity and interactions with prescribed medications. 12/08/2024 Encounter for screening for cardiovascular disorders (ICD-10 - Z13.6) 12/08/2024 Encounter for screening for depression (ICD-10 - Z13.31) 10/20/2024 Primary hypertension (ICD-10 - I10) 1. Depressive Abilify 15 mg at bedtime Lamotrigine 150 mg daily Prozac 40 mg daily Lamotrigine lamotrigine has a serious rashes requiring hospitalization and discontinue treatment including Carlos Agustin syndrome rare case of toxic epidermal necrolysis and cache related deaths. Incidence with adjunct of epilepsy treatment 0.8% in 2 to 16 years old and 0.3% in adults, bipolar and other mood disorders incidence 0.8% this initial monotherapy and 0.13% as adjunctive treatment. Other risk factor may include concomitant use of valproate acid derivative or exceeding initial lamotrigine does or does as clinician recommendation; most life-threatening rash of occurring first 2 to 8 week of treatment with isolated cases after prolonged treatment; though benign may occur, discontinue treatment at first sign of rash unless clearly not a drug related; TC treatment may not prevent trash from becoming life-threatening or permanently disabling or disfiguring. Comment reaction include, nausea/vomiting, dizziness/vertig o, visual disturbances, somnolence, ataxia, pruritus/rash, pharyngitis, headache, rhinitis, diarrhea, fever, asthenia, insomnia, tremor, abdominal pain, cough, accidental injury, constipation, dysmenorrhea, incoordination, anxiety, seizures, irritability, anorexia, xerostomia, and photosensitivity . Serious reactions include: Rash, severe; Hernandez Agustin syndrome; toxic epidermal necrosis; injury edema, hypersensitivity reactions. Including fatal, multiple organ failure to safe fatal, rash with eosinophilia systemic symptoms, DIC, neutropenia, leukopenia, thrombocytopenia , pancytopenia, aplastic anemia, hemolytic anemia, i pancreatitis, hepatic failure, rhabdomyolysis, worsening of suicidal ideation, worsening of depression, cleft lip/palate [first trimester use] DO not Change Cosmetic, perfumes or soap for next 4 weeks. The patient was advice to take lamotrigine as prescribed the patient was instructed not to deviate from the prescription dosages. Stop lamotrigine is the first sign of rash. Patient was insisted to inform office if any of the serious side effect develops. - Assessment: Patient reports improvement with Spravato treatment, currently every 2 weeks. Mild depression persists, but is manageable. AIMS= 0 07/05/24 [facility] forms completed Patient confirms treatment has been ongoing for over a year and is going well. - Plan: Continue Spravato treatment and monitor response. every 2 weeks 2. Anxiety Prozac 40 mg daily 3. Insomnia Ramelteon 8 mg bedtime sleep hygiene limit media and social media time 4. PTSD Prazosin 1 mg bedtime sleep hygiene schedule with therapy 5. HTN educated on healthy b/p 120/80 monitor b/p at home refer to PCP, heart healthy diet and excise limit salt intake limit soda intake and caffiene increase water Reported just had B/P RX Medication Management - Assessment: Current medications include Wellbutrin, Prozac, lamotrigine (150 mg), and Abilify (15 mg). Prazosin 1 mg Patient reports no current movement disorders. - Plan: Consider decreasing lamotrigine to 100 mg to potentially improve mood.- will consider after holidays related to have depresison currently discuss reduce Abilify from 15 mg to 10 mg- pateint reported 15 mg dose is helping her presently dicuss metabolic and movement disorders including tardive dyskinesia risks. Monitor for any movement disorders. Eat healthy, including plenty of fresh fruits and vegetables daily. Strive to have 2/3 cup of your plate to be vegetables, fruits, whole grains and beans, while 1/3 or less should be an animal product. Choose fish and chicken and limit red meat and processed meats. - Assess dietary pattern for daily intake of fruits, vegetables, and whole grains, as well as red and processed meats, alcohol, and processed foods or beverages with added fats and/or sugars. Assess timing of meals and snacking habits, portion size, frequency of eating out, and use of added fats and/or sugars to foods or beverages. All survivors should be encouraged to: Follow a predominantly nutrient-rich plant-based diet, including vegetables, fruit, and whole grains. Make informed choices about food to ensure variety and adequate nutrient intake. Limit consumption of red meat such as beef, pork, or harris to no more than 18 ounces (cooked) per week. Eat processed meats such as ham, hot dogs, deli cuts, fritz, and sausage sparingly if at all. Limit consumption of fast foods and other processed foods that are high in fat, starches, or sugars such as chips, cookies, candy bars, desserts, processed baked goods, sugary cereals, and fried foods. Limit refined sugars to <6 tsp (25 g) for a 2000-calorie daily diet and <9 tsp (38 g) for a 3000-calorie daily diet. One medium cookie has about 2 tsp of sugar; a 12-oz can of a soft drink has about 10 tsp. Track calorie intake. Self-monitoring of food and beverage intake has been shown to be an effective strategy for weight management. Prolonged periods of fasting may impair adequate caloric and nutrient intake. Drink alcohol sparingly if at all. Lower levels of alcohol consumption are associated with a lower risk of cancer. For patients desiring further recommendations for dietary guidelines: Consider referral to a registered dietitian or jukebox routeman. The USDA approximate food plate volumes (http_s://www.[place] plate.gov) are: Vegetables and fruits should comprise half the volume of food on the plate Vegetables: 30% of plate; fruits 20% of plate Whole grains: 30% of plate Protein: 20% of plate Recommended sources of dietary components: Fat: plant sources such as olive or canola oil, avocados, seeds and nuts, and fatty fish Carbohydrates: fruits, vegetables, whole grains, and legumes Protein: poultry, fish, legumes, low-fat dairy foods, and nuts While the risks and benefits of soy foods for cancer survivors have been debated for many years, most studies to date show that moderate consumption of soy foods (up to 3 servings per day) are beneficial in promoting overall health and survival, with the strongest evidence existing for the prevention of lung cancer and reduction of breast cancer recurrence. -Practice portion control. Make informed food choices through routine evaluation of food labels. Incorporate physical activity, particularly strength training, to assure optimal lean body mass (SPA-1). Track weight, diet, calories, and physical activity routines (eg, journaling, mobile phone apps). Limit alcohol intake to one drink per day or less for a woman and two drinks or less per day for a man. educated on all medications, benefits, side effects [...] effects including loss of libido, increased suicidal thoughts/behavio rs in children and young adults, and serotonin [...] common with first generation antipsychotics) and more. Follow-up - Plan: discuss medication adjustments. and will monitor depression and anxiety Continue to monitor patient's progress and response to treatment during subsequent visits. Continue Spravato every 2 weeks Medication Management and Follow-Up - Plan: - Schedule follow-up appointments every 1-3 months to monitor the patient's response to the medication regimen. - Reinforce the importance of avoiding recreational drug use due to potential neurotoxicity and interactions with prescribed medications. 01/27/2025 Encounter for screening for depression (ICD-10 - Z13.31) 1. Depressive GDR Abilify 10 mg at bedtime Lamotrigine 150 mg daily Prozac 40 mg daily reported seeing PCP and US for enlarge liver scheduled and labs completed ER CT and labs 08/13 Lamotrigine lamotrigine has a serious rashes requiring hospitalization and discontinue treatment including Carlos Agustin syndrome rare case of toxic epidermal necrolysis and cache related deaths. Incidence with adjunct of epilepsy treatment 0.8% in 2 to 16 years old and 0.3% in adults, bipolar and other mood disorders incidence 0.8% this initial monotherapy and 0.13% as adjunctive treatment. Other risk factor may include concomitant use of valproate acid derivative or exceeding initial lamotrigine does or does as clinician recommendation; most life-threatening rash of occurring first 2 to 8 week of treatment with isolated cases after prolonged treatment; though benign may occur, discontinue treatment at first sign of rash unless clearly not a drug related; TC treatment may not prevent trash from becoming life-threatening or permanently disabling or disfiguring. Comment reaction include, nausea/vomiting, dizziness/vertig o, visual disturbances, somnolence, ataxia, pruritus/rash, pharyngitis, headache, rhinitis, diarrhea, fever, asthenia, insomnia, tremor, abdominal pain, cough, accidental injury, constipation, dysmenorrhea, incoordination, anxiety, seizures, irritability, anorexia, xerostomia, and photosensitivity . Serious reactions include: Rash, severe; Hernandez Agustin syndrome; toxic epidermal necrosis; injury edema, hypersensitivity reactions. Including fatal, multiple organ failure to safe fatal, rash with eosinophilia systemic symptoms, DIC, neutropenia, leukopenia, thrombocytopenia , pancytopenia, aplastic anemia, hemolytic anemia, i pancreatitis, hepatic failure, rhabdomyolysis, worsening of suicidal ideation, worsening of depression, cleft lip/palate [first trimester use] DO not Change Cosmetic, perfumes or soap for next 4 weeks. The patient was advice to take lamotrigine as prescribed the patient was instructed not to deviate from the prescription dosages. Stop lamotrigine is the first sign of rash. Patient was insisted to inform office if any of the serious side effect develops. - Assessment: Patient reports improvement with Spravato treatment, currently every 2 weeks. depression persists, but is manageable and Spravato helps AIMS= 0 07/05/24 AIMS= 0 01/27/25 [facility] forms completed Patient confirms treatment has been ongoing for over a year and is going well. - Plan: Continue Spravato treatment and monitor response. every 2 weeks 2. Anxiety Prozac 40 mg daily 3. Insomnia- appointment with PCP to discuss sleep study and r/o narcolepsy reported FH narcolepsy Ramelteon 8 mg bedtime sleep hygiene limit media and social media time Sleep Hygeine- - KEEP YOUR BEDROOM DARK - GET LOTS OF NATURAL LIGHT IN THE MORNING. - DON'T WORK ON YOUR COMPUTER OR PHONE LATE AT NIGHT. - AVOID NAPS DURING THE DAY. - NO CAFFEINE 3 HOURS OR MORE AFTER WAKE UP TIME. - ONLY USE YOUR BED FOR SLEEPING - GET A RELAXATION ROUTINE BEFORE BED. - IF YOU CAN'T GET TO SLEEP AFTER 15 TO 30 MINUTES GET OUT OF BED AND DO SOMETHING RELAXING. - DON'T DRINK ALCOHOL IN THE EVENING or limit alcohol to 1 drink. 4. PTSD Prazosin 1 mg bedtime sleep hygiene schedule with therapy 5. HTN- appointment with PCP 02/10 to discuss HTN and B/P rx and sleep study educated on healthy b/p 120/80 monitor b/p at home refer to PCP, heart healthy diet and excise limit salt intake limit soda intake and caffiene increase water B/P RX Monitor for any movement disorders. Eat healthy, including plenty of fresh fruits and vegetables daily. Strive to have 2/3 cup of your plate to be vegetables, fruits, whole grains and beans, while 1/3 or less should be an animal product. Choose fish and chicken and limit red meat and processed meats. - Assess dietary pattern for daily intake of fruits, vegetables, and whole grains, as well as red and processed meats, alcohol, and processed foods or beverages with added fats and/or sugars. Assess timing of meals and snacking habits, portion size, frequency of eating out, and use of added fats and/or sugars to foods or beverages. All survivors should be encouraged to: Follow a predominantly nutrient-rich plant-based diet, including vegetables, fruit, and whole grains. Make informed choices about food to ensure variety and adequate nutrient intake. Limit consumption of red meat such as beef, pork, or harris to no more than 18 ounces (cooked) per week. Eat processed meats such as ham, hot dogs, deli cuts, fritz, and sausage sparingly if at all. Limit consumption of fast foods and other processed foods that are high in fat, starches, or sugars such as chips, cookies, candy bars, desserts, processed baked goods, sugary cereals, and fried foods. Limit refined sugars to <6 tsp (25 g) for a 2000-calorie daily diet and <9 tsp (38 g) for a 3000-calorie daily diet. One medium cookie has about 2 tsp of sugar; a 12-oz can of a soft drink has about 10 tsp. Track calorie intake. Self-monitoring of food and beverage intake has been shown to be an effective strategy for weight management. Prolonged periods of fasting may impair adequate caloric and nutrient intake. Drink alcohol sparingly if at all. Lower levels of alcohol consumption are associated with a lower risk of cancer. For patients desiring further recommendations for dietary guidelines: Consider referral to a registered dietitian or jukebox routeman. The USDA approximate food plate volumes (http_s://www.[employer] plate.gov) are: Vegetables and fruits should comprise half the volume of food on the plate Vegetables: 30% of plate; fruits 20% of plate Whole grains: 30% of plate Protein: 20% of plate Recommended sources of dietary components: Fat: plant sources such as olive or canola oil, avocados, seeds and nuts, and fatty fish Carbohydrates: fruits, vegetables, whole grains, and legumes Protein: poultry, fish, legumes, low-fat dairy foods, and nuts While the risks and benefits of soy foods for cancer survivors have been debated for many years, most studies to date show that moderate consumption of soy foods (up to 3 servings per day) are beneficial in promoting overall health and survival, with the strongest evidence existing for the prevention of lung cancer and reduction of breast cancer recurrence. -Practice portion control. Make informed food choices through routine evaluation of food labels. Incorporate physical activity, particularly strength training, to assure optimal lean body mass (SPA-1). Track weight, diet, calories, and physical activity routines (eg, journaling, mobile phone apps). Limit alcohol intake to one drink per day or less for a woman and two drinks or less per day for a man. educated on all medications, benefits, side effects [...] effects including loss of libido, increased suicidal thoughts/behavio rs in children and young adults, and serotonin [...] common with first generation antipsychotics) and more. Follow-up - Plan: GDR Abilify 10 mg daily discuss medication adjustments. and will monitor depression and anxiety Continue to monitor patient's progress and response to treatment during subsequent visits. Continue Spravato every 2 weeks Medication Management and Follow-Up - Plan: - Schedule follow-up appointments every 1-3 months to monitor the patient's response to the medication regimen. - Reinforce the importance of avoiding recreational drug use due to potential neurotoxicity and interactions with prescribed medications. 01/27/2025 Primary hypertension (ICD-10 - I10) 1. Depressive GDR Abilify 10 mg at bedtime Lamotrigine 150 mg daily Prozac 40 mg daily reported seeing PCP and US for enlarge liver scheduled and labs completed ER CT and labs 08/13 Lamotrigine lamotrigine has a serious rashes requiring hospitalization and discontinue treatment including Carlos Agustin syndrome rare case of toxic epidermal necrolysis and cache related deaths. Incidence with adjunct of epilepsy treatment 0.8% in 2 to 16 years old and 0.3% in adults, bipolar and other mood disorders incidence 0.8% this initial monotherapy and 0.13% as adjunctive treatment. Other risk factor may include concomitant use of valproate acid derivative or exceeding initial lamotrigine does or does as clinician recommendation; most life-threatening rash of occurring first 2 to 8 week of treatment with isolated cases after prolonged treatment; though benign may occur, discontinue treatment at first sign of rash unless clearly not a drug related; TC treatment may not prevent trash from becoming life-threatening or permanently disabling or disfiguring. Comment reaction include, nausea/vomiting, dizziness/vertig o, visual disturbances, somnolence, ataxia, pruritus/rash, pharyngitis, headache, rhinitis, diarrhea, fever, asthenia, insomnia, tremor, abdominal pain, cough, accidental injury, constipation, dysmenorrhea, incoordination, anxiety, seizures, irritability, anorexia, xerostomia, and photosensitivity . Serious reactions include: Rash, severe; Hernandez Agustin syndrome; toxic epidermal necrosis; injury edema, hypersensitivity reactions. Including fatal, multiple organ failure to safe fatal, rash with eosinophilia systemic symptoms, DIC, neutropenia, leukopenia, thrombocytopenia , pancytopenia, aplastic anemia, hemolytic anemia, i pancreatitis, hepatic failure, rhabdomyolysis, worsening of suicidal ideation, worsening of depression, cleft lip/palate [first trimester use] DO not Change Cosmetic, perfumes or soap for next 4 weeks. The patient was advice to take lamotrigine as prescribed the patient was instructed not to deviate from the prescription dosages. Stop lamotrigine is the first sign of rash. Patient was insisted to inform office if any of the serious side effect develops. - Assessment: Patient reports improvement with Spravato treatment, currently every 2 weeks. depression persists, but is manageable and Spravato helps AIMS= 0 07/05/24 AIMS= 0 01/27/25 [facility] forms completed Patient confirms treatment has been ongoing for over a year and is going well. - Plan: Continue Spravato treatment and monitor response. every 2 weeks 2. Anxiety Prozac 40 mg daily 3. Insomnia- appointment with PCP to discuss sleep study and r/o narcolepsy reported FH narcolepsy Ramelteon 8 mg bedtime sleep hygiene limit media and social media time Sleep Hygeine- - KEEP YOUR BEDROOM DARK - GET LOTS OF NATURAL LIGHT IN THE MORNING. - DON'T WORK ON YOUR COMPUTER OR PHONE LATE AT NIGHT. - AVOID NAPS DURING THE DAY. - NO CAFFEINE 3 HOURS OR MORE AFTER WAKE UP TIME. - ONLY USE YOUR BED FOR SLEEPING - GET A RELAXATION ROUTINE BEFORE BED. - IF YOU CAN'T GET TO SLEEP AFTER 15 TO 30 MINUTES GET OUT OF BED AND DO SOMETHING RELAXING. - DON'T DRINK ALCOHOL IN THE EVENING or limit alcohol to 1 drink. 4. PTSD Prazosin 1 mg bedtime sleep hygiene schedule with therapy 5. HTN- appointment with PCP 02/10 to discuss HTN and B/P rx and sleep study educated on healthy b/p 120/80 monitor b/p at home refer to PCP, heart healthy diet and excise limit salt intake limit soda intake and caffiene increase water B/P RX Monitor for any movement disorders. Eat healthy, including plenty of fresh fruits and vegetables daily. Strive to have 2/3 cup of your plate to be vegetables, fruits, whole grains and beans, while 1/3 or less should be an animal product. Choose fish and chicken and limit red meat and processed meats. - Assess dietary pattern for daily intake of fruits, vegetables, and whole grains, as well as red and processed meats, alcohol, and processed foods or beverages with added fats and/or sugars. Assess timing of meals and snacking habits, portion size, frequency of eating out, and use of added fats and/or sugars to foods or beverages. All survivors should be encouraged to: Follow a predominantly nutrient-rich plant-based diet, including vegetables, fruit, and whole grains. Make informed choices about food to ensure variety and adequate nutrient intake. Limit consumption of red meat such as beef, pork, or harris to no more than 18 ounces (cooked) per week. Eat processed meats such as ham, hot dogs, deli cuts, fritz, and sausage sparingly if at all. Limit consumption of fast foods and other processed foods that are high in fat, starches, or sugars such as chips, cookies, candy bars, desserts, processed baked goods, sugary cereals, and fried foods. Limit refined sugars to <6 tsp (25 g) for a 2000-calorie daily diet and <9 tsp (38 g) for a 3000-calorie daily diet. One medium cookie has about 2 tsp of sugar; a 12-oz can of a soft drink has about 10 tsp. Track calorie intake. Self-monitoring of food and beverage intake has been shown to be an effective strategy for weight management. Prolonged periods of fasting may impair adequate caloric and nutrient intake. Drink alcohol sparingly if at all. Lower levels of alcohol consumption are associated with a lower risk of cancer. For patients desiring further recommendations for dietary guidelines: Consider referral to a registered dietitian or jukebox routeman. The [employer] approximate food plate volumes (http_s://www.[employer] plate.gov) are: Vegetables and fruits should comprise half the volume of food on the plate Vegetables: 30% of plate; fruits 20% of plate Whole grains: 30% of plate Protein: 20% of plate Recommended sources of dietary components: Fat: plant sources such as olive or canola oil, avocados, seeds and nuts, and fatty fish Carbohydrates: fruits, vegetables, whole grains, and legumes Protein: poultry, fish, legumes, low-fat dairy foods, and nuts While the risks and benefits of soy foods for cancer survivors have been debated for many years, most studies to date show that moderate consumption of soy foods (up to 3 servings per day) are beneficial in promoting overall health and survival, with the strongest evidence existing for the prevention of lung cancer and reduction of breast cancer recurrence. -Practice portion control. Make informed food choices through routine evaluation of food labels. Incorporate physical activity, particularly strength training, to assure optimal lean body mass (SPA-1). Track weight, diet, calories, and physical activity routines (eg, journaling, mobile phone apps). Limit alcohol intake to one drink per day or less for a woman and two drinks or less per day for a man. educated on all medications, benefits, side effects [...] effects including loss of libido, increased suicidal thoughts/behavio rs in children and young adults, and serotonin [...] common with first generation antipsychotics) and more. Follow-up - Plan: GDR Abilify 10 mg daily discuss medication adjustments. and will monitor depression and anxiety Continue to monitor patient's progress and response to treatment during subsequent visits. Continue Spravato every 2 weeks Medication Management and Follow-Up - Plan: - Schedule follow-up appointments every 1-3 months to monitor the patient's response to the medication regimen. - Reinforce the importance of avoiding recreational drug use due to potential neurotoxicity and interactions with prescribed medications. 10/20/2024 Chronic post-traumatic stress disorder (PTSD) (ICD-10 - F43.12) 1. Depressive Abilify 15 mg at bedtime Lamotrigine 150 mg daily Prozac 40 mg daily Lamotrigine lamotrigine has a serious rashes requiring hospitalization and discontinue treatment including Carlos Agustin syndrome rare case of toxic epidermal necrolysis and cache related deaths. Incidence with adjunct of epilepsy treatment 0.8% in 2 to 16 years old and 0.3% in adults, bipolar and other mood disorders incidence 0.8% this initial monotherapy and 0.13% as adjunctive treatment. Other risk factor may include concomitant use of valproate acid derivative or exceeding initial lamotrigine does or does as clinician recommendation; most life-threatening rash of occurring first 2 to 8 week of treatment with isolated cases after prolonged treatment; though benign may occur, discontinue treatment at first sign of rash unless clearly not a drug related; TC treatment may not prevent trash from becoming life-threatening or permanently disabling or disfiguring. Comment reaction include, nausea/vomiting, dizziness/vertig o, visual disturbances, somnolence, ataxia, pruritus/rash, pharyngitis, headache, rhinitis, diarrhea, fever, asthenia, insomnia, tremor, abdominal pain, cough, accidental injury, constipation, dysmenorrhea, incoordination, anxiety, seizures, irritability, anorexia, xerostomia, and photosensitivity . Serious reactions include: Rash, severe; Hernandez Agustin syndrome; toxic epidermal necrosis; injury edema, hypersensitivity reactions. Including fatal, multiple organ failure to safe fatal, rash with eosinophilia systemic symptoms, DIC, neutropenia, leukopenia, thrombocytopenia , pancytopenia, aplastic anemia, hemolytic anemia, i pancreatitis, hepatic failure, rhabdomyolysis, worsening of suicidal ideation, worsening of depression, cleft lip/palate [first trimester use] DO not Change Cosmetic, perfumes or soap for next 4 weeks. The patient was advice to take lamotrigine as prescribed the patient was instructed not to deviate from the prescription dosages. Stop lamotrigine is the first sign of rash. Patient was insisted to inform office if any of the serious side effect develops. - Assessment: Patient reports improvement with Spravato treatment, currently every 2 weeks. Mild depression persists, but is manageable. AIMS= 0 07/05/24 [facility] forms completed Patient confirms treatment has been ongoing for over a year and is going well. - Plan: Continue Spravato treatment and monitor response. every 2 weeks 2. Anxiety Prozac 40 mg daily 3. Insomnia Ramelteon 8 mg bedtime sleep hygiene limit media and social media time 4. PTSD Prazosin 1 mg bedtime sleep hygiene schedule with therapy 5. HTN educated on healthy b/p 120/80 monitor b/p at home refer to PCP, heart healthy diet and excise limit salt intake limit soda intake and caffiene increase water Reported just had B/P RX Medication Management - Assessment: Current medications include Wellbutrin, Prozac, lamotrigine (150 mg), and Abilify (15 mg). Prazosin 1 mg Patient reports no current movement disorders. - Plan: Consider decreasing lamotrigine to 100 mg to potentially improve mood.- will consider after holidays related to have depresison currently discuss reduce Abilify from 15 mg to 10 mg- pateint reported 15 mg dose is helping her presently dicuss metabolic and movement disorders including tardive dyskinesia risks. Monitor for any movement disorders. Eat healthy, including plenty of fresh fruits and vegetables daily. Strive to have 2/3 cup of your plate to be vegetables, fruits, whole grains and beans, while 1/3 or less should be an animal product. Choose fish and chicken and limit red meat and processed meats. - Assess dietary pattern for daily intake of fruits, vegetables, and whole grains, as well as red and processed meats, alcohol, and processed foods or beverages with added fats and/or sugars. Assess timing of meals and snacking habits, portion size, frequency of eating out, and use of added fats and/or sugars to foods or beverages. All survivors should be encouraged to: Follow a predominantly nutrient-rich plant-based diet, including vegetables, fruit, and whole grains. Make informed choices about food to ensure variety and adequate nutrient intake. Limit consumption of red meat such as beef, pork, or harris to no more than 18 ounces (cooked) per week. Eat processed meats such as ham, hot dogs, deli cuts, fritz, and sausage sparingly if at all. Limit consumption of fast foods and other processed foods that are high in fat, starches, or sugars such as chips, cookies, candy bars, desserts, processed baked goods, sugary cereals, and fried foods. Limit refined sugars to <6 tsp (25 g) for a 2000-calorie daily diet and <9 tsp (38 g) for a 3000-calorie daily diet. One medium cookie has about 2 tsp of sugar; a 12-oz can of a soft drink has about 10 tsp. Track calorie intake. Self-monitoring of food and beverage intake has been shown to be an effective strategy for weight management. Prolonged periods of fasting may impair adequate caloric and nutrient intake. Drink alcohol sparingly if at all. Lower levels of alcohol consumption are associated with a lower risk of cancer. For patients desiring further recommendations for dietary guidelines: Consider referral to a registered dietitian or jukebox routeman. The USDA approximate food plate volumes (http_s://www.[employer] plate.gov) are: Vegetables and fruits should comprise half the volume of food on the plate Vegetables: 30% of plate; fruits 20% of plate Whole grains: 30% of plate Protein: 20% of plate Recommended sources of dietary components: Fat: plant sources such as olive or canola oil, avocados, seeds and nuts, and fatty fish Carbohydrates: fruits, vegetables, whole grains, and legumes Protein: poultry, fish, legumes, low-fat dairy foods, and nuts While the risks and benefits of soy foods for cancer survivors have been debated for many years, most studies to date show that moderate consumption of soy foods (up to 3 servings per day) are beneficial in promoting overall health and survival, with the strongest evidence existing for the prevention of lung cancer and reduction of breast cancer recurrence. -Practice portion control. Make informed food choices through routine evaluation of food labels. Incorporate physical activity, particularly strength training, to assure optimal lean body mass (SPA-1). Track weight, diet, calories, and physical activity routines (eg, journaling, mobile phone apps). Limit alcohol intake to one drink per day or less for a woman and two drinks or less per day for a man. educated on all medications, benefits, side effects [...] effects including loss of libido, increased suicidal thoughts/behavio rs in children and young adults, and serotonin [...] common with first generation antipsychotics) and more. Follow-up - Plan: discuss medication adjustments. and will monitor depression and anxiety Continue to monitor patient's progress and response to treatment during subsequent visits. Continue Spravato every 2 weeks Medication Management and Follow-Up - Plan: - Schedule follow-up appointments every 1-3 months to monitor the patient's response to the medication regimen. - Reinforce the importance of avoiding recreational drug use due to potential neurotoxicity and interactions with prescribed medications. 01/27/2025 Chronic post-traumatic stress disorder (PTSD) (ICD-10 - F43.12) 1. Depressive GDR Abilify 10 mg at bedtime Lamotrigine 150 mg daily Prozac 40 mg daily reported seeing PCP and US for enlarge liver scheduled and labs completed ER CT and labs 08/13 Lamotrigine lamotrigine has a serious rashes requiring hospitalization and discontinue treatment including Carlos Agustin syndrome rare case of toxic epidermal necrolysis and cache related deaths. Incidence with adjunct of epilepsy treatment 0.8% in 2 to 16 years old and 0.3% in adults, bipolar and other mood disorders incidence 0.8% this initial monotherapy and 0.13% as adjunctive treatment. Other risk factor may include concomitant use of valproate acid derivative or exceeding initial lamotrigine does or does as clinician recommendation; most life-threatening rash of occurring first 2 to 8 week of treatment with isolated cases after prolonged treatment; though benign may occur, discontinue treatment at first sign of rash unless clearly not a drug related; TC treatment may not prevent trash from becoming life-threatening or permanently disabling or disfiguring. Comment reaction include, nausea/vomiting, dizziness/vertig o, visual disturbances, somnolence, ataxia, pruritus/rash, pharyngitis, headache, rhinitis, diarrhea, fever, asthenia, insomnia, tremor, abdominal pain, cough, accidental injury, constipation, dysmenorrhea, incoordination, anxiety, seizures, irritability, anorexia, xerostomia, and photosensitivity . Serious reactions include: Rash, severe; Hernandez Agustin syndrome; toxic epidermal necrosis; injury edema, hypersensitivity reactions. Including fatal, multiple organ failure to safe fatal, rash with eosinophilia systemic symptoms, DIC, neutropenia, leukopenia, thrombocytopenia , pancytopenia, aplastic anemia, hemolytic anemia, i pancreatitis, hepatic failure, rhabdomyolysis, worsening of suicidal ideation, worsening of depression, cleft lip/palate [first trimester use] DO not Change Cosmetic, perfumes or soap for next 4 weeks. The patient was advice to take lamotrigine as prescribed the patient was instructed not to deviate from the prescription dosages. Stop lamotrigine is the first sign of rash. Patient was insisted to inform office if any of the serious side effect develops. - Assessment: Patient reports improvement with Spravato treatment, currently every 2 weeks. depression persists, but is manageable and Spravato helps AIMS= 0 07/05/24 AIMS= 0 01/27/25 [facility] forms completed Patient confirms treatment has been ongoing for over a year and is going well. - Plan: Continue Spravato treatment and monitor response. every 2 weeks 2. Anxiety Prozac 40 mg daily 3. Insomnia- appointment with PCP to discuss sleep study and r/o narcolepsy reported FH narcolepsy Ramelteon 8 mg bedtime sleep hygiene limit media and social media time Sleep Hygeine- - KEEP YOUR BEDROOM DARK - GET LOTS OF NATURAL LIGHT IN THE MORNING. - DON'T WORK ON YOUR COMPUTER OR PHONE LATE AT NIGHT. - AVOID NAPS DURING THE DAY. - NO CAFFEINE 3 HOURS OR MORE AFTER WAKE UP TIME. - ONLY USE YOUR BED FOR SLEEPING - GET A RELAXATION ROUTINE BEFORE BED. - IF YOU CAN'T GET TO SLEEP AFTER 15 TO 30 MINUTES GET OUT OF BED AND DO SOMETHING RELAXING. - DON'T DRINK ALCOHOL IN THE EVENING or limit alcohol to 1 drink. 4. PTSD Prazosin 1 mg bedtime sleep hygiene schedule with therapy 5. HTN- appointment with PCP 02/10 to discuss HTN and B/P rx and sleep study educated on healthy b/p 120/80 monitor b/p at home refer to PCP, heart healthy diet and excise limit salt intake limit soda intake and caffiene increase water B/P RX Monitor for any movement disorders. Eat healthy, including plenty of fresh fruits and vegetables daily. Strive to have 2/3 cup of your plate to be vegetables, fruits, whole grains and beans, while 1/3 or less should be an animal product. Choose fish and chicken and limit red meat and processed meats. - Assess dietary pattern for daily intake of fruits, vegetables, and whole grains, as well as red and processed meats, alcohol, and processed foods or beverages with added fats and/or sugars. Assess timing of meals and snacking habits, portion size, frequency of eating out, and use of added fats and/or sugars to foods or beverages. All survivors should be encouraged to: Follow a predominantly nutrient-rich plant-based diet, including vegetables, fruit, and whole grains. Make informed choices about food to ensure variety and adequate nutrient intake. Limit consumption of red meat such as beef, pork, or harris to no more than 18 ounces (cooked) per week. Eat processed meats such as ham, hot dogs, deli cuts, fritz, and sausage sparingly if at all. Limit consumption of fast foods and other processed foods that are high in fat, starches, or sugars such as chips, cookies, candy bars, desserts, processed baked goods, sugary cereals, and fried foods. Limit refined sugars to <6 tsp (25 g) for a 2000-calorie daily diet and <9 tsp (38 g) for a 3000-calorie daily diet. One medium cookie has about 2 tsp of sugar; a 12-oz can of a soft drink has about 10 tsp. Track calorie intake. Self-monitoring of food and beverage intake has been shown to be an effective strategy for weight management. Prolonged periods of fasting may impair adequate caloric and nutrient intake. Drink alcohol sparingly if at all. Lower levels of alcohol consumption are associated with a lower risk of cancer. For patients desiring further recommendations for dietary guidelines: Consider referral to a registered dietitian or jukebox routeman. The USDA approximate food plate volumes (http_s://www.[employer] plate.gov) are: Vegetables and fruits should comprise half the volume of food on the plate Vegetables: 30% of plate; fruits 20% of plate Whole grains: 30% of plate Protein: 20% of plate Recommended sources of dietary components: Fat: plant sources such as olive or canola oil, avocados, seeds and nuts, and fatty fish Carbohydrates: fruits, vegetables, whole grains, and legumes Protein: poultry, fish, legumes, low-fat dairy foods, and nuts While the risks and benefits of soy foods for cancer survivors have been debated for many years, most studies to date show that moderate consumption of soy foods (up to 3 servings per day) are beneficial in promoting overall health and survival, with the strongest evidence existing for the prevention of lung cancer and reduction of breast cancer recurrence. -Practice portion control. Make informed food choices through routine evaluation of food labels. Incorporate physical activity, particularly strength training, to assure optimal lean body mass (SPA-1). Track weight, diet, calories, and physical activity routines (eg, journaling, mobile phone apps). Limit alcohol intake to one drink per day or less for a woman and two drinks or less per day for a man. educated on all medications, benefits, side effects [...] effects including loss of libido, increased suicidal thoughts/behavio rs in children and young adults, and serotonin [...] common with first generation antipsychotics) and more. Follow-up - Plan: REGINE Abilify 10 mg daily discuss medication adjustments. and will monitor depression and anxiety Continue to monitor patient's progress and response to treatment during subsequent visits. Continue Spravato every 2 weeks Medication Management and Follow-Up - Plan: - Schedule follow-up appointments every 1-3 months to monitor the patient's response to the medication regimen. - Reinforce the importance of avoiding recreational drug use due to potential neurotoxicity and interactions with prescribed medications. 03/03/2024 Other Client participated in individual psychotherapy(CBT [...] and anxiety(parents and sister).Client was born in [place] and grew up in [facility] to parents who have been for [...] stressed due to homework and work being crazy. Session addressed and helped client continue to [...] and anxiety(parents and sister).Client was born in [place] and grew up in [facility] to parents who have been for [...] seek emergency services. discussed crisis prevention hotline 864. 1. Depression - Patient rates depression at 4/10. - Plan: Continue current treatment plan and monitor progress. 2. Anxiety - Patient rates anxiety at 5/10. - Plan: Continue current treatment plan and monitor progress. 3. Suicidal/Self-Silverio rm Ideation - Patient denies suicidal or self-harm [...] unit). - Patient refers to medication as Wag[place]. - Plan: Monitor for side effects or [...] new or worsening physical symptoms during follow-ups. 08/18/2024 Other 1. Depression and Anxiety - Patient rates depression at 7/10. - Patient reports improvement in sleep and appetite. - No hallucinations, delusions, or paranoia. - No thoughts of suicide or self-harm. - No thoughts of hurting others. - Plan: a. Continue current medications b. Monitor progress and adjust medications as needed. 2. Sleep - Patient reports getting 7 hours of sleep per night. - Plan: a. Continue ramelteon 8 mg for sleep regulation. b. Encourage good sleep hygiene practices. 3. Irritability - Patient reports mild irritability. - Plan: a. Monitor and address potential triggers. b. Consider adjustments to medications if irritability worsens or persists. 09/01/2024 Other 1. Depression - PHQ-9: 13 - Patient rates her depression as 6/10. - No suicidal ideation or self-harm reported. - Plan: a. Continue current antidepressant medication. b. Monitor patient's mood and depressive symptoms at follow-up visits. c. Encourage patient to engage in regular physical activity and maintain a healthy sleep schedule. 2. Anxiety - RACHNA-7: 14 - Patient rates her anxiety as 6/10. - Plan: a. Continue current anxiolytic medication. b. Monitor patient's anxiety levels at follow-up visits. c. Encourage patient to practice relaxation techniques, such as deep breathing exercises or mindfulness meditation. 3. Sleep - Patient reports getting 7 hours of sleep per night. - Plan: a. Encourage patient to maintain a consistent sleep schedule and practice good sleep hygiene. b. Monitor sleep quality and duration at follow-up visits. c. Consider sleep evaluation if sleep issues persist or worsen. 4. Appetite - Patient reports her appetite is fine. - Plan: a. Encourage patient to maintain a balanced diet and monitor for any changes in appetite. b. Assess appetite at follow-up visits. 5. Medications - No new medications or changes in medication reported. - Plan: a. Continue current medications as prescribed. b. Review medication list and assess for any potential side effects or interactions at follow-up visits. 6. Physical complaints - Patient reports no new physical complaints. - Plan: a. Monitor for any new or worsening physical symptoms at follow-up visits. b. Encourage patient to report any new physical complaints promptly. 7. Psychotic Symptoms - Patient reports no hallucinations, delusions, or paranoia. - Plan: a. Continue to monitor for any emergence of psychotic symptoms at follow-up visits. 09/15/2024 Other 1. Depression PHQ-9: 12 - Patient rates depression at 5/10. - No suicidal ideation or self-harm reported. - Plan: a. Continue current antidepressant medication. b. Monitor depressive symptoms at follow-up appointments. c. Encourage regular exercise and social activities. 2. Anxiety RACHNA-7: 13 - Patient rates anxiety at 7/10. - Plan: a. Continue current anxiolytic medication. b. Monitor anxiety symptoms at follow-up appointments. c. Recommend considering cognitive-behavio ral therapy (CBT) for anxiety. 3. Sleep - Patient reports getting 7 hours of sleep per night. - Plan: a. Encourage maintenance of good sleep hygiene. b. Monitor sleep patterns at follow-up appointments. 4. Appetite - Patient reports appetite is fine. - Plan: a. Encourage maintenance of a balanced diet. b. Monitor appetite and weight at follow-up appointments. 5. Medication Management - No new medications or changes reported. - Plan: a. Continue current medication regimen. b. Review medication effectiveness and side effects at follow-up appointments. 6. Psychotic Symptoms - Patient reports no hallucinations, delusions, or paranoia. - Plan: a. Continue monitoring for any emergence of psychotic symptoms at follow-up appointments. 09/29/2024 Other 1. Major Depressive Disorder - Patient rates depression at 4/10. - Sleep: 7 hours per night. - No suicidal ideation or self-harm thoughts reported. - Plan: a. Continue current medication regimen. b. Monitor for changes in depressive symptoms. c. Encourage adherence to current treatment plan. d. Discuss patient's perspective on decision-making and its impact on mental health. 2. Generalized Anxiety Disorder - Patient rates anxiety at 8/10, indicating severe symptoms. - No specific anxiety triggers or exacerbating factors mentioned. - No reported panic attacks or physical manifestations of anxiety. - Sleep: 7 hours per night, appears unaffected. - Plan: a. Continue current anxiety management strategies. b. Monitor for changes in anxiety symptoms. c. Encourage use of stress-reduction techniques. d. Explore potential anxiety triggers and coping mechanisms. 3. Medication Management - No new medications noted. - Plan: a. Continue current medication regimen. 4. Physical Complaints - No new physical complaints noted. Note: Patient reflects on the importance of making choices. 10/13/2024 Other Depression Assessment: Patient reports current depression severity of 4/10. No suicidal ideation or self-harm thoughts reported. Sleep is adequate at 7 hours per night. Appetite is reported as fine. Patient continues to see Naomi as primary psychiatric care provider and maintains psychiatric medications as prescribed. Plan: - Continue oral psychiatric medications as prescribed by primary care provider Naomi T - Administer Esketamine 84 mg - Continue Spravato (esketamine) every 2 weeks - Discussed risks and benefits of esketamine treatment; patient expressed understanding Anxiety Assessment: Patient reports current anxiety severity of 8/10. No homicidal ideation reported. Patient denies hallucinations, delusions, or paranoia. Plan: - Continue current treatment regimen as outlined in depression management plan The note is transcribed using speech recognition software. It is a reflection of a visit with the patient. It might have some inaccuracy, including medication names and transcribing errors, though efforts have been made to correct them. 10/27/2024 Other Major Depressive Disorder Assessment: Patient reports current depression level as 4 out of 10, indicating ongoing symptoms of major depressive disorder. Sleep pattern appears adequate with approximately 7 hours of sleep per night. Appetite is reported as fine. Patient denies suicidal ideation, homicidal ideation, hallucinations, delusions, or paranoia. No medication changes or adjustments reported, and patient denies any current side effects or physical complaints. Plan: - Administer Spravato 84 mg for treatment of major depressive disorder - Patient expressed understanding of driving restrictions after Spravato administration - Schedule next Spravato treatment for 11-10-24 - Continue medications as prescribed by primary psychiatric care provider - Follow-up appointment scheduled with primary psychiatric care provider Naomi on 01-27-2025 Anxiety Assessment: Patient reports current anxiety level as 7 out of 10, indicating significant anxiety symptoms. No specific triggers or exacerbating factors mentioned in the transcript. Plan: - Continue current treatment regimen as prescribed by primary psychiatric care provider - Monitor anxiety levels at future appointments The note is transcribed using speech recognition software. It is a reflection of a visit with the patient. It might have some inaccuracy, including medication names and transcribing errors, though efforts have been made to correct them. 11/10/2024 Grecia Pickering is a patient receiving Spravato treatment for depression and anxiety, with ongoing sleep issues managed by multiple medications. Major Depressive DisorderAssessmen t: Patient reports ongoing depression, rating it at a 6 on a 0-10 scale. She is currently receiving Spravato treatment, which suggests a history of treatment-resista nt depression. The patient denies suicidal ideation, hallucinations, paranoia, or delusions. Sleep disturbances persist despite multiple sleep aids, indicating that insomnia may be a significant component of her depressive symptoms.Plan:- Continue Spravato treatment as currently scheduled (every other week)- Maintain current medication regimen as prescribed by primary psychiatric provider- Monitor for changes in depressive symptoms and treatment efficacy- Follow up on sleep issues and medication effectiveness 1 Review patient medical records, any recent test results, last visit summary, etc Yes, Time spent 3 2 Greet patient and escort to the treatment room Yes, Time spent 2 3 Initial Obtained vital signs No 4 Prepare equipment and supplies No 5 Reviewed and documented history and medication Yes, Time spent 1 6 Evaluate patient's clinical status [relevant history/physical assessment] and determine readiness/approp riateness of treatment Yes, Time spent 4 7 Confirm orders and review plans with staff Yes, Time spent 1 8 Ensure appropriate positioning for administration, observe patient administration, ensure patient comfort and safety Yes, Time spent 2 9 Obtained vital signs: Assess treatment tolerance No 10 Assess the patient response to treatment: Visually and verbally evaluate the patient; review treatment progress with staff [vital signs, patient tolerance, side effects, etc.] Yes, Time spent 15 11 obtained vital signs: assess treatment tolerance No 12 At the completion of observation., Reviewed treatment course and assess the patient for clinical stability/discha rge readiness Yes, Time spent 6 13 Write a prescription or Reviewed RX for next session and submit to pharmacy No 14 Provide patient education/instru ction/ Yes, Time spent 4 15 Coordinate home-going [that is, discharged to escorted transportation] No 16 Complete medical record documentation Yes, Time spent 12 17 cleaning of room/equipment by clinical staff No 18 complete medical record documentation; complete and submit rems patient monitoring form No I attest to the total time spent Before, During and after ecounter was (in Minutes) 50 11/24/2024 Other Major Depressive Disorder Assessment: Patient is undergoing Spravato treatment for depression. Current self-reported depression level is 4 out of 10, indicating some improvement but ongoing symptoms. Patient denies suicidal thoughts, delusions, hallucinations, or paranoia. Sleep is reported as 6-7 hours per night, and appetite is described as fine. No medication changes or side effects are reported. Plan: - Administer Spravato as scheduled - Next Spravato treatment scheduled for 12/06/2024 - Continue current medications as prescribed by Naomi - Follow-up appointment with primary psychiatric care provider Naomi scheduled for 01/27/2025 - Patient expressed understanding of risks and benefits of Spravato treatment - Patient instructed not to drive after Spravato administration Anxiety Assessment: Patient reports current anxiety level as 6 out of 10, indicating moderate anxiety symptoms concurrent with depressive symptoms. Plan: - Continue current treatment regimen - Monitor anxiety symptoms at future appointments The note is transcribed using speech recognition software. It is a reflection of a visit with the patient. It might have some inaccuracy, including medication names and transcribing errors, though efforts have been made to correct them. 12/08/2024 Other continue current treatment as prescribed by primary psychiatric care provider Major Depressive Disorder Assessment: Patient reports current depression level as 4 out of 10. Continuing Spravato treatment, indicating ongoing management of depression. No suicidal ideation or self-harm thoughts reported. Sleep duration approximately 6 hours per night. Plan: - Administer Spravato as scheduled - Next Spravato treatment scheduled for 12-22-2024 - Follow-up appointment with primary psychiatric care provider Naomi scheduled for 01-27-2025 Anxiety Assessment: Patient reports current anxiety level as 6 out of 10. No reported hallucinations, delusions, or paranoia. - Follow-up appointment with primary psychiatric care provider Naomi scheduled for 01-27-2025 The note is transcribed using speech recognition software. It is a reflection of a visit with the patient. It might have some inaccuracy, including medication names and transcribing errors, though efforts have been made to correct them. 12/22/2024 Other Major Depressi ve DisorderAssessmen t: Patient reports current treatment approach is going well. No hallucinations, paranoia, or delusions reported. Patient denies any side effects or concerns related to current treatment. Patient denies any current suicidal ideations.Plan:- Continue current treatment regimen 01/05/2025 Other Major Depressi ve DisorderAssessmen t: Patient reports current treatment approach is going well. No hallucinations, paranoia, or delusions reported. Patient denies any side effects or concerns related to current treatment. Patient denies any current suicidal ideations.Plan:- Continue current treatment regimen 01/19/2025 Other continue current treatment as prescribed by primary psychiatric care provider 1. Anxiety - Patient rates anxiety at 6-01/26. - Plan: a. Continue current medication regimen. b. Follow up scheduled for January 27, 2025. 2. Depression - Patient rates depression at 3/10. - Patient denies suicidal ideation or thoughts of self-harm. - Plan: a. Continue current medication regimen. b. Follow up scheduled for January 27, 2025. 3. Sleep Disturbance - Patient reports 6-7 hours of sleep per night. Follow-up: - Scheduled for January 27, 2025. 02/02/2025 Other Major Depressi ve DisorderAssessmen t: Patient reports current treatment approach is going well. No hallucinations, paranoia, or delusions reported. Patient denies any side effects or concerns related to current treatment. Patient denies any current suicidal ideations.Plan:- Continue current treatment regimen 02/16/2025 Other Major Depressi ve DisorderAssessmen t: Patient reports current treatment approach is going well. No hallucinations, paranoia, or delusions reported. Patient denies any side effects or concerns related to current treatment. Patient denies any current suicidal ideations.Plan:- Continue current treatment regimen 03/18/2024 Other Prazosin Oral Capsule (PRAZOSIN - ORAL) material was published, Aripiprazole Oral Tablet 15 mg (ARIPIPRAZOLE - ORAL) material was published, Lamotrigine Oral Tablet (LAMOTRIGINE - ORAL) material was published, Bupropion Extended Release Oral Tablet (BUPROPION HCL EXTENDED-RELEASE (ANTIDEPRESSANT) - ORAL) material was published, Diet and Exercise for Metabolic Syndrome: Care Instructions material was published Seen in [facility] by Gary [employer] and patient requested rx refill and reported nightmares and Gary requested Prazosin rx sent to local [facility] Prazosin 1 mg PO HS # 30 AND MONITOR B/P Appointment with Naomi Georges [facility] [employer] to be schedule and also with therapist all other rx sent to [facility] Plan Of Treatment Future Test Test Name Order Date Liver Function Test (LFT) 05/06/2024 LIPID PANEL WITH REFLEX TO DIRECT LDL (1 5644) 05/06/2024 COMPREHENSIVE METABOLIC PANEL (47454) CBC (INCLUDES DIFF/PLT) (REFL) (83124) 1 HEMOGLOBIN A1c (496) 05/06/2024 TSH W/REFLEX TO FT4 (85790) 05/06/2024 VITAMIN D,25-OH,TOTAL,IA (79720) 024 Next Appt Details Provider Name:Gary Huerta, 03/02/2025 03:00:00 PM, [address], [address], [place], [address], Provider Name:Gary Huerta, 03/16/2025 03:00:00 PM, [address], [address], [place], [address], Provider Name:Gary Lowry Deanna, 03/30/2025 03:00:00 PM, [address], [address], [place], [address], Provider Name:Gary Lowry Gurwindervickie, 04/13/2025 03:00:00 PM, [address], [address], [place], [address], Insurance Providers Payer Name Payer Address Payer Phone Subscriber Number Group Number Insured Name Patient Relationship to Insured Coverage Start Date Coverage End Date [facility] [address] [place] [address] [id number] [employer] Self - patient is [...] Spravato (84 MG Dose) 07/08/2024 84 mg Spravato (84 MG Dose) 07/21/2024 84 mg Spravato (84 MG Dose) 08/04/2024 84 mg Spravato (84 MG Dose) 08/18/2024 84 mg Spravato (84 MG Dose) 09/01/2024 84 mg Spravato (84 MG Dose) 09/15/2024 84 mg Spravato (84 MG Dose) 09/29/2024 84 mg Spravato (84 MG Dose) 10/13/2024 84 mg Spravato (84 MG Dose) 10/27/2024 84 mg Spravato (84 MG Dose) 11/10/2024 84 mg Spravato (84 MG Dose) 11/24/2024 84 mg Spravato (84 MG Dose) 12/08/2024 84 mg Spravato (84 MG Dose) 12/22/2024 84 mg Spravato (84 MG Dose) 01/05/2025 84 mg Spravato (84 MG Dose) 01/19/2025 84 mg Spravato (84 MG Dose) 02/02/2025 84 mg Spravato (84 MG Dose) 02/16/2025 84 mg Medical (General) History Medical History History ICD Code Problems: Chronic post-traumatic stress disorder Generalized anxiety disorder 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 03/11 [facility]
[2025-02-26 16:38] VITALS: BP 143/87; PULSE 85; RESP 20; TEMP 36.8; O2SAT 100
--- OUTSIDE RECORDS SUMMARY | 2025-02-26 16:38 | XMS_ITS | Continuity of Care Document ---
Author Organization [facility] Address [address] [place] [address] Phone Care Team Providers Care Claim Rep Name Role Phone Sarah SHERIFF, TRAE, Wil [...] Diagnoses Date Provider Providers Copied on Encounter [facility], [place], [place], [id number], tel:[phone] Campus No Information 2 Sarah De La Torre. . [facility], [place], [place], [id number], tel:[phone] Campus No Information Sep- 8- 2 Klahn Wil. . Referring Provider: Myles Pruett, [address] [place] [address], [address]. tel:[phone] [place], [place] [id number], [place], [place], [id number], [place] tel:[phone] Campus No Information Sep-0 8 2 Klahn Wil. . Referring Provider: Myles Pruett, [address] [place] [address], [address]. tel:[phone] [place] [address], [address], [place], [place], [id number], [place] tel:[phone] Campus No Information Sep-0 3 2 Klahn Wil. . Referring Provider: Myles Pruett, [address] [place] [address], [place], [address]. tel:[phone] [place] [address] [address], [place], [place], [id number], [place] tel:[phone] Campus No Information b-2 2- 2 Klahn Wil. . Referring Provider: Myles Pruett, [address] [place] [address], [address]. tel:[phone] [place] [address] [address], [place], [address], [place] tel:[phone] Campus No Information Aug- 2 Klahn Wil. . Referring Provider: Myles Pruett, [address] [place] [address], [address]. tel:[phone] [place] [address] [address], [place], [place], [id number], [place] tel:[phone] Campus No Information b- 0-202 2 Klahn Wil. . Referring Provider: Myles Pruett [address] [place] [address], [place], [address]. tel:[phone] [place] [id number] [address], [place], [place], [id number], tel:[phone] [facility] No Information 2 Sarah De La Torre. . Referring Provider: Myles Pruett, [address], [place], [address]. tel:[phone] Family History Family Member Type Diagnosis Age At Onset No Information Payers Payer name Insurance type Covered constitution party ID Authoresther hanson(s) [facility] [id number] Social History Type Description Quantity Date Captured [...]
--- NOTE | 2025-02-26 16:57 | ED.WOUNDLAC ---
HPI - Wound/Laceration General Chief Complaint: Wound/Laceration Stated Complaint: left thumb lac Time Seen by Provider: 02/26/25 16:50 Source: patient and RN notes reviewed Mode of arrival: ambulatory Limitations: no limitations History of Present Illness HPI narrative: Patient presents today with a laceration to her left thumb that was sustained approximately 30 minutes prior to exam via paper slicer. She reports numbness to the thumb. She is not up-to-date on her tetanus vaccine. Pain increases with range of motion. Related Data Home Medications ?Medication ?Instructions ?Recorded ?Confirmed ?Last Taken ?Type albuterol sulfate 90 mcg/actuation 1 puff inhalation Q4H PRN 08/19/21 02/20/25 Unknown History aerosol inhaler Shortness Of Breath bupropion HCl 300 mg 24 hr tablet, 300 mg PO DAILY 08/19/21 02/20/25 10/30/24 History extended release cetirizine 10 mg tablet (Zyrtec) 10 mg PO DAILY 08/19/21 02/20/25 10/31/24 History fluoxetine 40 mg capsule (Prozac) 40 mg PO DAILY 08/19/21 02/20/25 10/31/24 History esketamine 84 mg (28 mg x 3) nasal 3 spray intranasal .every other 04/23/23 02/20/25 10/27/24 History spray (Spravato) week multivitamin (Daily Multi-Vitamin 1 tablet PO DAILY 10/26/24 02/20/25 10/31/24 History tablet) prazosin 1 mg capsule 1 mg PO DAILY 10/26/24 02/20/25 10/30/24 History ramelteon 8 mg tablet 8 mg PO DAILY PRN sleep 10/26/24 02/20/25 10/30/24 History lamotrigine 150 mg tablet mg 12/20/24 02/20/25 Unknown History aripiprazole 10 mg tablet 10 mg PO DAILY 02/20/25 02/20/25 Unknown History Allergies Allergy/AdvReac Type Severity Reaction Status Date / Time No Known Allergies Allergy Verified 02/20/25 14:38 [facility] Past Medical History Medical History History of colitis Colitis Exposure to sexually transmitted disease (STD) Normal colonoscopy Erosive esophagitis Irritable bowel syndrome with diarrhea Nausea and vomiting Depression Asthma Allergies Surgical History Surgical History History of hysterectomy Family History Family History Father Diabetes mellitus Hypertension Mother Hypertension Depression Narcolepsy Sibling Asthma Grandparent Cancer Depression Heart disease Grandparent Alcoholism Social History Social History Smoking status: Never smoker Alcohol intake: current Drinks per week: 1 Alcohol use details: Wine Substance use: current Substance use type: marijuana Other substance usage details: gummies Lack of Transportation: No Lack of Food: Never True Current Housing: I Have Housing Concerned About Future Housing: No Difficulty Paying Gas/Electric Bills: No Difficulty Paying for Meds: No Currently Unemployed: No Education: Master's Degree or Higher Difficulty w/ Childcare or Family Care: No Living arrangements: with family Occupation/Education: occupation Additional occupation/education comments: [employer] - [employer] Gender identity (if verbalized by the patient): Female Spiritual care concerns: No Comments At time of signature, I have reviewed and agree with nursing past medical, surgical, social and family history unless otherwise noted. Please see nursing chart for further information. There is no relevant family history pertinent to the presenting complaint Exam Narrative: GENERAL: Well-appearing, well-nourished, and in no acute distress. HEAD: Normocephalic, atraumatic. EYES: EOMI. No redness or drainage. Conjunctivae normal. ENT: Mucous membranes pink and moist. NECK: Normal AROM. CHEST: No respiratory distress. EXTREMITIES:Left thumb: 1.5 cm partial-thickness laceration at the distal tip of the finger extending in to the fingernail. The wound is not gaping. No active bleeding. Distal sensation intact. Capillary refill normal. Full range of motion of the finger. SKIN: Warm, dry, no rash. Capillary refill normal. Normal skin turgor. NEURO: No focal deficits. Alert and oriented x3. Gait steady. PSYCH: Normal affect. No signs of depression or anxiety. Course Course Level of Care: [facility] Care Visit Vital Signs Vital signs: Vital Signs Temperature 98.3 F 02/26/25 16:38 Pulse Rate 85 02/26/25 16:38 Respiratory Rate 20 02/26/25 16:38 Blood Pressure 143/87 H 02/26/25 16:38 Pulse Oximetry 100 02/26/25 16:38 Oxygen Delivery Room Air 02/26/25 16:38 Temperature 98.3 F 02/26/25 16:38 Pulse Rate 85 02/26/25 16:38 Respiratory Rate 20 02/26/25 16:38 Blood Pressure 143/87 H 02/26/25 16:38 Pulse Oximetry 100 02/26/25 16:38 Oxygen Delivery Room Air 02/26/25 16:38 Reviewed Procedures Laceration Laceration 1: Date: 02/26/25 Time: 17:34 Site: hand Side (If applicable): left Size (cm): 1.5 Description: linear Depth: simple, single layer Pre-repair: wound explored and irrigated ====== Skin Level ====== Skin layer closed with: nylon Size (cm): 5-0 Number of sutures: 3 Technique: simple, interrupted ====== Subcutaneous Layer ====== ====== Muscle Layer ====== ====== Tendon Layer ====== Nerve Block Nerve Block 1: Nerve block date: 02/26/25 Nerve block time: 17:10 Local Anesthetic: lidocaine 1% Amount of anesthesia used (mL): 6 Side: left Nerve Blocks: digital Procedure Successful: Yes Patient Tolerated Procedure: well Complications: none MDM - Wound/Laceration MDM Narrative Medical decision making narrative: 39-year-old female patient presents with a laceration to her left thumb just prior to arrival on a paper a slicer at home. She is not up-to-date on her tetanus vaccine and reports some numbness and tingling to the tip of the finger. No OTC treatment prior to arrival. Upon exam, patient has a 1.5 cm partial-thickness linear laceration to the tip of the finger extending into the fingernail. Finger has normal sensation. Capillary refill normal. Tetanus shot updated. After digital block, patient's laceration was repaired with 3 sutures, 1 in to the fingernail. Patient tolerated procedure well. Vital signs stable blood pressure mildly elevated. Care instructions given. Differential Diagnosis Differential diagnosis: Likely laceration, avulsion of skin and other (Nail avulsion) Critical Care Time Critical Care Time Critical Care Time: No Discharge Plan Discharge Clinical Impression: Finger laceration Qualifiers: Encounter type: initial encounter Finger: thumb Damage to nail status: with damage Foreign body presence: without foreign body Laterality: left Qualified Code(s): S61.112A - Laceration without foreign body of left thumb with damage to nail, initial encounter Patient Disposition: Home Condition: Stable Instructions: Care For Your Stitches (DC), Finger Laceration (ED) Additional Instructions: Your sutures need to be removed in 7-10 days. The suture in your fingernail can stay in for a couple of weeks. Wear the dressing that has been applied for the first 24 hours to allow a scab to start forming. After this, you may remove and wash as normal with soap and water. Do NOT wash with peroxide or alcohol. Do NOT apply antibiotic ointment. Do not submerge your sutures in standing water such as pools, hot tubs, or sinks until they are removed. Take tylenol or ibuprofen at home for pain, if able. Follow up with your PCP with any signs of infection such as redness, swelling, increased pain, or drainage. Your tetanus shot has been updated today. Your blood pressure was elevated above 120/80 today at Urgent Care. This puts you above the threshold for follow up. Please schedule a followup visit with your personal physician as soon as possible, for further evaluation and treatment. Even blood pressure exceeding 120/80 may indicate pre-hypertension. Patient Language: Martiniquais Prescriptions: No Action lamotrigine 150 mg tablet albuterol sulfate 90 mcg/actuation HFA aerosol inhaler 1 puff inhalation Q4H PRN (Reason: Shortness Of Breath) fluoxetine [Prozac] 40 mg capsule 40 mg PO DAILY bupropion HCl 300 mg tablet extended release 24 hr 300 mg PO DAILY cetirizine [Zyrtec] 10 mg tablet 10 mg PO DAILY Spravato 84 mg (28 mg x 3) spray,non-aerosol 3 spray intranasal .every other week aripiprazole 10 mg tablet 10 mg PO DAILY amlodipine 10 mg tablet 10 mg PO DAILY Qty: 90 3RF prazosin 1 mg capsule 1 mg PO DAILY ramelteon 8 mg tablet 8 mg PO DAILY PRN (Reason: sleep) multivitamin [Daily Multi-Vitamin] Tablet 1 tablet PO DAILY omeprazole 20 mg capsule,delayed release(DR/EC) See Rx Instructions .ROUTE .COMPLEX Qty: 90 3RF Dose Instruction: TAKE 1 CAPSULE DAILY Rx Instructions: TAKE 1 CAPSULE DAILY Zepbound 2.5 mg/0.5 mL solution 2.5 mg subcut WEEKLY 28 Days Qty: 2 0RF Follow-up/Referrals: Yumi Gonzalez CREDIT PRODUCTS OFFICER [Primary Care Provider] - Time of Disposition: 17:37
[2025-02-26] MEDS: TETANUS,DIPHTHERIA,AC PERTUSSIS ADULT (0.5 ML) BOOSTRIX IM (17:43)
== END 2025-02-26 17:51 | disposition home or self-care (01) ==
PROVIDERS: Emergency Provider Nurse Practitioner; PCP Nurse Practitioner
DX: S61.012A Laceration without foreign body of left thumb without damage to nail, initial encounter (principal); W27.8XXA Contact with other nonpowered hand tool, initial encounter; Z23 Encounter for immunization; J45.909 Unspecified asthma, uncomplicated; K20.80 Other esophagitis without bleeding; F32.A Depression, unspecified
CPT/HCPCS: 12001; 90471; 90715; 99212; G0463

== ENCOUNTER 2025-03-02 10:44 | Outpatient (CLI) | payer BC, SELFPAY ==
--- NOTE | ~2025-03-02 | US_ITS ---
US abdomen limited INDICATION: Hepatomegaly. PROCEDURE: Realtime right upper abdominal ultrasound. COMPARISON: No prior studies for comparison. FINDINGS: The pancreas is normal without focal mass or pancreatic ductal dilation. Liver echotexture is increased, consistent with fatty infiltration. There is normal directional flow in the portal ve in. There is an echogenic focus near the gallbladder neck with shadowing. No mobility of this is seen. Co mmon bile duct measures 3 mm. No sonographic Nails's sign. IMPRESSION: 1: Echogenic nonmobile focus at the gallbladder neck which may represent a stone or polyp. 2: Fatty infiltration of the liver. Reviewed, dictated and finalized at location A. IMPRESSION: 1: Echogenic nonmobile focus at the gallbladder neck which may represent a ston e or polyp. 2: Fatty infiltration of the liver.
== END 2025-03-02 10:45 | disposition home or self-care (01) ==
LOC: GOSHIMG 10:44
PROVIDERS: PCP Nurse Practitioner; Visit Provider Nurse Practitioner
DX: R16.0 Hepatomegaly, not elsewhere classified (principal); K76.0 Fatty (change of) liver, not elsewhere classified
CPT/HCPCS: 76705

== ENCOUNTER 2025-03-15 07:57 | Outpatient (CLI) | payer BC, SELFPAY ==
--- OUTSIDE RECORDS SUMMARY | 2025-03-15 08:03 | XMS_ITS | Clinical Summary ---
Author Organization [facility] Address [address] [place] [address] Phone Care Team Providers Care Dexigraph Operator Name Role Phone Clovis Johnson MD Primary Care Provider [phone] Allergies No known active allergies Medications buPROPion HCl (WELLBUTRIN XL) 300 mg Extended Release 24 hour tablet Take 300 mg by mouth daily transportation program director. Active methylphenidate HCl (RITALIN) 10 mg tablet [...] 5 8 Active fluticasone (FLONASE) 50 mcg/spray [place], Suspension Administer 2 Sprays in each nostril [...] on file Legal Sex Female 3:47 PM REFERENCE LIBRARIAN Gender Identity Not on file Sexual Orientation Not on file Last Filed Vital Signs Vital Sign Reading Time Taken Comments Blood Pressure 137/83 09/03/2021 12:41 PM REFERENCE LIBRARIAN Pulse 78 03/19/2018 3:50 AM CDT Temperature 37.3 C (99.2 F) 03/19/2018 3:50 AM CDT Respiratory Rate 18 03/19/2018 3:50 AM CDT Oxygen Saturation 96% 03/19/2018 3:50 AM CDT Inhaled Oxygen Concentration - - Weight 119.3 kg (263 lb) 09/03/2021 12:41 PM REFERENCE LIBRARIAN Height 172.7 cm (5' 8) 09/03/2021 12:41 PM REFERENCE LIBRARIAN Body Mass Index 39.99 09/03/2021 12:41 PM REFERENCE LIBRARIAN Plan of Treatment Health Maintenance Due Date Last Done Comments HEPATITIS B VACCINES (1 of 3 - 19+ 3-dose series) 2004 HPV VACCINES (1 - 3-dose SCD M series) 2012 COLORECTAL SCREENING 10/01/2022 10/01/2017 INFLUENZA VACCINE (#1) 2025 9, 08/09/2018, 04/23/2017 DTAP/TDAP/TD VACCINES (2 - T d or Tdap) 11/14/2027 11/13/2017 Medical Devices Explanted Type Area Animal Cop Device Identifier Shelf Expiration Date Model / Serial / Lot Interuterine Device For Control Explanted:Qty: 1 on 03/18/2018 by Martinez Walker MD at [facility] BLUE ACCESS/TRUE BLUE PPO RX [employer] Advance Directives For more information, please contact: [phone] * Full Code (Latest Code Status on File) Date Activated Date Inactivated Comments 03/18/2018 8:20 AM 03/18/2018 4:47 PM * Full Code Date Activated Date Inactivated Comments 10/01/2017 11:40 AM 10/01/2017 3:26 PM Care Teams Dexigraph Operator Relationship Specialty Start Date End Date Clovis Johnson MD PCP - General Family Practice 08/17/17
--- OUTSIDE RECORDS SUMMARY | 2025-03-15 08:03 | XMS_ITS | Clinical Summary ---
Author Organization [facility] Address [address] [place] [address] Care Team Providers Care Upholstery Handler Name Role Phone Pierreremy Myles PIZARRO Primary Care Provider [phone] Source Comments [facility],non-owned Affiliates and Associated Physician Practices is amultiple site organization consisting of ambulatory clinics and hospital sitesin [place], [place], [place] and [place]. This disclosure is being madepursuant to the Care Everywhere program and may not contain all information available regarding this patient. Last updated 18.[facility] Allergies No known active allergies Active Problems [...] on file Legal Sex Female 7:06 PM APPLICATIONS PROGRAMMER Gender Identity Not on file Sexual Orientation [...] patient's age to complete this topic Insurance [facility] Address: [id number] [place] [address] SELF PAY NO INSURANCE Member Subscriber Plan / Payer (Ef fective for All Dates) Name:[employer] Member ID:Not on file Relation to Subscriber:Not on file Name:[employer] Subscriber ID:Not on file (Home) Address: [address] [place] [phone] Payer ID:Not on file Group ID:Not on file Type:Self Pay Address: [facility] Care Teams Upholstery Handler Relationship Specialty Start Date End Date Myles Pruett DO [address] [place] [phone] PCP - General 10/03/22
--- OUTSIDE RECORDS SUMMARY | 2025-03-15 08:03 | XMS_ITS | Patient Health Record ---
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 with prescribed medications. 05/06/2024 Generalized anxiety disorder (ICD-10 - F41.1) [...] week 84 mg follow up with [facility] provider by every -th [facility] milagros grace rx schedule therapy Billy [facility] 03/18/2024 Post-traumatic stress disorder, chronic (ICD-10 - F43.12) Post-Traumatic Stress Disorder (PTSD): Care Instructions material was published Seen in [facility] by Gary GARZA and patient requested rx refill and reported nightmares and Gary requested Prazosin rx sent to local [facility] Prazosin 1 mg PO HS # 30 AND MONITOR B/P Appointment with Naomi Georges [facility] [employer] INSERTER to be schedule and also with therapist [...] and anxiety(parents and sister).Client was born in [place] and grew up in [facility] to parents who have been for 38 [...] and anxiety(parents and sister).Client was born in [place] and grew up in [facility] to parents who have been for 38 [...] current treatment plan and monitor progress. 3. Suicidal/Self-Harm Ideation - Patient denies suicidal or self-harm [...] with psychiatric provider to discuss alternative sleep medications/strate gies. 5. Appetite - Patient reports okay appetite with some recent decrease. - Plan: Monitor appetite and consider medication adjustments if significant changes occur. 6. Follow-Up - Plan: a. Encourage using giovanni to communicate sleep issues/medication adjustments with psychiatric provider. 03/18/2024 Major depressive disorder, recurrent severe without [...] support system and mental health professionals if suicidal/self-harm thoughts arise. 4. Sleep Disturbances - She reports 7-9 hours of sleep nightly but frequent nightmares \pretty much\ every day. - Plan: Consider prazosin for nightmares. Educate on potential dizziness/orthosta tic hypotension side effects. Instruct taking before bed and avoiding standing too quickly. Monitor effectiveness/side effects. Explained prazosin prevents [id number] response and keeps blood vessels relaxed. 5. [...] support system and mental health professionals if suicidal/self-harm thoughts arise. 4. Sleep Disturbances - She reports 7-9 hours of sleep nightly but frequent nightmares \pretty much\ every day. - Plan: Consider prazosin for nightmares. Educate on potential dizziness/orthosta tic hypotension side effects. Instruct taking before bed and avoiding standing too quickly. Monitor effectiveness/side effects. Explained prazosin prevents [id number]-diilei response and keeps blood vessels relaxed. 5. Medication Refills - She needs fluoxetine and bupropion refills. - Plan: Message primary psychiatrist for fluoxetine, bupropion, and prazosin prescriptions. 6. Follow-Up - She to follow up at walk-in clinic or schedule primary care appointment for medication management and symptom evaluation. 05/06/2024 Major depressive disorder, recurrent, mild (ICD-10 [...] with [facility] provider by every - [facility] milagros grace rx schedule therapy Billy KUMAR 03/18/2024 Generalized anxiety disorder (ICD-10 - F41.1) Learning About Generalized Anxiety Disorder material was published, Generalized Anxiety Disorder: Care Instructions material was published, Learning About Anxiety Disorders material was published Seen in [facility] by Gary VALVE INSERTER and patient requested rx refill and reported nightmares and Gary requested Prazosin rx sent to [facility] Prazosin 1 mg PO HS # 30 AND MONITOR B/P Appointment with Naomi Georges [facility] VAL[employer] INSERTER to be schedule and also with therapist all other rx sent to [facility] 10/13/2024 Encounter for screening for cardiovascular disorders (ICD-10 - Z13.6) 10/20/2024 Insomnia due to other mental disorder [...] disabling or disfiguring. Comment reaction include, nausea/vomiting, dizziness/vertigo, visual disturbances, somnolence, ataxia, pruritus/rash, pharyngitis, headache, rhinitis, diarrhea, fever, asthenia, insomnia, tremor, abdominal pain, cough, accidental injury, constipation, dysmenorrhea, incoordination, anxiety, seizures, irritability, anorexia, xerostomia, and photosensitivity. Serious reactions include: Rash, severe; Hernandez Agustin syndrome; toxic epidermal necrosis; injury edema, hypersensitivity reactions. Including fatal, multiple organ failure to safe fatal, rash with eosinophilia systemic symptoms, DIC, neutropenia, leukopenia, thrombocytopenia, pancytopenia, aplastic anemia, hemolytic anemia, i pancreatitis, [...] Consider referral to a registered dietitian or teacher physically impaired. The USDA approximate food plate volumes (http_s://www.mypl ate.gov) are: Vegetables and fruits should comprise half [...] potential neurotoxicity and interactions with prescribed medications. 07/05/2024 Insomnia due to other mental disorder [...] for screening for depression (ICD-10 - Z13.31) 12/22/2024 Encounter for screening for cardiovascular disorders (ICD-10 - Z13.6) 11/24/2024 Encounter for screening for depression (ICD-10 - Z13.31) 12/08/2024 Insomnia due to other mental disorder (ICD-10 - F51.05) 11/10/2024 Encounter for screening for cardiovascular disorders [...] clinical status [relevant history/physical assessment] and determine readiness/appropri ateness of treatment Yes, Time spent 4 7 [...] course and assess the patient for clinical stability/discharg e readiness Yes, Time spent 6 13 Write a prescription or Reviewed RX for next session and submit to pharmacy No 14 Provide patient education/instruct ion/ Yes, Time spent 4 15 Coordinate home-going [that is, discharged to escorted transportation] No 16 Complete medical record documentation Yes, Time spent 12 17 cleaning of room/equipment by clinical staff No 18 complete medical record documentation; complete and submit rems patient monitoring form No I attest to the total time spent Before, During and after ecounter was (in Minutes) 50 01/27/2025 Dietary counseling and surveillance (ICD-10 - [...] disabling or disfiguring. Comment reaction include, nausea/vomiting, dizziness/vertigo, visual disturbances, somnolence, ataxia, pruritus/rash, pharyngitis, headache, rhinitis, diarrhea, fever, asthenia, insomnia, tremor, abdominal pain, cough, accidental injury, constipation, dysmenorrhea, incoordination, anxiety, seizures, irritability, anorexia, xerostomia, and photosensitivity. Serious reactions include: Rash, severe; Hernandez Agustin syndrome; toxic epidermal necrosis; injury edema, hypersensitivity reactions. Including fatal, multiple organ failure to safe fatal, rash with eosinophilia systemic symptoms, DIC, neutropenia, leukopenia, thrombocytopenia, pancytopenia, aplastic anemia, hemolytic anemia, i pancreatitis, [...] Consider referral to a registered dietitian or teacher physically impaired. The USDA approximate food plate volumes (http_s://www.mypl ate.gov) are: Vegetables and fruits should comprise half [...] potential neurotoxicity and interactions with prescribed medications. 01/05/2025 Benign essential HTN (ICD-10 - I10) 01/19/2025 Generalized anxiety disorder (ICD-10 - F41.1) 01/19/2025 Insomnia due to other mental disorder (ICD-10 - F51.05) 01/27/2025 Generalized anxiety disorder (ICD-10 - F41.1) [...] disabling or disfiguring. Comment reaction include, nausea/vomiting, dizziness/vertigo, visual disturbances, somnolence, ataxia, pruritus/rash, pharyngitis, headache, rhinitis, diarrhea, fever, asthenia, insomnia, tremor, abdominal pain, cough, accidental injury, constipation, dysmenorrhea, incoordination, anxiety, seizures, irritability, anorexia, xerostomia, and photosensitivity. Serious reactions include: Rash, severe; Hernandez Agustin syndrome; toxic epidermal necrosis; injury edema, hypersensitivity reactions. Including fatal, multiple organ failure to safe fatal, rash with eosinophilia systemic symptoms, DIC, neutropenia, leukopenia, thrombocytopenia, pancytopenia, aplastic anemia, hemolytic anemia, i pancreatitis, [...] Consider referral to a registered dietitian or teacher physically impaired. The USDA approximate food plate volumes (http_s://www.mypl ate.gov) are: Vegetables and fruits should comprise half [...] potential neurotoxicity and interactions with prescribed medications. 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 [...] disabling or disfiguring. Comment reaction include, nausea/vomiting, dizziness/vertigo, visual disturbances, somnolence, ataxia, pruritus/rash, pharyngitis, headache, rhinitis, diarrhea, fever, asthenia, insomnia, tremor, abdominal pain, cough, accidental injury, constipation, dysmenorrhea, incoordination, anxiety, seizures, irritability, anorexia, xerostomia, and photosensitivity. Serious reactions include: Rash, severe; Hernandez Agustin syndrome; toxic epidermal necrosis; injury edema, hypersensitivity reactions. Including fatal, multiple organ failure to safe fatal, rash with eosinophilia systemic symptoms, DIC, neutropenia, leukopenia, thrombocytopenia, pancytopenia, aplastic anemia, hemolytic anemia, i pancreatitis, [...] Consider referral to a registered dietitian or teacher physically impaired. The USDA approximate food plate volumes (http_s://www.mypl ate.gov) are: Vegetables and fruits should comprise half [...] week 84 mg follow up with [facility] provider by every -9th [facility] milagros grace rx schedule therapy Billy KUMAR 10/20/2024 Elevated blood pressure reading (ICD-10 - [...] disabling or disfiguring. Comment reaction include, nausea/vomiting, dizziness/vertigo, visual disturbances, somnolence, ataxia, pruritus/rash, pharyngitis, headache, rhinitis, diarrhea, fever, asthenia, insomnia, tremor, abdominal pain, cough, accidental injury, constipation, dysmenorrhea, incoordination, anxiety, seizures, irritability, anorexia, xerostomia, and photosensitivity. Serious reactions include: Rash, severe; Hernandez Agustin syndrome; toxic epidermal necrosis; injury edema, hypersensitivity reactions. Including fatal, multiple organ failure to safe fatal, rash with eosinophilia systemic symptoms, DIC, neutropenia, leukopenia, thrombocytopenia, pancytopenia, aplastic anemia, hemolytic anemia, i pancreatitis, [...] Consider referral to a registered dietitian or teacher physically impaired. The USDA approximate food plate volumes (http_s://www.mypl ate.gov) are: Vegetables and fruits should comprise half [...] neurotoxicity and interactions with prescribed medications. 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 [...] with [facility] provider by every -th [facility] milagros grace rx schedule therapy Billy KUMAR 07/05/2024 Elevated blood pressure reading (ICD-10 - [...] Sp[facility] every other week at this time 01/27/2025 MDD (major depressive disorder), recurrent episode, [...] disabling or disfiguring. Comment reaction include, nausea/vomiting, dizziness/vertigo, visual disturbances, somnolence, ataxia, pruritus/rash, pharyngitis, headache, rhinitis, diarrhea, fever, asthenia, insomnia, tremor, abdominal pain, cough, accidental injury, constipation, dysmenorrhea, incoordination, anxiety, seizures, irritability, anorexia, xerostomia, and photosensitivity. Serious reactions include: Rash, severe; Hernandez Agustin syndrome; toxic epidermal necrosis; injury edema, hypersensitivity reactions. Including fatal, multiple organ failure to safe fatal, rash with eosinophilia systemic symptoms, DIC, neutropenia, leukopenia, thrombocytopenia, pancytopenia, aplastic anemia, hemolytic anemia, i pancreatitis, [...] Consider referral to a registered dietitian or teacher physically impaired. The USDA approximate food plate volumes (http_s://www.mypl ate.gov) are: Vegetables and fruits should comprise half [...] Post-traumatic stress disorder, chronic (ICD-10 - F43.12) 01/27/2025 Insomnia due to other mental disorder [...] disabling or disfiguring. Comment reaction include, nausea/vomiting, dizziness/vertigo, visual disturbances, somnolence, ataxia, pruritus/rash, pharyngitis, headache, rhinitis, diarrhea, fever, asthenia, insomnia, tremor, abdominal pain, cough, accidental injury, constipation, dysmenorrhea, incoordination, anxiety, seizures, irritability, anorexia, xerostomia, and photosensitivity. Serious reactions include: Rash, severe; Hernandez Agustin syndrome; toxic epidermal necrosis; injury edema, hypersensitivity reactions. Including fatal, multiple organ failure to safe fatal, rash with eosinophilia systemic symptoms, DIC, neutropenia, leukopenia, thrombocytopenia, pancytopenia, aplastic anemia, hemolytic anemia, i pancreatitis, [...] Consider referral to a registered dietitian or teacher physically impaired. The USDA approximate food plate volumes (http_s://www.mypl ate.gov) are: Vegetables and fruits should comprise half [...] 12/08/2024 Benign essential HTN (ICD-10 - I10) 05/06/2024 Elevated blood pressure reading (ICD-10 - [...] week 84 mg follow up with [facility] provider by every -th [facility] milagros grace rx schedule therapy Billy KUMAR 10/20/2024 Encounter for screening for depression (ICD-10 [...] disabling or disfiguring. Comment reaction include, nausea/vomiting, dizziness/vertigo, visual disturbances, somnolence, ataxia, pruritus/rash, pharyngitis, headache, rhinitis, diarrhea, fever, asthenia, insomnia, tremor, abdominal pain, cough, accidental injury, constipation, dysmenorrhea, incoordination, anxiety, seizures, irritability, anorexia, xerostomia, and photosensitivity. Serious reactions include: Rash, severe; Hernandez Agustin syndrome; toxic epidermal necrosis; injury edema, hypersensitivity reactions. Including fatal, multiple organ failure to safe fatal, rash with eosinophilia systemic symptoms, DIC, neutropenia, leukopenia, thrombocytopenia, pancytopenia, aplastic anemia, hemolytic anemia, i pancreatitis, [...] Consider referral to a registered dietitian or teacher physically impaired. The USDA approximate food plate volumes (http_s://www.mypl ate.gov) are: Vegetables and fruits should comprise half [...] prescribed medications. 10/20/2024 Encounter for screening for cardiovascular disorders [...] disabling or disfiguring. Comment reaction include, nausea/vomiting, dizziness/vertigo, visual disturbances, somnolence, ataxia, pruritus/rash, pharyngitis, headache, rhinitis, diarrhea, fever, asthenia, insomnia, tremor, abdominal pain, cough, accidental injury, constipation, dysmenorrhea, incoordination, anxiety, seizures, irritability, anorexia, xerostomia, and photosensitivity. Serious reactions include: Rash, severe; Hernandez Agustin syndrome; toxic epidermal necrosis; injury edema, hypersensitivity reactions. Including fatal, multiple organ failure to safe fatal, rash with eosinophilia systemic symptoms, DIC, neutropenia, leukopenia, thrombocytopenia, pancytopenia, aplastic anemia, hemolytic anemia, i pancreatitis, [...] Consider referral to a registered dietitian or teacher physically impaired. 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 [...] disabling or disfiguring. Comment reaction include, nausea/vomiting, dizziness/vertigo, visual disturbances, somnolence, ataxia, pruritus/rash, pharyngitis, headache, rhinitis, diarrhea, fever, asthenia, insomnia, tremor, abdominal pain, cough, accidental injury, constipation, dysmenorrhea, incoordination, anxiety, seizures, irritability, anorexia, xerostomia, and photosensitivity. Serious reactions include: Rash, severe; Hernandez Agustin syndrome; toxic epidermal necrosis; injury edema, hypersensitivity reactions. Including fatal, multiple organ failure to safe fatal, rash with eosinophilia systemic symptoms, DIC, neutropenia, leukopenia, thrombocytopenia, pancytopenia, aplastic anemia, hemolytic anemia, i pancreatitis, [...] Consider referral to a registered dietitian or teacher physically impaired. The USDA approximate food plate volumes (http_s://www.mypl ate.gov) are: Vegetables and fruits should comprise half [...] screening for depression (ICD-10 - Z13.31) 12/08/2024 Encounter for screening for cardiovascular disorders (ICD-10 - Z13.6) 01/27/2025 Elevated blood pressure reading (ICD-10 - [...] disabling or disfiguring. Comment reaction include, nausea/vomiting, dizziness/vertigo, visual disturbances, somnolence, ataxia, pruritus/rash, pharyngitis, headache, rhinitis, diarrhea, fever, asthenia, insomnia, tremor, abdominal pain, cough, accidental injury, constipation, dysmenorrhea, incoordination, anxiety, seizures, irritability, anorexia, xerostomia, and photosensitivity. Serious reactions include: Rash, severe; Hernandez Agustin syndrome; toxic epidermal necrosis; injury edema, hypersensitivity reactions. Including fatal, multiple organ failure to safe fatal, rash with eosinophilia systemic symptoms, DIC, neutropenia, leukopenia, thrombocytopenia, pancytopenia, aplastic anemia, hemolytic anemia, i pancreatitis, [...] Consider referral to a registered dietitian or teacher physically impaired. The USDA approximate food plate volumes (http_s://www.mypl ate.gov) are: Vegetables and fruits should comprise half [...] generation antipsychotics) and more. Follow-up - Plan: [facility] Abilify 10 mg daily discuss medication adjustments. [...] neurotoxicity and interactions with prescribed medications. 10/20/2024 Dietary counseling and surveillance (ICD-10 - [...] disabling or disfiguring. Comment reaction include, nausea/vomiting, dizziness/vertigo, visual disturbances, somnolence, ataxia, pruritus/rash, pharyngitis, headache, rhinitis, diarrhea, fever, asthenia, insomnia, tremor, abdominal pain, cough, accidental injury, constipation, dysmenorrhea, incoordination, anxiety, seizures, irritability, anorexia, xerostomia, and photosensitivity. Serious reactions include: Rash, severe; Hernandez Agustin syndrome; toxic epidermal necrosis; injury edema, hypersensitivity reactions. Including fatal, multiple organ failure to safe fatal, rash with eosinophilia systemic symptoms, DIC, neutropenia, leukopenia, thrombocytopenia, pancytopenia, aplastic anemia, hemolytic anemia, i pancreatitis, [...] Consider referral to a registered dietitian or teacher physically impaired. The USDA approximate food plate volumes (http_s://www.[employer]pl ate.gov) are: Vegetables and fruits should comprise half [...] neurotoxicity and interactions with prescribed medications. 10/20/2024 Primary hypertension (ICD-10 - I10) 1. [...] disabling or disfiguring. Comment reaction include, nausea/vomiting, dizziness/vertigo, visual disturbances, somnolence, ataxia, pruritus/rash, pharyngitis, headache, rhinitis, diarrhea, fever, asthenia, insomnia, tremor, abdominal pain, cough, accidental injury, constipation, dysmenorrhea, incoordination, anxiety, seizures, irritability, anorexia, xerostomia, and photosensitivity. Serious reactions include: Rash, severe; Hernandez Agustin syndrome; toxic epidermal necrosis; injury edema, hypersensitivity reactions. Including fatal, multiple organ failure to safe fatal, rash with eosinophilia systemic symptoms, DIC, neutropenia, leukopenia, thrombocytopenia, pancytopenia, aplastic anemia, hemolytic anemia, i pancreatitis, [...] Consider referral to a registered dietitian or teacher physically impaired. The USDA approximate food plate volumes (http_s://www.mypl ate.gov) are: Vegetables and fruits should comprise half [...] prescribed medications. 12/08/2024 Encounter for screening for depression (ICD-10 - Z13.31) 01/27/2025 Encounter for screening for depression (ICD-10 [...] disabling or disfiguring. Comment reaction include, nausea/vomiting, dizziness/vertigo, visual disturbances, somnolence, ataxia, pruritus/rash, pharyngitis, headache, rhinitis, diarrhea, fever, asthenia, insomnia, tremor, abdominal pain, cough, accidental injury, constipation, dysmenorrhea, incoordination, anxiety, seizures, irritability, anorexia, xerostomia, and photosensitivity. Serious reactions include: Rash, severe; Hernandez Agustin syndrome; toxic epidermal necrosis; injury edema, hypersensitivity reactions. Including fatal, multiple organ failure to safe fatal, rash with eosinophilia systemic symptoms, DIC, neutropenia, leukopenia, thrombocytopenia, pancytopenia, aplastic anemia, hemolytic anemia, i pancreatitis, [...] Consider referral to a registered dietitian or teacher physically impaired. The USDA approximate food plate volumes (http_s://www.mypl ate.gov) are: Vegetables and fruits should comprise half [...] and labs completed ER CT and labs 1/25 Lamotrigine lamotrigine has a serious rashes requiring [...] disabling or disfiguring. Comment reaction include, nausea/vomiting, dizziness/vertigo, visual disturbances, somnolence, ataxia, pruritus/rash, pharyngitis, headache, rhinitis, diarrhea, fever, asthenia, insomnia, tremor, abdominal pain, cough, accidental injury, constipation, dysmenorrhea, incoordination, anxiety, seizures, irritability, anorexia, xerostomia, and photosensitivity. Serious reactions include: Rash, severe; Hernandez Agustin syndrome; toxic epidermal necrosis; injury edema, hypersensitivity reactions. Including fatal, multiple organ failure to safe fatal, rash with eosinophilia systemic symptoms, DIC, neutropenia, leukopenia, thrombocytopenia, pancytopenia, aplastic anemia, hemolytic anemia, i pancreatitis, [...] Consider referral to a registered dietitian or teacher physically impaired. The USDA approximate food plate volumes (http_s://www.[employer]pl ate.gov) are: Vegetables and fruits should comprise half [...] disabling or disfiguring. Comment reaction include, nausea/vomiting, dizziness/vertigo, visual disturbances, somnolence, ataxia, pruritus/rash, pharyngitis, headache, rhinitis, diarrhea, fever, asthenia, insomnia, tremor, abdominal pain, cough, accidental injury, constipation, dysmenorrhea, incoordination, anxiety, seizures, irritability, anorexia, xerostomia, and photosensitivity. Serious reactions include: Rash, severe; Hernandez Agustin syndrome; toxic epidermal necrosis; injury edema, hypersensitivity reactions. Including fatal, multiple organ failure to safe fatal, rash with eosinophilia systemic symptoms, DIC, neutropenia, leukopenia, thrombocytopenia, pancytopenia, aplastic anemia, hemolytic anemia, i pancreatitis, [...] Consider referral to a registered dietitian or teacher physically impaired. The USDA approximate food plate volumes (http_s://www.mypl ate.gov) are: Vegetables and fruits should comprise half [...] disabling or disfiguring. Comment reaction include, nausea/vomiting, dizziness/vertigo, visual disturbances, somnolence, ataxia, pruritus/rash, pharyngitis, headache, rhinitis, diarrhea, fever, asthenia, insomnia, tremor, abdominal pain, cough, accidental injury, constipation, dysmenorrhea, incoordination, anxiety, seizures, irritability, anorexia, xerostomia, and photosensitivity. Serious reactions include: Rash, severe; Hernandez Agustin syndrome; toxic epidermal necrosis; injury edema, hypersensitivity reactions. Including fatal, multiple organ failure to safe fatal, rash with eosinophilia systemic symptoms, DIC, neutropenia, leukopenia, thrombocytopenia, pancytopenia, aplastic anemia, hemolytic anemia, i pancreatitis, [...] Consider referral to a registered dietitian or teacher physically impaired. The USDA approximate food plate volumes (http_s://www.mypl ate.gov) are: Vegetables and fruits should comprise half [...] generation antipsychotics) and more. Follow-up - Plan: [facility] Abilify 10 mg daily discuss medication adjustments. [...] neurotoxicity and interactions with prescribed medications. 03/25/2024 Other Client participated in individual psychotherapy(C SUJATA) related to her hx of anxiety and [...] and anxiety(parents and sister).Client was born in [place] and grew up in [facility] to parents who have been for 38 [...] current treatment plan and monitor progress. 3. Suicidal/Self-Harm Ideation - Patient denies suicidal or self-harm [...] PHQ-9: 12 - Patient rates depression at 11/26. - No suicidal ideation or self-harm reported. - Plan: a. Continue current antidepressant medication. b. Monitor depressive symptoms at follow-up appointments. c. Encourage regular exercise and social activities. 2. Anxiety RACHNA-7: 13 - Patient rates anxiety at 01/26. - Plan: a. Continue current anxiolytic medication. b. Monitor anxiety symptoms at follow-up appointments. c. Recommend considering cognitive-behav ioral therapy (CBT) for anxiety. 3. Sleep - [...] Depressive Disorder - Patient rates depression at 10/27. - Sleep: 7 hours per night. - [...] in anxiety symptoms. c. Encourage use of stress-reductio n techniques. d. Explore potential anxiety triggers and [...] issues managed by multiple medications. Major Depressive DisorderAssessm ent: Patient reports ongoing depression, rating it at a 6 on a 0-10 scale. She is currently receiving Spravato treatment, which suggests a history of treatment-resis tant depression. The patient denies suicidal ideation, hallucinations, [...] clinical status [relevant history/physical assessment] and determine readiness/appropri ateness of treatment Yes, Time spent 4 7 [...] course and assess the patient for clinical stability/discharg e readiness Yes, Time spent 6 13 Write a prescription or Reviewed RX for next session and submit to pharmacy No 14 Provide patient education/instruct ion/ Yes, Time spent 4 15 Coordinate home-going [...] made to correct them. 12/22/2024 Other Major Depressive DisorderAssessm ent: Patient reports current treatment approach is going well. No hallucinations, paranoia, or delusions reported. Patient denies any side effects or concerns related to current treatment. Patient denies any current suicidal ideations.Plan: - Continue current treatment regimen 01/05/2025 Other Major Depressive DisorderAssessm ent: Patient reports current treatment approach is going well. No hallucinations, paranoia, or delusions reported. Patient denies any side effects or concerns related to current treatment. Patient denies any current suicidal ideations.Plan: - Continue current treatment regimen 01/19/2025 Other continue current treatment as prescribed by primary psychiatric care provider 1. Anxiety - Patient rates anxiety at 6-7/10. - Plan: a. Continue current medication regimen. [...] for January 27, 2025. 02/02/2025 Other Major Depressive DisorderAssessm ent: Patient reports current treatment approach is going well. No hallucinations, paranoia, or delusions reported. Patient denies any side effects or concerns related to current treatment. Patient denies any current suicidal ideations.Plan: - Continue current treatment regimen 02/16/2025 Other Major Depressive DisorderAssessm ent: Patient reports current treatment approach is going well. No hallucinations, paranoia, or delusions reported. Patient denies any side effects or concerns related to current treatment. Patient denies any current suicidal ideations.Plan: - Continue current treatment regimen 03/02/2025 Other AnxietyAssessme nt: Patient reports current anxiety level at 6 out of 10, which is an improvement from the previous visit when anxiety was noted to be higher. Plan:- Continue current anxiety management plan - Encourage ongoing use of stress-reductio n techniques InsomniaAssessm ent: Patient reports ongoing sleep difficulties. A referral for a sleep study has been made by the primary care provider, with the patient awaiting a call to schedule the study. This proactive step will help evaluate for any underlying sleep disorders contributing to the patient's insomnia.Plan:- Await results of pending sleep study- Follow up on sleep study findings at next visit DepressionAsses sment: Patient's current depression level is rated as a 4 out of 10, She denies suicidal ideations. Plan:- Continue to monitor for depressive symptoms- Maintain current management plan for depression 03/18/2024 Other Prazosin Oral Capsule (PRAZOSIN - ORAL) material was published, Aripiprazole Oral Tablet 15 mg (ARIPIPRAZOLE - ORAL) material was published, Lamotrigine Oral Tablet (LAMOTRIGINE - ORAL) material was published, Bupropion Extended Release Oral Tablet (BUPROPION HCL EXTENDED-RELEASE (ANTIDEPRESSANT) - ORAL) material was published, Diet and Exercise for Metabolic Syndrome: Care Instructions material was published Seen in [facility] by Gary [facility] and patient requested rx refill and reported nightmares and Gary requested Prazosin rx sent to local [facility] Prazosin 1 mg PO HS # 30 AND MONITOR B/P Appointment with Naomi Georges [facility] to be schedule and also with therapist all other rx sent to [facility] Plan Of Treatment Future Test Test Name Order Date Liver Function Test (LFT) 05/06/2024 LIPID PANEL WITH REFLEX TO DIRECT LDL (1 1042) 05/06/2024 COMPREHENSIVE METABOLIC PANEL (61158) CBC (INCLUDES DIFF/PLT) (REFL) (51988) 1 HEMOGLOBIN A1c (496) 05/06/2024 TSH W/REFLEX TO FT4 (77194) 05/06/2024 VITAMIN D,25-OH,TOTAL,IA (82437) 024 Next Appt Details Provider Name:Gary Huerta, 03/16/2025 03:00:00 PM, [address], [address], [place], [address], Provider Name:Gary Huerta, 03/30/2025 03:00:00 PM, [address], [address], [place], [address], Provider Name:Gary Lowry Deanna, 04/13/2025 03:00:00 PM, [address], [address], [place], [address], Insurance Providers Payer Name Payer Address Payer Phone Subscriber Number Group Number Insured Name Patient Relationship to Insured Coverage Start Date Coverage End Date [facility] [address] [place] [address] [id number] [employer] Self - patient is [...] Spravato (84 MG Dose) 02/16/2025 84 mg Spravato (84 MG Dose) 03/02/2025 84 mg Medical (General) History Medical History [...] left upper posterior a rm 07/20/2011 Hysterectomy (34070) 03/20/2018 Hysterectomy - 03/20/2018 Other - 2011 wisdom tooth Hospitalization History Reason Date(Month/Year) 2011 [facility] 03/11 [place] [facility]
--- NOTE | 2025-04-10 09:54 | WPDHOMESLEEP ---
Sleep Study - Home Unattended Date of Study: 03/08/25 Ordering Provider: Yumi Gonzalez NP Interpreting Provider: Nancy Winslow, DO Home Sleep Study Type: Watch PAT Height: 1.73 m Weight: 118.841 kg Body Mass Index: 39.8 Neck Circumference (inches): 14.5 [place]: 15 Reason for Sleep Study Daytime hypersomnia Sleep History The patient is a 39-year-old female that had a sleep study ordered by her primary care for evaluation of sleep apnea. The patient admits to excessive daytime sleepiness, trouble maintaining sleep and trouble falling asleep. She denies snoring loudly. She does have interruptions in breathing while asleep. She denies choking or gasping at night. She does have trouble breathing on her back. She denies morning headaches. She does have a dry or sore mouth / throat in the morning. She denies nocturnal heartburn. She denies nocturia. She does have difficulty returning to sleep if she wakes up throughout the night. She does use hypnotics or sedatives. She does feel anxious about sleep. She feels tired or sleepy during the day. She does feel tired in the morning. She does have the urge to fall asleep during the day. She does feel drowsy while driving. She denies sleep paralysis, cataplexy and hypnagogic/ hypnopompic hallucinations. She does clench or grind her teeth. She denies kicking or jerking her legs excessively. She denies having a restless feeling in her legs. She goes to bed and 9:30 p.m. on work days and at 10:00 p.m. on her days off. It takes her 15 minutes to fall asleep. She gets 8 hours of sleep on work days and 9 hours on her days off. Her sleep is a little more restorative on days off. She does take planned naps in the afternoon for 1-2 hours. The neck is restorative. She denies dream enactment behavior. She denies sleep walking. She consumes more than 5 caffeinated beverages per day. She consumes 1 alcoholic beverage 1-2 nights per week. She denies tobacco use. She denies exercising on a regular basis. [facility] Past Medical History Medical History History of colitis Colitis Exposure to sexually transmitted disease (STD) Normal colonoscopy Erosive esophagitis Irritable bowel syndrome with diarrhea Nausea and vomiting Depression Asthma Allergies Surgical History Surgical History History of hysterectomy Family History Family History Father Diabetes mellitus Hypertension Mother Hypertension Depression Narcolepsy Sibling Asthma Grandparent Cancer Depression Heart disease Grandparent Alcoholism Social History Social History Smoking status: Never smoker Alcohol intake: current Drinks per week: 1 Alcohol use details: Wine Substance use: current Substance use type: marijuana Other substance usage details: gummies Lack of Transportation: No Lack of Food: Never True Current Housing: I Have Housing Concerned About Future Housing: No Difficulty Paying Gas/Electric Bills: No Difficulty Paying for Meds: No Currently Unemployed: No Education: Master's Degree or Higher Difficulty w/ Childcare or Family Care: No Living arrangements: with family Occupation/Education: occupation 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 - [employer] Gender identity (if verbalized by the patient): Female Spiritual care concerns: No Medications Home Medications ?Medication ?Instructions ?Recorded ?Confirmed ?Type albuterol sulfate 90 mcg/actuation 1 puff inhalation Q4H PRN 08/19/21 02/20/25 History aerosol inhaler Shortness Of Breath bupropion HCl 300 mg 24 hr tablet, 300 mg PO DAILY 08/19/21 02/20/25 History extended release cetirizine 10 mg tablet (Zyrtec) 10 mg PO DAILY 08/19/21 02/20/25 History fluoxetine 40 mg capsule (Prozac) 40 mg PO DAILY 08/19/21 02/20/25 History esketamine 84 mg (28 mg x 3) nasal 3 spray intranasal .every other 04/23/23 02/20/25 History spray (Spravato) week multivitamin (Daily Multi-Vitamin 1 tablet PO DAILY 10/26/24 02/20/25 History tablet) prazosin 1 mg capsule 1 mg PO DAILY 10/26/24 02/20/25 History ramelteon 8 mg tablet 8 mg PO DAILY PRN sleep 10/26/24 02/20/25 History lamotrigine 150 mg tablet mg 12/20/24 02/20/25 History omeprazole 20 mg capsule,delayed See Rx Instructions .Route 02/13/25 02/20/25 Rx release .COMPLEX #90 caps amlodipine 10 mg tablet 10 mg PO DAILY #90 tabs 02/20/25 02/20/25 Rx aripiprazole 10 mg tablet 10 mg PO DAILY 02/20/25 02/20/25 History tirzepatide (weight loss) 2.5 See Rx Instructions .Route 04/10/25 Rx mg/0.5 mL subcutaneous solution .COMPLEX #2 mL (Zepbound) Sleep Procedure The sleep study was completed using meetsT a technically adequate device with seven channels: peripheral arterial tone, actigraphy, body position, snore, respiratory movement, pulse oximetry, sleep staging, and heart rate. Prior to using the device, the patient received verbal and written instructions for its application and was provided with the help desk phone number for additional telephonic instruction with 24-hour availability of qualified personnel to answer questions. The study was scored using CMS guidelines. Sleep Architecture The total recording time is 9 hrs, 58 min. The total sleep time is 8 hrs, 54 min. Sleep latency is 34 minutes. REM latency is 118 minutes. The patient had 7 episodes of waking. Sleep architecture shows 22.8% deep sleep, 55.2% light sleep, and (as % Total Sleep Time) showed NREM (Light 55.2%; Deep 22.8%), and a 22.0% stage REM. The patient spent 0.4% of total sleep time in the supine position. Sleep efficiency was 89.30. Respiratory Analysis The overall AHI (pAHI 4%:) is 2.3. The overall AHI (pAHI 3%:) is 4.1. The central AHI is 0.2. The AHI was 2.3 in NREM and 10.3 in REM sleep. The AHI was N/A in Supine and 4.0 in Non-supine sleep. Percent of Andi Bynum respirations is 0.0. Oximetry Data The oxygen desaturation index (TYRON 4%:) is 0.9. The mean saturation is 95%, and the lowest saturation is 81%. Time spent with saturation < 88% is 0.0 minutes. Snoring Profile Snoring average intensity is 44 dB. The patient snored above 45 decibels for 98.7 minutes, 18.5% of sleep time. Cardiac Profile The average pulse rate is 75 beats per minutes. The lowest pulse rate is 60 bpm. The highest pulse rate reported is 107 bpm. Atrial fibrillation was not detected. Premature beats occur <0.1 per minute. Assessment and Plan Assessment and Plan (1) Sleep disturbance: Code(s): G47.9 - Sleep disorder, unspecified Status: Acute Assessment and Plan: The patient had an overall AHI of 2.3 with desaturation down to 81%. This is not consistent with sleep-disordered breathing. Due to the patient's excessive daytime sleepiness, further evaluation is warranted. I recommend that the patient have a plit study with the use of a hypnotic to ensure we obtain enough data. Data The data obtained during this sleep study is adequate for interpretation. Certification This sleep study has been reviewed by a board certified sleep medicine physician.
[2025-04-11 14:32] VITALS: BMI 39.8
== END 2025-03-16 11:54 | disposition home or self-care (01) ==
LOC: ANHCSM 07:59
PROVIDERS: PCP Nurse Practitioner; Visit Provider Nurse Practitioner
DX: G47.9 Sleep disorder, unspecified (principal)
CPT/HCPCS: 95800

== ENCOUNTER 2025-05-04 08:15 | Outpatient (CLI) | payer BC, SELFPAY ==
--- OUTSIDE RECORDS SUMMARY | 2025-04-27 10:00 | XMS_ITS ---
Author Organization [facility] Address [address] [facility] [address] [place] [address] Care Team Providers Care Trial Mgr Name Role Phone Myles Pruett DO Primary Care Provider Unavailab Naomi Connell Unavailable [phone] Zulma Odom Unavailable [phone] REASON FOR VISIT Spravato Treatment Medications Medication SIG (Take, Route, Frequency, Duration) Notes Start Date End Date Status buPROPion HCl ER (XL) 300 MG Tablet Extended Release 24 Hour 1 tablet every morning Oral Once a day; Duration: 90 days Active FLUoxetine HCl 40 MG Capsule 1 capsule Oral Once a day; Duration: 90 days Active Omeprazole 20 MG Capsule Delayed Release Oral; Duration: 90 Days A ctive amLODIPine Besylate 5 MG Tablet TAKE 1 TABLET BY MOUTH DAILY Oral; Duration: 90 Days Active Prazosin HCl 1 MG Capsule 1 capsule at b edtime Orally Once a day; Duration: 90 days Active hydrOXYzine HCl 10 MG Tablet 1 tablet as needed Orally 3 times a day; Duration: 30 days As needed 04/15/2025 Active lamoTRIgine 150 MG Tablet 1 tablet Oral once a day; Duration: 90 days Active ARIPiprazole 10 MG Tablet 1 tablet Oral at bedtime; Duration: 90 days Active Zepbound 2.5 MG/0.5ML Solution Auto-injector as directed Subcutaneous Active Ramelteon 8 MG Tablet 1 tablet at bedtim e as needed Orally Once a day; Duration: 90 days Active Spravato (84 MG Dose) 28 MG/DEVICE Solution Therapy Pack 3 sprays in each nostril Nasally every two week; Duration: 1 days dispense at physician office 04/14/2025 Active Social History Sex Assigned At : Social History Observation Description Sex Assigned At Female Social History Additional Details Category Social Info Options Details Migrated Social History Migrated Social History Alcohol Intake: Occasional 10/14/2022,Tobacco Years: Never smoker 10/14/2022, Alcohol Intake: Occasional 10/14/2022,Tobacco Years: Never smoker 10/14/2022 Vital Signs Blood pressure systolic 119 mm Hg 04/27/20 25 Blood pressure diastolic 81 mm Hg 025 Heart Rate 94 /min 04/27/2025 Height 68.00 in 04/27/2025 Oximetry 98 % 04/27/2025 Height-cm 172.72 cm 04/27/2025 Encounters Encounter Location Date Provider Diagnosis [facility] [address] [place] [id number] 04/27/2025 Zulma Odom Major depressive disorder, recurrent severe without psychotic features F33.2 Assessments Encounter Date Diagnosis (ICD Code) Assessment Notes Treatment Notes Treatment Clinical Notes Section Notes 04/27/2025 Major depressive disorder, recurrent severe without psychotic features (ICD-10 - F33.2) Plan Of Treatment Next Appt Details Follow Up: 05/11/2025 @ 3:00 PM, Reason: Spravato [place] Provider Name:Gary Huerta, 05/11/2025 03:00:00 PM, [facility], [address], [address], Provider Name:Naomi Georges , 05/16/2025 04:00:00 PM, [facility], [address], [address], Provider Name:Mra serrano, 05/25/2025 03:00:00 PM, [address], [address], [address], Provider Name:Mar serrano, 06/08/2025 03:00:00 PM, [facility], [address], [address], Provider Name:Mar serrano, 06/22/2025 03:00:00 PM, [facility], [address], [address], Provider Name:Mar serrano, 07/06/2025 03:00:00 PM, [address], [address], [place], [address], Medications Administered Medication Instructions Date of Administration Dosage Notes Spravato (84 MG Dose) 04/27/2025 84 mg History and Physical Notes * HPI (History of Present Illness) Category Sub-Category Detail Notes Category Not es History of Presenting Problem Holly Painting, a 39-year-old female, presented for Spravato treatment. During the visit, she reported starting Zepbound at a dose of 2.5 mg once a week. No additional symptoms, concerns, or denials were discussed, and there were no other changes in her medical history noted at this time. Esketamine Administration Time at the start of Administration: 3:05 PM Time of discharge: 5:05 PM Was patient monitored for at least 2 hours? Yes Was the patient clinically ready for discharge prior to the required 2 hours? No Serious adverse event during the treatment? NO Any problems since the last treatment session? NO Staff Notes for today's visit Who is picking the patient up? Dad When did the patient last eat? around 11:30 AM this morning Any medication changes since last visit? NO Esketamine Nasal [employer] Administration and Supervised Monitoring Staff attending the patient: Jade Bradford Supervising provider as in rendering provider: DOM Alicea Is patient taking any of the following concomitant medication that may cause sedation of blood pressure changes? Benzodiazepine No Non-benzodiazepine sedative-hypnotics: No Psychostimulant: No Monoamine oxidase inhibitors [MAOIs]: No Dose of Spravato: 84 Mg Lot number [id number] Date: 10/18/2027 Examination Category Sub-Category Detail Notes Category Not es Psychiatry Appearance: well-groomed, well-nourished Attitude: cooperative Attention: good Orientation: awake, alert and cherelle ented x 3 Affect / mood: appropriate, full ra nge Insight: good Judgement: good Thought process: intact Thought content: appropriate Suicidal ideation: none Homicidal ideation: none Delusions: no Hallucinations: no Progress Notes * HOLLY PAINTINGDOB:1985 (39 yo F)Acc No.[id number]:04/27/2025 Patient: HOLLY MCCOY Provider: Melva Odom :1985 A ge:39 Y S ex:Female Date:04/27/2025 [id number] Pcp:Myles Pruett DO Subjective: * Chief Complaints: * S pravato Treatment * HPI: H istory of Presenting Problem: Ms Painting is a patient with a history of depression presenting for Spravato treatment. The patient denies any suicidal thoughts or thoughts of self-harm or harm to others. The patient denies experiencing any hallucinations, delusions, or paranoia. The patient sees their primary psychiatric provider routinely and reports adherence to current treatment regimen. There have been no reported changes in medical history, social history, o r substance use since the last visit. Holly Painting, a 39-year-old female, presented for Spravato treatment. During the visit, she reported starting Zepbound at a dose of 2.5 mg once a week. No additional symptoms, concerns, or denials were discussed, and there were no other changes in her medical history noted at this time. G eneral Follow Up: 1 Reviewed patient medical records, any recent test results, last visit summary, etc: Yes, Time spent 3 2 Greeted patient and escorted to the treatment room: Yes, Time spent 2 3 Obtained initial vital signs: No 4 Prepared equipment and supplies: No 5 Reviewed and documented history and medication: Yes, Time spent 2 6 Evaluated patient's clinical status [relevant history/physical assessment] and determined readiness/appropriateness of treatment: Yes, Time spent 4 7 Confirmed orders and reviewed plans with staff: Yes, Time spent 1 8 Ensured appropriate positioning for administration, observed patient administration, ensured patient comfort and safety: Yes, Time spent 2 9 Obtained vital signs, assessing treatment tolerance: No 10 Assess the patient response to treatment, visually and verbally evaluating the patient, and reviewed treatment progress with staff [vital signs, patient tolerance, side effects, etc.]: Yes, Time spent 15 11 At the completion of observation, reviewed treatment course and assessed the patient for clinical stability/discharge readiness: Yes, Time spent 3 12 Wrote a prescription or reviewed RX for next session and submited to pharmacy: No 13 Provided patient education/instructions: Yes, Time spent 3 14 Coordinated home-going [that is, discharged to escorted transportation]: No 15 Completed medical record documentation: Yes, Time spent 8 16 Preformed cleaning of room/equipment by clinical staff: No 17 Complete medical record documentation and submitted rems patient monitoring form: No I attest to the total time spent before, during and after encounter was (in Minutes): 43. E sketamine Administration: Time at the start of Administration: 3:05 PM Time of discharge: 5:05 PM Was patient monitored for at least 2 hours? Yes Was the patient clinically ready for discharge prior to the required 2 hours? No Serious adverse event during the treatment? NO Any problems since the last treatment session? NO Staff Notes for today's visit Who is picking the patient up? Dad When did the patient last eat? around 11:30 AM this morning Any medication changes since last visit? NO Esketamine Nasal [employer] Administration and Supervised Monitoring Staff attending the patient: Jade Bradford Supervising provider as in rendering provider: DOM Alicea Is patient taking any of the following concomitant medication that may cause sedation of blood pressure changes? Benzodiazepine No Non-benzodiazepine sedative-hypnotics: No Psychostimulant: No Monoamine oxidase inhibitors [MAOIs]: No Dose of Spravato: 84 Mg Lot number [id number] Date: 10/18/2027. * ROS: G eneral / Constitutional: Patient denies f atigue, headache, lightheadedness. ? R espiratory: Patient denies s hortness of breath. C ardiovascular: Patient denies c hest pain, dizziness, palpitations. ? G astrointestinal: Patient denies n ausea, vomiting. N eurologic: Patient denies c onfusion, tremor. P sychiatric: Comments S [facility] for details. * Medical History: Problems: Chronic post-traumatic stress disorder Generalized anxiety disorder Insomnia disorder related to another mental disorder Mild recurrent major depression Moderate recurrent major depression Severe recurrent major depression Severe recurrent major depression without psychotic features Suicidal behavior , Hypertension Medical History Verified * Surgical History: Lypoma removal in left upper posterior arm 07/20/2011 Hysterectomy (23160) 03/20/2018 Hysterectomy - 03/20/2018 Other - 07/20/2011 wisdom tooth Surgical History verified. * Hospitalization/Major Diagno stic Procedure: 03/11 [place] [facility] 2011 [facility] Hospitalization Verified. * Family History: F ather: alive 68 yrs, Diabetes mellitus , macular degeneration, diagnosed with Type 2 diabetes mellitus without complication, unspecified whether terminal operator insulin use, Essential hypertension, Mental health disorder. M other: alive 66 yrs, Depressive disorder , hypertension, diagnosed with Mental health disorder. P aternal Grandmother: Alcohol abuse . M aternal Grandmother: Malignant tumor of breast, Notes: PASSED IN her 70's , Diabetes mellitus . S ister: alive 36 yrs, kidney disease, diagnosed with Essential hypertension. S on: alive 12 yrs, acute lymphoblastic leukemia. 1 sister(s) . 1 son(s) . . F amily History Verified.. * Social History: M igrated Social History: M igrated Social History: Alcohol Intake: Occasional 10/14/2022,Tobacco Years: Never smoker 10/14/2022, Alcohol Intake: Occasional 10/14/2022,Tobacco Years: Never smoker 10/14/2022. S ocial History Verified. * Medications: T akingZepbound 2.5 MG/0.5ML Solution Auto-injector as directed Subcutaneous Ramelteon 8 MG Tablet 1 tablet at bedtime as needed Orally Once a day Prazosin HCl 1 MG Capsule 1 capsule at bedtime Orally Once a day buPROPion HCl ER (XL) 300 MG Tablet Extended Release 24 Hour 1 tablet every morning Oral Once a day FLUoxetine HCl 40 MG Capsule 1 capsule Oral Once a day Omeprazole 20 MG Capsule Delayed Release Oral amLODIPine Besylate 5 MG Tablet TAKE 1 TABLET BY MOUTH DAILY Oral Spravato (84 MG Dose) 28 MG/DEVICE Solution Therapy Pack 3 sprays in each nostril Nasally every two week dispense at physician officehydrOXYzine HCl 10 MG Tablet 1 tablet as needed Orally 3 times a day As neededlamoTRIgine 150 MG Tablet 1 tablet Oral once a day ARIPiprazole 10 MG Tablet 1 tablet Oral at bedtime Medication List reviewed and reconciled with the patientTaking Zepbound 2.5 MG/0.5ML Solution Auto-injector as directed Subcutaneous Taking Ramelteon 8 MG Tablet 1 tablet at bedtime as needed Orally Once a day Taking Prazosin HCl 1 MG Capsule 1 capsule at bedtime Orally Once a day Taking buPROPion HCl ER (XL) 300 MG Tablet Extended Release 24 Hour 1 tablet every morning Oral Once a day Taking FLUoxetine HCl 40 MG Capsule 1 capsule Oral Once a day Taking Omeprazole 20 MG Capsule Delayed Release Oral Taking amLODIPine Besylate 5 MG Tablet TAKE 1 TABLET BY MOUTH DAILY Oral Taking Spravato (84 MG Dose) 28 MG/DEVICE Solution Therapy Pack 3 sprays in each nostril Nasally every two week dispense at physician officeTaking hydrOXYzine HCl 10 MG Tablet 1 tablet as needed Orally 3 times a day As neededTaking lamoTRIgine 150 MG Tablet 1 tablet Oral once a day Taking ARIPiprazole 10 MG Tablet 1 tablet Oral at bedtime Medication List reviewed and reconciled with the patient * Allergies: y esAllergies Verified. Objective: * Vitals: B P: 123/82 mm Hg,136/86 mm Hg,119/81mm Hg, HR: 95 /min,101 /min,94/min, Oxygen sat %: 98 %,98 %,98%, Ht: 68.00 in, Ht-cm: 172.72 cm. * Examination: P sychiatry: Appearance: w ell-groomed, well-nourished. Affect / mood: a ppropriate, full range. Attention: g ood. Attitude: c ooperative. Homicidal ideation: n one. Suicidal ideation: n one. Delusions: n o. Hallucinations: n o. Insight: g ood. Judgement: g ood. Orientation: a wake, alert and oriented x 3. Thought content: a ppropriate. Thought process: i ntact. Assessment: * Assessment: 1. M ajor depressive disorder, recurrent severe without psychotic features - F33.2 (Primary)? Plan: * Therapeutic Injections: Spravato 84 mg : 84 mg (Route: Nasal) given by Jade Anderson (Major depressive disorder, recurrent severe without psychotic features) * Procedure Codes: 9 9417 PROLONGED OFFICE OR OTHER OUTPATIENT EVALUATION AND MANAGEMENT SERVICE(S) (BEYOND THE TOTAL TIME OF THE PRIMARY PROCEDURE WHICH HAS BEEN SELECTED USING TOTAL TIME), REQUIRING TOTAL TIME WITH OR WITHOUT DIRECT PATIENT CONTACT BEYOND THE USUAL SERVICE, ON T, Units: 4.00 * Preventive Medicine: Counseling: S afety: Discussed the risk and benefits of medication(s)? Y es Spravato (Esketamine) for Treatment-Resistant DepressionWhat is Spravato?- Spravato is a nasal spray medication that contains esketamine, a form of ketamine. It is FDA-approved for adults with treatment-resistant depression (TRD).How does it work?- Spravato works differently from traditional antidepressants by affecting glutamate, a brain chemical involved in mood regulation. It can lead to improvements in symptoms more quickly than standard medications.How is it given?- Nasal spray, self-administered under medical supervision.- Given in a certified healthcare setting due to possible side effects.- Initial dosing is twice a week for 4 weeks, then usually once weekly or every other week depending on your response.What to expect during treatment:- You'll stay at the clinic for at least 2 hours after each dose to monitor for side effects.- You cannot drive or operate machinery until the next day.- You should have someone available to take you home.Common side effects:- Dissociation (feeling disconnected)- Drowsiness and/or fatigue- dizziness and/or spinning sensation- Nausea and/or vomiting- Increased blood pressure (monitored before during and after treatment)- These usually improve shortly after treatment.Important reminders:- Continue taking your oral antidepressants as prescribed.- Report any unusual thoughts or behaviors, including thoughts of self-harm.- Attend all scheduled appointments for safety and to monitor progress.Is it effective?- Many patients experience significant improvement in mood, often within hours to days. However, response varies. It may take several treatments to notice full benefit.Questions?- Always reach out to your provider with any concerns or to discuss how you're feeling during treatment.There is a risk for abuse and misuse with SPRAVATO, which may lead to physical and psychological dependence. Your healthcare provider should check you for signs of abuse, misuse, and dependence before and during treatment.Tell your healthcare provider if you have ever abused or been dependent on alcohol, prescription medicines, or street drugs.SPRAVATO Risk Evaluation and Mitigation Strategy (REMS). Because [...] clinics) must be enrolled in the program. * Follow Up: 1 @ 3:00 PM (Reason: Spravato TX) Billing Information: * Visit Code: 47327 OFFICE OUTPATIENT VISIT 40 MINUTES COMPREHENSIVE HISTORY AND EXAM/HIGH MEDICAL DECISION MAKING. * Procedure Codes: 59422 PROLONGED OFFICE OR OTHER OUTPATIENT EVALUATION AND MANAGEMENT SERVICE(S) (BEYOND THE TOTAL TIME OF THE PRIMARY PROCEDURE WHICH HAS BEEN SELECTED USING TOTAL TIME), REQUIRING TOTAL TIME WITH OR WITHOUT DIRECT PATIENT CONTACT BEYOND THE USUAL SERVICE, ON T. Units: 4.00. * Electronic signature of DOM Ibrahim on 05/04/2025 at 08:18 AM CDT Sign off status: Pending * Provider: Melva Odom Date: Generated for Cassandra koenig/Amy/Juanita on: 08:18 AM CDT
--- OUTSIDE RECORDS SUMMARY | 2025-05-04 08:18 | XMS_ITS | Clinical Summary ---
Author Organization [facility] Address [address] [place] [address] Care Team Providers Care Public Health Veterinarian Name Role Phone Pierreremy Myles PIZARRO Primary Care Provider Source Comments [facility],non-owned Affiliates and Associated Physician Practices is amultiple site organization consisting of ambulatory clinics and hospital sitesin [place], [place], [place] and [place]. This disclosure is being madepursuant to the Care Everywhere program and may not contain all information available regarding this patient. Last updated 18.[facility] Allergies No known active allergies Active Problems [...] on file Legal Sex Female 7:06 PM MEDICATION SPECIALIST Gender Identity Not on file Sexual Orientation Not on file Plan of Treatment Health Maintenance Due Date Last Done Comments HIV SCREENING 2000 HEPATITIS C SCREENING 07/21/2003 DTAP/TDAP/TD VACCINES (1 - Tdap) 2004 HEPATITIS B VACCINE (1 of 3 - 19+ 3-dose series) 2004 PAP SMEAR 2006 HPV VACCINE (1 - 3-dose SCDM series) 2012 DEPRESSION SCREENING 07/20/2024 COVID-19 VACCINE (1 - 2023-2 5 season) 2025 INFLUENZA VACCINE (#1) 2025 9, 04/23/2017 ZOSTER [...] patient's age to complete this topic Insurance [facility] SELF PAY NO INSURANCE Member Subscriber Plan / Payer (Ef fective for All Dates) Name:Holly Painting Member ID:Not on file Relation to Subscriber:Not on file Name:HOLLY PAINTING Subscriber ID:Not on file (Home) Address: [address] [place] [id number] Payer ID:Not on file Group ID:Not on file Type:Self Pay Address: [facility] Care Teams Public Health Veterinarian Relationship Specialty Start Date End Date Myles Pruett DO [address] [place] [phone] PCP - General 10/03/22
--- OUTSIDE RECORDS SUMMARY | 2025-05-04 08:18 | XMS_ITS | Clinical Summary ---
Author Organization [facility] Address [address] [place] [address] Phone Care Team Providers Care Toolmaker Name Role Phone Clovis Johnson MD Primary Care Provider [phone] Allergies No known active allergies Medications buPROPion HCl (WELLBUTRIN XL) 300 mg Extended Release 24 hour tablet Take 300 mg by mouth daily fitness floor attendant. Active methylphenidate HCl (RITALIN) 10 mg tablet [...] 5 8 Active fluticasone (FLONASE) 50 mcg/spray George, Suspension Administer 2 Sprays in each nostril [...] on file Legal Sex Female 3:47 PM COMPUTER SYSTEMS ANALYST Gender Identity Not on file Sexual Orientation Not on file Last Filed Vital Signs Vital Sign Reading Time Taken Comments Blood Pressure 137/83 09/03/2021 12:41 PM COMPUTER SYSTEMS ANALYST Pulse 78 03/19/2018 3:50 AM CDT Temperature 37.3 C (99.2 F) 03/19/2018 3:50 AM CDT Respiratory Rate 18 03/19/2018 3:50 AM CDT Oxygen Saturation 96% 03/19/2018 3:50 AM CDT Inhaled Oxygen Concentration - - Weight 119.3 kg (263 lb) 09/03/2021 12:41 PM COMPUTER SYSTEMS ANALYST Height 172.7 cm (5' 8) 09/03/2021 12:41 PM COMPUTER SYSTEMS ANALYST Body Mass Index 39.99 09/03/2021 12:41 PM COMPUTER SYSTEMS ANALYST Plan of Treatment Health Maintenance Due Date Last Done Comments HEPATITIS B VACCINES (1 of 3 - 19+ 3-dose series) 2004 HPV VACCINES (1 - 3-dose SCD M series) 2012 COLORECTAL SCREENING 10/01/2022 10/01/2017 INFLUENZA VACCINE (#1) 2025 9, 08/09/2018, 04/23/2017 DTAP/TDAP/TD VACCINES (2 - T d or Tdap) 11/14/2027 11/13/2017 Medical Devices Explanted Type Area Parasitology Teacher Device Identifier Shelf Expiration Date Model / Serial / Lot Interuterine Device For Control Explanted:Qty: 1 on 03/18/2018 by Martinez Walker MD at [facility] BLUE ACCESS/TRUE BLUE PPO RX [employer] Advance Directives For more information, please contact: [phone] * Full Code (Latest Code Status on File) Date Activated Date Inactivated Comments 03/18/2018 8:20 AM 03/18/2018 4:47 PM * Full Code Date Activated Date Inactivated Comments 10/01/2017 11:40 AM 10/01/2017 3:26 PM Care Teams Toolmaker Relationship Specialty Start Date End Date Clovis Johnson MD PCP - General Family Practice 08/17/17
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
--- NOTE | 2025-05-29 09:07 | WPDSLEEPSTUD ---
Sleep Study Date of Study: 05/04/25 Ordering Provider: Yumi Gonzalez APRN Interpreting Physician: Nancy Winslow DO Sleep Study Type: Polysomnogram Height: 1.73 m Weight: 117.027 kg Body Mass Index: 39.2 Neck Circumference (inches): 15 [place]: 15 Reason for Sleep Study Daytime hypersomnia Sleep History The patient is a 39-year-old female that had a sleep study ordered by her primary care for evaluation of sleep apnea. The patient admits to excessive daytime sleepiness, trouble maintaining sleep and trouble falling asleep. She denies snoring loudly. She does have interruptions in breathing while asleep. She denies choking or gasping at night. She does have trouble breathing on her back. She denies morning headaches. She does have a dry or sore mouth / throat in the morning. She denies nocturnal heartburn. She denies nocturia. She does have difficulty returning to sleep if she wakes up throughout the night. She does use hypnotics or sedatives. She does feel anxious about sleep. She feels tired or sleepy during the day. She does feel tired in the morning. She does have the urge to fall asleep during the day. She does feel drowsy while driving. She denies sleep paralysis, cataplexy and hypnagogic/ hypnopompic hallucinations. She does clench or grind her teeth. She denies kicking or jerking her legs excessively. She denies having a restless feeling in her legs. She goes to bed and 9:30 p.m. on work days and at 10:00 p.m. on her days off. It takes her 15 minutes to fall asleep. She gets 8 hours of sleep on work days and 9 hours on her days off. Her sleep is a little more restorative on days off. She does take planned naps in the afternoon for 1-2 hours. The neck is restorative. She denies dream enactment behavior. She denies sleep walking. She consumes more than 5 caffeinated beverages per day. She consumes 1 alcoholic beverage 1-2 nights per week. She denies tobacco use. She denies exercising on a regular basis. [facility] Past Medical History Medical History History of colitis Colitis Exposure to sexually transmitted disease (STD) Normal colonoscopy Erosive esophagitis Irritable bowel syndrome with diarrhea Nausea and vomiting Depression Asthma Allergies Surgical History Surgical History History of hysterectomy Family History Family History Father Diabetes mellitus Hypertension Mother Hypertension Depression Narcolepsy Sibling Asthma Grandparent Cancer Depression Heart disease Grandparent Alcoholism Social History Social History Smoking status: Never smoker Alcohol intake: current Drinks per week: 1 Alcohol use details: Wine Substance use: current Substance use type: marijuana Other substance usage details: gummies Lack of Transportation: No Lack of Food: Never True Current Housing: I Have Housing Concerned About Future Housing: No Difficulty Paying Gas/Electric Bills: No Difficulty Paying for Meds: No Currently Unemployed: No Education: Master's Degree or Higher Difficulty w/ Childcare or Family Care: No Living arrangements: with family Occupation/Education: occupation 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 - [employer] Gender identity (if verbalized by the patient): Female Spiritual care concerns: No Medications Home Medications ?Medication ?Instructions ?Recorded ?Confirmed ?Type albuterol sulfate 90 mcg/actuation 1 puff inhalation Q4H PRN 08/19/21 05/04/25 History aerosol inhaler Shortness Of Breath bupropion HCl 300 mg 24 hr tablet, 300 mg PO DAILY 08/19/21 05/04/25 History extended release cetirizine 10 mg tablet (Zyrtec) 10 mg PO DAILY 08/19/21 05/04/25 History fluoxetine 40 mg capsule (Prozac) 40 mg PO DAILY 08/19/21 05/04/25 History esketamine 84 mg (28 mg x 3) nasal 3 spray intranasal .every other 04/23/23 05/04/25 History spray (Spravato) week multivitamin (Daily Multi-Vitamin 1 tablet PO DAILY 10/26/24 05/04/25 History tablet) prazosin 1 mg capsule 1 mg PO DAILY 10/26/24 05/04/25 History ramelteon 8 mg tablet 8 mg PO DAILY PRN sleep 10/26/24 05/04/25 History lamotrigine 150 mg tablet mg 12/20/24 05/04/25 History omeprazole 20 mg capsule,delayed See Rx Instructions .Route 02/13/25 05/04/25 Rx release .COMPLEX #90 caps aripiprazole 10 mg tablet 10 mg PO DAILY 02/20/25 05/04/25 History amlodipine 10 mg tablet 10 mg PO DAILY #90 tabs 05/03/25 05/04/25 Rx hyoscyamine sulfate 0.375 mg mg PO 05/04/25 05/04/25 History tablet,extended release,12 hr norgestimate 0.25 mg-ethinyl 1 tablet PO DAILY #84 tabs 05/11/25 Rx estradiol 0.035 mg tablet (Sprintec (28)) tirzepatide (weight loss) 2.5 See Rx Instructions .Route 05/24/25 Rx mg/0.5 mL subcutaneous solution .COMPLEX #2 mL (Zepbound) Sleep Procedure A full night polysomnogram using the [employer] multi-channel system recorded the standard physiologic parameters including EEG, EOG, submentalis EMG, anterior tibialis EMG, EKG, body position, nasal and oral airflow using nasal pressure sensor and thermistor.? Respiratory parameters of chest and abdominal movements were recorded with Respiratory Inductance Plethysmography belts. Oxygen saturation was recorded by pulse oximetry. Video monitoring was also performed. Sleep stages, periodic limb movements, and EEG arousals were scored in 30 second epochs according to the criteria of the AASM Scoring Manual. The Apnea-Hypopnea Index was calculated using CMS guidelines for definition of hypopnea with 4% O2 desaturations while scoring respiratory events. Sleep Architecture The total recording time was 459.5 minutes.? The total sleep time was 419.5 minutes. Sleep latency was 8.5 minutes. REM latency was 223.0 minutes. Sleep efficiency was 91.3%. The patient had 19 awakenings for an awakening index of 2.7. Wake after sleep onset time was 32.0 minutes. The patient spent 23.0 minutes, 5.5% of total sleep time in Stage N1. The patient spent 263.5 minutes, 62.8% in Stage N2. The patient spent 49.5 minutes, 11.8% in Stage N3. The patient spent 83.5 minutes, 19.9% in Stage REM sleep. Respiratory Analysis The patient had 52 hypopneas, 1 obstructive apnea and 1 central apnea for an overall Apnea Hypopnea Index of 7.7. The REM Apnea Hypopnea Index was 10.8. The NREM Apnea Hypopnea Index was 7.1. The patient had a Central Apnea Hypopnea Index of 0.1. There was no evidence of Andi-Bynum Respirations. Arousals There were 120 total arousals for an arousal index of 17.2. There were 69 spontaneous arousals for an index of 9.9. There were 14 arousals due to respiratory events for an index of 2.0. There were 13 arousals due to periodic limb movements for an index of 1.9.? There were 25 arousals due to isolated limb movements for an index of 3.6. Periodic Limb Movements The patient had 50 isolated limb movements with an index of 7.2. The patient had 23 periodic limb movements with an index of 3.3. Patient had a total of 73 limb movements with a total limb movement index of 10.4. Oximetry Data The patient had an average oxygen saturation of 92.2% in sleep with a minimum oxygen saturation of 81.0% and a maximum oxygen saturation of 97.0%. The patient had 55 oxygen desaturations that were 4% or greater resulting in an Oxygen Desaturation Index of 7.9.? The patient spent 25.9 minutes, 5.6% of total sleep time with an oxygen saturation below 88%. Snoring Profile Mild snoring was present throughout the study. Cardiac Profile The EKG showed normal sinus rhythm. No arrhythmias or premature beats were seen. The patient had an average pulse rate of 77.4 bpm with a minimum pulse of rate of 64.0 bpm and a maximum pulse rate of 103.0 bpm.? EEG Profile No signs of seizure activity seen. Assessment and Plan Assessment and Plan (1) EZEQUIEL (obstructive sleep apnea): Code(s): G47.33 - Obstructive sleep apnea (adult) (pediatric) Status: Acute Assessment and Plan: The patient had an overall AHI of 7.7 with desaturation down to 81%. This is consistent with mild sleep apnea. Due to the patient's excessive daytime sleepiness (ESS of 15/24), she qualifies for treatment. I recommend that the patient be prescribed AutoPAP 5-15 cm H2O, CPAP mask/filters/tubing and heated humidity. A mandibular advancement device is also an acceptable treatment option. This should be used with all episodes of sleep.? Compliance should be reviewed within 31-90 days of starting therapy for usage greater than 4 hours per night greater than 70% of the nights. The patient should be asked about symptoms such as?excessive daytime sleepiness, quality of sleep, decreased nocturia, increased?mental functioning such as memory, mood, and concentration. Data The data obtained during this sleep study is adequate for interpretation. Certification This sleep study has been reviewed by a board certified sleep medicine physician.
[2025-05-29 10:16] VITALS: BMI 39.2
== END 2025-05-05 05:25 | disposition home or self-care (01) ==
PROVIDERS: PCP Nurse Practitioner; Visit Provider Nurse Practitioner
DX: G47.9 Sleep disorder, unspecified (principal); R40.0 Somnolence; G47.33 Obstructive sleep apnea (adult) (pediatric)
CPT/HCPCS: 95810

== ENCOUNTER 2025-05-04 10:15 | Outpatient (CLI) | payer BC, SELFPAY ==
[2025-05-04 11:38] LABS: Thyroid Stimulating Hormone 2.370 uIU/mL (0.465-4.680)
--- OUTSIDE RECORDS SUMMARY | 2025-05-04 11:43 | XMS_ITS | Clinical Summary ---
Author Organization [facility] Address [address] [place] [address] Phone Care Team Providers Care Plastic Production Machine Setter Name Role Phone Clovis Johnson MD Primary Care Provider [phone] Allergies No known active allergies Medications buPROPion HCl (WELLBUTRIN XL) 300 mg Extended Release 24 hour tablet Take 300 mg by mouth daily plasterer rough. Active methylphenidate HCl (RITALIN) 10 mg tablet [...] 5 8 Active fluticasone (FLONASE) 50 mcg/spray [place], Suspension Administer 2 Sprays in each nostril [...] on file Legal Sex Female 3:47 PM MULTIMEDIA SPECIALIST Gender Identity Not on file Sexual Orientation Not on file Last Filed Vital Signs Vital Sign Reading Time Taken Comments Blood Pressure 137/83 09/03/2021 12:41 PM MULTIMEDIA SPECIALIST Pulse 78 03/19/2018 3:50 AM CDT Temperature 37.3 C (99.2 F) 03/19/2018 3:50 AM CDT Respiratory Rate 18 03/19/2018 3:50 AM CDT Oxygen Saturation 96% 03/19/2018 3:50 AM CDT Inhaled Oxygen Concentration - - Weight 119.3 kg (263 lb) 09/03/2021 12:41 PM MULTIMEDIA SPECIALIST Height 172.7 cm (5' 8) 09/03/2021 12:41 PM MULTIMEDIA SPECIALIST Body Mass Index 39.99 09/03/2021 12:41 PM MULTIMEDIA SPECIALIST Plan of Treatment Health Maintenance Due Date Last Done Comments HEPATITIS B VACCINES (1 of 3 - 19+ 3-dose series) 2004 HPV VACCINES (1 - 3-dose SCD M series) 2012 COLORECTAL SCREENING 10/01/2022 10/01/2017 INFLUENZA VACCINE (#1) 2025 9, 08/09/2018, 04/23/2017 DTAP/TDAP/TD VACCINES (2 - T d or Tdap) 11/14/2027 11/13/2017 Medical Devices Explanted Type Area Online Merchandising Manager Device Identifier Shelf Expiration Date Model / Serial / Lot Interuterine Device For Control Explanted:Qty: 1 on 03/18/2018 by Martinez Walker MD at [facility] BLUE ACCESS/TRUE BLUE PPO RX [employer] Express Advance Directives For more information, please contact: [phone] * Full Code (Latest Code Status on File) Date Activated Date Inactivated Comments 03/18/2018 8:20 AM 03/18/2018 4:47 PM * Full Code Date Activated Date Inactivated Comments 10/01/2017 11:40 AM 10/01/2017 3:26 PM Care Teams Plastic Production Machine Setter Relationship Specialty Start Date End Date Clovis Johnson MD PCP - General Family Practice 08/17/17
--- OUTSIDE RECORDS SUMMARY | 2025-05-04 11:43 | XMS_ITS | Clinical Summary ---
Author Organization [facility] [employer] Address [address] [place] [address] Care Team Providers Care Svp Programmatic Tv Name Role Phone Pierreremy Myles PIZARRO Primary Care Provider [phone] Source Comments [facility] [employer],non-owned Affiliates and Associated Physician Practices is amultiple site organization consisting of ambulatory clinics and hospital sitesin [place], [place] and [place]. This disclosure is being madepursuant to the Care Everywhere program and may not contain all information available regarding this patient. 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 Gender Identity Not on file Sexual Orientation [...] patient's age to complete this topic Insurance [facility] SELF PAY NO INSURANCE Member Subscriber Plan / Payer (Ef fective for All Dates) Name:[employer] Member ID:Not on file Relation to Subscriber:Not on file Name:[employer] Subscriber ID:Not on file (Home) Address: [address] [place] [id number] Payer ID:Not on file Group ID:Not on file Type:Self Pay Address: [facility] Care Teams Svp Programmatic Tv Relationship Specialty Start Date End Date Myles Pruett DO [address] [place] [phone] PCP - General 10/03/22
[2025-05-05 07:10] LABS: FSH 20.0 mIU/mL (.)
[2025-05-10 15:09] LABS: Estradiol, Sensitive 10.3 pg/mL (.)
== END 2025-05-04 10:16 | disposition home or self-care (01) ==
LOC: ANHLAB 10:16
PROVIDERS: PCP Nurse Practitioner; Visit Provider Student in an Organized Health Care Education/Training Program
DX: R23.2 Flushing (principal)
CPT/HCPCS: 36415; 82670; 83001; 84443

== ENCOUNTER 2025-06-14 15:32 | Emergency (ER) | payer BC, SELFPAY ==
[2025-06-14 15:35] VITALS: BP 144/86; PULSE 88; RESP 20; TEMP 37; O2SAT 100
--- OUTSIDE RECORDS SUMMARY | 2025-06-14 15:35 | XMS_ITS | Clinical Summary ---
Author Organization [facility] [employer] Address [address] [place] [address] Care Team Providers Care Print Traffic Manager Name Role Phone Pierreremy Myles PIZARRO Primary Care Provider Source Comments [facility] [employer],non-owned Affiliates and Associated Physician Practices is amultiple site organization consisting of ambulatory clinics and hospital sitesin [place], [place], [place] and [place]. This disclosure is being madepursuant to the Care Everywhere program and may not contain all information available regarding this patient. 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 ER Gender Identity Not on file Sexual Orientation Not on file Plan of Treatment Health Maintenance Due Date Last Done Comments HIV SCREENING 2000 HEPATITIS C SCREENING 07/21/2003 DTAP/TDAP/TD VACCINES (1 - Tdap) 2004 HEPATITIS B VACCINE (1 of 3 - 19+ 3-dose series) 2004 Cervical Cancer Screening 2006 PAP SMEAR 2006 HPV VACCINE (1 - 3-dose SCDM series) 2012 PAP with HPV 2015 DEPRESSION SCREENING 07/20/2024 COVID-19 VACCINE (1 - 2024-2 6 season) 2025 INFLUENZA VACCINE (#1) 2025 9, [...] patient's age to complete this topic Insurance [facility] SELF PAY NO INSURANCE Member Subscriber Plan / Payer (Ef fective for All Dates) Name:[employer] Member ID:Not on file Relation to Subscriber:Not on file Name:HOLLY [employer] Subscriber ID:Not on file (Home) Address: [address] [place] [id number] Payer ID:Not on file Group ID:Not on file Type:Self Pay Address: [facility] Care Teams Print Traffic Manager Relationship Specialty Start Date End Date Myles Pruett DO [address] [place] [phone] PCP - General 10/03/22
--- OUTSIDE RECORDS SUMMARY | 2025-06-14 15:35 | XMS_ITS | Clinical Summary ---
Author Organization [facility] Address [address] [place] [address] Phone Care Team Providers Care Professor Of Surgery Name Role Phone Clovis Johnson MD Primary Care Provider [phone] Allergies No known active allergies Medications buPROPion HCl (WELLBUTRIN XL) 300 mg Extended Release 24 hour tablet Take 300 mg by mouth daily interim controller. 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 Gender Identity Not on file Sexual Orientation Not on file Last Filed Vital Signs Vital Sign Reading Time Taken Comments Blood Pressure 137/83 09/03/2021 12:41 PM CONSTRUCTION EQUIPMENT TECHNICIAN Pulse 78 03/19/2018 3:50 AM CDT Temperature 37.3 C (99.2 F) 03/19/2018 3:50 AM CDT Respiratory Rate 18 03/19/2018 3:50 AM CDT Oxygen Saturation 96% 03/19/2018 3:50 AM CDT Inhaled Oxygen Concentration - - Weight 119.3 kg (263 lb) 09/03/2021 12:41 PM CONSTRUCTION EQUIPMENT TECHNICIAN Height 172.7 cm (5' 8) 09/03/2021 12:41 PM CONSTRUCTION EQUIPMENT TECHNICIAN Body Mass Index 39.99 09/03/2021 12:41 PM CONSTRUCTION EQUIPMENT TECHNICIAN Plan of Treatment Health Maintenance Due Date Last Done Comments HEPATITIS B VACCINES (1 of 3 - 19+ 3-dose series) 2004 HPV VACCINES (1 - 3-dose SCD M series) 2012 COLORECTAL SCREENING 10/01/2022 10/01/2017 INFLUENZA VACCINE (#1) 2025 9, 08/09/2018, 04/23/2017 DTAP/TDAP/TD VACCINES (2 - T d or Tdap) 11/14/2027 11/13/2017 Medical Devices Explanted Type Area Environmental Services Floor Tech Device Identifier Shelf Expiration Date Model / Serial / Lot Interuterine Device For Control Explanted:Qty: 1 on 03/18/2018 by Martinez Walker MD at [facility] BLUE ACCESS/TRUE BLUE PPO RX [employer] Express Advance Directives For more information, please contact: [phone] * Full Code (Latest Code Status on File) Date Activated Date Inactivated Comments 03/18/2018 8:20 AM 03/18/2018 4:47 PM * Full Code Date Activated Date Inactivated Comments 10/01/2017 11:40 AM 10/01/2017 3:26 PM Care Teams Professor Of Surgery Relationship Specialty Start Date End Date Clovis Johnson MD PCP - General Family Practice 08/17/17
--- NOTE | 2025-06-14 15:48 | ED.EXTPRO ---
HPI - Extremity Problem General Chief complaint: Extremity Injury, Upper Stated complaint: Left Shoulder Injury Time Seen by Provider: 06/14/25 15:43 Source: patient and RN notes reviewed Mode of arrival: ambulatory Limitations: no limitations History of Present Illness HPI Narrative: 39-year-old female presents with concern for pain in between her neck and her left shoulder for 1 week. She reports that happened when she put as computer bag on her shoulder. She says she has taken Tylenol. She reports radiating down the left arm but denies numbness or weakness in left arm. She denies any direct injury to her neck, shoulder, arm. MD Complaint: extremity pain Related Data Home Medications ?Medication ?Instructions ?Recorded ?Confirmed ?Last Taken ?Type bupropion HCl 300 mg 24 hr tablet, 300 mg PO DAILY 08/19/21 05/04/25 10/30/24 History extended release fluoxetine 40 mg capsule (Prozac) 40 mg PO DAILY 08/19/21 05/04/25 10/31/24 History esketamine 84 mg (28 mg x 3) nasal 3 spray intranasal .every other 04/23/23 05/04/25 10/27/24 History spray (Spravato) week prazosin 1 mg capsule 1 mg PO DAILY 10/26/24 05/04/25 10/30/24 History ramelteon 8 mg tablet 8 mg PO DAILY PRN sleep 10/26/24 05/04/25 10/30/24 History lamotrigine 150 mg tablet mg 12/20/24 05/04/25 Unknown History aripiprazole 10 mg tablet 10 mg PO DAILY 02/20/25 05/04/25 Unknown History Allergies Allergy/AdvReac Type Severity Reaction Status Date / Time No Known Allergies Allergy Verified 06/14/25 15:41 Review of Systems Review of Systems: CONSTITUTIONAL: Denies malaise, chills, sweats, or fever. CARDIOVASCULAR: Denies chest pain, palpitations, or edema. RESPIRATORY: Denies cough or dyspnea. SKIN: Denies rash or itching. MUSCULOSKELETAL: Reports pain between the left neck and left shoulder NEUROLOGIC: Denies numbness, weakness, or headache. All systems reviewed & are unremarkable except as noted in HPI and below PMFSH Past Medical History Medical History History of colitis Colitis Exposure to sexually transmitted disease (STD) Normal colonoscopy Erosive esophagitis Irritable bowel syndrome with diarrhea Nausea and vomiting Depression Asthma Allergies Surgical History Surgical History History of hysterectomy Family History Family History Father Diabetes mellitus Hypertension Mother Hypertension Depression Narcolepsy Sibling Asthma Grandparent Cancer Depression Heart disease Grandparent Alcoholism Social History Social History Smoking status: Never smoker Alcohol intake: current Drinks per week: 1 Alcohol use details: Wine Substance use: current Substance use type: marijuana Other substance usage details: gummies Lack of Transportation: No Lack of Food: Never True Current Housing: I Have Housing Concerned About Future Housing: No Difficulty Paying Gas/Electric Bills: No Difficulty Paying for Meds: No Currently Unemployed: No Education: Master's Degree or Higher Difficulty w/ Childcare or Family Care: No Living arrangements: with family Occupation/Education: occupation 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 There is no relevant family history pertinent to the presenting complaint Exam Narrative: GENERAL: Well-appearing, well-nourished, and in no acute distress. HEAD: Normocephalic, atraumatic. EYES: PERRLA and EOMI. NECK: Supple. No lymphadenopathy. CHEST: Clear to auscultation. No respiratory distress. HEART: Regular rate and rhythm. Distal pulses palpable and equal, cap refill <3 seconds MUSCULOSKELETAL: Grossly Normal range of motion and strength in bilateral upper extremities grossly Normal sensation in dermatomal distributions. No midline neck tenderness. Transfers from sitting to standing. SKIN: Warm, dry, no rash. No ecchymosis, erythema, open wounds NEURO: No focal deficits. Alert and oriented x3. Normal gait. PSYCH: Normal mood and affect Course Course Emergency Course: Patient is aware of diagnosis, understands and agrees to treatment plan. Anticipatory guidance given. Patient agrees to follow-up as directed and is aware of reasons to seek care at the emergency department. Portions of this record may have been created with voice recognition software Level of Care: Express Care Visit Vital Signs Vital signs: Vital Signs Temperature 98.6 F 06/14/25 15:35 Pulse Rate 88 06/14/25 15:35 Respiratory Rate 20 06/14/25 15:35 Blood Pressure 144/86 H 06/14/25 15:35 Pulse Oximetry 100 06/14/25 15:35 Oxygen Delivery Room Air 06/14/25 15:35 Temperature 98.6 F 06/14/25 15:35 Pulse Rate 88 06/14/25 15:35 Respiratory Rate 20 06/14/25 15:35 Blood Pressure 144/86 H 06/14/25 15:35 Pulse Oximetry 100 06/14/25 15:35 Oxygen Delivery Room Air 06/14/25 15:35 Reviewed. MDM - Extremity (Nontraumatic) MDM Narrative Medical decision making narrative: Patients pain is consistent with musculoskeletal etiology. No signs of neurological or vascular compromise on exam. Compartments and tissues are soft without signs of compartment syndrome. Pain is felt appropriate for further evaluation on an outpatient basis. Critical Care Time Critical Care Time Critical Care Time: No Discharge Plan Discharge Clinical Impression: Spasm of left trapezius muscle Patient Disposition: Home Condition: Stable Instructions: Muscle Spasm (ED) Additional Instructions: Please follow up with your Primary Care Doctor. Activity as tolerated and gentle stretching. Take Motrin 800mg every 6-8 hours with food for the next 2-3 days, take muscle relaxers every 8 hours as needed for muscle spasm- do not drive or make any important decisions while on this medication for it can make you drowsy. You may apply ice followed by heat to the area as needed. If you experience any worsening pain, swelling, numbness, weakness please go to ER. Patient Language: German Prescriptions: New cyclobenzaprine 10 mg tablet 10 mg PO TID PRN (Reason: muscle spasm) Qty: 20 0RF ibuprofen 600 mg tablet 600 mg PO QID PRN (Reason: pain) Qty: 30 0RF No Action lamotrigine 150 mg tablet fluoxetine [Prozac] 40 mg capsule 40 mg PO DAILY bupropion HCl 300 mg tablet extended release 24 hr 300 mg PO DAILY Spravato 84 mg (28 mg x 3) spray,non-aerosol 3 spray intranasal .every other week aripiprazole 10 mg tablet 10 mg PO DAILY prazosin 1 mg capsule 1 mg PO DAILY ramelteon 8 mg tablet 8 mg PO DAILY PRN (Reason: sleep) omeprazole 20 mg capsule,delayed release(DR/EC) See Rx Instructions .ROUTE .COMPLEX Qty: 90 3RF Dose Instruction: TAKE 1 CAPSULE DAILY Rx Instructions: TAKE 1 CAPSULE DAILY amlodipine 10 mg tablet 10 mg PO DAILY Qty: 90 3RF norgestimate-ethinyl estradiol [Sprintec (28)] 0.25-0.035 mg tablet 1 tablet PO DAILY Qty: 84 3RF Follow-up/Referrals: Yumi Gonzalez APRN [Primary Care Provider, Internal Medicine] Time of Disposition: 15:52
== END 2025-06-14 15:55 | disposition home or self-care (01) ==
PROVIDERS: Emergency Provider Nurse Practitioner; PCP Nurse Practitioner
DX: M62.830 Muscle spasm of back (principal)
CPT/HCPCS: 99213; G0463